=== PATIENT | male | born 1945 | race Caucasian/White ===

== ENCOUNTER 2021-11-19 10:02 | Outpatient (CLI) | payer MEDICARE, SELFPAY ==
--- NOTE | 2021-11-19 15:38 | WPDSIXMINUTE ---
Six Minute Walk Procedure Procedure Performed Pulmonary Stress Test (6 min walk) Six Minute Walk This is a 6 minute walk test. The test was performed and interpreted in accordance with the 2014 ERS/ATS task force guidelines. Findings: The patient's resting room air oxygen saturation measured by pulse oximetry was 94% and heart rate was 62 bpm. Patient ambulated for 427 meters and oxygen saturation remained 92 to 94%. Heart rate at the end of the study was 93 bpm. The patient did not qualify for supplemental oxygen at rest or with ambulation. There are no prior studies for comparison.
--- NOTE | 2021-11-19 15:39 | WPDPFTINT ---
PFT Procedure Performed PFT Procedure Performed Spirometry with Pre/Post Bronchodilator Plethysmography (Lung Vol) Diffusing Cap (DLCO) Flow Vol Loop PFT Interpretation This is a pulmonary function test with pre and post-bronchodilator spirometry, plethysmography and diffusing capacity. The test was performed and results interpreted in accordance with the 2019 and 2005 ATS/ERS Task Force guidelines respectively using the Global Lung Function Initiative-2012 reference equations. Patient demonstrated good effort and cooperation. Reproducibility criteria were met. The quality of the pre bronchodilator spirometry maneuver was Grade B and post bronchodilator spirometry maneuver was Grade A. Findings: Spirometry: There is decreased maximal expiratory airflow at all lung volumes with concave expiratory flow tracing. The contour the inspiratory flow tracing is normal. The pre bronchodilator FVC is 3.21 L, 76% predicted. The pre bronchodilator FEV1 is 1.54 L, 49% predicted. The FEV1: FVC ratio is 48%. The post bronchodilator FVC is 3.69 L, representing a 15% increase. The post bronchodilator FEV1 is 1.67 L, representing 8% increase. The post bronchodilator FEV1: FVC ratio is 45%. Plethysmography: The total lung capacity is 8.00 L, 111% predicted. The functional residual capacity is 5.45 L, 141% predicted. The residual volume is 4.53 L, 176% predicted. Diffusion capacity: The diffusing capacity unadjusted for hemoglobin and carboxyhemoglobin is 14.3, 56% predicted. The diffusing capacity adjusted for alveolar volume is 3.23, 86% predicted. Impression: There is a severe obstructive abnormality with significant improvement after inhaling a single dose of albuterol. The increase in residual volume is consistent with air trapping from an obstructive abnormality. Hyperinflation is present is demonstrated by the increase in functional residual capacity and is consistent with an obstructive abnormality. The diffusing capacity unadjusted for hemoglobin and carboxyhemoglobin is moderately decreased and normalizes when adjusted for alveolar volume. There are no prior studies for comparison
== END 2021-11-19 10:03 | disposition home or self-care (01) ==
PROVIDERS: PCP Nurse Practitioner Adult Health; Visit Provider Nurse Practitioner
DX: J44.9 Chronic obstructive pulmonary disease, unspecified (principal); R94.2 Abnormal results of pulmonary function studies
CPT/HCPCS: 94060; 94618; 94726; 94729

== ENCOUNTER 2024-10-19 07:46 | Outpatient (CLI) | payer MEDICARE, MEDICAID, SELFPAY ==
--- OUTSIDE RECORDS SUMMARY | 2024-10-19 07:52 | XMS_ITS | Clinical Summary ---
Author Organization [facility] Address [address] [place] [id number] Care Team Providers Care Handkerchief Maker Name Role Phone Ursula Bregeron NP Primary Care Provider Allergies Active Allergy Reactions Criticality Noted Date Comments Nxjpfngm-Lkiaogunmnf-Kzkrzdjgd Rash Medium 07/26 Medications aspirin 81 mg chewable tablet Take 1 tablet (81 mg total) by mouth 11/01/19 14 Active budesonide-form oteroL (SYMBICORT) 160-4.5 mcg/actuation inhaler 02/08/20 21 Active food supplemt, lactose-reduced liquid Take 240 mL by mouth 03/29/20 13 Active metoprolol tartrate (LOPRESSOR) 25 mg immediate release tablet Take 1 tablet (25 mg total) by mouth daily 04/11/20 21 Active rosuvastatin (CRESTOR) 20 mg tablet Take 1 tablet (20 mg total) by mouth nightly at bedtime 04/11/20 21 Active traZODone (DESYREL) 150 mg tablet Take 1 tablet (150 mg total) by mouth nightly at bedtime 04/11/20 21 Active umeclidinium-vi lanteroL (Anoro Ellipta) 62.5-25 mcg/actuation blister with device INHALE 1 PUFF DAILY 01/12/20 21 Active levothyroxine (SYNTHROID) 75 mcg tablet Take 1 tablet (75 mcg total) by mouth 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 Active diclofenac sodium (VOLTAREN) 1 % gel APPLY 2 GRAMS TOPICALLY TO AFFECTED AREA FOUR TIMES DAILY Active dilTIAZem (CARDIZEM) 90 mg tablet Take 1 tablet (90 mg total) by mouth 2 (two) times a day Active nebulizer accessories [facility] Please provide pt with nebulizer tubing kits 2 each 07/12/20 24 Active sodium chloride 3 % nebulizer solutionIndicat ions:Bronchiect asis without acute exacerbation (HCC) Take 4 mL by nebulization 2 (two) times a day 360 mL 09/08/19 25 2025 Active inhalational spacing device (Aerochamber MV) spacerIndicatio ns:Centrilobula r emphysema (HCC) 1 each 2 (two) times a day 1 each 3 09/08/19 25 Active albuterol HFA (PROVENTIL HFA,VENTOLIN HFA,PROAIR HFA) 90 mcg/actuation inhaler USE 2 INHALATIONS BY MOUTH EVERY 6 HOURS NEEDED FOR WHEEZING 34 g 10/05/19 25 Active albuterol HFA (PROVENTIL HFA,VENTOLIN HFA,PROAIR HFA) 90 mcg/actuation inhaler Inhale 2 puffs every 6 (six) hours as needed for wheezing 1 each 01/20/20 24 2024 Discontinued Active Problems Problem Noted Date Diagnosed Date Chronic respiratory failure with hypoxia, on home O2 therapy 09/08/2024 Assessment & Plan (09/08/2024 11:42 AM NAILING MACHINE FEEDER): Continue supplemental oxygen with all sleep at 2 liters We have discussed the risks of hypoxia I have reordered walk testing today Bronchiectasis without acute exacerbation 2023 Assessment & Plan (09/08/2024 11:41 AM NAILING MACHINE FEEDER): He has tried and failed flutter therapy and NAC with a reaction Continue smart vest therapy twice daily I will add hypertonic saline via nebulizer twice daily He can also use Mucinex He had significant worsening of his mucus plugging and consolidative opacities on his last CT, I will plan to repeat CT chest in 1 month He has a history of positive Klebsiella and Serratia on sputum cultures from 2021 Assessment & Plan (03/29/2024 11:56 AM CDT): He has tried and failed flutter therapy, NAC He continues to have difficulty with mucus clearance He has had a chronic productive daily cough for greater than 6 months We have discussed smart vest and he is in agreement Order signed today Assessment & Plan (11/26/2023 2:26 PM CDT): He has tried and failed flutter therapy, NAC Continues to have difficulty with mucus clearance We have discussed smart vest and he is in agreement Ordered today Esophageal dysmotility 09/04/2023 Assessment & Plan (09/11/2023 10:08 AM NAILING MACHINE FEEDER): 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 Noted previous speech therapy evaluation nonconclusive. Will plan EGD and follow up response to dilation. 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 Prediabetes 04/11/2021 Combined forms of age-related cataract of both e yes 01/10/2021 Hyperopia of both eyes 01/10/2021 Type 2 diabetes mellitus wit hout complication, without long-term current use of insulin 01/10/2021 Tubular adenoma of colon 11/29/2020 Diverticulosis of large intestine without divert iculitis 02/17/2019 Personal history of colonic polyps 02/17/2019 Emphysema of lung 12/16/2014 Assessment & Plan (09/08/2024 11:41 AM NAILING MACHINE FEEDER): Continue Spiriva Respimat 2.5 once daily Continue Symbicort 160/4.5 2 puffs twice daily, I will obtain a copy of his most recent CBC and consider decreasing his ICS dose Albuterol as needed only, he is aware of indications for use He is not having frequent exacerbations A1AT was normal I will plan to repeat walk testing to ensure he is not desaturating with activity Assessment & Plan (03/29/2024 11:58 AM CDT): Continue Spiriva Respimat 2.5 once daily Continue Symbicort 160/4.5 2 puffs twice daily Albuterol as needed only, he was aware of indications for use He is not having frequent exacerbations A1AT was normal I have written a letter for his landlord to recommend he move to the 2nd floor due to air conditioning issues Assessment & Plan (11/26/2023 2:24 PM CDT): Continue Spiriva Respimat 2.5 once daily I have reinstructed him on Symbicort use at twice daily Albuterol as needed only He has not having frequent exacerbations Acute coronary syndrome 10/30/2013 Coronary artery disease 10/30/2013 Pulmonary nodules 10/30/2013 Assessment & Plan (09/08/2024 11:42 AM NAILING MACHINE FEEDER): Scattered bilaterally, these have been followed radiographically Likely related to chronic aspiration or infection His last scan demonstrated increased consolidations and mucus plugging I will plan to repeat his CT chest in one month Assessment & Plan (03/29/2024 11:57 AM CDT): Scattered bilaterally, these have been followed radiographically Likely related to chronic aspiration or infection Repeat scan due 07/09/2024, I have ordered this today and he is aware Assessment & Plan (11/26/2023 2:18 PM CDT): Scattered bilaterally, these have been followed radiographically Likely related to chronic aspiration or infection Repeat scan due 07/09/2024 Duodenal ulcer disease 03/23/2013 Overview (05/10/2021): Per EGD 03/23/13 Dysphagia 03/17/2013 Assessment & Plan (11/26/2023 2:19 PM CDT): This is chronic He has followed with GI and had EGD completed, biopsies were negative for malignancy He is uninterested in speech therapy at this time Assessment & Plan (09/11/2023 10:06 AM NAILING MACHINE FEEDER): 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 Esophageal abnormality is still possibility. Patient was advised to increase and sure intake to at least 4 or 5 cans per day. Schedule EGD for evaluation. HTN (hypertension) 10/19/2010 Hyperlipidemia 10/19/2010 Hypothyroidism 10/19/2010 Jaw pain 10/19/2010 Encounters Date Type Department Care Team Description 10/01/2024 Telephone [facility] Pulmonary at [address] [place] [address] Juhi Weems 09/22/2024 10:22 AM NAILING MACHINE FEEDER - 09/22/2024 11:59 PM NAILING MACHINE FEEDER Hospital Encounter [facility] [address] [place] [id number] Pulmonary nodules Discharge Disposition: Discharge to home or self care 09/21/2024 Telephone [facility] [address] [place] [id number] Darline Christine 09/08/2024 10:00 AM NAILING MACHINE FEEDER Office Visit [facility] Pulmonary at [address] [phone] Kristina Renteria NP Bronchiectasis without acute exacerbation (HCC) (Primary Dx); Centrilobular emphysema (HCC); Pulmonary nodules; Chronic respiratory failure with hypoxia, on home O2 therapy (HCC) 08/02/2024 Orders Only [facility] Pulmonary at [address] [phone] Katherine Troncoso LPN Centrilobular emphysema (HCC) (Primary Dx); Bronchiectasis without acute exacerbation (HCC) 07/27/2024 Telephone [facility] Pulmonary at [address] [address] Helena Newman MA Dysphagia 07/22/2024 Orders Only [facility] Pulmonary at [address] [address] Katherine Troncoso LPN Bronchiectasis without acute exacerbation (HCC) (Primary Dx); Centrilobular emphysema (HCC); Chronic obstructive pulmonary disease, unspecified COPD type (HCC) from Last 3 Months Immunizations Immunization Administration Dates Next Due Influenza, Quadrivalent, Shira l Culture-based MDCK, Antibiotic Free, Intramuscular 04/20/2019 Influenza, Quadrivalent, Hig h Dose, Preservative Free, Intrr 04/11/2021 Influenza, Trivalent, High D ose, Split, Preservative Free, Intramuscular 04/10/2020 Influenza, Trivalent, IM (MDV) 04/13/2018,2016 Influenza, Trivalent, Preservative Free, Intramu scular 04/22/2012 Influenza, Unspecified 04/11/2021,04/10/2020 Pneumococcal Polysaccharide PPV23 07/28/2020 Tdap 09/29/2019,10/12/2007 Surgical History Surgery Date Site/Laterality Comments CATARACT EXTRACTION, BILATERAL 07/21/2020 - 07/20/2021 MANDIBLE SURGERY 07/21/1991 - 07/20/1992 CARPAL TUNNEL RELEASE Left Medical History Medical History Date Comments HTN (hypertension) Cataracts, bilateral COPD (chronic obstructive pulmonary disease) (HC C) Thyroid disease Squamous cell carcinoma of tonsil (HCC) Bronchiectasis without acute exacerbation (HCC) 11/26/2023 Family History Medical History Relation Name Comments Thyroid disease Brother Misha Thyroid disease Sister Kristina Relation Name Status Comments Brother Misha Father Mother Sister Kristina Social History Tobacco Use Types Packs/Day Years Used Date Smoking Tobacco: Former Cigarettes 0.5 18 1 958 - 1975 Passive Smoke Exposure: Past Smokeless Tobacco: Never Tobacco Cessation:Counseling Given: Not Answered AUDIT-C Answer Date Recorded Q1: How often do you have a drink containing alc ohol? Patient declined 09/08/2024 Average Number of Drinks Not on file 025 Frequency of Binge Drinking Not on file 08/21 Personal Safety Answer Date Recorded Have you ever been in or are you currently in a harmful physical or emotional relationship or is someone making you feel afraid or unsafe? Denies 10/30/2023 Sex and Gender Information Value Date Recorded Sex Assigned at Not on file Legal Sex Male 11:41 PM NAILING MACHINE FEEDER Gender Identity Male 05/13/2021 1:34 PM CDT Sexual Orientation Straight 05/13/2021 1: 34 PM CDT Obstetrics History Last Filed Vital Signs Vital Sign Reading Time Taken Comments Blood Pressure 161/84 09/08/2024 9:39 AM NAILING MACHINE FEEDER Pulse 64 09/08/2024 9:39 AM NAILING MACHINE FEEDER Temperature 36.5 C (97.7 F) 09/08/2024 9:39 AM NAILING MACHINE FEEDER Respiratory Rate 18 09/08/2024 9:39 AM NAILING MACHINE FEEDER Oxygen Saturation 97% 09/08/2024 9:39 AM NAILING MACHINE FEEDER Inhaled Oxygen Concentration - - Weight 82.7 kg (182 lb 4.8 oz) 09/08/2024 9:39 A M NAILING MACHINE FEEDER Height 182.9 cm (6') 09/08/2024 9:39 AM NAILING MACHINE FEEDER Body Mass Index 24.72 09/08/2024 9:39 AM NAILING MACHINE FEEDER Plan of Treatment Health Maintenance Due Date Last Done Comments Albumin Creatinine Ratio, Urine 1946 Depression Screening 1946 Fall Risk Assessment 1946 Hepatitis C Screening 1945 eGFR 1946 Dilated Eye Exam 1946 Foot Exam 1946 Lipid Panel 1946 Hepatitis B Screening 1964 Well Visit 65+ 11/25/2011 Hemoglobin A1C 06/30/2021 12/29/2020, 02/2021, 01/19/2020 Pneumococcal vaccine 65+ (2 of 2 - PCV) 07/28/2021 07/28/2020 Covid-19 Vaccine (3 - 2023-2 5 season) 2024 05/15/2021, 09/27/2020 DTaP/Tdap/Td Vaccine (3 - Td or Tdap) 09/28/2029 09/29/2019, 10/12/2007 Abdominal Aortic Aneurysm (A AA) Screen Completed 03/17/2013 Zoster Vaccine Completed 05/13/2022, 03/12/2022 Influenza Vaccine Completed 03/30/2024, , 04/11/2021, Additional history exists Procedures Procedure Name Priority Date/Time Associated Diagnosis Comments CT CHEST WO CONTRAST Schedule Routine, Read Routine (OP Routine) 09/22/2024 10:44 AM NAILING MACHINE FEEDER Pulmonary nodules from Last 3 Months Results * CT Chest WO Contrast (09/22/2024 10:44 AM NAILING MACHINE FEEDER) Anatomical Region Laterality Modality Body N/A Computed Tomogra phy 09/27/2024 1:33 PM CDT Narrative 09/27/2024 2:29 PM CDT EXAM DESCRIPTION: CT CHEST WO CONTRAST REASON FOR STUDY: Lung nodule, > 8mm, lung nodule/consolidations/bronchiectasis F/u on lung nodule TECHNIQUE: CT scan of the chest performed without intravenous contrast using helical scanning technique. Reconstructed coronal and sagittal MPR images reviewed. All images stored on PACS. Automated exposure control was used as a dose optimization technique for this examination. COMPARISON: Chest CT dated 06/23/[address] from an outside institution dated 07/07/2023. FINDINGS: The sensitivity for detection of solid visceral lesions is diminished without the use of intravenous contrast. LUNGS: There is bilateral bronchial wall thickening/bronchiectasis. Multiple opacified bronchi, in particular left lower lobe could be mucous plugging, endobronchial lesion with difficult to exclude. The medial margin left lower lobe consolidation has slightly increased in extent when compared to the previous CT dated 06/23/2024. Multifocal tree-in-bud nodularity on both sides favoring bilateral lower lobe. The posterior margin right upper lobe and right middle lobe tree-in-bud nodularity has slightly improved. Similarly the lingular tree-in-bud nodularity has also slightly improved. PLEURA: No effusion. No pneumothorax. MEDIASTINUM/TIFFANIE: Marked patulous distended thoracic esophagus and imaged cervical esophagus. There is air-fluid level/internal debris. Overall similar when compared to the previous chest CT dated 06/23/2024. Underlying achalasia or stricture would be difficult to exclude. A few nonspecific mediastinal lymph nodes are again seen. Index left paratracheal 1.1 cm and previously up to 1.1 cm on 06/23/2024. The evaluation for hilar adenopathy is limited without intravenous contrast. HEART: The heart is similar in size. CORONARY ARTERY CALCIFICATION: Present. VASCULATURE: The ascending thoracic aorta measuring up to 4 cm as seen previously. AXILLA: No adenopathy. CHEST WALL: There is no subcutaneous emphysema. HARDWARE/LINES/TUBES: None. UPPER ABDOMEN: Partially imaged spleen with calcified granuloma. There are vascular calcifications in the imaged upper abdomen. MUSCULOSKELETAL: The thoracic spine degenerative changes are grossly similar. IMPRESSION: 1. The multifocal bilateral tree-in-bud nodularity have slightly improved but not resolved when compared to the previous chest CT dated 06/23/2024. Recommend follow-up chest CT in 3 months time to re-evaluate. 2. Multiple opacified lower lobe bronchi, in particular the left lower lobe could reflect mucous plugging. Attention on follow-up to exclude endobronchial lesion. The left lower lobe consolidation has slightly increased in extent and could be atelectasis or pneumonic consolidation. Request clinical correlation and attention on follow-up. 3. Mediastinal prominent lymph nodes are again seen, presumed to be reactive, attention on follow-up. 4. Patulous esophagus with air-fluid level is redemonstrated. Achalasia or stricture would be difficult to exclude. Consider endoscopy if not performed in the interval. Suspect a component of aspiration for the above described lung findings. 5. Additional findings as above. THIS IS AN ELECTRONICALLY VERIFIED FINAL REPORT 09/27/2024 2:29 PM - Electronically signed by Magan Castro D.O. AP: AP Report ID: [id number] Reading Location: [place] [address] Procedure Note Magan Castro, DO - 09/27/2024 EXAM DESCRIPTION: CT CHEST WO CONTRAST REASON FOR STUDY: Lung nodule, > 8mm, lung nodule/consolidations/bronchiectasis F/u on lung nodule TECHNIQUE: CT scan of the chest performed without intravenous contrastusing helical scanning technique. Reconstructed coronal and sagittal MPR images reviewed. All images stored on PACS. Automated exposure control was usedas a dose optimization technique for this examination. COMPARISON: Chest CT dated 06/23/[address] from an outsideinstitution dated 07/07/2023. FINDINGS: The sensitivity for detection of solid visceral lesions is diminishedwithout the use of intravenous contrast. LUNGS: There is bilateral bronchial wall thickening/bronchiectasis. Multiple opacified bronchi, in particular left lower lobe could be mucous plugging, endobronchial lesion with difficult to exclude. The medial margin left lower lobe consolidation has slightly increased in extent when compared to the previous CT dated 06/23/2024. Multifocal tree-in-bud nodularity on both sides favoring bilateral lowerlobe. The posterior margin right upper lobe and right middle lobe tree-in-bud nodularity has slightly improved. Similarly the lingular tree-in-bud nodularity has also slightly improved. PLEURA: No effusion. No pneumothorax. MEDIASTINUM/TIFFANIE: Marked patulous distended thoracic esophagus andimaged cervical esophagus. There is air-fluid level/internal debris. Overall similar when compared to the previous chest CT dated 06/23/2024.Underlying achalasia or stricture would be difficult to exclude. A few nonspecific mediastinal lymph nodes are again seen. Index left paratracheal 1.1 cmand previously up to 1.1 cm on 06/23/2024. The evaluation for hilaradenopathy is limited without intravenous contrast. HEART: The heart is similar in size. CORONARY ARTERY CALCIFICATION: Present. VASCULATURE: The ascending thoracic aorta measuring up to 4 cm as seen previously. AXILLA: No adenopathy. CHEST WALL: There is no subcutaneous emphysema. HARDWARE/LINES/TUBES: None. UPPER ABDOMEN: Partially imaged spleen with calcified granuloma. Thereare vascular calcifications in the imaged upper abdomen. MUSCULOSKELETAL: The thoracic spine degenerative changes are grossly similar. IMPRESSION: 1. The multifocal bilateral tree-in-bud nodularity have slightlyimproved but not resolved when compared to the previous chest CT dated 06/23/2024. Recommend follow-up chest CT in 3 months time to re-evaluate. 2. Multiple opacified lower lobe bronchi, in particular the left lowerlobe could reflect mucous plugging. Attention on follow-up to exclude endobronchial lesion. The left lower lobe consolidation has slightly increased in extent and could be atelectasis or pneumonic consolidation. Request clinical correlation and attention on follow-up. 3. Mediastinal prominent lymph nodes are again seen, presumed to be reactive, attention on follow-up. 4. Patulous esophagus with air-fluid level is redemonstrated. Achalasiaor stricture would be difficult to exclude. Consider endoscopy if notperformed in the interval. Suspect a component of aspiration for the abovedescribed lung findings. 5. Additional findings as above. THIS IS AN ELECTRONICALLY VERIFIED FINAL REPORT 09/27/2024 2:29 PM - Electronically signed by aMgan Castro D.O. AP: ALBERTO Report ID: [id number] Reading Location: [place] [address] [place] Kristina Renteria HOME SCHOOL COORDINATOR IMG CT PROCEDURES Final Res ult from Last 3 Months Insurance [facility] MEDICARE ADVANTAGE MEDICARE ADVANTAGE IDPA Advance Directives For more information, please contact: [phone] * Full Code (Latest Code Status on File) Date Activated Date Inactivated Comments 10/30/2023 12:06 PM 10/30/2023 6:21 PM Care Teams Handkerchief Maker Relationship Specialty Start Date End Date Ursula Bergeron NP [address] [place] [id number] PCP - General Family Medicine 06/08/24
--- OUTSIDE RECORDS SUMMARY | 2024-10-19 07:52 | XMS_ITS | Encounter Summary ---
Author Organization [facility] Address 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
--- OUTSIDE RECORDS SUMMARY | 2024-10-19 07:52 | XMS_ITS | Data Portability ---
Author Organization [place] [employer], Main Office Address [address] [place] [address] Care Team Providers Care Integration Analyst Name Role Phone XOCHILT VANEGAS Primary Care Provider Assessment Encounter Date Assessment Date Assessment LastModified by Organization Details LastModified Time 04/15/2024 04/15/2024 cyst lower back. We will schedule for excision in the office under local anesthesia. Risks and benefits were discussed. Risks include bleeding, infection and numbness Not available 04/15/2024 12:32:06 05/18/2024 05/18/2024 procedure performed, dictated. No issues. Not available 05/18/2024 12:28:39 05/27/2024 05/27/2024 status post excision cyst lower back. Doing well. Follow up p.r.n. Not available 05/27/2024 11:09:13 Plan of Treatment Reminders Order Date Submit Date Provider Last Modified By Organization Details Last Modified Time Details Appointments None recorded. Lab CMP, serum or plasma 2024 025 [employer] [facility], [address], [place], [address], 5 22:26:30 lipid panel, serum 2024 025 [employer] [facility], [address], [place], [address], 5 22:26:28 CBC w/ auto diff 2024 025 [employer] [facility], [address], [place], [address], 22:26:31 TSH, serum or plasma 2024 [facility], [address], [place], [address], 5 22:26:33 TSH + free T4, serum 2023 024 [place] [address] 4 [facility], [address] [place], [address], 4 11:48:48 T3, free, serum or plasma 2023 024 [place] [address] 4 [facility], [address] [place], [address], 4 11:49:06 Referral cardiologis t referral - Please call patient to schedule an appointment . Thank you. 2024 025 [place], [address] [facility], [facility] [address], [address], 09:49:[address] referral - Please call patient to schedule an appointment . Thank you. 2024 025 ROE [facility]-, [address] [place] [address], [address], [place], [address], 12:49:49 Procedures None recorded. Surgeries None recorded. Imaging None recorded. Medication Orders amoxicillin 400 mg-potassiu m clavulanate 57 mg/5 mL oral suspension 2024 025 ROE [facility] 2425, [address], [place], [address], 12:38:58 Bactrim DS 800 mg-160 mg tablet 2023 024 [email or web address] [facility], [address] [place] [address], [facility] [address], [place], [id number], 11:50:22 Patient TargetsNo targets recorded. Patient InstructionsNo instructions recorded. Reason for Referral Matchbook Maker Referral for Silva sinclair chronic obstructive pulmonary disease Please call patient to schedule an appointment. Thank you. Referring Physician: Justin Jane, Internal Medicine, Encounter Date: 08/25/2024 Data Technical Lead Referral for Es sential hypertension Please call patient to schedule an appointment. Thank you. Referring Physician: Justin Jane, Internal Medicine, Encounter Date: 08/25/2024 Results Created Date Observation Date Name Description Value Unit Range Abnormal Flag Note LastModifiedBy Organization Detail LastModifiedTime 03/18/20 24 XR, hand, 3 or more view [facility] [address] [place] [address] Patien t Name: NATHAN MOSCOSO Access ion #: [id number] Sex: M : 1945 1 8 Dictat ed By: Lizzie Suarez Attend ing Physic anna: EVERARDO ABREU [facility] Physic anna: EVERARDO ABREU Exam Date: 2023 09:29 AM Exam Name: XR HAND LT 3V Admitt ing Diagno sis(es ): CLINIC AL INDICA TION: left hand surger y f/o w/ pain TECHNI QUE: 3 radiog raphic views of the left hand were obtain ed. Compar killian: XR HAND BILAT 3V on DOS: 4 FINDIN GS/IMP RESSIO N: There is no eviden ce of acute fractu re or disloc ation. Chroni c left ulnar styloi d proces s fractu re. The visual ized joint space is well mainta ined. The alignm ent is anatom ical. There is no radiop aque foreig n body. Electr onical ly Signed by: Lizzie Suarez at 2023 10:36: 21 AM Page 1 [email or web address] [facility] ([facility]) [address] [place], [address], 04/07/2024 10:39:49 03/18/20 24 03/18/2024 XR, hand, 3 or more view No observ ation record ed. [email or web address] [facility] [address] [place], [address], 03/31/2024 15:18:43 Result Notes None recorded. Problems Name Problem SNOMED Code Status Onset Date Resolution Date Notes Provider Name and Address Organization Details Recorded Time Hyperchole sterolemia 78246854 Active 2020 Not Available [employer] 4 22:23:27 Chronic obstructiv e pulmonary disease 81656353 Active 2020 Not Available [facility] 4 22:23:27 Anti-nucle ar factor detected 744118554 Active 2021 Not Available [facility] 4 22:23:27 Bacterial infection caused by Klebsiella pneumoniae 457068413 Active 2021 Not Available [facility] 4 22:23:27 Copious sputum 018649049 Active 2021 Not Available [facility] 4 22:23:27 Esophageal dysmotilit y 767992182 Active 2021 Not Available [facility] 4 22:23:27 History of malignant neoplasm 888904315 Active 2020 Not Available [facility] 4 22:23:27 Abdominal mass 198612205 Active 2021 Not Available [facility] 4 22:23:27 Thick sputum 151802462 Active 2022 Not Available [facility] 4 22:23:27 Severe chronic obstructiv e pulmonary disease 063935178 Active 2022 Not Available [facility] 4 22:23:27 Postobstru ctive pneumonia 385136882 Active 2021 Not Available [facility] 4 22:23:27 At increased risk for aspiration 674288310 Active 2021 Not Available [facility] 4 22:23:27 Hypertensi ve disorder 44673857 Active 2020 Not Available [facility] 4 22:23:27 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 397550686 Active 2021 Not Available [facility] 4 22:23:27 Rajni, not Rajni albicans 327431212 Active 2021 Not Available [facility] 4 22:23:28 Dysphagia 40262531 Active 2021 Not Available [facility] 4 22:23:28 Hypothyroi dism 17103682 Active 2020 Not Available [facility] 4 22:23:28 Coronary arterioscl erosis 84887118 Active 2021 Not Available [facility] 4 22:23:28 Dyspnea on exertion 28408754 Active 2021 Not Available [facility] 4 22:23:28 Chronic cough 18464949 Active 2021 Not Available [facility] 4 22:23:28 Bacterial infection caused by Serratia 99607068 Active 2021 Not Available [facility] 4 22:23:28 Prediabete s 737178990 Active 2020 Not Available [facility] 4 22:23:28 Obstructiv e sleep apnea syndrome 96704391 Active 2022 Not Available [facility] 4 22:23:28 History of squamous cell carcinoma in situ 6501427864482 5 Active 2020 Not Available [facility] 4 22:23:28 Solitary nodule of lung 040793186 Active 2022 Not Available [facility] 4 22:23:28 Hyperlipid emia 80300531 Active 2022 Not Available [facility] 4 22:23:28 Insomnia 431210537 Active 2022 Not Available [facility] 4 22:23:27 Pain of bilateral hands 4224092576129 9109 Active 2022 Not Available [facility] 4 22:23:27 Osteoarthr osis of the carpometac arpal joint of the thumb 97381294 Active 2022 Not Available [facility] 4 22:23:27 Bilateral pain of joint of hands 0530464331068 9102 Active 2022 Not Available [facility] 4 22:23:27 Abnormal findings on diagnostic imaging of lung 238189788 Active 2022 Not Available [facility] 4 22:23:27 Arthritis of bilateral first carpometac arpal joints 2003471781881 102 Active 2022 Not Available [facility] 4 22:23:27 Pain of left hand 7981232572525 03 Active 2023 ANEESH Cesar [address], [place], [address] , [facility] 4 22:54:41 Diabetes mellitus 43782555 Active 2023 ANEESH Hernandez [address], [place], [address] , [employer] [facility] 4 11:30:11 Epidermoid cyst of skin of back 890973902 Active 2023 ANEESH Hernandez [address], [place], [address] , [employer] [facility] 4 11:34:05 Epidermoid cyst of skin 932646401 Active 2023 Jim esparza MD [address], [address], [place], [address] , [employer] [facility] 4 13:58:44 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 2024 Justin jarrett MD [address], [address], [place], [address] , [place] [facility] 5 12:10:07 Essential hypertensi on 79431882 Active 2024 Justin jarrett MD [address], [address], [place], [address] , [facility] [employer] [facility] [employer] 5 12:10:17 Esophageal dysphagia 94264177 Active 2024 Justin jarrett MD [address], [facility] [address], [place], [address] , [facility] [employer] [facility] [employer] 5 12:13:28 Notes:Medical History: Laryn geal penetration Hypothyroidism Hyperlipidemia Hypertension EF 55% Prediabetes Mild TR CAD 4.1 cm ascending thoracic aortic ectasia Moderate COPD LLL 6.7 mm pulm nodule Asbestos exposure 0997-7649 Mild splenomegaly Left 7.7 cm renal cyst Procedure History: 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 Please review these documents and add these problems to the patient's chart manually as needed. Problem Notes None recorded. Procedures Surgical History Date Name Laterality Status Provider Name and Address Organization Details Recorded Time 4 Blank Procedure Note completed Jim Ramirez MD [address], [facility] [address], [place], [address], [facility] [employer] [facility] [employer] 05/18/2024 12:28:30 3 Ortho - Cortisone Injection completed Olivier Jackson MD [address], [facility] [address], [place], [address], [facility] [employer] [facility] [employer] [place] 01/28/2023 14:48:33 other completed Annika Varela [place] [employer] [facility] [employer] [facility] 04/15/2024 12:02:59 Imaging Results Imaging Date Name Status LastModified by Organiz [facility] Details LastModified Time 03/18/2024 XR, hand, 3 or more view completed [email or web address] [facility] (Imaging) [address] [place], [address], 04/07/2024 10:39:49 03/18/2024 XR, hand, 3 or more view completed [email or web address] [facility] [address] [facility], [place], [address], 03/31/2024 15:18:43 Procedure Notes None recorded. Medical Equipment None Reported. Allergies Allergen ID Allergen Name Allergen Category Reaction Reaction Severity Criticality Documentation Date Start Date Code Code System Note Provider Name and Address Organization Details Recorded Time 39659 bacitraci n / neomycin / polymyxin B medicatio n Not available Not available Not available 09/18/2022 30204 9 RxNorm Not Available [facility] 3 23:31:27 54112 bacitraci n medicatio n Not available Not available Not available 03/29/2024 1291 RxNorm Other react ions and sever ities : 'Adve rse react ion to subst ance - Sever e'. Yoana Rodriguez APRN [address] [facility], [address], [place], [address] [place] [address] [employer] 4 14:17:39 Medications Name Sig Start Date Stop Date Status Note LastModified by Organization Details LastModified Time furosemid e 40 mg tablet TAKE 1 TABLET BY MOUTH EVERY DAY active Not Available Not Available No t Available acetylcys teine 200 mg/mL (20 %) solution USE 3MLS VIA NEBULIZE R THREE TIMES DAILY DIRECTED 08/25 completed Not Available Not Available Not Available nystatin 100,000 unit/mL oral suspensio n SWISH AND SWALLOW 5 ML BY MOUTH FOUR TIMES DAILY FOR 10 DAYS 03/10 completed Not Available Not Available Not Available prednison e 10 mg tablet TAKE 1 TABLET BY MOUTH THREE TIMES DAILY FOR 3 DAYS THEN 1 TWICE DAILY FOR 2 DAYS THEN 1 ONCE DAILY FOR 1 DAY 03/29 completed Not Available Not Available Not Available doxycycli ne hyclate 100 mg capsule Take 1 capsule twice a day by oral route for 10 days. active Not Available Not Available No t Available albuterol sulfate 2.5 mg/3 mL (0.083 %) solution for nebulizat ion INHALE THE CONTENTS OF 1 VIAL VIA NEBULIZE R 4 TIMES DAILY DIRECTED active Not Available Not Available No t Available azithromy kevin 250 mg tablet TAKE 2 TABLETS (500 MG) BY ORAL ROUTE ONCE DAILY FOR 1 DAY THEN 1 TABLET (250 MG) BY ORAL ROUTE ONCE DAILY FOR 4 DAYS 10/08 completed Not Available Not Available Not Available diltiazem CD 180 mg capsule,e xtended release 24 hr TAKE 1 CAPSULE BY MOUTH ONCE DAILY 08/25 completed Not Available Not Available Not Available benzonata te 200 mg capsule Take 1 capsule 3 times a day by oral route as needed. active Not Available Not Available No t Available sodium chloride 3 % for nebulizat ion USE 1 VIAL PER NEBULIZE R TWICE DAILY active Not Available Not Available No t Available ondansetr on HCl 4 mg tablet 04/11 completed Not Available Not Available Not Available bupivacai ne HCl 0.5 % (5 mg/mL) injection solution Take 20 mg by injectio n route. 08/25 completed Not Available Not Available Not Available prednison e 20 mg tablet Take 3 tablets every day by oral route in the morning for 5 days. active Not Available Not Available No t Available aspirin 81 mg tablet,de layed release Take 1 tablet every day by oral route for 90 days. active Not Available Not Available No t Available Ensure High Protein oral liquid Drink 4 orally per day 2023 active Not Available Not Available Not Avai lable prednison e 10 mg tablets in a dose pack Take 1 tab by mouth, 3 times a day for 3 daysTake 1 tab by mouth 2 times a day for 2 daysTake 1 tab by mouth once a day for 1 day 03/29 completed Not Available Not Available Not Available amoxicill in 400 mg-potass ium clavulana te 57 mg/5 mL oral suspensio n TAKE 10 ML BY MOUTH EVERY 12 HOURS FOR 7 DAYS. DISCARD REMAINDE R active Not Available Not Available No t Available OneTouch Ultra Test strips TEST DAILY 06/24 completed Not Available Not Available Not Available Kenalog 10 mg/mL suspensio n for injection Take 20 mg by injectio n route. 08/25 completed ND: [id number] 11-07 Not Available Not Available Not Available hydrocodo ne 7.5 mg-acetam inophen 325 mg tablet TAKE 1 TABLET BY MOUTH EVERY 6 HOURS NEEDED FOR PAIN 08/25 completed Not Available Not Available Not Available trazodone 150 mg tablet TAKE 1 TABLET BY MOUTH DAILY AT BEDTIME 2024 active Not Available Not Available Not Avai lable prednison e 50 mg tablet 04/11 completed Not Available Not Available Not Available trazodone 300 mg tablet Take 1 tablet every day by oral route at bedtime for 30 days. active Not Available Not Available No t Available levofloxa kevin 750 mg tablet Take 1 tablet every day by oral route as directed for 10 days. active Not Available Not Available No t Available methylpre dnisolone 4 mg tablets in a dose pack FOLLOW PACKAGE DIRECTIO NS 06/24 completed Not Available Not Available Not Available albuterol sulfate HFA 90 mcg/actua tion aerosol inhaler USE 2 INHALATI ONS BY MOUTH EVERY 4 HOURS NEEDED active Not Available Not Available No t Available cefdinir 300 mg capsule 04/11 completed Not Available Not Available Not Available diltiazem 60 mg tablet 06/24 completed Not Available Not Available Not Available doxycycli ne hyclate 100 mg tablet Take 1 tablet twice a day by oral route for 10 days. active Not Available Not Available No t Available levothyro xine 112 mcg tablet TAKE 1 TABLET BY MOUTH EVERY DAY active Not Available Not Available No t Available amoxicill in 875 mg-potass ium clavulana te 125 mg tablet Take 1 tablet every 12 hours by oral route as directed for 10 days. active Not Available Not Available No t Available diltiazem 90 mg tablet TAKE 1 TABLET BY MOUTH TWICE DAILY active Not Available Not Available No t Available Bactrim DS 800 mg-160 mg tablet Take 1 tablet every 12 hours by oral route for 7 days. 08/25 completed Not Available Not Available Not Available voriconaz ole 50 mg tablet TAKE 2 TABLETS BY MOUTH EVERY 12 HOURS FOR 14 DAYS DIRECTED 01/09 completed Not Available Not Available Not Available rosuvasta tin 20 mg tablet TAKE 1 TABLET BY MOUTH EVERY DAY AT BEDTIME active Not Available Not Available No t Available tadalafil 10 mg tablet TAKE 1 TABLET BY MOUTH NEEDED BEFORE SEXUAL ACTIVITY 08/25 completed Not Available Not Available Not Available metoprolo l tartrate 25 mg tablet TAKE 1 TABLET BY MOUTH EVERY DAY active Not Available Not Available No t Available acetylcys teine 600 mg capsule TAKE 1 CAPSULE BY MOUTH TWICE DAILY DIRECTED 01/28 completed Not Available Not Available Not Available Symbicort 160 mcg-4.5 mcg/actua tion HFA aerosol inhaler USE 2 INHALATI ONS BY MOUTH TWICE DAILY active in the morning Not Available Not Available Not Available Mucinex 1,200 mg tablet, extended release Take 1 tablet twice a day by oral route as directed for 30 days. 06/24 completed Not Available Not Available Not Available diclofena c 1 % topical gel APPLY 2 GRAMS TO THE AFFECTED AREA(S) BY TOPICAL ROUTE 4 TIMES PER DAY active Not Available Not Available No t Available ProChambe r USE DIRECTED TWICE DAILY active Not Available Not Available No t Available Suprep Bowel Prep Kit 17.5 gram-3.13 gram-1.6 gram oral solution 04/11 completed Not Available Not Available Not Available ropivacai ne (PF) 5 mg/mL (0.5 %) injection solution in office 08/25 completed [facility][NOTE 3] [address]-24 4- Not Available Not Available Not Available Anoro Ellipta 62.5 mcg-25 mcg/actua tion powder for inhalatio n INHALE 1 PUFF BY MOUTH EVERY DAY 10/08 completed Not Available Not Available Not Available Spiriva Respimat 2.5 mcg/actua tion solution for inhalatio n USE 2 INHALATI ONS BY MOUTH DAILY DIRECTED active in the evening Not Available Not Available Not Available UltiCare Safety Syringe 3 mL 23 gauge x 1 USE DIRECTED WITH NEBULIZE D ACETYLCY STEINE 01/28 completed Not Available Not Available Not Available OneTouch Ultra2 Meter USE DIRECTED TO TEST ONCE DAILY 06/24 completed Not Available Not Available Not Available OneTouch Delica Plus Lancet 33 gauge TEST DAILY 02/22 completed Not Available Not Available Not Available OneTouch Delica Plus Lancet 30 gauge 06/24 completed Not Available Not Available Not Available BinaxNOW COVID-19 Ag Self Test kit Use as Directed on the Package 06/24 completed Not Available Not Available Not Available Vitals Date Recorded Body height Body mass index (BMI) Body weight Body temperature Heart rate Oxygen saturation Oxygen saturation in Arterial blood by Pulse oximetry Systolic blood pressure Diastolic blood pressure Provider Name and Address Organization Details Last Updated DateTime 4 182.88 cm 24 kg/m2 95297.8 5 g 97.5 [degF] 70 /min 93 % 93 % 166 mm[Hg] 84 mm[Hg] Brook Hidalgo RN [facility] [employer] [facility] 4 11:21:33 Date Recorded Body height Body mass index (BMI) Body weight Provider Name and Address Organization Details Last Updated DateTime 04/15/2024 182.88 cm 22.5 kg/m2 12934.33 g Annika Varela [place] [employer] [facility] [employer] 04/15/2024 12:00:42 Date Recorded Body height Body mass index (BMI) Body weight Body temperature Heart rate Respiratory rate Oxygen saturation Oxygen saturation in Arterial blood by Pulse oximetry Systolic blood pressure Diastolic blood pressure Provider Name and Address Organization Details Last Updated DateTime 4 182.88 cm 22.5 kg/m2 48381.3 3 g 97.5 [degF] 70 /min 16 /min 93 % 93 % 166 mm[Hg] 84 mm[Hg] Reema Ortiz [place] [employer] [facility] [employer] 4 12:06:48 Date Recorded Body height Body mass index (BMI) Body weight Body temperature Heart rate Respiratory rate Oxygen saturation Oxygen saturation in Arterial blood by Pulse oximetry Systolic blood pressure Diastolic blood pressure Provider Name and Address Organization Details Last Updated DateTime 4 182.88 cm 22.5 kg/m2 33944.3 3 g 97.5 [degF] 70 /min 16 /min 93 % 93 % 166 mm[Hg] 84 mm[Hg] Reema Ortiz [place] [employer] [facility] [employer] 4 10:35:10 Date Recorded Body height Body mass index (BMI) Body weight Body temperature Heart rate Systolic blood pressure Diastolic blood pressure Provider Name and Address Organization Details Last Updated DateTime 5 182.88 cm 23.2 kg/m2 67445.3 g 97.6 [degF] 78 /min 140 mm[Hg] 66 mm[Hg] CHRISTOPHER Valdez [place] [employer] [facility] [employer] [facility] 5 11:58:34 Social History Question Answer Notes LastModified by Organizat ion Details LastModified Time Tobacco Smoking Status Former Smoker qiut age 30 CHRISTOPHER Valdez null[place] [employer] [facility] [employer] 08/25/2024 11:55:50 What Is Your Level Of Alcohol Consumption? None [id number] Information not available 09/18/2022 What Is Your Level Of Caffeine Consumption? Moderate Coffee, 2-3 Cups Per Day [id number] Information not available 09/18/2022 In The 14 Days Before Symptom Onset, Have You Had Close Contact With A Laboratory-confir med COVID-19 While That Case Was Ill? No [id number] Information not available 09/18/2022 In The 14 Days Before Symptom Onset, Have You Had Close Contact With A Person Who Is Under Investigation For COVID-19 While That Person Was Ill? No [id number] Information not available 09/18/2022 Are You Currently Employed? [place] [address] Information not available 04/15/2024 What Type Of Diet Are You Following? SPECIFIC Ensure - [facility] [place] - Needs Rx For 6 Cases A Month [id number] Information not available 09/18/2022 When Did You Quit Smoking? 17+yearssinc elastcigaret te [id number] Information not available 09/18/2022 What Was The Date Of Your Most Recent Tobacco Screening? 08/25/2024 [email or web address] Information not available 08/25/2024 What Is Your Relationship Status? Single [place] [address] Information not available 04/15/2024 At What Age Did You Start Smoking Tobacco? 10 [id number] Information not available 09/18/2022 Do You Use Any Illicit Or Recreational Drugs? No [id number] Information not available 09/18/2022 Has Tobacco Cessation Counseling Been Provided? No [id number] Information not available 09/18/2022 How Many Years Have You Smoked Tobacco? 20 [id number] Information not available 09/18/2022 Have You Recently Traveled Abroad? No [id number] Information not available 09/18/2022 Do You Have Any Dietary Restrictions? No Had Throat Cancer [id number] Information not available 09/18/2022 Do You Or Have You Ever Used Any Other Forms Of Tobacco Or Nicotine? No [id number] Information not available 09/18/2022 Sex: Male Functional Status Question Answer Note LastModified by Organizat ion Details LastModified Time What is your exercise level? None [id number] Information not available 09/18/2022 Mental Status None recorded. Family History Relationship Description Onset Age of this Age Resolved Age Notes LastModified by Organization Details LastModified Time Unspecified Relation Hypertensive disorder MIGRATION.460 [id number] Not available 09/18/2022 23:28:57 Unspecified Relation Myocardial infarction MIGRATION.556 [id number] Not available 09/18/2022 23:28:57 Unspecified Relation Cerebrovascu lar accident MIGRATION.539 [id number] Not available 09/18/2022 23:28:57 Unspecified Relation Family history of malignant neoplasm MIGRATION.745 [id number] Not available 09/18/2022 23:28:57 Unspecified Relation Kidney disease MIGRATION.629 [id number] Not available 09/18/2022 23:28:57 Medical History Condition Response DIABETES, TYPE Y CANCER: SPECIFY Y Immunizations Vaccine Type Date Status Note Provider Nam e and Address Organization Details Recorded Time Influenza, high-dose, quadrivalent, PF 1 completed Not Available [facility] 07/25/2023 22:23:28 zoster recombinant 2 completed Yoana Rodriguez APRN [address], [address], [place], [address], [employer] [facility] [employer] [facility] 03/29/2024 14:17:58 zoster recombinant 2 completed Yoana Rodriguez APRN [address], [place], [address], [employer] [facility] [employer] [facility] 03/29/2024 14:17:58 Influenza, high-dose, quadrivalent, PF 2 completed Yoana Rodriguez APRN [address], [place], [address], [employer] [facility] [employer] [facility] 03/29/2024 14:17:58 Influenza, high-dose, quadrivalent, PF 3 completed Yoana Rodriguez APRN [address], [place], [address], [facility] [employer] [facility] [employer] [facility] 03/29/2024 14:17:58 COVID-19, mRNA, LNP-S, PF, 30 mcg/0.3 mL dose 1 completed Yoana Rodriguez APRN [address], [address], [place], [address], [facility] 03/29/2024 14:17:58 Pneumococcal conjugate PCV20, polysaccharide [id number] conjugate, adjuvant, PF 3 completed Yoana Rodriguez APRN [address], [place], [address], [facility] 03/29/2024 14:17:58 COVID-19, mRNA, LNP-S, PF, 30 mcg/0.3 mL dose, edison-sucrose 2 completed Yoana Rodriguez APRN [address], [address], [place], [address], [facility] 03/29/2024 14:17:58 COVID-19, mRNA, LNP-S, bivalent, PF, 30 mcg/0.3 mL dose 2 completed Yoana Rodriguez APRN [address], [place], [address], [facility] 03/29/2024 14:17:58 RSV, bivalent, protein subunit RSVpreF, diluent reconstituted, 0.5 mL, PF 3 completed Yoana Rodriguez APRN [address], [place], [address], [facility] 03/29/2024 14:17:58 COVID-19, mRNA, LNP-S, PF, edison-sucrose, 30 mcg/0.3 mL 3 completed Yoana Rodriguez APRN [address], [address], [place], [address], [facility] 03/29/2024 14:17:58 COVID-19, mRNA, LNP-S, PF, edison-sucrose, 30 mcg/0.3 mL 4 completed CHRISTOPHER Valdez, [facility] 08/25/2024 11:54:34 Influenza, high-dose, trivalent, PF 4 completed Madhavi Feldman, CHRISTOPHER null, [place] - [facility] 08/25/2024 11:54:34 Past Encounters Encounter ID Performer Location Encounter Start Date Encounter Closed Date Diagnosis/Indication Diagnosis SNOMED-CT Code Diagnosis ICD10 Code Diagnosis Note [id number] [facility] [place] [address] [place] [address] 04/11/2021 00:00:00 04/11/2021 12:28:30 [id number] [facility] [place] [address] [place] [address] 04/23/2021 00:00:00 04/23/2021 08:23:44 [id number] [facility] [place] [address] [place] [address] 07/11/2021 00:00:00 07/11/2021 14:25:18 [id number] [facility] [place] [address] [place] [address] 10/08/2021 00:00:00 10/08/2021 10:43:12 [id number] [facility] Podiatry [place] [address] [place] [address] 10/22/2021 00:00:00 10/22/2021 15:59:59 [id number] S_[facility] Pulmonolo gy [place] [address] [place] [address] 10/31/2021 00:00:00 10/31/2021 15:34:00 [id number] [facility] Pulmonolo gy [place] [address], [address] [place] [address] 01/09/2022 00:00:00 01/09/2022 16:25:51 [id number] [facility] [place] [address] [place] [address] 01/23/2022 00:00:00 01/23/2022 11:53:40 [id number] [facility] Pul[facility] [place] [address] [place] [address] 02/22/2022 00:00:00 02/22/2022 11:41:06 [id number] [facility] [place] [address], [address] [place] [address] 03/12/2022 00:00:00 03/12/2022 16:14:51 [id number] [facility] Pul[facility] [place] [address], [address] [place] [address] 04/01/2022 00:00:00 04/01/2022 14:04:28 [id number] [facility] [place] [address] [facility] [address], [place] [address] 05/09/2022 00:00:00 05/09/2022 17:01:04 [id number] [facility] Pul[facility] [place] [address] [place] [address] 05/24/2022 00:00:00 05/24/2022 12:11:11 [id number] [facility] Jatin rodriguez [address] [facility] [place] [address] 06/11/2022 00:00:00 06/11/2022 14:19:12 [id number] [facility] Pul[facility] [place] [address] [place] [address] 06/21/2022 00:00:00 06/21/2022 11:55:31 [id number] [facility] Pul[facility] [place] [address] [facility] [address] [place] [address] 07/01/2022 00:00:00 07/01/2022 12:38:24 [id number] [facility] Primary Care Chelsea rodriguez [address] [facility] [address] [place] [address] 07/31/2022 00:00:00 07/31/2022 16:56:18 [id number] [facility] [place] Pulmonolo gy [place] [address] [place] [address] 07/31/2022 00:00:00 07/31/2022 13:29:58 [id number] S_[facility] [place] [place] Primary Care Chelsea rodriguez [address] [facility] [address] [place] [address] 08/28/2022 00:00:00 08/28/2022 18:34:58 [id number] Kristina Myra, [facility] [place] [place] Pulmonolo gy [place] [address] [place] [address] 09/30/2022 11:09:27 09/30/2022 12:28:23 Severe chronic obstructive pulmonary disease 179084671 J44.9 CAT 25PFT 11/2021 with ratio 48FEV1 49DLCO adjusted is normalCont inue Symbicort and Spiriva with aerochambe rAlbuterol PRN - discussed indication s for useDiscuss ed reportable signs and symptoms.R TC in 2-3 months, PRN for concerns Thick sputum 508309914 R 09.3 Intolerant to nebulized mucomystSt art oral BIDNarrowi ng of LLL bronchus per bronchosco py with thick mucous and plugs. Chronic cough 58263223 R 05.3 ImprovedMB S completed 01/2022 with laryngeal penetratio n identified with swallowing of thin liquid, thick liquid, and pudding consistenc y.No jennifer aspiration was identified Recommend GI Bacterial infection caused by Serratia 69984429 A49.8 10/2021 Bacterial infection caused by Klebsiella pneumoniae 834293421 B96.1 10/2021 Dyspnea on exertion 6084 5006 R06.09 ImprovedQu antiferon GOLD negativeIG E normaleosi nophils normalBNP normalIGGs normalSix minute walk normal 11/2021 Ex-smoker 8955040 Z87.[address] chest 05/2022 with nodule as above Solitary n odule of lung 340990199 R91.1 [address] chest 2Rep eat in 6 months, due 11/2022 [id number] Kristina Renteria, [employer]-[facility] [place] [place] [place] Pulmonolo gy [place] [address] [place] [address] 12/30/2022 11:12:17 12/30/2022 11:51:23 Severe chronic obstructive pulmonary disease 247279600 J44.9 CAT 25PFT 11/2021 with ratio 48FEV1 49DLCO adjusted is normalCont inue Symbicort 160 and Spiriva Respimat 2.5with aerochambe rInstructe d on technique todayAlbut marilyn PRN - discussed indication s for useDiscuss ed reportable signs and symptoms.R TC in 3-4 months, PRN for concerns Solitary n odule of lung 863720508 R91.[address] chest ep eat in 6 months, due 11/2022 - staff scheduled today Thick sputum 647443686 R 09.3 Intolerant to nebulized mucomystCo ntinue oral acetylcyst eine BIDNarrowi ng of LLL bronchus per bronchosco py with thick mucous and plugs. Chronic cough 88339789 R 05.3 ImprovedMB S completed 01/2022 with laryngeal penetratio n identified with swallowing of thin liquid, thick liquid, and pudding consistenc y.No jennifer aspiration was identified Recommend GI consultHe continues to decline Bacterial infection caused by Serratia 22844812 A49.8 10/2021 Bacterial infection caused by Klebsiella pneumoniae 392021218 B96.1 10/2021 Dyspnea on exertion 6084 5006 R06.09 Multifacto ralImprove dQuantifer on GOLD negativeIG E normaleosi nophils normalBNP normalIGGs normalSix minute walk normal ec ommend exercise programHe will consider [place] Ex-smoker 4245097 Z87.[address] chest 05/2022 with nodule as aboveHe has not repeated, staff scheduled this today Activity intolerance 774 90327 Z73.89 Multifacto ral [id number] MATT De La Torre [facility] [place] [place] Primary Care Chelsea jonatan [address] [facility] [address] [place] [place] [address] 01/16/2023 11:00:43 01/16/2023 12:53:45 Chronic obstructive pulmonary disease 72491106 J44.9 He has increased trouble with his SOB. Will try to put referral in for upright walker.Ref ills needed on inhalers/n ebulizer.C ontinue follow-up with pulmonolog y. Pain of bi lateral hands 0414414576 4485330 M79.641 M79.642 Most likely [facility] arthritis due to wear and tear.Will have him try topical for comfort. Epsom salt soaks.Will plan to refer to ortho if no improvemen t for imaging/in jections. [id number] Olivier Jackson MD [facility] [place] [place] Ortho [place] [address] [place] [address] 01/28/2023 14:02:53 01/28/2023 15:25:32 Pain of bilateral hands 6124150950 8596227 M79.642 M79.641 Osteoarthr osis of the carpometacarpal joint of the thumb 19958717 M18.9 M18.0 [id number] Olivier Jackson MD [facility] [place] [place] Ortho [place] [address] [place] [address] 02/25/2023 14:28:07 02/25/2023 15:25:45 Osteoarthrosis of the carpometacarpal joint of the thumb 59950176 M18.9 M18.0 [id number] Kristina Renteria, [facility] [place] Pulmonolo gy [place] [address] [place] [address] 04/15/2023 10:08:12 04/15/2023 11:08:18 Severe chronic obstructive pulmonary disease 327929979 J44.9 CAT 25PFT 11/2021 with ratio 48FEV1 49DLCO adjusted is normalCont inue Symbicort 160 and Spiriva Respimat 2.5with aerochambe rRX sent todayAlbut marilyn PRN - discussed indication s for useDiscuss ed reportable signs and symptoms.H e should follow up in 6 months, PRN for concerns Thick sputum 300565988 R 09.3 Intolerant to nebulized mucomystCo ntinue oral acetylcyst eine KARENNarrowi ng of LLL bronchus per bronchosco py with thick mucous and plugs.Re-s tart flutter valve use dailyMay need Smart Vest therapy Chronic cough 44101092 R 05.3 ImprovedMB S completed 01/2022 with laryngeal penetratio n identified with swallowing of thin liquid, thick liquid, and pudding consistenc y.No jennifer aspiration was identified Bacterial infection caused by Serratia 82415536 A49.8 10/2021 Bacterial infection caused by Klebsiella pneumoniae 134648051 B96.1 10/2021 Dyspnea on exertion 6084 5006 R06.09 Multifacto ralQuantif jorge GOLD negativeIG E normaleosi nophils normalBNP normalIGGs normalSix minute walk normal 2Rec ommend exercise programHe will consider [place] Activity intolerance 774 66778 Z73.89 Multifacto ral Ex-smoker 2974259 Z87.[address] chest as above Abnormal f indings on diagnostic imaging of lung 387706575 R91.[address] chest due 06/2023, ordered todayHe is aware to call PCM about results if he has not heard one week after completed [id number] MATT Hua [facility] Orth[facility] [place] [address] [place] [address] 05/26/2023 08:53:28 05/26/2023 10:47:16 Pain of bilateral hands 8484079017 1974997 M79.642 M79.641 Arthritis of bilateral first carpometacarpal joints 1755596932 438967 M13.841 M13.940 [id number] Kristina Renteria, TUBE REBUILDER-[facility] Pulmonolo gy [place] [address] [place] [address] 06/02/2023 14:01:13 06/02/2023 15:08:11 Severe chronic obstructive pulmonary disease 525069316 J44.9 PFT 11/2021 with ratio 48FEV1 49DLCO adjusted is normalCont inue Symbicort 160 and Spiriva Respimat 2.5with aerochambe rRX sent todayAlbut marilyn PRN - discussed indication s for useDiscuss ed reportable signs and symptoms.H e should follow up in 6 months, PRN for concerns Abnormal f indings on diagnostic imaging of lung 097195746 R91.[address] chest due 06/2023Sch eduled 07/07/23, has follow up with PCM Thick sputum 070214826 R 09.3 Intolerant to nebulized mucomystCo ntinue oral acetylcyst eine BIDNarrowi ng of LLL bronchus per bronchosco py with thick mucous and plugs.Re-s tart flutter valve use daily - I have stressed the importance of thisMay need Smart Vest therapy Chronic cough 83322038 R 05.3 ImprovedMB S completed 01/2022 with laryngeal penetratio n identified with swallowing of thin liquid, thick liquid, and pudding consistenc y.No jennifer aspiration was identified May need repeat Bacterial infection caused by Serratia 63599476 A49.8 10/2021 Bacterial infection caused by Klebsiella pneumoniae 578677319 B96.1 10/2021 Dyspnea on exertion 6084 5006 R06.09 Multifacto ralQuantif jorge GOLD negativeIG E normaleosi nophils normalBNP normalIGGs normalSix minute walk normal 2Rec ommend exercise programI have strongly urged pulmonary rehab Activity intolerance 774 89295 Z73.89 Multifacto ral Ex-smoker 3096377 Z87.[address] chest as above [id number] MATT De La Torre [facility] [address] [place] [address] 07/28/2023 13:58:24 07/28/2023 14:35:19 Chronic obstructive pulmonary disease 74772837 J44.9 He has increased trouble with his SOB. Plan to try and order motorized scooter to help relieve work of breathing and improve ambulation . He has had a motorized scooter in the past but thinks it was from 2001 and is need of a new one. Mobilit y Assessment --This patient has multiple chronic health issues which impact his/her mobility. He suffers from COPD, arthritis, generalize d weakness.- -A PMD is needed for this patient to get to/from the bathroom for bathing and toileting purposes. A PMD is needed for this patient to get to/from the kitchen for meal prep, cooking, and eating. A PMD is needed for this patient to get to/from the bedroom for person grooming and dressing purposes.- - He cannot continue to use cane/walke r because this does not relieve his work of breathing. --A manual w/c will not medically meet this patient's mobility needs in his home because he cannot use a MWC d/t decreased transcripter strength bilaterall y.--A PMD will improve this patient's in home ability to perform his ADLs by reducing his need for assistance when none is available. --This patient can safely operate the PMD both mentally and physically .--This patient is very motivated to use the PMD in hi/her home. Continue follow-up with pulmonolog y. CT results not in chart yet. [id number] ANEESH Cesar [facility] Primary Care [address] [place] [address] 10/24/2023 11:44:49 10/24/2023 12:11:16 Adult health examination 689154023 Z00.00 Encouraged fresh fruits and veggies-lo w intake of both, drinks ensureIncr ease daily water intake-enc ouraged 6-8 glasses/da y, coffeeEnco urage 30 mins of daily exercise-w alks for exerciseCo lonoscopy- orderedDEX A-no hx of recurrent fxLDCT-not a smoker, not a drinker-la bs obtained Screening for malignant neoplasm of colon 332325695 Z12.11 [id number] ANEESH Cesar [facility] Primary Care [address] [place] [address] 12/10/2023 09:02:36 12/10/2023 09:47:47 Pain of bilateral hands 6498003976 4422331 M79.641 -pain noted to bilateral hands (severity depends on level of activity)- unable to play his guitar/per form other hobbies-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 [place] [address] 12/18/2023 09:04:22 12/18/2023 10:08:39 Arthritis of bilateral first carpometacarpal joints 6904321503 988956 M13.841 M13.842 Pain of bi lateral hands 1273331219 [id number] M79.673 [id number] Heather Pina MD [facility] General Surgery [address] [address] 12/31/2023 11:37:55 12/31/2023 11:58:43 History of polyp of colon 407778390 Z86.107 [id number] AUGUSTA HernandezP-C [facility] Primary Care [facility] [address] [facility] [address] [place] [address] 03/10/2024 11:15:16 03/10/2024 11:45:46 Hypothyroidism 30025833 E03.9 Recent hair loss.Will recheck labs as listed below. Epidermoid cyst of skin of back 526082391 L72.0 Patient will follow up as needed. [id number] Jim esparza MD [facility] General Surgery [address] [address] 04/15/2024 11:24:54 04/19/2024 15:32:16 Epidermoid cyst of skin of back 934450915 L72.0 [id number] Jim esparza MD [facility] General Surgery [address] [address] 05/18/2024 11:35:06 05/18/2024 12:29:36 Epidermoid cyst of skin 645522676 L72.0 left back [id number] Jim esparza MD [facility] [address] [facility] [address] [address] 05/27/2024 10:14:37 06/16/2024 11:56:29 Epidermoid cyst of skin 858312820 L72.0 left back [id number] Justin jarrett MD [facility] Primary Care Chelsea rodriguez [address] [facility] [address] [place] [address] 08/25/2024 11:35:46 08/25/2024 12:39:29 Screening - NAD 324288796 Z13.9 C-scope: C-scope 01/05/2024 : Dr Pina Get yearly flu shot, do Tdap if not doneGet PCV #20Get shingrix vaccine and RSV vaccineCan do COVID 19 boosters RTC in 1 months, do labs, ER if worse, he and his girl friend did verbalize his understand ing of the above Severe chr onic obstructive pulmonary disease 465779726 J44.9 Sees Kristina Renteria [employer] last 06/02/2023 On albuterol HHNOn albuterol inhalerOn SpirivaOn SymbicortW ill see Kristina Renteria referredHa s noted a cough, will start on augmentin 800mg bid for 7 days as an oral suspension Hyperlipidemia 27521777 E78.5 On rosuvastat in 20mg dailyGet labs 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, 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 Essential hypertension 95219350 I10 On ASAOn diltiazem 90mg dailyOn lasix 40mg dailyOn metoprolol 25mg dailySees Dr Taylor [facility] Hypothyroidism 29993879 E03.9 On levothyrox ine 112mcgs dailyGet labs Esophageal dysphagia 408 98383 R13.19 S/p radiation Rx for tonsillar cancerEGD Dr Joy 10/30/2023 , may need feeding tube Health Concerns Section Related Observation LastModified by Organization Detai ls LastModified Time None Recorded Concern Status LastModified by Organization Details LastModified Time None Recorded Advance Directives Directive None Recorded Payers Encounter Date Sequence Insurance Name Policy Number Policy Reyes Covered Member ID Reyes Member ID Guarantor Name 03/10/2024 1 [facility] (MEDICARE REPLACEMENT/AD VANTAGE - PPO) [id number] Nathan L Goodridge [id number] Nathan L Goodridge 04/15/2024 1 [place] Nathan L Goodridge [id number] Nathan L Goodridge 05/18/2024 1 [facility] (MEDICARE REPLACEMENT/AD VANTAGE - HMO) [id number] Nathan L Danis [id number] Nathan L Danis 05/27/2024 1 [facility] (MEDICARE REPLACEMENT/AD VANTAGE - HMO) [id number] Nathan L Danis [id number] Nathan L Goodridge 05/27/2024 2 [place] OR [place]ICARE REPLACEMENT PRIMARY) Nathan L Goodridge [id number] Nathan L Danis 08/25/2024 1 [facility] (MEDICARE REPLACEMENT/AD VANTAGE - HMO) [id number] Nathan L Goodridge [id number] Nathan L Goodridge 08/25/2024 2 [place] OR [place]IC[place] REPLACEMENT PRIMARY) Nathan L Danis [id number] Nathan L Danis Notes Date Note Type Note Provider Name and Address Organization Details Recorded Time 03/10/2024 text/html Patient is a 78 year old male that presents to the office for follow up. Patient is doing well on current medications and denies chest pain and shortness of breath, nausea vomiting and diarrhea. Patient is requesting repeat thyroid labs due to family history and recent issues with hair loss. Patient also reports recurrent cyst to back, left side. Patient reports it has been there for a years however it is bigger now than ever. Patient reports trying to drain it however nothing came out. Patient reports it is painful when he lies on it. Patient reports he had carpel tunnel surgery on left hand about one month ago, is recovering well. BROOKE Hernandez-Rosanna [address] [place], [place], [address], [employer] 03/10/2024 12:38:38 04/15/2024 text/html patient complain s of draining cyst on his back that he has had for several years. Waxes and wanes. Denies fevers or chills. Would like to have it removed Jim Ramirez MD [address], [place], [address], [employer] 04/15/2024 16:34:43 05/18/2024 text/html patient here for excision left lower back cyst Jim Ramirez MD [address], [place], [address], [facility] [employer] [facility] 05/18/2024 14:02:04 05/27/2024 text/html No complaints Jim Ramirez MD [address] [place] [address], [place], [address], [facility] [employer] [facility] 05/27/2024 13:18:19 08/25/2024 text/html OV 08/25/2024:He re to establish care Present Hx:HTNHLDHypothyro idismCOPDHx of tonsillar cancer Here to discuss above, he also has noted a slight but now worsening cough, clear, no hempotysis, no chest pain, mildly SOB, no wheezingHe is here with his girl friend Justin Jane MD [address] [place] [address], [place], [address], [facility] [employer] [facility] 08/25/2024 12:46:32
--- OUTSIDE RECORDS SUMMARY | 2024-10-19 07:52 | XMS_ITS | Encounter Summary ---
Author Organization [facility] Address 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 Gender Identity Not on file Sexual Orientation Not on file documented as of this encounter Plan of Treatment Not on file documented as of this encounter Visit Diagnoses Diagnosis Malignant neoplasm of pharynx, 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
--- OUTSIDE RECORDS SUMMARY | 2024-10-19 07:52 | XMS_ITS | Encounter Summary ---
Author Organization [facility] Address 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
--- OUTSIDE RECORDS SUMMARY | 2024-10-19 07:52 | XMS_ITS | Encounter Summary ---
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
--- OUTSIDE RECORDS SUMMARY | 2024-10-19 07:52 | XMS_ITS | Encounter Summary ---
Author Organization [facility] Address 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
--- OUTSIDE RECORDS SUMMARY | 2024-10-19 07:52 | XMS_ITS | Clinical Summary ---
Author Organization [facility] Address [address] [place] [address] Care Team Providers Care Information Technology Technician Name Role Phone Galileo Kiser MD Primary Care Provider Allergies Active Allergy Reactions Criticality Noted Date Comments Cypmynpp-Myseqpljxtt-Owaopciir Rash Low 07/26 Medications Food Supplement, Lactose-Free (ENSURE HIGH PROTEIN) Oral Liqd Take 240 mL by mouth q 3 hour. 33670 mL 11 03/29/20 13 Active Additional Information Patient taking differently:240 mL Oral,(No frequency reported), Reported on 08/08/2017 aspirin (CHRISTINA CHEWABLE) 81 mg Tablet, Chewable Take 1 Tab by mouth daily with breakfast. 30 Tab 0 11/01/19 14 Active Miscellaneous Medical Supply Small volume nebulzier 1 Each 1 12/01/19 14 Active montelukast (SINGULAIR) 10 mg tabletIndications: Emphysema of lung (CMS/HCC) Take 1 Tab (10 mg) by mouth daily. 30 Tab 11 12/22/19 15 Active guaiFENesin (MUCINEX) 600 mg Extended Release Biphasic tabletIndications: Acute bronchitis, unspecified organism Take 1 Tablet (600 mg) by mouth 2 times daily. 04/02/20 16 Active fluticasone-umecli dinium-vilanterol (TRELEGY ELLIPTA) 100-62.5-25 mcg Disk with DeviceIndications: Chronic obstructive pulmonary disease, unspecified COPD type (CMS/HCC) Take 1 Puff by inhalation daily. 1 Each 01/13/20 20 Active blood sugar diagnostic (OneTouch Verio test strips) StripIndications:T ype 2 diabetes mellitus without complication, without long-term current use of insulin (CMS/HCC) Patient to test BG 1 time per day. E11.9 50 Each 5 03/01/20 20 Active lancets (OneTouch Delica Lancets) 30 gaugeIndications:T ype 2 diabetes mellitus without complication, without long-term current use of insulin ([facility]/HCC) Patient to test BG 1 time per day. E11.9 100 Each 5 03/01/20 20 Active ipratropium-albute roL (DUONEB) 0.5 mg-3 mg(2.5 mg base)/3 mL Solution for NebulizationIndica tions:Chronic obstructive pulmonary disease, unspecified COPD type (CMS/HCC) USE 1 VIAL IN NEBULIZER EVERY 6 HOURS NEEDED FOR SHORTNESS OF BREATH 180 mL 04/11/20 20 Active albuterol HFA 90 mcg inhalerIndications :Chronic obstructive pulmonary disease, unspecified COPD type (CMS/HCC) INHALE 2 PUFFS EVERY SIX HOURS NEEDED FOR SHORTNESS OF BREATH. 25.5 Gram 11 09/26/19 21 Active rosuvastatin (CRESTOR) 20 mg tabletIndications: Mixed hyperlipidemia TAKE 1 TABLET DAILY AT BEDTIME. 90 Tablet 4 09/26/19 21 Active predniSONE (DELTASONE) 50 mg tabletIndications: Chronic obstructive pulmonary disease, unspecified COPD type (CMS/HCC) Take 1 Tablet (50 mg) by mouth daily. 5 Tablet 12/30/19 21 Active traZODone (DESYREL) 150 mg tablet Take 1 Tablet (150 mg) by mouth daily at bedtime. 90 Tablet 1 12/30/19 21 Active metoprolol tartrate (LOPRESSOR) 25 mg tabletIndications: Essential hypertension Take 1 Tablet (25 mg) by mouth 2 times daily. 180 Tablet 1 12/30/19 21 Active Anoro Ellipta 62.5-25 mcg/actuation Disk with DeviceIndications: Chronic obstructive pulmonary disease, unspecified COPD type (CMS/HCC) INHALE 1 PUFF DAILY 60 Each 3 01/12/20 21 Active budesonide-formote roL (Symbicort) 160-4.5 mcg/actuation HFA Aerosol InhalerIndications :Chronic obstructive pulmonary disease, unspecified COPD type (CMS/HCC) INHALE 2 PUFFS TWICE DAILY 10.2 Gram 02/08/20 21 Active levothyroxine 112 mcg tabletIndications: Hypothyroidism due to acquired atrophy of thyroid Take 1 Tablet (112 mcg) by mouth daily. 90 Tablet 12/21/20 21 Active Active Problems Problem Noted Date Diagnosed Date Combined forms of age-related cataract of both e yes 01/10/2021 Type 2 diabetes mellitus wit hout complication, without long-term current use of insulin 01/10/2021 Hyperopia of both eyes 01/10/2021 Tubular adenoma of colon-removed 11/28/20 021 Personal history of colonic polyps 02/17/2019 Diverticulosis of large intestine without divert iculitis 02/17/2019 Emphysema of lung 12/16/2014 Pulmonary nodules 10/30/2013 Chest pain on respiration 10/30/2013 Coronary artery disease 10/30/2013 Acute coronary syndrome 10/30/2013 Duodenal ulcer disease 03/23/2013 Overview (03/23/2013): Per EGD 03/23/13 Dysphagia 03/17/2013 HTN (hypertension) 10/19/2010 Hyperlipidemia 10/19/2010 Hypothyroidism 10/19/2010 Jaw pain 10/19/2010 Chronic pain 10/19/2010 Resolved Problems Problem Noted Date Diagnosed Date Resolved Date Chronic hepatitis C genotype 1a 08/08/2017 12/29/2020 Throat cancer 11/25/2010 12/29/2020 Immunizations Immunization Administration Dates Next Due (ADACEL/BOOSTRIX)(10 YR UP) TDAP VACCINE, 0.5ML, IM 09/29/2019 (WING) COVID-19 VACCINE - EMERGENCY USE AUTHORIZATION, AD26,COV2S(PF) 0.5 ML IM SUSP 09/27/2020 (PNEUMOVAX 23)(50 YRS UP) PN EUMOCOCCAL POLYSACCHARIDE (PPV23) 0.5 ML, IM 07/28/2020 INFLUENZA VACCINE HIGH DOSE QUADRIVALENT 65 YR UP PF IM 04/10/2020 INFLUENZA VACCINE QUADRIVALE NT 6 MOS UP CELL DERIVED IM 04/20/2019 Influenza Seasonal Unspecified Formulation IM ,07/10/2017 Influenza Vaccine Split 3+ Yrs PF IM 04/22/2012 Family History Medical History Relation Name Comments Diabetes Father Hypertension Sister 1 Hypertension Sister 2 Hypertension Sister 3 Hypertension Sister 4 Relation Name Status Comments Father Maternal Grandfather Maternal Grandmother Mother Paternal Grandfather Paternal Grandmother Sister 1 Alive Sister 2 Alive Sister 3 Alive Sister 4 Alive Social History Tobacco Use Types Packs/Day Years Used Date Smoking Tobacco: Former Cigarettes 0 07/21/1957 - 07/21/1975 Smokeless Tobacco: Never Tobacco Cessation:Counseling Given: Yes Alcohol Use Standard Drinks/Week Comments No 0 (1 standard drink = 0.6 oz pur e alcohol) never Sex and Gender Information Value Date Recorded Sex Assigned at Not on file Legal Sex Male 5:24 AM LEVER TENDER Gender Identity Not on file Sexual Orientation Not on file Occupation Industry Job Start Date Job End Date Not on file Not on file Not on file Not on file Last Filed Vital Signs Vital Sign Reading Time Taken Comments Blood Pressure 164/88 03/29/2021 1:34 PM CDT Pulse 56 03/05/2021 12:13 PM CDT Temperature 36.1 C (97 F) 03/05/2021 12:00 PM CDT Respiratory Rate 18 03/05/2021 12:13 PM CDT Oxygen Saturation 96% 03/05/2021 12:13 PM CDT Inhaled Oxygen Concentration - - Weight 81.6 kg (180 lb) 03/29/2021 1:34 PM CDT Height 182.9 cm (6') 03/29/2021 1:34 PM CDT Body Mass Index 24.41 03/29/2021 1:34 PM CDT Plan of Treatment Health Maintenance Due Date Last Done Comments DIABETES ANNUAL FOOT EXAM 1963 ZOSTER VACCINE (1 of 2) 1996 DIABETES HBA1C Q 6 MONTHS 06/30/20212020, 07/28/2020, 01/19/2020 PNEUMOCOCCAL VACCINE 50+ YEA RS (2 of 2 - PCV) 07/28/2021 07/28/2020 RSV VACCINE (60+ or ) (1 - 1-dose 75+ series) 2021 DIABETES MICROALBUMIN ANNUAL SCREEN 12/29/2021 12/29/2020, 04/05/2016 LDL CHOLESTEROL ANNUAL 12/29/2021 , 07/28/2020, 07/20/2019, Additional history exists DIABETES ANNUAL RETINAL EXAM 03/29/202203/2021, 03/29/2021, 03/29/2021, Additional history exists COLORECTAL SCREENING 11/29/2023 11/28/2020, 11/28/2020, 02/12/2019, Additional history exists INFLUENZA VACCINE (#1) 2024 0, 07/20/2019, 07/20/2019, Additional history exists COVID-19 Vaccine (2 2023-2 5 season) 2024 09/27/2020 DTAP/TDAP/TD VACCINES (2 - T d or Tdap) 09/28/2029 09/29/2019 Medical Devices Implanted Type Area Grocery Checker Device Identifier Shelf Expiration Date Model / Serial / Lot Clip Endo Resolution 360 235cm [id number] - [id number] Implanted:Qty: 2 on 02/12/2019 by Krishna Foster MD at [facility] Clip N/A: Perianal [employer] [id number] / / Lens Io Sn60wf 21.0 - [id number] Implanted:Qty: 1 on 02/19/2021 by Polo Huang MD at [facility] [employer] Eye Right: Eye [employer] [id number] 10/20/2025 SN60WF .21 0 / [id number] / Lens Io Sn60wf 21.5 - [id number] Implanted:Qty: 1 on 03/05/2021 by Polo Huang MD at [facility] [employer] Left: Eye [employer] [id number] 10/23/2025 SN60WF .21 5 / [id number] / [id number] Procedures Procedure Name Priority Date/Time Associated Diagnosis Comments MICROALBUMIN/CREATIN INE RATIO, RANDOM UR Routine 12/29/2020 2:34 PM CDT Type 2 diabetes mellitus without complication, without long-term current use of insulin ([facility]) Essential hypertension LIPID PANEL Routine 12/29/2020 2:34 PM CDT Essential hypertension HEMOGLOBIN A1C Routine 12/29/2020 2:34 PM CDT Type 2 diabetes mellitus without complication, without long-term current use of insulin (CMS/HCC) COLONOSCOPY REPORT 11/28/2020 10 :22 AM CDT from Last 3 Months or Most Recently Relevant to Health Maintenance Results * MICROALBUMIN/CREATININE RATIO, RANDOM UR (12/29/2020 2:34 PM CDT) Creatinine, Urine 207 20 - 320 mg/dL [facility] MICROALBUMIN, URINE 1.3 See Note: mg/dL [facility] Comment: Reference Range: Reference Range Not established MICROALBUMIN/CREAT RATIO, UR 6 <30 mcg/mg creat [facility] Comment: The ADA defines abnormalities in albumin excretion as follows: Category Result (mcg/mg creatinine) Normal <30 Microalbuminuria 30-299 Clinical albuminuria > OR = 300 The ADA recommends that at least two of three specimens collected within a 3-6 month period be abnormal before considering a patient to be within a diagnostic category. Test Performed at: [facility] [address] [place] [address] Marcello Yoo D.O., MPH Urine URINE SPECIMEN OBTAINED BY CLEAN CATCH PROCEDURE / Unknown 12/29/2020 2:34 PM CDT Galileo Kiser MD URINE ORDERABLES Final Result Performing Organization Address [facility] Co de Phone Number [facility] [address] [place] [address] * HEMOGLOBIN A1C (12/29/2020 2:34 PM CDT) Pathologist [facility] HEMOGLOBIN A1C 5.1 <5.7 % of total Hgb [facility] Comment: Test Performed at: [facility] [address] [place] [address] [facility] Blood 12/29/2020 2:34 PM CDT Galileo Kiser MD CHEMISTRY ORDERABLES Final Re sult Performing Organization Address City/[facility]/ZIP Co de Phone Number [facility] [address] [place] [address] * LIPID PANEL (12/29/2020 2:34 PM CDT) Pathologist [facility] CHOLESTEROL 147 <200 mg/dL [facility] HDL 52 > OR = 40 mg/dL [facility] TRIGLYCERIDE 117 <150 mg/dL [facility] LDL CALCULATED 75 mg/dL (calc) [facility] Comment: Reference range: <100 Desirable range <100 mg/dL for primary prevention; <70 mg/dL for patients with CHD or diabetic patients with > or = 2 CHD risk factors. LDL-C is now calculated using the Jam calculation, which is a validated novel method providing better accuracy than the Friedewald equation in the estimation of LDL-C. Sulaiman SS et al. PAVAN. 2013;310(19): 6573-3160 (http://education.Mercury Puzzle/faq/JGT084) CHOL/HDL RATIO 2.8 <5.0 (calc) [facility] TOTAL NON-HDL CHOL(LDL+VLDL) 95 <130 mg/dL (calc) [facility] Comment: For patients with diabetes plus 1 major ASCVD risk factor, treating to a non-HDL-C goal of <100 mg/dL (LDL-C of <70 mg/dL) is considered a therapeutic option. Test Performed at: [facility] [address] [place] [address] [facility] Blood 12/29/2020 2:34 PM CDT us Galileo Kiser MD CHEMISTRY ORDERABLES Final Re sult [facility] [address] [place] [address] * COLONOSCOPY REPORT (11/28/2020 10:22 AM CDT) Narrative Procedure Note Krishna Foster MD - 11/28/2020 10:20 AM CDT [facility] Patient Name: Nathan Moscoso Procedure Date: 11/28/2020 Date of : 1945 Admit Type: Outpatient Age: 75 Attending MD: Krishna Foster MD Procedure: Colonoscopy Indications: High risk colon cancer surveillance: Personal history of adenoma (10 mm or greater in size), High risk colon cancer surveillance: Personal history of multiple (3 or more) adenomas Patient Profile: 75 y/o male presents for surveillance colonoscopy given personal history multiple advanced adenomas 01/2019. Providers: Krishna Foster MD Referring MD: Galileo Kiser MD Requesting Provider: Medicines: Monitored Anesthesia Care Complications: No immediate complications. Procedure: After I obtained informed consent, the scope was passed under direct vision. Throughout the procedure, the patient's blood pressure, pulse, and oxygen saturations were monitored continuously. The Colonoscope was introduced through the anus and advanced to the cecum, identified by appendiceal orifice and ileocecal valve. The colonoscopy was performed without difficulty. The patient tolerated the procedure well. The quality of the bowel preparation was evaluated using the BBPS ([place] Bowel Preparation Scale) with scores of: Right Colon = 2 (minor amount of residual staining, small fragments of stool and/or opaque liquid, but mucosa seen well), Transverse Colon = 3 (entire mucosa seen well with no residual staining, small fragments of stool or opaque liquid) and Left Colon = 3 (entire mucosa seen well with no residual staining, small fragments of stool or opaque liquid). The total BBPS score equals 8. The quality of the bowel preparation was good. Findings: Three sessile polyps were found in the transverse colon and ascending colon. The polyps were 1 to 2 mm in size. These polyps were removed with a jumbo cold forceps. Resection and retrieval were complete. Verification of patient identification for the specimen was done. A 7 mm polyp was found in the descending colon. The polyp was sessile. The polyp was removed with a cold snare. Resection and retrieval were complete. Verification of patient identification for the specimen was done. Multiple small-mouthed diverticula were found in the sigmoid colon and descending colon. Impression: - Three 1 to 2 mm polyps in the transverse colon and in the ascending colon, removed with a jumbo cold forceps. Resected and retrieved. - One 7 mm polyp in the descending colon, removed with a cold snare. Resected and retrieved. - Diverticulosis in the sigmoid colon and in the descending colon. Recommendation: - Discharge patient to home. - Resume previous diet. - Continue present medications. - Await pathology results. - Repeat colonoscopy in 3 years for surveillance based on pathology results. - A [employer] message and/or a letter will be sent to you summarizing the pathology results. Please call the GI office ([phone]) if you have not heard the results within 2 weeks. - Goal intake of 25-30 grams of fiber per day. This is a combination of dietary fiber (located on product food label) as well as supplemental fiber (for example Citrucel, Fibercon, Konsyl or Metamucil) if needed. Procedure Code(s): --- Professional --- 34449, Colonoscopy, flexible; with removal of tumor(s), polyp(s), or other lesion(s) by snare technique 74430, 59, Colonoscopy, flexible; with biopsy, single or multiple Diagnosis Code(s): --- Professional --- D12.3, Benign neoplasm of transverse colon (hepatic flexure or splenic flexure) D12.2, Benign neoplasm of ascending colon D12.4, Benign neoplasm of descending colon Z86.010, Personal history of colonic polyps K57.30, Diverticulosis of large intestine without perforation or abscess without bleeding CPT copyright 2018 [employer]. All rights reserved. The codes documented in this report are preliminary and upon sales applications engineer review may be revised to meet current compliance requirements. Krishna Foster MD 11/28/2020 10:20:34 AM Number of Addenda: 0 Estimated Blood Loss: Estimated blood loss: none. Krishna Foster MD GI PROCEDURE ORDERABL ES Final Result from Last 3 Months or Most Recently Relevant to [place] [address] [facility] [id number] * Guarantor: Nathan Moscoso Jr. Account Type Relation to Patient Date of Phone Billing Address Personal/Family Self 1945 [address] [place] [address] Advance Directives For more information, please contact: [phone] * Full Code (Latest Code Status on File) Date Activated Date Inactivated Comments 11/28/2020 9:10 AM 11/28/2020 12:48 PM * Full Code Date Activated Date Inactivated Comments 02/12/2019 11:45 AM 02/12/2019 4:55 PM * Full Code Date Activated Date Inactivated Comments 10/30/2013 2:27 PM 10/31/2013 3:06 PM * Full Code Date Activated Date Inactivated Comments 03/17/2013 5:33 PM 03/20/2013 11:31 AM Care Teams Information Technology Technician Relationship Specialty Start Date End Date Galileo Kiser MD PCP - General Family Practice 04/02/16
--- OUTSIDE RECORDS SUMMARY | 2024-10-19 07:52 | XMS_ITS | Referral Summary ---
Author Organization [facility] Address [address] [place] [id number] Care Team Providers Care Bulldozer Operator Name Role Phone Ursula Bergeron NP Primary Care Provider [phone] Encounters Date Type Department Care Team Description 10/01/2024 Telephone [facility] Pulmonary at [address] [place] [phone] Juhi Weems 09/22/2024 10:22 AM EXECUTIVE MANAGER - 09/22/2024 11:59 PM EXECUTIVE MANAGER Hospital Encounter [address] [address] Pulmonary nodules Discharge Disposition: Discharge to home or self care 09/21/[address] [address] Darline Christine 09/08/2024 10:00 AM EXECUTIVE MANAGER Office Visit [facility] Pulmonary at [address] [place] [phone] Kristina Renteria NP Bronchiectasis without acute exacerbation (HCC) (Primary Dx); Centrilobular emphysema (HCC); Pulmonary nodules; Chronic respiratory failure with hypoxia, on home O2 therapy (HCC) 08/02/2024 Orders Only [facility] Pulmonary at [address] [place] [address] Katherine Troncoso LPN Centrilobular emphysema (HCC) (Primary Dx); Bronchiectasis without acute exacerbation (HCC) 07/27/2024 Telephone [facility] Pulmonary at [address] [place] [address] Helena Newman MA Dysphagia 07/22/2024 Orders Only [facility] Pulmonary at [address] [place] [address] Katherine Troncoso LPN Bronchiectasis without acute exacerbation (HCC) (Primary Dx); Centrilobular emphysema (HCC); Chronic obstructive pulmonary disease, unspecified COPD type (HCC) from Last 3 Months Allergies Active Allergy Reactions Criticality Noted Date Comments Uwekblsb-Mxjbrdhwmhy-Ddhxlfzgy Rash Medium 07/26 Medications aspirin 81 mg [...] 1 tablet (75 mcg total) by mouth early morning babysitter before breakfast Active diclofenac sodium (VOLTAREN) 1 % gel APPLY 2 GRAMS TOPICALLY TO AFFECTED AREA FOUR TIMES DAILY Active dilTIAZem (CARDIZEM) 90 mg tablet Take 1 tablet (90 mg total) by mouth 2 (two) times a day Active nebulizer accessories [facility] Please provide pt with nebulizer tubing kits 2 each 07/12/20 24 Active sodium chloride 3 % nebulizer solutionIndicat ions:Bronchiect asis without acute exacerbation (HCC) Take 4 mL by nebulization 2 (two) times a day 360 mL 11 09/08/19 25 2025 Active inhalational spacing device (Aerochamber MV) spacerIndicatio ns:Centrilobula r emphysema (HCC) 1 each 2 (two) times a day 1 each 3 09/08/19 25 Active albuterol HFA (PROVENTIL HFA,VENTOLIN HFA,PROAIR HFA) 90 mcg/actuation inhaler USE 2 INHALATIONS BY MOUTH EVERY 6 HOURS NEEDED FOR WHEEZING 34 g 11 10/05/19 25 Active albuterol HFA (PROVENTIL HFA,VENTOLIN HFA,PROAIR HFA) 90 mcg/actuation inhaler Inhale 2 puffs every 6 (six) hours as needed for wheezing 1 each 11 01/20/20 24 2024 Discontinued Active Problems Problem Noted Date Diagnosed Date Chronic respiratory failure with hypoxia, on home O2 therapy 09/08/2024 Assessment & Plan (09/08/2024 11:42 AM EXECUTIVE MANAGER): Continue supplemental oxygen with all sleep at 2 liters We have discussed the risks of hypoxia I have reordered walk testing today Bronchiectasis without acute exacerbation 2023 Assessment & Plan (09/08/2024 11:41 AM EXECUTIVE MANAGER): He has tried and failed flutter therapy [...] 09/04/2023 Assessment & Plan (09/11/2023 10:08 AM EXECUTIVE MANAGER): 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 Esophageal abnormality is still possibility. Patient was advised to increase and sure intake to at least 4 or 5 cans per day. Schedule EGD for evaluation. HTN (hypertension) 10/19/2010 Hyperlipidemia 10/19/2010 Hypothyroidism 10/19/2010 Jaw pain 10/19/2010 Immunizations Immunization Administration Dates Next Due Influenza, Quadrivalent, Shira l Culture-based MDCK, Antibiotic Free, Intramuscular 04/20/2019 Influenza, Quadrivalent, Hig h Dose, Preservative Free, Intrr 04/11/2021 Influenza, Trivalent, High D ose, Split, Preservative Free, Intramuscular 04/10/2020 Influenza, Trivalent, IM (MDV) 04/13/2018,2016 Influenza, Trivalent, Preservative Free, Intramu scular 04/22/2012 Influenza, Unspecified 04/11/2021,04/10/2020 Pneumococcal Polysaccharide PPV23 07/28/2020 Tdap 09/29/2019,10/12/2007 Social History Tobacco Use Types Packs/Day Years [...] on file Legal Sex Male 11:41 PM EXECUTIVE MANAGER Gender Identity Male 05/13/2021 1:34 PM CDT Sexual Orientation Straight 05/13/2021 1: 34 PM CDT Last Filed Vital Signs Vital Sign Reading Time Taken Comments Blood Pressure 161/84 09/08/2024 9:39 AM EXECUTIVE MANAGER Pulse 64 09/08/2024 9:39 AM EXECUTIVE MANAGER Temperature 36.5 C (97.7 F) 09/08/2024 9:39 AM EXECUTIVE MANAGER Respiratory Rate 18 09/08/2024 9:39 AM EXECUTIVE MANAGER Oxygen Saturation 97% 09/08/2024 9:39 AM EXECUTIVE MANAGER Inhaled Oxygen Concentration - - Weight 82.7 kg (182 lb 4.8 oz) 09/08/2024 9:39 A M EXECUTIVE MANAGER Height 182.9 cm (6') 09/08/2024 9:39 AM EXECUTIVE MANAGER Body Mass Index 24.72 09/08/2024 9:39 AM EXECUTIVE MANAGER Plan of Treatment Not on file Procedures Procedure Name Priority Date/Time Associated Diagnosis Comments CT CHEST WO CONTRAST Schedule Routine, Read Routine (OP Routine) 09/22/2024 10:44 AM EXECUTIVE MANAGER Pulmonary nodules from Last 3 Months Results * CT Chest WO Contrast (09/22/2024 10:44 AM EXECUTIVE MANAGER) Anatomical Region Laterality Modality Body N/A Computed [...] Magan Castro D.O. AP: AP Report ID: [id number] Reading Location: [place] [address] Procedure Note Magan Castro, DO - 09/27/2024 [...] Electronically signed by Magan Castro D.O. AP: ALBERTO Report ID: [id number] Reading Location: [place] [address] Kristina Renteria PRINCIPAL LIBRARIAN IMG CT PROCEDURES Final Res ult from Last 3 Months Insurance MEDICARE ADVANTAGE MEDICARE ADVANTAGE Member Subscriber Plan / Payer (Ef fective 2021-Present) Name:Nathan Moscoso Relation to Subscriber:Self Name:[place] Payer ID:[id number] (NAIC) Type:[place] Address: [place] [id number] ID[place] Advance Directives For more information, please contact: [phone] * Full Code (Latest Code Status on File) Date Activated Date Inactivated Comments 10/30/2023 12:06 PM 10/30/2023 6:21 PM Care Teams Bulldozer Operator Relationship Specialty Start Date End Date Ursula Bergeron NP [address] [place] [address] [place] [address] PCP - General Family Medicine 06/08/24
--- OUTSIDE RECORDS SUMMARY | 2024-10-19 07:52 | XMS_ITS | Encounter Summary ---
Author Organization [facility] Address 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
--- OUTSIDE RECORDS SUMMARY | 2024-10-19 07:53 | XMS_ITS | Encounter Summary ---
Author Organization [facility] Address 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
--- NOTE | 2024-10-19 17:26 | WPDPFTINT ---
PFT Procedure Performed PFT Procedure Performed Plethysmography (Lung Vol) Diffusing Cap (DLCO) Flow Vol Loop Spirometry w/o Bronchodil PFT Interpretation This is a pulmonary function test with spirometry, plethysmography and diffusing capacity. The test was performed and results interpreted in accordance with the 2019 and 2005 ATS/ERS Task Force guidelines respectively using the Global Lung Function Initiative-2012 reference equations. Patient demonstrated good effort and cooperation. Reproducibility criteria were met. The quality of the spirometry maneuver was Grade A. Findings: Spirometry: There is decreased maximal expiratory airflow at all lung volumes with concave expiratory flow tracing. The contour the inspiratory flow tracing is normal. The FVC is 2.25 L, 69% predicted. The FEV1 is 1.01 L, 41% predicted. The FEV1: FVC ratio is 45%. Plethysmography: The total lung capacity is 8.73 L, 143% predicted. The functional residual capacity is 6.95 L, 196% predicted. The residual volume is 5.86 L, 218% predicted. The residual volume: Total lung capacity ratio 67%. Diffusing capacity: The diffusing capacity unadjusted for hemoglobin and carboxyhemoglobin is 12.7, 57% predicted. The diffusing capacity adjusted for alveolar volume is 3.24, 84% predicted. Impression: There is a severe obstructive abnormality. The increase in residual volume to total lung volume ratio is consistent with hyperinflation from an obstructive abnormality. The diffusing capacity unadjusted for hemoglobin and carboxyhemoglobin is moderately decreased and normalizes when adjusted for alveolar volume. There are no prior studies for comparison
== END 2024-10-19 07:47 | disposition home or self-care (01) ==
LOC: ANHPFT 07:48
PROVIDERS: PCP Internal Medicine; Visit Provider Nurse Practitioner
DX: J47.9 Bronchiectasis, uncomplicated (principal); R94.2 Abnormal results of pulmonary function studies
CPT/HCPCS: 94375; 94726; 94729

== ENCOUNTER 2024-10-30 08:36 | Outpatient (CLI) | payer MEDICARE, MEDICAID, SELFPAY ==
--- NOTE | ~2024-10-30 | CT_ITS ---
CT Scan of the Chest without Contrast: Clinical Indication: Bronchitis Technique: Contiguous sections were acquired throughout the chest without intravenous contrast. Dose reduction technique was used on this scan by utilizing automated exposure control and iterative recon struction technique. The dose-length product (DLP) was 210.40 mGy-cm. Findings: There is no evidence of any significant mediastinal, hilar or axillary lymphadenopathy. Extensive cor onary artery calcification present. There is diffuse dilatation of the esophagus, with air-fluid leve l through most of it. There is no evidence of pleural or pericardial effusion. There are tree-in-bud opacities in scattered slightly larger nodules involving the right middle and l ower lobes, and left lung base. There are areas of interstitial thickening in the lung bases bilatera lly posteriorly. Probable mild peribronchial thickening in the left lower lobe. Images through the upper abdomen reveal large right renal cyst. Impression: Tree-in-bud opacities and patchy nodularity predominantly involving the lower lobes and right middle lobe, compatible with acute on chronic small airways infection. Suspected developing chronic intersti tial change at the left lung base in particular. Diffuse dilatation of the esophagus. Consider achalasia or other stricture at the GE junction region. No definite obstructing mass seen. Consider esophagram and/or endoscopy as indicated. Reviewed, dictated and finalized at location M. Impression: Tree-in-bud opacities and patchy nodularity predominantly involving the lower l obes and right middle lobe, compatible with acute on chronic small airways infe ction. Suspected developing chronic interstitial change at the left lung base i n particular. Diffuse dilatation of the esophagus. Consider achalasia or other stricture at t he GE junction region. No definite obstructing mass seen. Consider esophagram a nd/or endoscopy as indicated.
--- OUTSIDE RECORDS SUMMARY | 2024-10-30 08:39 | XMS_ITS | Referral Summary ---
Author Organization [facility] Address [address] [place] [address] Care Team Providers Care Technical Translator Name Role Phone Ursula Bergeron NP Primary Care Provider [phone] Encounters Date Type Department Care Team Description 10/01/2024 Telephone [facility] Pulmonary at [address] [place] [address] Juhi Weems 09/22/2024 10:22 AM SYSTEMS SOFTWARE MANAGER - 09/22/2024 11:59 PM SYSTEMS SOFTWARE MANAGER Hospital Encounter [address] [address] Pulmonary nodules Discharge Disposition: Discharge to home or self care 09/21/[address] [address] Darline Christine 09/08/2024 10:00 AM SYSTEMS SOFTWARE MANAGER Office Visit [facility] Pulmonary at [address] [place] [address] Kristina Renteria NP Bronchiectasis without acute exacerbation (HCC) (Primary Dx); Centrilobular emphysema (HCC); Pulmonary nodules; Chronic respiratory failure with hypoxia, on home O2 therapy (HCC) 08/02/2024 Orders Only [facility] Pulmonary at [address] [place] [address] Katherine Troncoso LPN Centrilobular emphysema (HCC) (Primary Dx); Bronchiectasis without acute exacerbation (HCC) from Last 3 Months Allergies Active Allergy Reactions Criticality Noted Date Comments Mjnwqglu-Bjvwfndiiaq-Ghawbmpka Rash Medium 07/26 Medications aspirin 81 mg [...] 1 tablet (75 mcg total) by mouth principal 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 before 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 Active diclofenac sodium (VOLTAREN) 1 % gel APPLY 2 GRAMS TOPICALLY TO AFFECTED AREA FOUR TIMES DAILY Active dilTIAZem (CARDIZEM) 90 mg tablet Take 1 tablet (90 mg total) by mouth 2 (two) times a day Active nebulizer accessories [facility] Please provide pt with nebulizer tubing kits [...] 09/08/2024 Assessment & Plan (09/08/2024 11:42 AM SYSTEMS SOFTWARE MANAGER): Continue supplemental oxygen with all sleep at 2 liters We have discussed the risks of hypoxia I have reordered walk testing today Bronchiectasis without acute exacerbation 2023 Assessment & Plan (09/08/2024 11:41 AM SYSTEMS SOFTWARE MANAGER): He has tried and failed flutter [...] 09/04/2023 Assessment & Plan (09/11/2023 10:08 AM SYSTEMS SOFTWARE MANAGER): 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 Noted previous [...] 12/16/2014 Assessment & Plan (09/08/2024 11:41 AM SYSTEMS SOFTWARE MANAGER): Continue Spiriva Respimat 2.5 once daily [...] 10/30/2013 Assessment & Plan (09/08/2024 11:42 AM SYSTEMS SOFTWARE MANAGER): Scattered bilaterally, these have been followed [...] time Assessment & Plan (09/11/2023 10:06 AM SYSTEMS SOFTWARE MANAGER): Likely secondary to the previous surgery [...] on file Legal Sex Male 11:41 PM SYSTEMS SOFTWARE MANAGER Gender Identity Male 05/13/2021 1:34 PM CDT Sexual Orientation Straight 05/13/2021 1: 34 PM CDT Last Filed Vital Signs Vital Sign Reading Time Taken Comments Blood Pressure 161/84 09/08/2024 9:39 AM SYSTEMS SOFTWARE MANAGER Pulse 64 09/08/2024 9:39 AM SYSTEMS SOFTWARE MANAGER Temperature 36.5 C (97.7 F) 09/08/2024 9:39 AM SYSTEMS SOFTWARE MANAGER Respiratory Rate 18 09/08/2024 9:39 AM SYSTEMS SOFTWARE MANAGER Oxygen Saturation 97% 09/08/2024 9:39 AM SYSTEMS SOFTWARE MANAGER Inhaled Oxygen Concentration - - Weight 82.7 kg (182 lb 4.8 oz) 09/08/2024 9:39 A M SYSTEMS SOFTWARE MANAGER Height 182.9 cm (6') 09/08/2024 9:39 AM SYSTEMS SOFTWARE MANAGER Body Mass Index 24.72 09/08/2024 9:39 AM SYSTEMS SOFTWARE MANAGER Plan of Treatment Not on file Procedures Procedure Name Priority Date/Time Associated Diagnosis Comments CT CHEST WO CONTRAST Schedule Routine, Read Routine (OP Routine) 09/22/2024 10:44 AM SYSTEMS SOFTWARE MANAGER Pulmonary nodules from Last 3 Months Results * CT Chest WO Contrast (09/22/2024 10:44 AM SYSTEMS SOFTWARE MANAGER) Anatomical Region Laterality Modality Body N/A [...] Magan Castro D.O. AP: AP Report ID: [id number] Reading Location: [id number] Procedure Note Magan Castro, DO - 09/27/2024 [...] Magan Castro D.O. AP: ALBERTO Report ID: [id number] Reading Location: [place] [address] [place] Kristina Renteria CUSTOMER EXPERIENCE MANAGER IMG CT PROCEDURES Final Res ult from Last [address] [place] [address] [place] [address] [facility] MEDICARE ADVANTAGE [facility] MEDIC[facility] Address: [address] [address] [place] [address] MEDICARE [place] [address] Advance Directives For more information, please contact: [phone] * Full Code (Latest Code Status on File) Date Activated Date Inactivated Comments 10/30/2023 12:06 PM 10/30/2023 6:21 PM Care Teams Technical Translator Relationship Specialty Start Date End Date Ursula Bergeron, MAL [address] [place] [address] PCP - General Family Medicine 06/08/24
--- OUTSIDE RECORDS SUMMARY | 2024-10-30 08:39 | XMS_ITS | Data Portability ---
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 Plan of Treatment Reminders Order Date Submit Date Provider Last Modified By Organization Details Last Modified Time Details Appointments EST 10 2024 08:10A M EVERARDO YOUNG MD Not available Not available Not available Lab None recorded. Referral physical therapist referral - S/P Left CMC Arthropla sty- 1-2 times a week for 1-2 weeks- ROM, stretchin g, strengthe lin, Home exercise program, Theraputt y exercises . 2023 024 [facility] [place], [address] [facility], [place], [address], 03/19/2024 11:17:28 Procedures None recorded. Surgeries None recorded. Imaging XR, thumb - Right Thumb [address] [facility], [address], [place], [address], 10/28/2024 13:04:42 XR, hand, 3 or more view - Left Hand 2023 024 [facility], [address] [place], [address], 03/18/2024 11:53:17 Medication Orders None recorded. Patient TargetsNo targets recorded. Patient InstructionsNo instructions recorded. Reason for Referral Physical Therapist Referral for Arthritis of first carpometacarpal joint of left hand S/P Left CMC Arthroplasty- 1-2 times a week for 1-2 weeks- ROM, stretching, strengthening, Home exercise program, Theraputty exercises. Referring Physician: Everardo Young, Orthopedic Surgery, Encounter Date: 03/18/2024 Results Created Date Observation Date Name Description Value Unit Range Abnormal Flag Note LastModifiedBy Organization Detail LastModifiedTime 02/13/20 24 02/13/2024 sp fluor o [address] [address] IMAGIN G REPORT Name: NATHAN BAKER Room #: : 1945 Accoun t #: [id number] Bed #: Age: 78 Years Patien t Type: Outpat ient Order Date/T andrew: 2023 09:38: 02 AM Sex: M Access ion#: Exam Descri ption: Exam Reason : [id number] SP FLUORO 1 HOUR L thumb CMC arthro plasty Dictat ed By: Mary Joseph Physic anna: EVERARDO YOUNG [facility] Physic anna: EVERARDO YUONG [facility] Physic anna: UNKNOW N, 1 EXAMIN ATION: SP FLUORO 1 HOUR CLINIC AL HISTOR Y: 78 years Male,L thumb CMC arthro plasty COMPAR LUCHO: There is no prior simila r study availa ble for correl ation. TECHNI QUE: Single image obtain ed under intrao perati ve contro l utiliz ing portab le C-arm fluoro scopy and submit charlee for review . Dose: Fluoro scopy time 2 sec with a DAP of 18.7 mGycm2 . FINDIN GS: Intrao perati ve portab le C-arm fluoro scopic locali angelo and karen paez for left thumb CMC arthro plasty under the superv ision of Dr. Everardo Young. IMPRES HE: EXAMIN ATION PERFOR MED FOR INTRAO PERATI VE CONTRO L. Electr onical ly signed by: Mary urbina MD 2023 01:03 PAGE 1 OF 2 IMAGIN G REPORT Name: NATHAN BAKER Room #: : 1945 Accoun t #: [id number] Bed #: Age: 78 Years Patien t Type: Outpat ient Order Date/T andrew: 2023 09:38: 02 AM Sex: M PM CDT RP Workst ation: [id number] PAGE 2 OF 2 [facility] [address] [place] [address], [address], 02/17/2024 11:08:15 03/18/20 24 03/18/2024 XR, hand, 3 or more view No observ ation record ed. [facility] [address] [place], [address], 03/18/2024 13:47:13 10/12/19 25 10/11/2024 sp fluor o 1 hour [place] [facility] [address] [place] [address] [place] [address] IMAGIN G REPORT Name: NATHAN BAKER Room #: : 1945 Accoun t #: [id number] Bed #: Age: 78 Years Patien t Type: Outpat ient Order Date/T andrew: 2024 11:31: 01 AM Sex: M Access ion#: Exam Descri ption: Exam Reason : [id number] SP FLUORO 1 HOUR R thumb CMC arthro plasty Dictat ed By: Sharon Zabala rd Ordermor Physic anna: EVERARDO YOUNG [facility]end [facility] Physic anna: EVERARDO YOUNG Primar y Care Physic anna: NO, PRIMAR Y CARE CLINIC AL HISTOR Y: R thumb CMC arthro plasty COMPAR LUCHO: None. TECHNI QUE: 2 spot matrix views acquir ed in the proced ure/op eratin g room. DISCUS HE: Submit charlee spot matrix views were acquir ed to docume nt a orthop edic proced ure. Spot fluoro scopic images availa ble for the perfor sheba physic ians review . Please correl ate with the proced ural/o perati ve findin gs. IMPRES HE: Spot matrix docume ntatio n of proced ure. Fluoro scopy time - [address]- . Dose- 57.2 mGy. Fluoro scopy was perfor med in the OR/pro cedure room by the surgeo n/niru Azar onical ly signed by: Sharon Zabala rd, MD 2024 02:48 PM CDT RP Workst ation: [id number] PAGE 1 OF 1 [facility] [address] [place] [address], [place], [address], 10/11/2024 16:34:32 Result Notes None recorded. Problems Name Problem SNOMED Code Status Onset Date Resolution Date Notes Provider Name and Address Organization Details Recorded Time Pain of bilateral hands 9278833577862 9109 Active 2023 Dori meza, [facility] 4 10:40:04 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 9551780308106 100 Active 2023 Everardo Young MD [address] [place] [address], [address] , [facility] 4 14:28:46 Pain of left hand 4229487469998 03 Active 2023 Devin Hughes null, [facility] 4 12:15:26 Arthritis of first carpometac arpal joint of left hand 1017303636965 103 Active 2023 Everardo Young MD [address] [place] [address], [address] , [facility] 4 12:41:10 Hyperchole sterolemia 80173502 Active 2020 Not Available [facility] 3 05:21:56 Chronic obstructiv e pulmonary disease 48972312 Active 2020 Not Available [facility] 3 05:21:56 Anti-nucle ar factor detected 822939292 Active 2021 Not Available [facility] 3 05:21:56 Bacterial infection caused by Klebsiella pneumoniae 798259228 Active 2021 Not Available [facility] 3 05:21:56 Copious sputum 432908530 Active 2021 Not Available [facility] 3 05:21:56 Esophageal dysmotilit y 380911048 Active 2021 Not Available [facility] 3 05:21:56 History of malignant neoplasm 569988012 Active 2020 Not Available [facility] 3 05:21:56 Abdominal mass 363477101 Active 2021 Not Available [facility] 3 05:21:56 Postobstru ctive pneumonia 006494637 Active 2021 Not Available [facility] 3 05:21:56 At increased risk for aspiration 571984753 Active 2021 Not Available [facility] 3 05:21:56 Hypertensi ve disorder 62921492 Active 2020 Not Available [facility] 3 05:21:57 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 276599699 Active 2021 Not Available [facility] 3 05:21:57 Rajni, not Rajni albicans 939146420 Active 2021 Not Available [facility] 3 05:21:57 Dysphagia 51848264 Active 2021 Not Available [facility] 3 05:21:57 Hypothyroi dism 39376218 Active 2020 Not Available [facility] 3 05:21:57 Coronary arterioscl erosis 67912800 Active 2021 Not Available [facility] 3 05:21:57 Dyspnea on exertion 43867647 Active 2021 Not Available [facility] 3 05:21:57 Chronic cough 86527887 Active 2021 Not Available [facility] 3 05:21:58 Bacterial infection caused by Serratia 33212356 Active 2021 Not Available [facility] 3 05:21:58 Prediabete s 511367139 Active 2020 Not Available [facility] 3 05:21:58 Obstructiv e sleep apnea syndrome 65676060 Active 2022 Not Available [facility] 3 05:21:58 History of squamous cell carcinoma in situ 0044100897253 5 Active 2020 Not Available [facility] 3 05:21:58 Notes:Medical History: Alycia hedrick penetration Hypothyroidism Hyperlipidemia Hypertension EF 55% Prediabetes Mild TR CAD 4.1 cm ascending thoracic aortic ectasia Moderate COPD LLL 6.7 mm pulm nodule Asbestos exposure 7647-6933 Mild splenomegaly Left 7.7 cm renal cyst Procedure History: 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 Procedures Surgical History Date Name Laterality Status Provider Name and Address Organization Details Recorded Time 10/12/19 25 [facility] 10/11/2024 12:03:07 07/21/19 21 colonoscopic polypectomy completed [facility] 01/02/2024 10:53:20 07/21/19 19 bilateral cataract extraction completed [facility] 01/02/2024 10:53:33 07/21/19 16 colonoscopic polypectomy completed [facility] 01/02/2024 10:53:14 07/21/18 92 tonsillectomy completed [facility] 01/02/2024 10:52:37 07/21/18 92 colonoscopic polypectomy completed [facility] 01/02/2024 10:53:08 Imaging Results Imaging Date Name Status LastModified by Organiz ation Details LastModified Time 02/13/2024 sp fluoro 1 hour completed [facility] [address] [place] [address], [address], 02/17/2024 11:08:15 03/18/2024 XR, hand, 3 or more view completed [facility] [address] [place], [address], 03/18/2024 13:47:13 10/11/2024 sp fluoro 1 hour completed [facility] [address] [place] [address], [place], [address], 10/11/2024 16:34:32 Procedure Notes None recorded. Medical Equipment None Reported. Allergies Allergen ID Allergen Name Allergen Category Reaction Reaction Severity Criticality Documentation Date Start Date Code Code System Note Provider Name and Address Organization Details Recorded Time 701849 bacitraci n / neomycin / polymyxin B medicatio n Not available Not available Not available 07/28/2022 36241 9 RxNorm Not Available [facility] 3 05:22:40 Medications Name Sig Start Date Stop Date Status Note LastModified by Organization Details LastModified Time furosemide 40 mg tablet TAKE 1 TABLET BY MOUTH EVERY DAY active Not Available Not Available No t Available nystatin 100,000 unit/mL oral suspension SWISH AND SWALLOW 5 ML BY MOUTH FOUR TIMES DAILY FOR 10 DAYS 06/29 completed Not Available Not Available Not Available prednisone 10 mg tablet TAKE 1 TABLET BY MOUTH THREE TIMES DAILY FOR 3 DAYS THEN 1 TWICE DAILY FOR 2 DAYS THEN 1 ONCE DAILY FOR 1 DAY 02/12 completed Not Available Not Available Not Available doxycycline hyclate 100 mg capsule Take 1 capsule twice a day by oral route for 10 days. active Not Available Not Available No t Available albuterol sulfate 2.5 mg/3 mL (0.083 %) solution for nebulizatio n USE 1 VIAL IN NEBULIZER 4 TIMES DAILY DIRECTED active Not Available Not Available No t Available azithromyci n 250 mg tablet TAKE 2 TABLETS (500 MG) BY ORAL ROUTE ONCE DAILY FOR 1 DAY THEN 1 TABLET (250 MG) BY ORAL ROUTE ONCE DAILY FOR 4 DAYS 10/08 completed Not Available Not Available Not Available diltiazem CD 180 mg capsule,ext ended release 24 hr TAKE 1 CAPSULE BY MOUTH ONCE DAILY 02/12 completed Not Available Not Available Not Available benzonatate 200 mg capsule Take 1 capsule 3 times a day by oral route as needed. active Not Available Not Available No t Available sodium chloride 3 % for nebulizatio n USE 1 VIAL PER NEBULIZER TWICE DAILY active Not Available Not Available No t Available ondansetron HCl 4 mg tablet 04/11 completed Not Available Not Available Not Available prednisone 20 mg tablet Take 3 tablets every day by oral route in the morning for 5 days. 10/11 completed Not Available Not Available Not Available sulfamethox azole 800 mg-trimetho prim 160 mg tablet TAKE 1 TABLET BY MOUTH EVERY 12 HOURS FOR 10 DAYS 06/29 completed Not Available Not Available Not Available aspirin 81 mg tablet,asha yed release Take 1 tablet every day by oral route for 90 days. active Not Available Not Available No t Available Ensure High Protein oral liquid Drink 4 orally per day active Not Available Not Available No t Available amoxicillin 400 mg-potassiu m clavulanate 57 mg/5 mL oral suspension TAKE 10 ML BY MOUTH EVERY 12 HOURS FOR 7 DAYS. DISCARD REMAINDER 10/11 completed Not Available Not Available Not Available OneTouch Ultra Test strips TEST DAILY 06/24 completed Not Available Not Available Not Available hydrocodone 7.5 mg-acetamin ophen 325 mg tablet TAKE 1 TABLET BY MOUTH EVERY 6 HOURS NEEDED FOR PAIN active Not Available Not Available No t Available trazodone 150 mg tablet TAKE 1 TABLET BY MOUTH EVERY DAY AT BEDTIME active Not Available Not Available No t Available prednisone 50 mg tablet 04/11 completed Not Available Not Available Not Available trazodone 300 mg tablet Take 1 tablet every day by oral route at bedtime for 30 days. active Not Available Not Available No t Available levofloxaci n 750 mg tablet Take 1 tablet every day by oral route as directed for 10 days. active Not Available Not Available No t Available methylpredn isolone 4 mg tablets in a dose pack FOLLOW PACKAGE DIRECTION S 06/24 completed Not Available Not Available Not Available albuterol sulfate HFA 90 mcg/actuati on aerosol inhaler INHALE 2 INHALATIO NS BY MOUTH EVERY 4 TO 6 HOURS active Not Available Not Available No t Available cefdinir 300 mg capsule 04/11 completed Not Available Not Available Not Available diltiazem 60 mg tablet 06/24 completed Not Available Not Available Not Available doxycycline hyclate 100 mg tablet Take 1 tablet twice a day by oral route for 10 days. active Not Available Not Available No t Available levothyroxi ne 112 mcg tablet TAKE 1 TABLET BY MOUTH EVERY DAY active Not Available Not Available No t Available amoxicillin 875 mg-potassiu m clavulanate 125 mg tablet Take 1 tablet every 12 hours by oral route as directed for 10 days. active Not Available Not Available No t Available diltiazem 90 mg tablet TAKE 1 TABLET BY MOUTH TWICE DAILY active Not Available Not Available No t Available voriconazol e 50 mg tablet TAKE 2 TABLETS BY MOUTH EVERY 12 HOURS FOR 14 DAYS DIRECTED 01/09 completed Not Available Not Available Not Available rosuvastati n 20 mg tablet TAKE 1 TABLET BY MOUTH EVERY DAY AT BEDTIME active Not Available Not Available No t Available tadalafil 10 mg tablet TAKE 1 TABLET BY MOUTH NEEDED BEFORE SEXUAL ACTIVITY active Not Available Not Available No t Available metoprolol tartrate 25 mg tablet TAKE 1 TABLET BY MOUTH EVERY DAY active Not Available Not Available No t Available acetylcyste ine 600 mg capsule Take 1 capsule twice a day by oral route as directed for 30 days. 12/31 completed Not Available Not Available Not Available Symbicort 160 mcg-4.5 mcg/actuati on HFA aerosol inhaler INHALE 2 PUFFS BY MOUTH TWICE DAILY active Not Available Not Available No t Available Mucinex 1,200 mg tablet, extended release Take 1 tablet twice a day by oral route as directed for 30 days. 06/24 completed Not Available Not Available Not Available diclofenac 1 % topical gel APPLY 2 GRAMS TOPICALLY TO AFFECTED AREA FOUR TIMES DAILY 06/29 completed Not Available Not Available Not Available ProChamber USE DIRECTED TWICE DAILY active Not Available Not Available No t Available Suprep Bowel Prep Kit 17.5 gram-3.13 gram-1.6 gram oral solution 04/11 completed Not Available Not Available Not Available Anoro Ellipta 62.5 mcg-25 mcg/actuati on powder for inhalation INHALE 1 PUFF BY MOUTH EVERY DAY 10/08 completed Not Available Not Available Not Available Spiriva Respimat 2.5 mcg/actuati on solution for inhalation Inhale 2 puffs every day by inhalatio n route as directed for 30 days. active Not Available Not Available No t Available OneTouch Ultra2 Meter USE DIRECTED TO [...] height Body mass index (BMI) Body weight Heart rate Oxygen saturation Oxygen saturation in Arterial blood by Pulse oximetry Systolic blood pressure Diastolic blood pressure Provider Name and Address Organization Details Last Updated DateTime 4 182.88 cm 24 kg/m2 00057.8 5 g 59 /min 94 % 94 % 130 mm[Hg] 87 mm[Hg] [facility] 4 11:54:37 Date Recorded Body height Body mass index (BMI) Body weight Heart rate Oxygen saturation Oxygen saturation in Arterial blood by Pulse oximetry Systolic blood pressure Diastolic blood pressure Provider Name and Address Organization Details Last Updated DateTime 4 182.88 cm 24.3 kg/m2 61539.0 3 g 58 /min 93 % 93 % 148 mm[Hg] 86 mm[Hg] [facility] 4 11:39:25 Date Recorded Body height Body mass index (BMI) Body weight Heart rate Oxygen saturation Oxygen saturation in Arterial blood by Pulse oximetry Systolic blood pressure Diastolic blood pressure Provider Name and Address Organization Details Last Updated DateTime 4 182.88 cm 23.7 kg/m2 66592.6 6 g 61 /min 95 % 95 % 150 mm[Hg] 82 mm[Hg] [facility] 4 12:08:36 Date Recorded Body height Body mass index (BMI) Body weight Heart rate Oxygen saturation Oxygen saturation in Arterial blood by Pulse oximetry Systolic blood pressure Diastolic blood pressure Provider Name and Address Organization Details Last Updated DateTime 5 182.88 cm 23.1 kg/m2 21841.7 g 65 /min 93 % 93 % 148 mm[Hg] 85 mm[Hg] [facility] 5 12:04:52 Date Recorded Body height Body mass index (BMI) Body weight Heart rate Oxygen saturation Oxygen saturation in Arterial blood by Pulse oximetry Systolic blood pressure Diastolic blood pressure Provider Name and Address Organization Details Last Updated DateTime 5 182.88 cm 23.1 kg/m2 53934.7 g 70 /min 94 % 94 % 148 mm[Hg] 78 mm[Hg] [facility] 5 09:48:19 Social History Question Answer Notes LastModified by Organizat ion Details LastModified Time Tobacco Smoking Status Former Smoker Not Available [facility] 07/28/2022 05:21:14 What Is Your Level Of Alcohol Consumption? None [id number] Information not available 07/28/2022 What Is Your Level Of Caffeine Consumption? Moderate Coffee, 2-3 Cups Per Day [id number] Information not available 07/28/2022 In The 14 Days Before Symptom Onset, Have You Had Close Contact With A Laboratory-confir med COVID-19 While That Case Was Ill? No [id number] Information not available 07/28/2022 In The 14 Days Before Symptom Onset, Have You Had Close Contact With A Person Who Is Under Investigation For COVID-19 While That Person Was Ill? No [id number] Information not available 07/28/2022 What Type Of Diet Are You Following? SPECIFIC Ensure - Equate Diabetic Care Chocolte - Needs Rx For 6 Cases A Month [id number] Information not available 07/28/2022 When Did You Quit Smoking? 17+yearssinc elastcigaret te [id number] Information not available 07/28/2022 What Was The Date Of Your Most Recent Tobacco Screening? 09/30/2024 Information not available 08/23/2024 What Is Your Current Pack Years? 20-29packyea rs Information not available 01/08/2024 At What Age Did You Start Smoking Tobacco? 10 [id number] Information not available 07/28/2022 How Much Tobacco Do You Smoke? 1 PPW Information not available 01/08/2024 Do You Use Any Illicit Or Recreational Drugs? No [id number].62040 [id number] Information not available 07/28/2022 Has Tobacco Cessation Counseling Been Provided? No [id number].04183 [id number] Information not available 07/28/2022 How Many Years Have You Smoked Tobacco? 20 [id number].21036 [id number] Information not available 07/28/2022 Have You Recently Traveled Abroad? No MIGRATION.07084 [id number] Information not available 07/28/2022 Do You Or Have You Ever Used Any Other Forms Of Tobacco Or Nicotine? No [id number].94323 [id number] Information not available 07/28/2022 Sex: Male Functional Status None recorded. Mental Status None recorded. Family History Relationship Description Onset Age of this Age Resolved Age Notes LastModified by Organization Details LastModified Time Unspecified Relation Hypertensive disorder [id number] Not available 07/28/2022 05:21:18 Unspecified Relation Myocardial infarction [id number] [id number] Not available 07/28/2022 05:21:18 Unspecified Relation Cerebrovascu lar accident [id number].315 [id number] Not available 07/28/2022 05:21:18 Unspecified Relation Family history of malignant neoplasm [id number] [id number] Not available 07/28/2022 05:21:18 Unspecified Relation Kidney disease [id number].215 [id number] Not available 07/28/2022 05:21:18 Medical History Condition Response COPD Y HIGH CHOLESTEROL / HYPERLIPIDEMIA Y SLEEP DISORDER Y HYPERTENSION Y CANCER: SPECIFY Y Immunizations Vaccine Type Date Status Note Provider Nam e and Address Organization Details Recorded Time Influenza, high-dose, quadrivalent, PF 04/11/2021 completed Not Available [facility] 05:22:38 Past Encounters Encounter ID Performer Location Encounter Start Date Encounter Closed Date Diagnosis/Indication Diagnosis SNOMED-CT Code Diagnosis ICD10 Code Diagnosis Note [id number] _ATHENA_M IGRATION_ DEFAULT_1 _5 , 04/11/2021 00:00:00 04/11/2021 12:28:30 [id number] _ATHENA_M IGRATION_ DEFAULT_1 _5 , 04/23/2021 00:00:00 04/23/2021 08:23:44 [id number] _ATHENA_M IGRATION_ DEFAULT_1 _5 , 07/11/2021 00:00:00 07/11/2021 14:25:18 [id number] _ATHENA_M IGRATION_ DEFAULT_1 _5 , 10/08/2021 00:00:00 10/08/2021 10:43:12 [id number] _ATHENA_M IGRATION_ DEFAULT_1 _5 , 10/22/2021 00:00:00 10/22/2021 15:59:59 [id number] _ATHENA_M IGRATION_ DEFAULT_1 _5 , 10/31/2021 00:00:00 10/31/2021 15:34:00 [id number] _ATHENA_M IGRATION_ DEFAULT_1 _5 , 01/09/2022 00:00:00 01/09/2022 16:25:51 [id number] _ATHENA_M IGRATION_ DEFAULT_1 _5 , 01/23/2022 00:00:00 01/23/2022 11:53:40 [id number] _ATHENA_M IGRATION_ DEFAULT_1 _5 , 02/22/2022 00:00:00 02/22/2022 11:41:06 [id number] _ATHENA_M IGRATION_ DEFAULT_1 _5 , 03/12/2022 00:00:00 03/12/2022 16:14:51 [id number] _ATHENA_M IGRATION_ DEFAULT_1 _5 , 04/01/2022 00:00:00 04/01/2022 14:04:28 [id number] _ATHENA_M IGRATION_ DEFAULT_1 _5 , 05/09/2022 00:00:00 05/09/2022 17:01:04 [id number] _ATHENA_M IGRATION_ DEFAULT_1 _5 , 05/24/2022 00:00:00 05/24/2022 12:11:11 [id number] _ATHENA_M IGRATION_ DEFAULT_1 _5 , 06/11/2022 00:00:00 06/11/2022 14:19:12 [id number] _ATHENA_M IGRATION_ DEFAULT_1 _5 , 06/21/2022 00:00:00 06/21/2022 11:55:31 [id number] _ATHENA_M IGRATION_ DEFAULT_1 _5 , 07/01/2022 00:00:00 07/01/2022 12:38:24 [id number] Everardo Young MD [facility] [address] [address] 01/08/2024 10:53:46 01/08/2024 12:43:50 Ex-smoker [id number] Z87.891 Arthritis of first carpometacarpal joint of right hand 9714891891 646858 M13.841 patient has done bracing. Patient has done medication . Patient has had cortisone injections . No improvemen t with extensive conservati ve treatment and significan t pain. He understand s the risks, benefits alternativ es wished to proceed with a left thumb CMC interposit ion arthroplas ty. Due to his COPD and other medical issues he is a case that we would do either with a jessie block or local anesthesia to numb the areas that were working in. Pain of bi lateral hands 2210207251 3377624 M79.641 M79.787 [id number] Everardo Young MD [facility] [address] [address] 02/26/2024 10:58:53 02/26/2024 12:26:10 Pain of bilateral hands 7932195300 0142814 M79.641 M79.642 Ex-cigarette smoker 2810 74385 Z87.891 Pain of left hand 990877 8313 23310 M79.642 Arthritis of first carpometacarpal joint of left hand 4626276807 504335 M13.842 remove sutures. Put him in a well fitted left thumb protective brace to use for 1 month. He can use his fingers but still no loading or pinching against the thumb. See him back in 3 or 4 weeks for AP lateral oblique views of his left hand out of the brace. We will start therapy after that. [id number] Everardo Young MD [facility] [address] [address] 03/18/2024 10:43:58 03/18/2024 12:04:33 Arthritis of first carpometacarpal joint of left hand 3992020346 100982 M13.842 patient will go to therapy now to work on range of motion strengthen ing see him back in a few months for follow-up he can discontinu e the brace Pain of left hand [id number] M79.642 Ex-cigarette smoker 2810 [id number] Z87.055 [id number] Everardo Young MD [facility] [address] [address] 07/01/2024 11:52:32 07/01/2024 12:45:39 Arthritis of first carpometacarpal joint of left hand [id number] M13.842 patient will continue with strengthen ing exercises for the left hand. We will see him back in a few months to discuss potentiall y doing the CMC arthroplas ty on the right. Ex-cigarette smoker 2809 Z87.960 [id number] Everardo Young MD [facility] [address] [place] [address] 09/30/2024 11:39:48 10/01/2024 03:42:25 Arthritis of first carpometacarpal joint of left hand [id number] M13.842 patient will continue with strengthen ing exercises for the left hand. We will see him back in a few months to discuss potentiall y doing the CMC arthroplas ty on the right. 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 He understand s the risks, benefits alternativ es wished to proceed with the right thumb surgery now [id number] Everardo Young MD DISP[facility] Orth[facility] [address] [place] [address] 10/28/2024 09:38:32 10/28/2024 10:23:49 Arthritis of first carpometacarpal joint of right hand [id number] M13.841 remove sutures today. Put him in a well fitted thumb protective brace. He can take the brace off for showering. We will have him use his fingers and not load the thumb over the next 4 weeks. I will see him back for AP lateral oblique x-rays of the right hand in 4 weeks. 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 Ex-cigarette smoker 2809 Z87.891 Health Concerns Section Related Observation LastModified by Organization Detai ls LastModified Time None Recorded Concern Status LastModified by Organization Details LastModified Time None Recorded Advance Directives Directive None Recorded Payers Encounter Date Sequence Insurance Name Policy Number Policy Reyes Covered Member ID Reyes Member ID Guarantor Name 02/26/2024 1 [facility] [facility] [employer] (MEDICARE REPLACEMENT/A DVANTAGE - PPO) [id number] Nathan L Philmont [id number] Nathan Danis 03/18/2024 1 [employer] [facility] [employer] (MEDICARE REPLACEMENT/A DVANTAGE - PPO) [id number] Nathan L Philmont [id number] Nathan Philmont 07/01/2024 1 [facility] (MEDICARE REPLACEMENT/A DVANTAGE - PPO) [id number] Nathan L Philmont [id number] Nathan Danis 07/01/2024 2 [place] [facility] Nathan L Danis [id number] Nathan Philmont 09/30/2024 1 [employer] (MEDICARE REPLACEMENT/A DVANTAGE - HMO) [id number] Nathan L Philmont [id number] Nathan Philmont 09/30/2024 2 [place] [facility] Nathan Danis [id number] Nathan Philmont 10/28/2024 1 [facility] (MEDICARE REPLACEMENT/A DVANTAGE - HMO) [id number] Nathan L Danis [id number] Nathan Philmont 10/28/2024 2 [place] [facility] Nathan Philmont [id number] Nathan Danis Notes Date Note Type Note Provider Name and Address Organization Details Recorded Time 02/26/2024 text/html patient is statu s post left thumb CMC interposition arthroplasty doing well no complaints at this point pain under good control Everardo Young MD [address] [place], [address], [facility] 02/26/2024 12:41:54 03/18/2024 text/html patient returns today for follow-up he had a left thumb CMC interposition arthroplasty on 02/13/2024 doing well at this point minimal pain and swelling he has been in his protective brace for the last 5 weeks. Everardo Young MD [address] [place], [address], [facility] 03/18/2024 13:38:40 07/01/2024 text/html patient returns today for follow-up he had a left thumb CMC interposition arthroplasty on 02/13/2024 doing well at this point minimal pain and swelling he has been in his protective brace for heavy activity at times only now that he is 5 months postop Everardo Young MD [address] [place], [address], [facility] 07/01/2024 12:32:54 09/30/2024 text/html Patient is sever al months out now from the left thumb carpometacarpal arthroplasties doing very nicely he is ready to proceed with a right thumb now. 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 Patient's left thumbs been doing well since the surgery several months ago. Had a little bit of pain as is common in the 1st few days doing well now. Everardo Young MD [address] [place], [address], [facility] 10/28/2024 11:40:32
--- OUTSIDE RECORDS SUMMARY | 2024-10-30 08:39 | XMS_ITS | Clinical Summary ---
Author Organization [facility] Address [address] [place] [address] Care Team Providers Care Rolled Ham Lacer Name Role Phone Ursula Bergeron NP Primary Care Provider Allergies Active Allergy Reactions Criticality Noted Date Comments Mcmcaksi-Btcrgalqgjx-Jhogjzdbe Rash Medium 07/26 Medications aspirin 81 mg [...] 1 tablet (75 mcg total) by mouth choirmaster before breakfast Active diclofenac sodium (VOLTAREN) 1 % gel APPLY 2 GRAMS TOPICALLY TO AFFECTED AREA FOUR TIMES DAILY Active dilTIAZem (CARDIZEM) 90 mg tablet Take 1 tablet (90 mg total) by mouth 2 (two) times a day Active nebulizer accessories [facility] [place] Please provide pt with nebulizer tubing kits [...] 09/08/2024 Assessment & Plan (09/08/2024 11:42 AM ROW BOSS): Continue supplemental oxygen with all sleep at 2 liters We have discussed the risks of hypoxia I have reordered walk testing today Bronchiectasis without acute exacerbation 2023 Assessment & Plan (09/08/2024 11:41 AM ROW BOSS): He has tried and failed flutter therapy [...] 09/04/2023 Assessment & Plan (09/11/2023 10:08 AM ROW BOSS): 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 Esophageal abnormality is still possibility. Patient was advised to increase and sure intake to at least 4 or 5 cans per day. Schedule EGD for evaluation. HTN (hypertension) 10/19/2010 Hyperlipidemia 10/19/2010 Hypothyroidism 10/19/2010 Jaw pain 10/19/2010 Encounters Date Type Department Care Team Description 10/01/[address] [facility] Pulmonary at [address] [place] [phone] Juhi Weems 09/22/2024 10:22 AM ROW BOSS - 09/22/2024 11:59 PM ROW BOSS Hospital Encounter [facility] [address] [place] [phone] Pulmonary nodules Discharge Disposition: Discharge to home or self care 09/21/2024 Telephone [facility] [address] [place] [address] Darline Christine 09/08/2024 10:00 AM ROW BOSS Office Visit [facility] Pulmonary at [address] [place] [phone] Kristina Renteria, MAL Bronchiectasis without acute exacerbation (HCC) (Primary Dx); Centrilobular emphysema (HCC); Pulmonary nodules; Chronic respiratory failure with hypoxia, on home O2 therapy (HCC) 08/02/[address] [facility] Pulmonary at [address] [place] [phone] Katherine Troncoso LPN Centrilobular emphysema (HCC) (Primary Dx); Bronchiectasis without acute exacerbation (HCC) from Last 3 Months Immunizations Immunization [...] on file Legal Sex Male 11:41 PM ROW BOSS Gender Identity Male 05/13/2021 1:34 PM CDT Sexual Orientation Straight 05/13/2021 1: 34 PM CDT Obstetrics History Last Filed Vital Signs Vital Sign Reading Time Taken Comments Blood Pressure 161/84 09/08/2024 9:39 AM ROW BOSS Pulse 64 09/08/2024 9:39 AM ROW BOSS Temperature 36.5 C (97.7 F) 09/08/2024 9:39 AM ROW BOSS Respiratory Rate 18 09/08/2024 9:39 AM ROW BOSS Oxygen Saturation 97% 09/08/2024 9:39 AM ROW BOSS Inhaled Oxygen Concentration - - Weight 82.7 kg (182 lb 4.8 oz) 09/08/2024 9:39 A M ROW BOSS Height 182.9 cm (6') 09/08/2024 9:39 AM ROW BOSS Body Mass Index 24.72 09/08/2024 9:39 AM ROW BOSS Plan of Treatment Health Maintenance Due Date Last Done Comments Albumin Creatinine Ratio, Urine 1946 Depression Screening 1946 Fall Risk Assessment 1946 Hepatitis C Screening 1946 eGFR 1946 Dilated Eye Exam 1946 Foot Exam 1946 Lipid Panel 1946 Hepatitis B Screening 1964 Well Visit 65+ 11/25/2011 Hemoglobin A1C 06/30/2021 12/29/2020, 01/02/2021, 01/19/2020 Pneumococcal vaccine 65+ (2 of 2 [...] Read Routine (OP Routine) 09/22/2024 10:44 AM ROW BOSS Pulmonary nodules from Last 3 Months Results * CT Chest WO Contrast (09/22/2024 10:44 AM ROW BOSS) Anatomical Region Laterality Modality Body N/A Computed [...] Magan Castro D.O. AP: AP Report ID: [id number] Reading Location: [place] [address] Procedure Note Magan Castro, DO - 09/27/2024 [...] Magan Castro D.O. AP: AP Report ID: [id number] Reading Location: [place] [address] Kristina Renteria NP IMG CT PROCEDURES Final Res ult from Last [address] [place] [place] [address] MEDICARE ADVANTAGE [facility] Address: [address] [address] [place] [address] [place] [address] MEDICARE ADVANTAGE [employer] Advance Directives For more information, please contact: [phone] * Full Code (Latest Code Status on File) Date Activated Date Inactivated Comments 10/30/2023 12:06 PM 10/30/2023 6:21 PM Care Teams Rolled Ham Lacer Relationship Specialty Start Date End Date Ursula Bergeron NP [address] [place] [address] [place] [id number] PCP - General Family Medicine 06/08/24
--- OUTSIDE RECORDS SUMMARY | 2024-10-30 08:40 | XMS_ITS | Encounter Summary ---
Author Organization [facility] Address 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
--- OUTSIDE RECORDS SUMMARY | 2024-10-30 08:40 | XMS_ITS | Data Portability ---
Author Organization [place] - [place] [employer], Main Office Address [address] [place] [address] Care Team Providers Care Cement Despatch Operator Name Role Phone XOCHILT VANEGAS Primary Care Provider [phone] Assessment Encounter Date Assessment Date Assessment LastModified [...] Lab CMP, serum or plasma 2024 025 [facility], [address], [place], [address], 5 22:26:30 lipid panel, serum 2024 025 [employer] [facility], [address], [place], [address], 5 22:26:28 CBC w/ auto diff 2024 025 [employer] [facility], [address], [place], [address], 5 22:26:31 TSH, serum or plasma 2024 ROE [facility], [address], [place], [address], 5 22:26:33 TSH + free T4, serum 2023 024 4 [facility], [address] [place], [address], 4 11:48:48 T3, free, serum or plasma 2023 024 [email or web address] 4 [facility], [address] [place], [address], 4 11:49:06 Referral cardiologis t referral - Please call patient to schedule an appointment . Thank you. 2024 025 [place], [address] [facility], [facility] [address], [address], 11:19:[address] referral - Please call patient to schedule an appointment . Thank you. 2024 025 ROE Renteria [facility]-, [address] [place] [address], [address], [address], 12:49:49 Procedures None recorded. Surgeries None recorded. Imaging None recorded. Medication Orders amoxicillin 400 mg-potassiu m clavulanate 57 mg/5 mL oral suspension 2024 ROE Mars [facility] 2425, [address], [place], [address], 12:38:58 Bactrim DS 800 mg-160 mg tablet 2023 024 [email or web address] [facility], [address] [place] [address], [facility] [address] [place], [id number], 11:50:22 Patient TargetsNo targets recorded. Patient InstructionsNo instructions recorded. Reason for Referral Implementation Engineer Referral for Silva sinclair chronic obstructive pulmonary disease Please call patient to schedule an appointment. Thank you. Referring Physician: Justin Jane, Internal Medicine, Encounter Date: 08/25/2024 Respiratory Therapy Director Referral for Es sential hypertension Please call patient to schedule an appointment. Thank you. Referring Physician: Justin Jane, Internal Medicine, Encounter Date: 08/25/2024 Results Created Date Observation Date Name Description Value Unit Range Abnormal Flag Note LastModifiedBy Organization Detail LastModifiedTime 03/18/20 24 XR, hand, 3 or more view [facility] [address] [place] [address] Patien t Name: NATHAN MOSCOSO Access ion #: [id number] Sex: M : 1945 1 8 Dictat ed By: Lizzie Suarez Attend ing Physic anna: EVERARDO ABREU [facility] Physic anna: EVERARDO ABREU Exam Date: 2023 [...] at 2023 10:36: 21 AM Page 1 [facility] ([facility]) [address] [place], [address], 04/07/2024 10:39:49 03/18/20 24 03/18/2024 XR, hand, 3 or more view No observ ation record ed. [email or web address] [facility] [address], [place], [address], 03/31/2024 15:18:43 10/20/19 25 10/19/2024 imagi ng/di agnos tic resul t No observ ation record ed. [facility] [address] [facility] [address], [place], [address], 10/19/2024 18:30:23 Result Notes None recorded. Problems Name Problem SNOMED Code Status Onset Date Resolution Date Notes Provider Name and Address Organization Details Recorded Time Hyperchole sterolemia 59326966 Active 2020 Not Available [facility] 4 22:23:27 Chronic obstructiv e pulmonary disease 00085398 Active 2020 Not Available [facility] 4 22:23:27 Anti-nucle ar factor detected 209656452 Active 2021 Not Available [facility] 4 22:23:27 Bacterial infection caused by Klebsiella pneumoniae 851898533 Active 2021 Not Available [facility] 4 22:23:27 Copious sputum 017905002 Active 2021 Not Available [facility] 4 22:23:27 Esophageal dysmotilit y 586661819 Active 2021 Not Available [facility] 4 22:23:27 History of malignant neoplasm 136417848 Active 2020 Not Available [facility] 4 22:23:27 Abdominal mass 365589908 Active 2021 Not Available [facility] 4 22:23:27 Thick sputum 079454557 Active 2022 Not Available [facility] 4 22:23:27 Severe chronic obstructiv e pulmonary disease 282227795 Active 2022 Not Available [facility] 4 22:23:27 Postobstru ctive pneumonia 092719785 Active 2021 Not Available [facility] 4 22:23:27 At increased risk for aspiration 993886496 Active 2021 Not Available [facility] 4 22:23:27 Hypertensi ve disorder 69315295 Active 2020 Not Available [facility] 4 22:23:27 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 025001617 Active 2021 Not Available [facility] 4 22:23:27 Rajni, not Rajni albicans 854748654 Active 2021 Not Available [facility] 4 22:23:28 Dysphagia 64380711 Active 2021 Not Available [facility] 4 22:23:28 Hypothyroi dism 44491019 Active 2020 Not Available [facility] 4 22:23:28 Coronary arterioscl erosis 29143768 Active 2021 Not Available [facility] 4 22:23:28 Dyspnea on exertion 44866300 Active 2021 Not Available [facility] 4 22:23:28 Chronic cough 59291008 Active 2021 Not Available [facility] 4 22:23:28 Bacterial infection caused by Serratia 72628368 Active 2021 Not Available [facility] 4 22:23:28 Prediabete s 572994816 Active 2020 Not Available [facility] 4 22:23:28 Obstructiv e sleep apnea syndrome 26505497 Active 2022 Not Available [facility] 4 22:23:28 History of squamous cell carcinoma in situ 3828090721076 5 Active 2020 Not Available [facility] 4 22:23:28 Solitary nodule of lung 733890703 Active 2022 Not Available [facility] 4 22:23:28 Hyperlipid emia 41386892 Active 2022 Not Available [facility] 4 22:23:28 Insomnia 314741939 Active 2022 Not Available [facility] 4 22:23:27 Pain of bilateral hands 5591924666359 9109 Active 2022 Not Available [facility] 4 22:23:27 Osteoarthr osis of the carpometac arpal joint of the thumb 37753397 Active 2022 Not Available [facility] 4 22:23:27 Bilateral pain of joint of hands 4151195170019 9102 Active 2022 Not Available [facility] 4 22:23:27 Abnormal findings on diagnostic imaging of lung 848029862 Active 2022 Not Available [facility] 4 22:23:27 Arthritis of bilateral first carpometac arpal joints 6614908571299 102 Active 2022 Not Available [facility] 4 22:23:27 Pain of left hand 7551471961742 03 Active 2023 ANEESH Cesar [address] [facility], [address], [address] , [employer] [facility] 4 22:54:41 Diabetes mellitus 75051748 Active 2023 ANEESH Hernandez [address], [place] [address], [place], [address] , [place] [facility] [place] [employer] [facility] 4 11:30:11 Epidermoid cyst of skin of back 366091943 Active 2023 ANEESH Hernandez [address], [address], [address] , [place] [employer] [facility] 4 11:34:05 Epidermoid cyst of skin 052590925 Active 2023 Jim esparza MD [address], [facility] [address], [place], [address] , [place] [employer] [facility] 4 13:58:44 Malignant tumor of tonsil 907614386 Active 2024 Justin jarrett MD [address], [address], [place], [address] , [facility] [employer] [facility] [employer] [facility] 5 12:10:07 Essential hypertensi on 74535673 Active 2024 Justin jarrett MD [address], [address], [place], [address] , [facility] [employer] [facility] 5 12:10:17 Esophageal dysphagia 69092854 Active 2024 Justin jarrett MD [address], [address], [place], [address] , [facility] [employer] [facility] [employer] 12:13:28 Notes:Medical History: Laryn geal penetration Hypothyroidism Hyperlipidemia Hypertension EF 55% Prediabetes Mild TR CAD 4.1 cm ascending thoracic aortic ectasia Moderate COPD LLL 6.7 mm pulm nodule Asbestos exposure 5411-5732 Mild splenomegaly Left 7.7 cm renal cyst Procedure History: 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 Please review these documents and add these problems to the patient's chart manually as needed. Problem Notes None recorded. Procedures Surgical History Date Name Laterality Status Provider Name and Address Organization Details Recorded Time 4 Blank Procedure Note completed Jim Ramirez MD [address], [facility] [address], [place], [address], [facility] [employer] 05/18/2024 12:28:30 3 Ortho - Cortisone Injection completed Olivier Jackson MD [address], [address], [place], [address], [facility] [employer] 01/28/2023 14:48:33 other completed Annika Varela MA [facility] [employer] 04/15/2024 12:02:59 Imaging Results Imaging Date Name Status LastModified by Organiz ation Details LastModified Time 03/18/2024 XR, hand, 3 or more view completed [email or web address] [facility] (Imaging) [address] [place], [address], 04/07/2024 10:39:49 03/18/2024 XR, hand, 3 or more view completed [email or web address] [facility] [address] [place], [address], 03/31/2024 15:18:43 10/19/2024 imaging/diag nostic result active [facility] [address] [facility] [address], [place], [address], 10/19/2024 18:30:23 Procedure Notes None recorded. Medical Equipment None Reported. Allergies Allergen ID Allergen Name Allergen Category Reaction Reaction Severity Criticality Documentation Date Start Date Code Code System Note Provider Name and Address Organization Details Recorded Time 65120 bacitraci n / neomycin / polymyxin B medicatio n Not available Not available Not available 09/18/2022 65362 9 RxNorm Not Available [facility] 3 23:31:27 85100 bacitraci n medicatio n Not available Not available Not available 03/29/2024 1291 RxNorm Other react ions and sever ities : 'Adve rse react ion to subst ance - Sever e'. Yoana Rodriguez APRN [address] [facility], [facility] [address], [place], [address] , [facility] [employer] [facility] 4 14:17:39 Medications Name Sig Start Date [...] Available OneTouch Ultra Test strips TEST DAILY 12/05 /2022 completed Not Available Not Available Not Available Kenalog 10 mg/mL suspensio n for injection Take 20 mg by injectio n route. 08/25 completed [facility]: [id number] -[id number] Not Available Not Available Not Available hydrocodo [...] %) injection solution in office 08/25 completed [facility] [address] 4- Not Available Not Available Not Available [...] Updated DateTime 4 182.88 cm 24 kg/m2 83422.8 5 g 97.5 [degF] 70 /min 93 % 93 % 166 mm[Hg] 84 mm[Hg] Brook Hidalgo RN [facility] [email or web address] [facility] 4 11:21:33 Date Recorded Body height Body mass index (BMI) Body weight Provider Name and Address Organization Details Last Updated DateTime 04/15/2024 182.88 cm 22.5 kg/m2 20629.33 g Annika Varela MA [facility] [email or web address] [facility] 04/15/2024 12:00:42 Date Recorded Body height Body mass index (BMI) Body weight Body temperature Heart rate Respiratory rate Oxygen saturation Oxygen saturation in Arterial blood by Pulse oximetry Systolic blood pressure Diastolic blood pressure Provider Name and Address Organization Details Last Updated DateTime 4 182.88 cm 22.5 kg/m2 07188.3 3 g 97.5 [degF] 70 /min 16 /min 93 % 93 % 166 mm[Hg] 84 mm[Hg] Reema Ortiz [facility] [email or web address] [facility] 4 12:06:48 Date Recorded Body height Body mass index (BMI) Body weight Body temperature Heart rate Respiratory rate Oxygen saturation Oxygen saturation in Arterial blood by Pulse oximetry Systolic blood pressure Diastolic blood pressure Provider Name and Address Organization Details Last Updated DateTime 4 182.88 cm 22.5 kg/m2 70771.3 3 g 97.5 [degF] 70 /min 16 /min 93 % 93 % 166 mm[Hg] 84 mm[Hg] Reema Ortiz [facility] [email or web address] [facility] 4 10:35:10 Date Recorded Body height Body mass index (BMI) Body weight Body temperature Heart rate Systolic blood pressure Diastolic blood pressure Provider Name and Address Organization Details Last Updated DateTime 5 182.88 cm 23.2 kg/m2 81227.3 g 97.6 [degF] 78 /min 140 mm[Hg] 66 mm[Hg] CHRISTOPHER Valdez [facility] [employer] 11:58:34 Social History Question Answer Notes LastModified by Organizat ion Details LastModified Time Tobacco Smoking Status Former Smoker qiut age 30 CHRISTOPHER Valdez null, CELINA Cutler [facility] [employer] 08/25/2024 11:55:50 What Is Your Level Of Alcohol Consumption? None MIGRATION.39131 [id number] Information not available 09/18/2022 What Is Your Level Of Caffeine Consumption? Moderate Coffee, 2-3 Cups Per Day MIGRATION.78114 58006 Information not available 09/18/2022 In The 14 Days Before Symptom Onset, Have You Had Close Contact With A Laboratory-confir med COVID-19 While That Case Was Ill? No MIGRATION.04508 57566 Information not available 09/18/2022 In The 14 Days Before Symptom Onset, Have You Had Close Contact With A Person Who Is Under Investigation For COVID-19 While That Person Was Ill? No MIGRATION.89601 93515 Information not available 09/18/2022 Are You Currently Employed? [place] [address] Information not available 04/15/2024 What Type Of Diet Are You Following? SPECIFIC Ensure - Equate Diabetic Care Chocolte - Needs Rx For 6 Cases A Month MIGRATION.05090 50384 Information not available 09/18/2022 When Did You Quit Smoking? 17+yearssinc elastcigaret te MIGRATION.90967 70668 Information not available 09/18/2022 What Was The Date Of Your Most Recent Tobacco Screening? 08/25/2024 [email or web address] Information not available 08/25/2024 What Is Your Relationship Status? Single [place] [address] Information not available 04/15/2024 At What Age Did You Start Smoking Tobacco? 10 MIGRATION.71650 22625 Information not available 09/18/2022 Do You Use Any Illicit Or Recreational Drugs? No MIGRATION.36281 15158 Information not available 09/18/2022 Has Tobacco Cessation Counseling Been Provided? No MIGRATION.09145 63979 Information not available 09/18/2022 How Many Years Have You Smoked Tobacco? 20 MIGRATION.67795 36835 Information not available 09/18/2022 Have You Recently Traveled Abroad? No MIGRATION.43771 32971 Information not available 09/18/2022 Do You Have Any Dietary Restrictions? No Had Throat Cancer MIGRATION.74896 58150 Information not available 09/18/2022 Do You Or Have You Ever Used Any Other Forms Of Tobacco Or Nicotine? No MIGRATION.74104 46213 Information not available 09/18/2022 Sex: Male Functional Status Question Answer Note LastModified by Organizat ion Details LastModified Time What is your exercise level? None MIGRATION.[id number] Information not available 09/18/2022 Mental Status None recorded. Family History Relationship Description Onset Age of this Age Resolved Age Notes LastModified by Organization Details LastModified Time Unspecified Relation Hypertensive disorder MIGRATION.526 [id number] Not available 09/18/2022 23:28:57 Unspecified Relation Myocardial infarction MIGRATION.802 [id number] Not available 09/18/2022 23:28:57 Unspecified Relation Cerebrovascu lar accident MIGRATION.865 [id number] Not available 09/18/2022 23:28:57 Unspecified Relation Family history of malignant neoplasm MIGRATION.725 [id number] Not available 09/18/2022 23:28:57 Unspecified Relation Kidney disease MIGRATION.376 1322248 Not available 09/18/2022 23:28:57 Medical History Condition Response DIABETES, TYPE Y CANCER: SPECIFY Y Immunizations Vaccine Type Date Status Note Provider Nam e and Address Organization Details Recorded Time Influenza, high-dose, quadrivalent, PF 1 completed Not Available [facility] 07/25/2023 22:23:28 zoster recombinant 2 completed Yoana Rodriguez APRN [address], [address], [place], [address], [facility] [employer] 03/29/2024 14:17:58 zoster recombinant 2 completed Yoana Rodriguez APRN [address], [address], [place], [address], [facility] 03/29/2024 14:17:58 Influenza, high-dose, quadrivalent, PF 2 completed Yoana Rodriguez APRN [address], [address], [place], [address], [facility] 03/29/2024 14:17:58 Influenza, high-dose, quadrivalent, PF 3 completed Yoana Rodriguez APRN [address], [address], [place], [address], [facility] 03/29/2024 14:17:58 COVID-19, mRNA, LNP-S, PF, 30 mcg/0.3 mL dose 1 completed Yoana Rodriguez APRN [address], [address], [place], [address], [facility] 03/29/2024 14:17:58 Pneumococcal conjugate PCV20, polysaccharide [id number] conjugate, adjuvant, PF 3 completed Yoana Rodriguez APRN [address], [address], [place], [address], [facility] 03/29/2024 14:17:58 COVID-19, mRNA, LNP-S, PF, 30 mcg/0.3 mL dose, edison-sucrose 2 completed Yoana Rodriguez APRN [address], [address], [place], [address], [facility] 03/29/2024 14:17:58 COVID-19, mRNA, LNP-S, bivalent, PF, 30 mcg/0.3 mL dose 2 completed Yoana Rodriguez APRN [address], [address], [place], [address], [facility] 03/29/2024 14:17:58 RSV, bivalent, protein subunit RSVpreF, diluent reconstituted, 0.5 mL, PF 3 completed Yoana Rodriguez APRN [address], [address], [place], [address], [facility] 03/29/2024 14:17:58 COVID-19, mRNA, LNP-S, PF, edison-sucrose, 30 mcg/0.3 mL 3 completed Yoana Rodriguez, REGIONAL GEODETIC ADVISOR [address], [address], [place], [address], [place] - [email or web address] [facility] 03/29/2024 14:17:58 COVID-19, mRNA, LNP-S, PF, edison-sucrose, 30 mcg/0.3 mL 4 completed Madhavi Feldman RMA null, [employer] [facility] 08/25/2024 11:54:34 Influenza, high-dose, trivalent, PF 4 completed Madhavi Feldman RMA null, [employer] [place] [employer] [facility] 08/25/2024 11:54:34 Past Encounters Encounter ID Performer Location Encounter Start Date Encounter Closed Date Diagnosis/Indication Diagnosis SNOMED-CT Code Diagnosis ICD10 Code Diagnosis Note [id number] [facility] [address] [place] [address] 04/11/2021 00:00:00 04/11/2021 12:28:30 [id number] [facility] [place] [address] 04/23/2021 00:00:00 04/23/2021 08:23:44 [id number] [facility] [place] [address] 07/11/2021 00:00:00 07/11/2021 14:25:18 [id number] [facility] [place] [address] 10/08/2021 00:00:00 10/08/2021 10:43:12 [id number] [facility] Podiatry Nikki Oconnell [address] [place] [address] 10/22/2021 00:00:00 10/22/2021 15:59:59 [id number] [facility] Pulmonolo gy Nikki Oconnell [address] [place] [address] 10/31/2021 00:00:00 10/31/2021 15:34:00 [id number] [facility] Pul[facility]olo [facility] [place] [address], [address] [place] [address] 01/09/2022 00:00:00 01/09/2022 16:25:51 [id number] [facility] Jatin veleze [address] [place] [address] 01/23/2022 00:00:00 01/23/2022 11:53:40 [id number] [facility] Pulmonolo gy [place] [address] [place] [address] 02/22/2022 00:00:00 02/22/2022 11:41:06 [id number] [facility] Pulmonolo [facility] [place] [address], [address] [place] [address] 03/12/2022 00:00:00 03/12/2022 16:14:51 [id number] [facility] Pul[facility] [place] [address], [address] [place] [address] 04/01/2022 00:00:00 04/01/2022 14:04:28 [id number] [facility] Jatin cheung [address], [place] [address] 05/09/2022 00:00:00 05/09/2022 17:01:04 [id number] [facility] Pulmonolo [facility] [place] [address] [place] [address] 05/24/2022 00:00:00 05/24/2022 12:11:11 [id number] [facility] Yovanivi rosiee [address], [place] [address] 06/11/2022 00:00:00 06/11/2022 14:19:12 [id number] [facility] Pul[facility] [place] [address] [place] [address] 06/21/2022 00:00:00 06/21/2022 11:55:31 [id number] [facility] Pul[facility]olo gy [place] [address] [facility], [facility] [address] [place] [address] 07/01/2022 00:00:00 07/01/2022 12:38:24 [id number] [facility] [place] [address] [facility] [address] [place] [address] 07/31/2022 00:00:00 07/31/2022 16:56:18 [id number] [facility] Pulmonolo gy Nikki Oconnell [address] [place] [address] 07/31/2022 00:00:00 07/31/2022 13:29:58 [id number] [facility] [place] [address] [facility] [address] [place] [address] 08/28/2022 00:00:00 08/28/2022 18:34:58 [id number] Kristina Myra, PACKING CLERK- [facility] Pulmonolo gy Nikki Oconnell [address] [place] [address] 09/30/2022 11:09:27 09/30/2022 12:28:23 Severe chronic obstructive pulmonary disease 274761300 J44.9 CAT 25PFT 11/2021 with ratio 48FEV1 49DLCO adjusted is normalCont inue Symbicort and Spiriva with aerochambe rAlbuterol PRN - discussed indication s for useDiscuss ed reportable signs and symptoms.R TC in 2-3 months, PRN for concerns Thick sputum 531327057 R 09.3 Intolerant to nebulized mucomystSt art oral BIDNarrowi ng of LLL bronchus per bronchosco py with thick mucous and plugs. Chronic cough 12225901 R 05.3 ImprovedMB S completed 01/2022 with laryngeal penetratio n identified with swallowing of thin liquid, thick liquid, and pudding consistenc y.No jennifer aspiration was identified Recommend GI Bacterial infection caused by Serratia 82438371 A49.8 10/2021 Bacterial infection caused by Klebsiella pneumoniae 046551002 B96.1 10/2021 Dyspnea on exertion 6084 5006 R06.09 ImprovedQu antiferon GOLD negativeIG E normaleosi nophils normalBNP normalIGGs normalSix minute walk normal 11/2021 Ex-smoker 1690402 Z87.[address] chest 05/2022 with nodule as above Solitary n odule of lung 754635059 R91.1 [address] chest 2Rep eat in 6 months, due 11/2022 [id number] Kristina Myra, [facility]- [facility] Pulmonolo gy [place] [address] [place] [address] 12/30/2022 11:12:17 12/30/2022 11:51:23 Severe chronic obstructive pulmonary disease 494159808 J44.9 CAT 25PFT 11/2021 with ratio 48FEV1 49DLCO adjusted is normalCont inue Symbicort 160 and Spiriva Respimat 2.5with aerochambe rInstructe d on technique todayAlbut marilyn PRN - discussed indication s for useDiscuss ed reportable signs and symptoms.R TC in 3-4 months, PRN for concerns Solitary n odule of lung 143284784 R91.1 6.[address] chest 2Rep eat in 6 months, due 11/2022 - staff scheduled today Thick sputum 718376983 R 09.3 Intolerant to nebulized mucomystCo ntinue oral acetylcyst eine BIDNarrowi ng of LLL bronchus per bronchosco py with thick mucous and plugs. Chronic cough 32794959 R 05.3 ImprovedMB S completed 01/2022 with laryngeal penetratio n identified with swallowing of thin liquid, thick liquid, and pudding consistenc y.No jennifer aspiration was identified Recommend GI consultHe continues to decline Bacterial infection caused by Serratia 65506199 A49.8 10/2021 Bacterial infection caused by Klebsiella pneumoniae 518922636 B96.1 10/2021 Dyspnea on exertion 6084 5006 R06.09 Multifacto ralImprove dQuantifer on GOLD negativeIG E normaleosi nophils normalBNP normalIGGs normalSix minute walk normal ec ommend exercise programHe will consider [place] Ex-smoker 6347120 Z87.[address] chest 05/2022 with nodule as aboveHe has not repeated, staff scheduled this today Activity intolerance 774 77872 Z73.89 Multifacto ral [id number] MATT De La Torre S_[facility] Primary [facility] [place] [address] [facility] [address] [place] [address] 01/16/2023 11:00:43 01/16/2023 12:53:45 Chronic obstructive pulmonary disease 52635939 J44.9 He has increased trouble with his SOB. Will try to put referral in for upright walker.Ref ills needed on inhalers/n ebulizer.C ontinue follow-up with pulmonolog y. 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 Epsom salt soaks.Will plan to refer to ortho if no improvemen t for imaging/in jections. [id number] Olivier Jackson MD [facility] [place] [address] [place] [address] 01/28/2023 14:02:53 01/28/2023 15:25:32 Pain of bilateral hands 1078407807 1329949 M79.642 M79.641 Osteoarthr osis of the carpometacarpal joint of the thumb 11165484 M18.9 M18.0 [id number] Olivier Jackson MD [facility] [place] [address] [place] [address] 02/25/2023 14:28:07 02/25/2023 15:25:45 Osteoarthrosis of the carpometacarpal joint of the thumb 84251800 M18.9 M18.0 [id number] [facility] Pulmonolo gy [place] [address] [place] [address] 04/15/2023 10:08:12 04/15/2023 11:08:18 Severe chronic obstructive pulmonary disease 378779706 J44.9 CAT 25PFT 11/2021 with ratio 48FEV1 49DLCO adjusted is normalCont inue Symbicort 160 and Spiriva Respimat 2.5with aerochambe rRX sent todayAlbut marilyn PRN - discussed indication s for useDiscuss ed reportable signs and symptoms.H e should follow up in 6 months, PRN for concerns Thick sputum 463538607 R 09.3 Intolerant to nebulized mucomystCo ntinue oral acetylcyst eine BIDNarrowi ng of LLL bronchus per bronchosco py with thick mucous and plugs.Re-s tart flutter valve use dailyMay need Smart Vest therapy Chronic cough 26951100 R 05.3 ImprovedMB S completed 01/2022 with laryngeal penetratio n identified with swallowing of thin liquid, thick liquid, and pudding consistenc y.No jennifer aspiration was identified Bacterial infection caused by Serratia 62277004 A49.8 10/2021 Bacterial infection caused by Klebsiella pneumoniae 872574727 B96.1 10/2021 Dyspnea on exertion 6084 5006 R06.09 Multifacto ralQuantif jorge GOLD negativeIG E normaleosi nophils normalBNP normalIGGs normalSix minute walk normal 2Rec ommend exercise programHe will consider [place] Activity intolerance 774 00814 Z73.89 Multifacto ral Ex-smoker 6402666 Z87.[address] chest as above Abnormal f indings on diagnostic imaging of lung 263016244 R91.[address] chest due 06/2023, ordered todayHe is aware to call PCM about results if he has not heard one week after completed [id number] MATT Hua [facility] Orth[facility] [place] [address] [place] [address] 05/26/2023 08:53:28 05/26/2023 10:47:16 Pain of bilateral hands 4563202030 9986565 M79.642 M79.641 Arthritis of bilateral first carpometacarpal joints 9916119000 841857 M13.841 M13.335 [id number] Kristina Renteria, PACKING CLERK-BC [facility] Pulmonolo gy [place] [address] [place] [address] 06/02/2023 14:01:13 06/02/2023 15:08:11 Severe chronic obstructive pulmonary disease 034494897 J44.9 PFT 11/2021 with ratio 48FEV1 49DLCO adjusted is normalCont inue Symbicort 160 and Spiriva Respimat 2.5with aerochambe rRX sent todayAlbut marilyn PRN - discussed indication s for useDiscuss ed reportable signs and symptoms.H e should follow up in 6 months, PRN for concerns Abnormal f indings on diagnostic imaging of lung 631724308 R91.[address] chest due 06/2023Sch eduled 07/07/23, has follow up with PCM Thick sputum 560190567 R 09.3 Intolerant to nebulized mucomystCo ntinue oral acetylcyst eine BIDNarrowi ng of LLL bronchus per bronchosco py with thick mucous and plugs.Re-s tart flutter valve use daily - I have stressed the importance of thisMay need Smart Vest therapy Chronic cough 34169254 R 05.3 ImprovedMB S completed 01/2022 with laryngeal penetratio n identified with swallowing of thin liquid, thick liquid, and pudding consistenc y.No jennifer aspiration was identified May need repeat Bacterial infection caused by Serratia 55396921 A49.8 10/2021 Bacterial infection caused by Klebsiella pneumoniae 785292094 B96.1 10/2021 Dyspnea on exertion 6084 5006 R06.09 Multifacto ralQuantif jorge GOLD negativeIG E normaleosi nophils normalBNP normalIGGs normalSix minute walk normal 2Rec ommend exercise programI have strongly urged pulmonary rehab Activity intolerance 774 86796 Z73.89 Multifacto ral Ex-smoker 2494190 Z87.[address] chest as above [id number] MATT De La Torre S_G Primary Care [place] [address] [facility] [address] [place] [address] 07/28/2023 13:58:24 07/28/2023 14:35:19 Chronic obstructive pulmonary disease 24373809 J44.9 He has increased trouble with his [...] he cannot use a MWC d/t decreased cancer researcher strength bilaterall y.--A PMD will improve this patient's in home ability to perform his ADLs by reducing his need for assistance when none is available. --This patient can safely operate the PMD both mentally and physically .--This patient is very motivated to use the PMD in hi/her home. Continue follow-up with pulmonolog y. CT results not in chart yet. [id number] ANEESH Cesar [facility] Primary Care [address] [place] [address] 10/24/2023 11:44:49 10/24/2023 12:11:16 Adult health examination 107226672 Z00.00 Encouraged fresh fruits and veggies-lo w intake of both, drinks ensureIncr ease daily water intake-enc ouraged 6-8 glasses/da y, coffeeEnco urage 30 mins of daily exercise-w alks for exerciseCo lonoscopy- orderedDEX A-no hx of recurrent fxLDCT-not a smoker, not a drinker-nesha torres obtained Screening for malignant neoplasm of colon 081688873 Z12.11 [id number] ANEESH Cesar [facility] Primary Care [address] [place] [address] 12/10/2023 09:02:36 12/10/2023 09:47:47 Pain of bilateral hands 3264858245 8867591 M79.641 -pain noted to bilateral hands (severity [...] this time-refer ral to hand surgeon given [id number] MATT Hua [facility] Orth[place] [address] [place] [address] 12/18/2023 09:04:22 12/18/2023 10:08:39 Arthritis of bilateral first carpometacarpal joints 9424942590 952330 M13.841 M13.842 Pain of bi lateral hands 0464829063 1459163 M79.625 [id number] Heather Pina MD [facility] General Surgery [address] [facility], [address] [address] 12/31/2023 11:37:55 12/31/2023 11:58:43 History of polyp of colon 030847839 Z86.023 [id number] ANEESH Hernandez [facility] Primary Care [facility] [address] [facility] [address] [place] [address] 03/10/2024 11:15:16 03/10/2024 11:45:46 Hypothyroidism 23595665 E03.9 Recent hair loss.Will recheck labs as listed below. Epidermoid cyst of skin of back 646432673 L72.0 Patient will follow up as needed. [id number] Jim esparza MD [facility] General Surgery [address] [facility], [address] [address] 04/15/2024 11:24:54 04/19/2024 15:32:16 Epidermoid cyst of skin of back 818234940 L72.0 [id number] Jim esparza MD [facility] General Surgery [address] [place] [address] 05/18/2024 11:35:06 05/18/2024 12:29:36 Epidermoid cyst of skin 284004716 L72.0 left back [id number] Jim esparza MD [facility] General Surgery [address] [place] [address] 05/27/2024 10:14:37 06/16/2024 11:56:29 Epidermoid cyst of skin 751775234 L72.0 left back [id number] Justin jarrett MD [facility] Primary Care [place] ve[place] [address] [facility] [address] [place] [address] 08/25/2024 11:35:46 08/25/2024 12:39:29 Screening - NAD 238918507 Z13.9 C-scope: C-scope 01/05/2024 : Dr Pina Get yearly flu shot, do Tdap if not doneGet PCV #20Get shingrix vaccine and RSV vaccineCan do COVID 19 boosters RTC in 1 months, do labs, ER if worse, he and his girl friend did verbalize his understand ing of the above Severe chr onic obstructive pulmonary disease 176202573 J44.9 Sees Kristina Renteria ROOF TILER last 06/02/2023 On albuterol HHNOn albuterol inhalerOn SpirivaOn SymbicortW ill see Kristina Renteria referredHa s noted a cough, will start on augmentin 800mg bid for 7 days as an oral suspension Hyperlipidemia 61825114 E78.5 On rosuvastat in 20mg dailyGet labs 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, 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 Essential hypertension 49647956 I10 On ASAOn diltiazem 90mg dailyOn lasix 40mg dailyOn metoprolol 25mg dailySees Dr Taylor [facility] Hypothyroidism 37265390 E03.9 On levothyrox ine 112mcgs dailyGet labs Esophageal dysphagia 408 36388 R13.19 S/p radiation Rx for tonsillar cancerEGD [...] Reyes Member ID Guarantor Name 03/10/2024 1 [facility] (MEDICARE REPLACEMENT/AD VANTAGE - PPO) [id number] Nathan L Danis [id number] Nathan L [place] 04/15/2024 1 [place] Nathan L Danis [id number] Nathan L [place] 05/18/2024 1 [facility] (MEDICARE REPLACEMENT/AD VANTAGE - HMO) [id number] Nathan L [place]is [id number] Nathan L [place] 05/27/2024 1 [facility] (MEDICARE REPLACEMENT/AD VANTAGE - HMO) [id number] Nathan L Danis [id number] Nathan L [place] 05/27/2024 2 [place] WHEN [place] OR MEDICARE REPLACEMENT PRIMARY) Nathan L [place] [id number] Nathan L [place] 08/25/2024 1 [facility] (MEDICARE REPLACEMENT/AD VANTAGE - HMO) [id number] Nathan L [place]is [id number] Nathan L [place] 08/25/2024 2 [place] WHEN [place] OR [place]IC[place] REPLACEMENT PRIMARY) Nathan L Danis [id number] Nathan L Danis Notes Date Note Type [...] about one month ago, is recovering well. Ursula Bergeron, BROOKE-C [address] [place] [address], [facility] [address], [place], [address], [facility] [employer] 03/10/2024 12:38:38 04/15/2024 text/html patient complain s of draining cyst on his back that he has had for several years. Waxes and wanes. Denies fevers or chills. Would like to have it removed Jim Ramirez MD [address] [place] [address], [place], [address], [employer] [facility] 04/15/2024 16:34:43 05/18/2024 text/html patient here for excision left lower back cyst Jim Ramirez MD [address], [place], [address], [employer] [facility] 05/18/2024 14:02:04 05/27/2024 text/html No complaints Jim Ramirez MD [address], [place], [address], [employer] [facility] 05/27/2024 13:18:19 08/25/2024 text/html OV 08/25/2024:He re to establish care Present Hx:HTNHLDHypothyro idismCOPDHx of tonsillar cancer Here to discuss above, he also has noted a slight but now worsening cough, clear, no hempotysis, no chest pain, mildly SOB, no wheezingHe is here with his girl friend Justin Jane MD [address], [facility] [address], [place], [address], [employer] [facility] [email or web address] [facility] 08/25/2024 12:46:32
--- OUTSIDE RECORDS SUMMARY | 2024-10-30 08:40 | XMS_ITS | Clinical Summary ---
Author Organization [facility] Medical Office [facility] Address [address] [place] [address] Care Team Providers Care Irrigator Gravity Flow Name Role Phone Galileo Kiser MD Primary Care Provider [phone] Allergies Active Allergy Reactions Criticality Noted Date Comments Ilmoolen-Ecstqcjyloa-Vxbidxxgy Rash Low 07/26 Medications Food Supplement, Lactose-Free (ENSURE HIGH PROTEIN) Oral Liqd Take 240 mL by mouth q 3 hour. 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 Gender Identity Not on file Sexual Orientation [...] 09/28/2029 09/29/2019 Medical Devices Implanted Type Area Blueprint Reproducer Device Identifier Shelf Expiration Date Model / Serial / Lot Clip Endo Resolution 360 235cm [id number] - [id number] Implanted:Qty: 2 on 02/12/2019 by Krishna Foster MD at [facility] Clip N/A: Perianal [employer] [id number] / / Lens Io Sn60wf 21.0 - [id number] Implanted:Qty: 1 on 02/19/2021 by Polo Huang MD at [facility] Patients First Eye Right: Eye [employer] [id number] 10/20/2025 SN60WF .21 0 / [id number] / Lens Io Sn60wf 21.5 - [id number] Implanted:Qty: 1 on 03/05/2021 by Polo Huang MD at [facility] Patients First Eye Left: Eye [employer] [id number] 10/23/2025 SN60WF .21 5 / [id number] / [id number] Procedures Procedure Name Priority Date/Time Associated Diagnosis Comments MICROALBUMIN/CREATIN INE RATIO, RANDOM UR Routine 12/29/2020 2:34 PM CDT Type 2 diabetes mellitus without complication, without long-term current use of insulin ([facility]) Essential hypertension LIPID PANEL Routine 12/29/2020 2:34 [...] Creatinine, Urine 207 20 - 320 mg/dL [facility] MICROALBUMIN, URINE 1.3 See Note: mg/dL [facility] Comment: Reference Range: Reference Range Not established MICROALBUMIN/CREAT RATIO, UR 6 <30 mcg/mg creat [facility] Comment: The ADA defines abnormalities in albumin excretion as follows: Category Result (mcg/mg creatinine) Normal <30 Microalbuminuria 30-299 Clinical albuminuria > OR = 300 The ADA recommends that at least two of three specimens collected within a 3-6 month period be abnormal before considering a patient to be within a diagnostic category. Test Performed at: [facility] [address] [place] [address] Marcello Yoo D.O., MPH Urine URINE SPECIMEN OBTAINED BY CLEAN CATCH PROCEDURE / Unknown 12/29/2020 2:34 PM CDT Galileo Kiser MD URINE ORDERABLES Final Result Performing Organization Address [facility] Co de Phone Number [facility] [address] [place] [address] * HEMOGLOBIN A1C (12/29/2020 2:34 PM CDT) Pathologist [facility] HEMOGLOBIN A1C 5.1 <5.7 % of total Hgb [facility] Comment: Test Performed at: [facility] [address] [place] [address] [facility] Blood 12/29/2020 2:34 PM CDT Galileo Kiser MD CHEMISTRY ORDERABLES Final Re sult Performing Organization Address City/[facility]/ZIP Co de Phone Number [facility] [address] [place] [address] * LIPID PANEL (12/29/2020 2:34 PM CDT) Pathologist [facility] CHOLESTEROL 147 <200 mg/dL [facility] HDL 52 > OR = 40 mg/dL [facility] TRIGLYCERIDE 117 <150 mg/dL [facility] LDL CALCULATED 75 mg/dL (calc) [facility] Comment: Reference range: <100 Desirable range <100 mg/dL for primary prevention; <70 mg/dL for patients with CHD or diabetic patients with > or = 2 CHD risk factors. LDL-C is now calculated using the Jam calculation, which is a validated novel method providing better accuracy than the Friedewald equation in the estimation of LDL-C. Sulaiman SS et al. PAVAN. 2013;310(19): 3517-5215 (http://education.[employer]/faq/KUU471) CHOL/HDL RATIO 2.8 <5.0 (calc) [facility] TOTAL NON-HDL CHOL(LDL+VLDL) 95 <130 mg/dL (calc) [facility] Comment: For patients with diabetes plus 1 major ASCVD risk factor, treating to a non-HDL-C goal of <100 mg/dL (LDL-C of <70 mg/dL) is considered a therapeutic option. Test Performed at: [place] [address] [place] [address] [facility] Blood 12/29/2020 2:34 PM CDT us Gallieo Kiser MD CHEMISTRY ORDERABLES Final Re sult [facility] [address] [place] [address] * COLONOSCOPY REPORT (11/28/2020 10:22 AM CDT) Narrative Procedure Note Krishna Foster MD - 11/28/2020 10:20 AM CDT [facility] GI Patient Name: Nathan Moscoso Procedure Date: [...] bowel preparation was evaluated using the BBPS ([place] Bowel Preparation Scale) with scores of: Right [...] surveillance based on pathology results. - A [employer] message and/or a letter will be sent to you summarizing the pathology results. Please call the GI office ([phone]) if you have not heard the results within 2 weeks. - Goal intake of 25-30 grams of fiber per day. This is a combination of dietary fiber (located on product food label) as well as supplemental fiber (for example Citrucel, Fibercon, Konsyl or Metamucil) if needed. Procedure Code(s): --- Professional --- 90989, Colonoscopy, flexible; with removal of tumor(s), polyp(s), or other lesion(s) by snare technique 60669, 59, Colonoscopy, flexible; with biopsy, single or multiple Diagnosis Code(s): --- Professional --- D12.3, Benign neoplasm of transverse colon (hepatic flexure or splenic flexure) D12.2, Benign neoplasm of ascending colon D12.4, Benign neoplasm of descending colon Z86.010, Personal history of colonic polyps K57.30, Diverticulosis of large intestine without perforation or abscess without bleeding CPT copyright 2018 [employer]. All rights reserved. The codes documented in this report are preliminary and upon certified procedural coder review may be revised to meet current compliance requirements. Krishna Foster MD 11/28/2020 10:20:34 AM Number of Addenda: 0 Estimated Blood Loss: Estimated blood loss: none. Krishna Foster MD GI PROCEDURE ORDERABL ES Final Result from Last 3 Months or Most Recently Relevant to [place] [address] [facility] [id number] * Guarantor: Nathan Moscoso Jr. Account Type Relation to Patient Date of Phone Billing Address Personal/Family Self 1945 [address] [place] [address] Advance Directives For more information, please contact: [phone] * Full Code (Latest Code Status on File) Date Activated Date Inactivated Comments 11/28/2020 9:10 AM 11/28/2020 12:48 PM * Full Code Date Activated Date Inactivated Comments 02/12/2019 11:45 AM 02/12/2019 4:55 PM * Full Code Date Activated Date Inactivated Comments 10/30/2013 2:27 PM 10/31/2013 3:06 PM * Full Code Date Activated Date Inactivated Comments 03/17/2013 5:33 PM 03/20/2013 11:31 AM Care Teams Irrigator Gravity Flow Relationship Specialty Start Date End Date Galileo Kiser MD PCP - General Family Practice 04/02/16
--- OUTSIDE RECORDS SUMMARY | 2024-10-30 08:40 | XMS_ITS | Encounter Summary ---
Author Organization [facility] Address [address] 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
--- OUTSIDE RECORDS SUMMARY | 2024-10-30 08:40 | XMS_ITS | Encounter Summary ---
Author Organization [facility] Address 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
--- OUTSIDE RECORDS SUMMARY | 2024-10-30 08:40 | XMS_ITS | Encounter Summary ---
Author Organization [facility] Address [address] [place] [address] Care Team Providers Care Dean Of Education Name Role Phone Galileo Kiser MD Primary Care Provider [phone] Encounter Details Date Type Department Care Team (Latest Contact Info) Description 09/08/2001 Outpatient 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
--- OUTSIDE RECORDS SUMMARY | 2024-10-30 08:40 | XMS_ITS | Encounter Summary ---
Author Organization [facility] Address 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
--- OUTSIDE RECORDS SUMMARY | 2024-10-30 08:40 | XMS_ITS | Encounter Summary ---
Author Organization [facility] Address 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
--- OUTSIDE RECORDS SUMMARY | 2024-10-30 08:40 | XMS_ITS | Encounter Summary ---
Author Organization [facility] Address 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
== END 2024-10-30 08:37 | disposition home or self-care (01) ==
PROVIDERS: PCP Internal Medicine; Visit Provider Nurse Practitioner
DX: J47.9 Bronchiectasis, uncomplicated (principal); K22.89 Other specified disease of esophagus
CPT/HCPCS: 71250

== ENCOUNTER 2024-11-12 09:14 | Outpatient (CLI) | payer MEDICARE, MEDICAID, SELFPAY ==
--- NOTE | ~2024-11-12 | XR_ITS ---
XR finger 1st RT min 2V Ordering provider: Rober Young, History: . Other specified arthritis FU . Comparison: None. FINDINGS: BONES: No acute fracture or dislocation. JOINT SPACES: Slight narrowing of the first metacarpophalangeal and interphalangeal joints. status surgical removal of the trapezium bone. SOFT TISSUES: Normal. IMPRESSION: No acute osseous abnormality. Polyarticular osteoarthritic changes Reviewed, dictated and finalized at location A.
--- OUTSIDE RECORDS SUMMARY | 2024-11-12 09:33 | XMS_ITS | Clinical Summary ---
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 Name Role Phone Ursula Bergeron NP Primary Care Provider Allergies Active Allergy Reactions Criticality Noted Date Comments Wfwqwsds-Uziivnxugqs-Yjkzwtlkw Rash Medium 07/26 Medications aspirin 81 mg chewable tablet Take 1 tablet (81 mg total) by mouth 11/01/19 14 Active budesonide-formo teroL (SYMBICORT) 160-4.5 mcg/actuation inhaler 02/08/20 21 Active [...] mouth nightly at bedtime 04/11/20 21 Active diclofenac sodium (VOLTAREN) 1 % gel Active dilTIAZem (CARDIZEM) 90 mg tablet Take 1 tablet (90 mg total) by mouth 2 (two) times a day Active nebulizer accessories misc Please provide pt with nebulizer tubing kits 2 each 07/12/20 24 Active sodium chloride 3 % nebulizer solutionIndicati ons:Bronchiectas is without acute exacerbation (HCC) Take 4 mL by nebulization 2 (two) times a day 360 mL 11 09/08/19 25 026 Active inhalational spacing device (Aerochamber MV) spacerIndication s:Centrilobular emphysema (HCC) 1 each 2 (two) times a day 1 each 3 09/08/19 25 Active albuterol HFA (PROVENTIL HFA,VENTOLIN HFA,PROAIR HFA) 90 mcg/actuation inhaler USE 2 INHALATIONS BY MOUTH EVERY 6 HOURS NEEDED FOR WHEEZING 34 g 11 10/05/19 25 Active Spiriva Respimat 2.5 mcg/actuation inhaler 11/03/19 25 Active levothyroxine (SYNTHROID) 112 mcg tablet 09/22/19 25 Active albuterol 2.5 mg /3 mL (0.083 %) nebulizer solution 08/19/19 25 Active umeclidinium-marivel anteroL (Anoro Ellipta) 62.5-25 mcg/actuation blister with device INHALE 1 PUFF DAILY 01/12/20 21 025 Discontin ued(Alter patito therapy) levothyroxine (SYNTHROID) 75 mcg tablet Take 1 tablet (75 mcg total) 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 025 Discontin ued(Alter patito therapy) Active Problems Problem Noted Date Diagnosed Date Chronic respiratory failure with hypoxia, on home O2 therapy 09/08/2024 Assessment & Plan (11/04/2024 4:03 PM CDT): Continue supplemental oxygen with all sleep at 2 liters We have discussed the risks of hypoxia I have reordered walk testing today, he will complete this at [facility] Assessment & Plan (09/08/2024 11:42 AM MEDICAL RECEPTIONIST): Continue supplemental oxygen with all sleep at 2 liters We have discussed the risks of hypoxia I have reordered walk testing today Bronchiectasis without acute exacerbation 2023 Assessment & Plan (11/04/2024 4:02 PM CDT): He has tried and failed flutter therapy and he experienced an adverse reaction to NAC Continue smart vest therapy twice daily Continue hypertonic saline via nebulizer twice daily He can also use Mucinex as needed His mucus plugging and consolidative opacities wax and wane, I suspect this has much to do with probable aspiration, as he has esophageal abnormalities I would consider chronic antibiotic therapy He has a history of positive Klebsiella and Serratia on sputum cultures from 2021 Assessment & Plan (09/08/2024 11:41 AM MEDICAL RECEPTIONIST): He has tried and failed flutter therapy [...] 09/04/2023 Assessment & Plan (09/11/2023 10:08 AM MEDICAL RECEPTIONIST): 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 Noted previous speech [...] Emphysema of lung 12/16/2014 Assessment & Plan (11/04/2024 4:06 PM CDT): Continue Spiriva Respimat 2.5 once daily Continue Symbicort 160/4.5 2 puffs twice daily I will obtain a copy of his most recent CBC and consider decreasing his ICS dose Albuterol as needed only, he is aware of indications for use He may benefit from all nebulized medications however currently he is not having frequent exacerbations A1AT was normal I will plan to repeat walk testing to ensure he is not desaturating with activity Discussed signs and symptoms that would require earlier evaluation or change to his plan of care Assessment & Plan (09/08/2024 11:41 AM MEDICAL RECEPTIONIST): Continue Spiriva Respimat 2.5 once daily Continue [...] 10/30/2013 Assessment & Plan (09/08/2024 11:42 AM MEDICAL RECEPTIONIST): Scattered bilaterally, these have been followed radiographically [...] time Assessment & Plan (09/11/2023 10:06 AM MEDICAL RECEPTIONIST): 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 Esophageal abnormality is still possibility. Patient was advised to increase and sure intake to at least 4 or 5 cans per day. Schedule EGD for evaluation. HTN (hypertension) 10/19/2010 Hyperlipidemia 10/19/2010 Hypothyroidism 10/19/2010 Jaw pain 10/19/2010 Encounters Date Type Department Care Team Description 11/09/2024 Telephone [facility] at [address] [place] [address] Damari Mclean LPN 6mw order 11/04/2024 3:00 PM CDT Office Visit [facility] at [address] [place] [address] Kristina Renteria, MAL Bronchiectasis without acute exacerbation (HCC) (Primary Dx); Chronic respiratory failure with hypoxia, on home O2 therapy (HCC); Centrilobular emphysema (HCC) 10/30/2024 Ancillary Procedure [facility] 10/01/2024 Telephone [facility] at [address] [place] [phone] Juhi Weems 09/22/2024 10:22 AM MEDICAL RECEPTIONIST - 09/22/2024 11:59 PM MEDICAL RECEPTIONIST Hospital Encounter [facility] [address] [place] [phone] Pulmonary nodules Discharge Disposition: Discharge to home or self care 09/21/2024 Telephone [facility] [address] [place] [id number] Darline Christine 09/08/2024 10:00 AM MEDICAL RECEPTIONIST Office Visit [facility] at [address] [place] [phone] 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, 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 Bronchiectasis without acute exacerbation (HCC) (Primary Dx); Centrilobular emphysema (HCC); Pulmonary nodules; Chronic respiratory failure with hypoxia, on home O2 therapy (HCC) from Last 3 Months Immunizations Immunization [...] on file Legal Sex Male 11:41 PM MEDICAL RECEPTIONIST Gender Identity Male 05/13/2021 1:34 PM CDT Sexual Orientation Straight 05/13/2021 1: 34 PM CDT Obstetrics History Last Filed Vital Signs Vital Sign Reading Time Taken Comments Blood Pressure 164/76 11/04/2024 2:20 PM CDT Pulse 67 11/04/2024 2:20 PM CDT Temperature 36.4 C (97.5 F) 11/04/2024 2:20 PM CDT Respiratory Rate 18 09/08/2024 9:39 AM MEDICAL RECEPTIONIST Oxygen Saturation 95% 11/04/2024 2:20 PM CDT Inhaled Oxygen Concentration - - Weight 80.6 kg (177 lb 9.6 oz) 11/04/2024 2:20 P M CDT Height 182.9 cm (6') 11/04/2024 2:20 PM CDT Body Mass Index 24.09 11/04/2024 2:20 PM CDT Plan of Treatment Health Maintenance [...] Name Priority Date/Time Associated Diagnosis Comments CT BODY OUTSIDE REFERENCE Routine 10/30/2024 12:[address] CHEST WO CONTRAST Schedule Routine, Read Routine (OP Routine) 09/22/2024 10:44 AM MEDICAL RECEPTIONIST Pulmonary nodules from Last 3 Months Results * CT Body Outside Reference (10/30/2024 12:00 AM CDT) Narrative [facility] - 11/02/2024 8:07 AM CDT This order has been auto-finalized and does not contain a result. us Not In File Miscellaneous IMG CT PROCEDURES Alyse l Result [facility] * CT Chest WO Contrast (09/22/2024 10:44 AM MEDICAL RECEPTIONIST) Anatomical Region Laterality Modality Body N/A Computed [...] Magan Castro D.O. AP: AP Report ID: [id number] Reading Location: [place] [address] Procedure Note Magan Castro, DO - 09/27/2024 [...] Magan Castro D.O. AP: ALBERTO Report ID: [id number] Reading Location: [place] [address] us Kristina Renteria NP IMG CT PROCEDURES Final Res ult from Last 3 Months Insurance [employer] MEDICARE ADVANTAGE IDPA Advance Directives For more information, please contact: [phone] * Full Code (Latest Code Status on File) Date Activated Date Inactivated Comments 10/30/2023 12:06 PM 10/30/2023 6:21 PM Care Teams Gun Perforator Relationship Specialty Start Date End Date Ursula Bergeron NP [address] [place] [address] PCP - General Family Medicine 06/08/24
--- OUTSIDE RECORDS SUMMARY | 2024-11-12 09:33 | XMS_ITS | Data Portability ---
Author Organization [place] - [facility], DIS[facility] Vascular Address [address] [place] [address] Care Team Providers Care Scanning Tech Name Role Phone XOCHILT VANEGAS Primary Care Provider [phone] XOCHILT VANEGAS Referring Provider [phone] EVERARDO YOUNG Orthopedic Surgeon [phone] XOCHILT VANEGAS Primary Care Provider Assessment No [...] program, Theraputt y exercises . 2023 024 [facility] [place], [address] [facility], [place], [address], 03/19/2024 11:17:28 Procedures None recorded. Surgeries None recorded. Imaging XR, thumb - Right Thumb [address] [facility], [address], [place], [address], 10/28/2024 13:04:42 XR, hand, 3 or more view - Left Hand 2023 024 [facility], [address] [place], [address], 03/18/2024 11:53:17 Medication Orders None recorded. Patient [...] 24 02/13/2024 sp fluor o [address] [address] IMAGIN G REPORT Name: NATHAN BAKER Room #: : 1945 Accoun t #: [id number] Bed #: Age: 78 Years Patien t Type: Outpat ient Order Date/T andrew: 2023 09:38: 02 AM Sex: M Access ion#: Exam Descri ption: Exam Reason : [id number] SP FLUORO 1 HOUR L thumb CMC arthro plasty Dictat ed By: Mary Joseph Physic anna: EVERARDO YOUNG [facility] Physic anna: EVERARDO YOUNG [facility] Physic anna: UNKNOW N, 1 EXAMIN ATION: [...] Room #: : 1945 Accoun t #: [id number] Bed #: Age: 78 Years Patien t Type: Outpat ient Order Date/T andrew: 2023 09:38: 02 AM Sex: M PM CDT RP Workst ation: [id number] PAGE 2 OF 2 [facility] [address] [place] [address], [address], 02/17/2024 11:08:15 03/18/20 24 03/18/2024 XR, hand, 3 or more view No observ ation record ed. [facility] [address] [place], [address], 03/18/2024 13:47:13 10/12/19 25 10/11/2024 sp fluor o 1 hour [place] [facility] [address] [place] [address] [place] [address] IMAGIN G REPORT Name: NATHAN BAKER Room #: : 1945 Accoun t #: [id number] Bed #: Age: 78 Years Patien t Type: Outpat ient Order Date/T andrew: 2024 11:31: 01 AM Sex: M Access ion#: Exam Descri ption: Exam Reason : [id number] SP FLUORO 1 HOUR R thumb CMC arthro plasty Dictat ed By: Sharon Zabala rd Ordermor Physic anna: EVERARDO YOUNG [employer] Physic anna: EVERARDO YOUNG Primar y Care [...] ation: 109-04 03JKZ PAGE 1 OF 1 [facility] [address] [place] [address], [place], [address], 10/11/2024 16:34:32 Result Notes None recorded. 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 9082189859680 100 Active 2023 Everardo Young MD [address] [place] [address], [address] , [facility] 4 14:28:46 Pain of left hand 2302490181856 03 Active 2023 Devin Hughes null, [facility] 4 12:15:26 Arthritis of first carpometac arpal joint of left hand 0125366228639 103 Active 2023 Everardo Young MD [address] [place] [address], [address] , [facility] 4 12:41:10 Hyperchole sterolemia 82814756 Active 2020 Not Available [facility] 3 05:21:56 Chronic obstructiv e pulmonary disease 85414584 Active 2020 Not Available [facility] 3 05:21:56 Anti-nucle ar factor detected 697859694 Active 2021 Not Available [facility] 3 05:21:56 Bacterial infection caused by Klebsiella pneumoniae 830270616 Active 2021 Not Available [facility] 3 05:21:56 Copious sputum 939450155 Active 2021 Not Available [facility] 3 05:21:56 Esophageal dysmotilit y 729543126 Active 2021 Not Available [facility] 3 05:21:56 History of malignant neoplasm 491458802 Active 2020 Not Available [facility] 3 05:21:56 Abdominal mass 324996533 Active 2021 Not Available [facility] 3 05:21:56 Postobstru ctive pneumonia 607875426 Active 2021 Not Available [facility] 3 05:21:56 At increased risk for aspiration 777497170 Active 2021 Not Available [facility] 3 05:21:56 Hypertensi ve disorder 61878160 Active 2020 Not Available [facility] 3 05:21:57 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 784008792 Active 2021 Not Available [facility] 3 05:21:57 Rajni, not Rajni albicans 813755675 Active 2021 Not Available [facility] 3 05:21:57 Dysphagia 36394539 Active 2021 Not Available [facility] 3 05:21:57 Hypothyroi dism 87252324 Active 2020 Not Available [facility] 3 05:21:57 Coronary arterioscl erosis 99543890 Active 2021 Not Available [facility] 3 05:21:57 Dyspnea on exertion 31273990 Active 2021 Not Available [facility] 3 05:21:57 Chronic cough 17992065 Active 2021 Not Available [facility] 3 05:21:58 Bacterial infection caused by Serratia 27613672 Active 2021 Not Available [facility] 3 05:21:58 Prediabete s 211279756 Active 2020 Not Available [facility] 3 05:21:58 Obstructiv e sleep apnea syndrome 26519327 Active 2022 Not Available [facility] 3 05:21:58 History of squamous cell carcinoma in situ 1472834765616 5 Active 2020 Not Available [facility] 3 05:21:58 Notes:Medical History: Alycia hedrick penetration Hypothyroidism Hyperlipidemia Hypertension EF 55% Prediabetes Mild TR CAD 4.1 cm ascending thoracic aortic ectasia Moderate COPD LLL 6.7 mm pulm nodule Asbestos exposure 8063-2589 Mild splenomegaly Left 7.7 cm renal cyst Procedure History: 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 Procedures Surgical History Date Name Laterality Status Provider Name and Address Organization Details Recorded Time 10/12/19 25 [facility] 10/11/2024 12:03:07 07/21/19 21 colonoscopic polypectomy completed [facility] 01/02/2024 10:53:20 07/21/19 19 bilateral cataract extraction completed [facility] 01/02/2024 10:53:33 07/21/19 16 colonoscopic polypectomy completed [facility] 01/02/2024 10:53:14 07/21/18 92 tonsillectomy completed [facility] 01/02/2024 10:52:37 07/21/18 92 colonoscopic polypectomy completed [facility] 01/02/2024 10:53:08 Imaging Results Imaging Date Name Status LastModified by Organiz ation Details LastModified Time 02/13/2024 sp fluoro 1 hour completed [facility] [address] [place] [address], [address], 02/17/2024 11:08:15 03/18/2024 XR, hand, 3 or more view completed [facility] [address] [place], [address], 03/18/2024 13:47:13 10/11/2024 sp fluoro 1 hour completed [facility] [address] [place] [address], [place], [address], 10/11/2024 16:34:32 Procedure Notes None recorded. Medical Equipment None Reported. Allergies Allergen ID Allergen Name Allergen Category Reaction Reaction Severity Criticality Documentation Date Start Date Code Code System Note Provider Name and Address Organization Details Recorded Time 876901 bacitraci n / neomycin / polymyxin B medicatio n Not available Not available Not available 07/28/2022 14506 9 RxNorm Not Available [facility] 3 05:22:40 Medications Name Sig [...] Updated DateTime 4 182.88 cm 24 kg/m2 25290.8 5 g 59 /min 94 % 94 % 130 mm[Hg] 87 mm[Hg] [facility] 4 11:54:37 Date Recorded Body height Body mass index (BMI) Body weight Heart rate Oxygen saturation Oxygen saturation in Arterial blood by Pulse oximetry Systolic blood pressure Diastolic blood pressure Provider Name and Address Organization Details Last Updated DateTime 4 182.88 cm 24.3 kg/m2 00385.0 3 g 58 /min 93 % 93 % 148 mm[Hg] 86 mm[Hg] [facility] 4 11:39:25 Date Recorded Body height Body mass index (BMI) Body weight Heart rate Oxygen saturation Oxygen saturation in Arterial blood by Pulse oximetry Systolic blood pressure Diastolic blood pressure Provider Name and Address Organization Details Last Updated DateTime 4 182.88 cm 23.7 kg/m2 35055.6 6 g 61 /min 95 % 95 % 150 mm[Hg] 82 mm[Hg] [facility] 4 12:08:36 Date Recorded Body height Body mass index (BMI) Body weight Heart rate Oxygen saturation Oxygen saturation in Arterial blood by Pulse oximetry Systolic blood pressure Diastolic blood pressure Provider Name and Address Organization Details Last Updated DateTime 5 182.88 cm 23.1 kg/m2 56578.7 g 65 /min 93 % 93 % 148 mm[Hg] 85 mm[Hg] [facility] 5 12:04:52 Date Recorded Body height Body mass index (BMI) Body weight Heart rate Oxygen saturation Oxygen saturation in Arterial blood by Pulse oximetry Systolic blood pressure Diastolic blood pressure Provider Name and Address Organization Details Last Updated DateTime 5 182.88 cm 23.1 kg/m2 54274.7 g 70 /min 94 % 94 % 148 mm[Hg] 78 mm[Hg] [facility] 5 09:48:19 Social History Question Answer Notes LastModified by Organizat ion Details LastModified Time Tobacco Smoking Status Former Smoker Not Available [facility] 07/28/2022 05:21:14 What Is Your Level Of Alcohol Consumption? None [id number] Information not available 07/28/2022 What Is Your Level Of Caffeine Consumption? Moderate Coffee, 2-3 Cups Per Day MIGRATION.29006 [id number] Information not available 07/28/2022 In The 14 Days Before Symptom Onset, Have You Had Close Contact With A Laboratory-confir med COVID-19 While That Case Was Ill? No MIGRATION.31862 29906 Information not available 07/28/2022 In The 14 Days Before Symptom Onset, Have You Had Close Contact With A Person Who Is Under Investigation For COVID-19 While That Person Was Ill? No MIGRATION.34257 75919 Information not available 07/28/2022 What Type Of Diet Are You Following? SPECIFIC Ensure - Equate Diabetic Care Chocolte - Needs Rx For 6 Cases A Month MIGRATION.39557 46564 Information not available 07/28/2022 When Did You Quit Smoking? 17+yearssinc elastcigaret te MIGRATION.52534 51067 Information not available 07/28/2022 What Was The Date Of Your Most Recent Tobacco Screening? 09/30/2024 Information not available 08/23/2024 What Is Your Current Pack Years? 20-29packyea rs Information not available 01/08/2024 At What Age Did You Start Smoking Tobacco? 10 MIGRATION.26885 75242 Information not available 07/28/2022 How Much Tobacco Do You Smoke? 1 PPW Information not available 01/08/2024 Do You Use Any Illicit Or Recreational Drugs? No MIGRATION.83710 03878 Information not available 07/28/2022 Has Tobacco Cessation Counseling Been Provided? No MIGRATION.86425 55503 Information not available 07/28/2022 How Many Years Have You Smoked Tobacco? 20 MIGRATION.38449 00710 Information not available 07/28/2022 Have You Recently Traveled Abroad? No MIGRATION.71982 30567 Information not available 07/28/2022 Do You Or Have You Ever Used Any Other Forms Of Tobacco Or Nicotine? No MIGRATION.63768 98905 Information not available 07/28/2022 Sex: Male Functional Status None recorded. Mental Status None recorded. Family History Relationship Description Onset Age of this Age Resolved Age Notes LastModified by Organization Details LastModified Time Unspecified Relation Hypertensive disorder MIGRATION.775 [id number] Not available 07/28/2022 05:21:18 Unspecified Relation Myocardial infarction MIGRATION.879 [id number] Not available 07/28/2022 05:21:18 Unspecified Relation Cerebrovascu lar accident MIGRATION.211 [id number] Not available 07/28/2022 05:21:18 Unspecified Relation Family history of malignant neoplasm MIGRATION.145 [id number] Not available 07/28/2022 05:21:18 Unspecified Relation Kidney disease MIGRATION.794 [id number] Not available 07/28/2022 05:21:18 Medical History Condition Response CANCER: SPECIFY Y SLEEP DISORDER Y COPD Y HYPERTENSION Y HIGH CHOLESTEROL / HYPERLIPIDEMIA Y Immunizations Vaccine Type Date Status Note Provider Nam e and Address Organization Details Recorded Time Influenza, high-dose, quadrivalent, PF 04/11/2021 completed Not Available [facility] 05:22:38 Past Encounters Encounter ID Performer Location Encounter Start Date Encounter Closed Date Diagnosis/Indication Diagnosis SNOMED-CT Code Diagnosis ICD10 Code Diagnosis Note [id number] _ATHENA_M IGRATION_ DEFAULT_1 _5 , 04/11/2021 00:00:00 04/11/2021 12:28:30 [id number] _ATHENA_M IGRATION_ DEFAULT_1 _5 , 04/23/2021 00:00:00 04/23/2021 08:23:44 [id number] _ATHENA_M IGRATION_ DEFAULT_1 _5 , 07/11/2021 00:00:00 07/11/2021 14:25:18 [id number] _ATHENA_M IGRATION_ DEFAULT_1 _5 , 10/08/2021 00:00:00 10/08/2021 10:43:12 [id number] _ATHENA_M IGRATION_ DEFAULT_1 _5 , 10/22/2021 00:00:00 10/22/2021 15:59:59 [id number] _ATHENA_M IGRATION_ DEFAULT_1 _5 , 10/31/2021 00:00:00 10/31/2021 15:34:00 [id number] _ATHENA_M IGRATION_ DEFAULT_1 _5 , 01/09/2022 00:00:00 01/09/2022 16:25:51 [id number] _ATHENA_M IGRATION_ DEFAULT_1 _5 , 01/23/2022 00:00:00 01/23/2022 11:53:40 [id number] _ATHENA_M IGRATION_ DEFAULT_1 _5 , 02/22/2022 00:00:00 02/22/2022 11:41:06 [id number] _ATHENA_M IGRATION_ DEFAULT_1 _5 , 03/12/2022 00:00:00 03/12/2022 16:14:51 [id number] _ATHENA_M IGRATION_ DEFAULT_1 _5 , 04/01/2022 00:00:00 04/01/2022 14:04:28 [id number] _ATHENA_M IGRATION_ DEFAULT_1 _5 , 05/09/2022 00:00:00 05/09/2022 17:01:04 [id number] _ATHENA_M IGRATION_ DEFAULT_1 _5 , 05/24/2022 00:00:00 05/24/2022 12:11:11 [id number] _ATHENA_M IGRATION_ DEFAULT_1 _5 , 06/11/2022 00:00:00 06/11/2022 14:19:12 [id number] _ATHENA_M IGRATION_ DEFAULT_1 _5 , 06/21/2022 00:00:00 06/21/2022 11:55:31 [id number] _ATHENA_M IGRATION_ DEFAULT_1 _5 , 07/01/2022 00:00:00 07/01/2022 12:38:24 [id number] Everardo Young MD [facility] [address] [address] 01/08/2024 10:53:46 01/08/2024 12:43:50 Ex-smoker 1610538 Z87.891 Arthritis of first carpometacarpal joint of right hand 7242434328 047875 M13.841 patient has done bracing. Patient has [...] working in. Pain of bi lateral hands 5694827741 1811513 M79.641 M79.290 [id number] Everardo Young MD [facility] [address] [address] 02/26/2024 10:58:53 02/26/2024 12:26:10 Pain of bilateral hands 4118468505 7117507 M79.641 M79.642 Ex-cigarette smoker 2810 90466 Z87.891 Pain of left hand 388966 7179 39633 M79.642 Arthritis of first carpometacarpal joint of left hand 4361877421 660003 M13.842 remove sutures. Put him in a well fitted left thumb protective brace to use for 1 month. He can use his fingers but still no loading or pinching against the thumb. See him back in 3 or 4 weeks for AP lateral oblique views of his left hand out of the brace. We will start therapy after that. [id number] Everardo Young MD [facility] [address] [address] 03/18/2024 10:43:58 03/18/2024 12:04:33 Arthritis of first carpometacarpal joint of left hand 3482294526 041465 M13.842 patient will go to therapy now to work on range of motion strengthen ing see him back in a few months for follow-up he can discontinu e the brace Pain of left hand 839741 8419 00869 M79.642 Ex-cigarette smoker 2810 52360 Z87.935 [id number] Everardo Young MD [facility] [address] [address] 07/01/2024 11:52:32 07/01/2024 12:45:39 Arthritis of first carpometacarpal joint of left hand 2341378380 682270 M13.842 patient will continue with strengthen ing exercises for the left hand. We will see him back in a few months to discuss potentiall y doing the CMC arthroplas ty on the right. Ex-cigarette smoker 2809 Z87.189 [id number] Everardo Young MD [facility] [address] [place] [address] 09/30/2024 11:39:48 10/01/2024 03:42:25 Arthritis of first carpometacarpal joint of left hand 7779482073 339566 M13.842 patient will continue with strengthen ing exercises for the left hand. We will see him back in a few months to discuss potentiall y doing the CMC arthroplas ty on the right. 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 He understand s the risks, benefits alternativ es wished to proceed with the right thumb surgery now [id number] Everardo Young MD [facility] [address] [place] [address] 10/28/2024 09:38:32 10/28/2024 10:23:49 Arthritis of first carpometacarpal joint of right hand 3256977418 739577 M13.841 remove sutures today. Put him in [...] a home therapy program with [employer] bearing machine operator and pinch exercises in 4 weeks. Ex-cigarette smoker 2809 Z87.891 Health Concerns Section Related Observation LastModified by Organization Detai ls LastModified Time None Recorded Concern Status LastModified by Organization Details LastModified Time None Recorded Advance Directives Directive None Recorded Payers Encounter Date Sequence Insurance Name Policy Number Policy Reyes Covered Member ID Reyes Member ID Guarantor Name 02/26/2024 1 [employer] (MEDICARE REPLACEMENT/A DVANTAGE - PPO) [id number] Nathan L Ankeny [id number] Nathan Danis 03/18/2024 1 [employer] (MEDICARE REPLACEMENT/A DVANTAGE - PPO) [id number] Nathan L Ankeny [id number] Nathan Ankeny 07/01/2024 1 [employer] [facility] (MEDICARE REPLACEMENT/A DVANTAGE - PPO) [id number] Nathan L Ankeny [id number] Nathan Danis 07/01/2024 2 [place] [facility] Nathan L Danis [id number] Nathan Ankeny 09/30/2024 1 [employer] [facility] (MEDICARE REPLACEMENT/A DVANTAGE - HMO) [id number] Nathan L Ankeny [id number] Nathan Ankeny 09/30/2024 2 [place] [facility] Nathan Danis [id number] Nathan Ankeny 10/28/2024 1 [facility] (MEDICARE REPLACEMENT/A DVANTAGE - HMO) [id number] Nathan L Danis [id number] Nathan Ankeny 10/28/2024 2 [place] [facility] Nathan Ankeny [id number] Nathan Danis Notes Date Note Type Note Provider Name and Address Organization Details Recorded Time 02/26/2024 text/html patient is statu s post left thumb CMC interposition arthroplasty doing well no complaints at this point pain under good control Everardo Young MD [address] [place], [address], [facility] 02/26/2024 12:41:54 03/18/2024 text/html patient returns today for follow-up he had a left thumb CMC interposition arthroplasty on 02/13/2024 doing well at this point minimal pain and swelling he has been in his protective brace for the last 5 weeks. Everardo Young MD [address] [place], [address], [facility] 03/18/2024 13:38:40 07/01/2024 text/html patient returns today for follow-up he had a left thumb CMC interposition arthroplasty on 02/13/2024 doing well at this point minimal pain and swelling he has been in his protective brace for heavy activity at times only now that he is 5 months postop Everardo Young MD [address] [place], [address], [facility] 07/01/2024 12:32:54 09/30/2024 text/html Patient is sever al months out now from the left thumb carpometacarpal arthroplasties doing very nicely he is ready to proceed with a right thumb now. 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 Patient's left thumbs been doing well since the surgery several months ago. Had a little bit of pain as is common in the 1st few days doing well now. Everardo Young MD [address] [place], [address], [facility] 10/28/2024 11:40:32
--- OUTSIDE RECORDS SUMMARY | 2024-11-12 09:33 | XMS_ITS | Referral Summary ---
Author Organization [facility] Address [address] [place] [id number] Care Team Providers Care Gas Pumping Station Helper Name Role Phone Ursula Bergeron NP Primary Care Provider Encounters Date Type Department Care Team Description 11/09/2024 Telephone [facility] Pulmonary at [address] [place] [phone] Damari Mclean LPN 6mw order 11/04/2024 3:00 PM CDT Office Visit [facility] Pulmonary at [address] [place] [phone] Kristina Renteria, MAL Bronchiectasis without acute exacerbation (HCC) (Primary Dx); Chronic respiratory failure with hypoxia, on home O2 therapy (HCC); Centrilobular emphysema (HCC) 10/30/2024 Ancillary Procedure [facility] 10/01/2024 Telephone [facility] Pulmonary at [address] [place] [phone] Juhi Weems 09/22/2024 10:22 AM PHOTOTYPESETTER OPERATOR - 09/22/2024 11:59 PM PHOTOTYPESETTER OPERATOR Hospital Encounter [address] [address] Pulmonary nodules Discharge Disposition: Discharge to home or self care 09/21/[address] [address] Darline Christine 09/08/2024 10:00 AM PHOTOTYPESETTER OPERATOR Office Visit [facility] Pulmonary at [address] [place] [address] Kristina Renteria, MAL Bronchiectasis without acute exacerbation (HCC) (Primary Dx); Centrilobular emphysema (HCC); Pulmonary nodules; Chronic respiratory failure with hypoxia, on home O2 therapy (HCC) from Last 3 Months Allergies Active Allergy Reactions Criticality Noted Date Comments Vlsjfzgm-Tcujxxuwxkl-Cnxgimqjk Rash Medium 07/26 Medications aspirin 81 mg [...] (two) times a day Active nebulizer accessories [facility] Please provide pt with nebulizer tubing kits [...] 1 tablet (75 mcg total) by mouth vocational rehabilitation administrator before breakfast 025 Discontin ued(Alter patito therapy) [...] OCA Assessment & Plan (09/08/2024 11:42 AM PHOTOTYPESETTER OPERATOR): Continue supplemental oxygen with all sleep at [...] 2021 Assessment & Plan (09/08/2024 11:41 AM PHOTOTYPESETTER OPERATOR): He has tried and failed flutter therapy [...] 09/04/2023 Assessment & Plan (09/11/2023 10:08 AM PHOTOTYPESETTER OPERATOR): 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 Noted previous speech [...] care Assessment & Plan (09/08/2024 11:41 AM PHOTOTYPESETTER OPERATOR): Continue Spiriva Respimat 2.5 once daily Continue [...] 10/30/2013 Assessment & Plan (09/08/2024 11:42 AM PHOTOTYPESETTER OPERATOR): Scattered bilaterally, these have been followed radiographically [...] time Assessment & Plan (09/11/2023 10:06 AM PHOTOTYPESETTER OPERATOR): Likely secondary to the previous surgery and [...] Smoking Tobacco: Former Cigarettes 0.5 18 1 8 - 1975 Passive Smoke Exposure: Past Smokeless [...] on file Legal Sex Male 11:41 PM PHOTOTYPESETTER OPERATOR Gender Identity Male 05/13/2021 1:34 PM CDT Sexual Orientation Straight 05/13/2021 1: 34 PM CDT Last Filed Vital Signs Vital Sign Reading Time Taken Comments Blood Pressure 164/76 11/04/2024 2:20 PM CDT Pulse 67 11/04/2024 2:20 PM CDT Temperature 36.4 C (97.5 F) 11/04/2024 2:20 PM CDT Respiratory Rate 18 09/08/2024 9:39 AM PHOTOTYPESETTER OPERATOR Oxygen Saturation 95% 11/04/2024 2:20 PM CDT Inhaled Oxygen Concentration - - Weight 80.6 kg (177 lb 9.6 oz) 11/04/2024 2:20 P M CDT Height 182.9 cm (6') 11/04/2024 2:20 PM CDT Body Mass Index 24.09 11/04/2024 2:20 PM CDT Plan of Treatment Not on file Procedures Procedure Name Priority Date/Time Associated Diagnosis Comments CT BODY OUTSIDE REFERENCE Routine 10/30/2024 12:[address] CHEST WO CONTRAST Schedule Routine, Read Routine (OP Routine) 09/22/2024 10:44 AM PHOTOTYPESETTER OPERATOR Pulmonary nodules from Last 3 Months Results * CT Body Outside Reference (10/30/2024 12:00 AM CDT) Narrative [facility] - 11/02/2024 8:07 AM CDT This order has been auto-finalized and does not contain a result. us Not In File Miscellaneous IMG CT PROCEDURES Alyse l Result [facility] * CT Chest WO Contrast (09/22/2024 10:44 AM PHOTOTYPESETTER OPERATOR) Anatomical Region Laterality Modality Body N/A Computed [...] Magan Castro D.O. AP: AP Report ID: [id number] Reading Location: [place] [address] Procedure Note Magan Castro, DO - 09/27/2024 [...] Magan Castro D.O. AP: AP Report ID: [id number] Reading Location: [place] [address] Kristina Renteria FITNESS SPECIALIST IMG CT PROCEDURES Final Res ult from Last 3 Months Insurance [facility] Address: [facility] [address] [place] [address] [place] [address] [place] [address] Advance Directives For more information, please contact: [phone] * Full Code (Latest Code Status on File) Date Activated Date Inactivated Comments 10/30/2023 12:06 PM 10/30/2023 6:21 PM Care Teams Gas Pumping Station Helper Relationship Specialty Start Date End Date Ursula Bergeron NP [address] [place] [address] PCP - General Family Medicine 06/08/24
--- OUTSIDE RECORDS SUMMARY | 2024-11-12 09:34 | XMS_ITS | Encounter Summary ---
Author Organization [facility] Address 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
--- OUTSIDE RECORDS SUMMARY | 2024-11-12 09:34 | XMS_ITS | Data Portability ---
Author Organization [place] - [facility], Main Office Address [address] [place] [address] Care Team Providers Care Director Of Education Name Role Phone XOCHILT VANEGAS Primary Care [...] Lab CMP, serum or plasma 2024 025 Frameri [facility], [address], [place], [address], 5 22:26:30 lipid panel, serum 2024 025 Frameri [facility], [address], [place], [address], 5 22:26:28 CBC w/ auto diff 2024 025 Frameri [facility], [address], [place], [address], 5 22:26:31 TSH, serum or plasma 2024 ROE [facility], [address] [facility], [place], [address], 5 22:26:33 TSH + free T4, serum 2023 024 [email or web address] 4 [facility], [address] [place], [address], 4 11:48:48 T3, free, serum or plasma 2023 024 [email or web address] 4 [facility], [address] [place], [address], 4 11:49:06 Referral cardiologis t referral - Please call patient to schedule an appointment . Thank you. 2024 025 [place], [address] [facility], [facility] [address], [address], 11:19:[address] referral - Please call patient to schedule an appointment . Thank you. 2024 025 ROE Renteria [facility]-, [address] [place] [address], [address], [place], [address], 12:49:49 Procedures None recorded. Surgeries None recorded. Imaging None recorded. Medication Orders amoxicillin 400 mg-potassiu m clavulanate 57 mg/5 mL oral suspension 2024 ROE Mars [facility] 2425, [address] [facility], [place], [address], 12:38:58 Bactrim DS 800 mg-160 mg tablet 2023 024 [email or web address] [facility], [address] [place] [address], [facility] [address], [place], [id number], 11:50:22 Patient TargetsNo targets recorded. Patient InstructionsNo instructions recorded. Reason for Referral Clinical Writer Referral for Silva sinclair chronic obstructive pulmonary disease Please call patient to schedule an appointment. Thank you. Referring Physician: Justin Jane, Internal Medicine, Encounter Date: 08/25/2024 Facilities Manager Referral for Es sential hypertension Please call patient to schedule an appointment. Thank you. Referring Physician: Justin Jane, Internal Medicine, Encounter Date: 08/25/2024 Results Created Date Observation Date Name Description Value Unit Range Abnormal Flag Note LastModifiedBy Organization Detail LastModifiedTime 03/18/20 24 XR, hand, 3 or more view [place] [facility] [address] [place] [address] [phone] Patien t Name: NATHAN MOSCOSO Access ion #: [id number] Sex: M : 1945 1 8 Dictat ed By: Lizzie Suarez Attend ing Physic anna: EVERARDO ABREU [facility] Physic anna: EVERARDO ABREU Exam Date: [...] at 2023 10:36: 21 AM Page 1 [email or web address] [facility] ([facility]) [address] [place], [address], 04/07/2024 10:39:49 03/18/20 24 03/18/2024 XR, hand, 3 or more view No observ ation record ed. [email or web address] [facility] [address] [facility], [place], [address], 03/31/2024 15:18:43 10/20/19 25 10/19/2024 imagi ng/di agnos tic resul t No observ ation record ed. [address], [place], [address], 10/19/2024 18:30:23 11/01/19 25 10/30/2024 imagi ng/di agnos tic resul t No observ ation record ed. [address], [place], [address], 10/31/2024 10:03:38 11/12/19 25 pulmo nary funct ion test* No observ ation record ed. [email or web address] Not Available 10/20 14:10:01 Result Notes None recorded. Problems Name Problem SNOMED Code Status Onset Date Resolution Date Notes Provider Name and Address Organization Details Recorded Time Hyperchole sterolemia 94951776 Active 2020 Not Available [facility] 4 22:23:27 Chronic obstructiv e pulmonary disease 12290721 Active 2020 Not Available [facility] 4 22:23:27 Anti-nucle ar factor detected 682808620 Active 2021 Not Available [facility] 4 22:23:27 Bacterial infection caused by Klebsiella pneumoniae 085506122 Active 2021 Not Available [facility] 4 22:23:27 Copious sputum 833541426 Active 2021 Not Available [facility] 4 22:23:27 Esophageal dysmotilit y 380942510 Active 2021 Not Available [facility] 4 22:23:27 History of malignant neoplasm 300520547 Active 2020 Not Available [facility] 4 22:23:27 Abdominal mass 047858073 Active 2021 Not Available [facility] 4 22:23:27 Thick sputum 895246573 Active 2022 Not Available [facility] 4 22:23:27 Severe chronic obstructiv e pulmonary disease 948396655 Active 2022 Not Available [facility] 4 22:23:27 Postobstru ctive pneumonia 768033769 Active 2021 Not Available [facility] 4 22:23:27 At increased risk for aspiration 544583204 Active 2021 Not Available [facility] 4 22:23:27 Hypertensi ve disorder 36142671 Active 2020 Not Available [facility] 4 22:23:27 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 094128748 Active 2021 Not Available [facility] 4 22:23:27 Rajni, not Rajni albicans 061715522 Active 2021 Not Available [facility] 4 22:23:28 Dysphagia 68647766 Active 2021 Not Available [facility] 4 22:23:28 Hypothyroi dism 63490395 Active 2020 Not Available [facility] 4 22:23:28 Coronary arterioscl erosis 79593789 Active 2021 Not Available [facility] 4 22:23:28 Dyspnea on exertion 33755892 Active 2021 Not Available [facility] 4 22:23:28 Chronic cough 42002004 Active 2021 Not Available [facility] 4 22:23:28 Bacterial infection caused by Serratia 33759965 Active 2021 Not Available [facility] 4 22:23:28 Prediabete s 387594156 Active 2020 Not Available [facility] 4 22:23:28 Obstructiv e sleep apnea syndrome 95387423 Active 2022 Not Available [facility] 4 22:23:28 History of squamous cell carcinoma in situ 0119187208242 5 Active 2020 Not Available [facility] 4 22:23:28 Solitary nodule of lung 596593543 Active 2022 Not Available [facility] 4 22:23:28 Hyperlipid emia 22692822 Active 2022 Not Available [facility] 4 22:23:28 Insomnia 595007432 Active 2022 Not Available [facility] 4 22:23:27 Pain of bilateral hands 1692708694614 9109 Active 2022 Not Available [facility] 4 22:23:27 Osteoarthr osis of the carpometac arpal joint of the thumb 44325035 Active 2022 Not Available [facility] 4 22:23:27 Bilateral pain of joint of hands 2604881770320 9102 Active 2022 Not Available [facility] 4 22:23:27 Abnormal findings on diagnostic imaging of lung 743973420 Active 2022 Not Available [facility] 4 22:23:27 Arthritis of bilateral first carpometac arpal joints 9742541923787 102 Active 2022 Not Available [facility] 4 22:23:27 Pain of left hand 7489560155783 03 Active 2023 ANEESH Cesar [address], [place] [address], [place], [address] , [employer] [facility] 4 22:54:41 Diabetes mellitus 39291128 Active 2023 ANEESH Hernandez [address], [facility] [address], [place], [address] , [employer] [facility] [employer] [facility] 4 11:30:11 Epidermoid cyst of skin of back 882338254 Active 2023 ANEESH Hernandez [address], [facility] [address], [place], [address] , [facility] [employer] [facility] 4 11:34:05 Epidermoid cyst of skin 832457933 Active 2023 Jim esparza MD [address] [facility], [address], [place], [address] , [facility] [employer] [facility] 4 13:58:44 Malignant tumor of tonsil 291651856 Active 2024 Jusitn jarrett MD [address], [address], [place], [address] , [facility] [employer] [facility] 5 12:10:07 Essential hypertensi on 54559706 Active 2024 Justin jarrett MD [address], [address] [facility], [place], [address] , [facility] [employer] [facility] 5 12:10:17 Esophageal dysphagia 70626853 Active 2024 Justin jarrett MD [address], [address], [place], [address] , [facility] [employer] [facility] 5 12:13:28 Notes:Medical History: Laryn geal penetration Hypothyroidism Hyperlipidemia Hypertension EF 55% Prediabetes Mild TR CAD 4.1 cm ascending thoracic aortic ectasia Moderate COPD LLL 6.7 mm pulm nodule Asbestos exposure 5135-1093 Mild splenomegaly Left 7.7 cm renal cyst Procedure History: 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 Please review these documents and add these problems to the patient's chart manually as needed. Problem Notes None recorded. Procedures Surgical History Date Name Laterality Status Provider Name and Address Organization Details Recorded Time 4 Blank Procedure Note completed Jim Ramirez MD [address], [address], [place], [address], [facility] [employer] [facility] 05/18/2024 12:28:30 07/11/202 3 Ortho - Cortisone Injection completed Olivier Jackson MD [address] [facility], [facility] [address], [place], [address], [facility] [employer] [facility] 01/28/2023 14:48:33 other completed Annika Varela MA [facility] 04/15/2024 12:02:59 Imaging Results Imaging Date Name Status LastModified by Organiz ation Details LastModified Time 03/18/2024 XR, hand, 3 or more view completed [email or web address] [facility] (Imaging) [address] [place], [address], 04/07/2024 10:39:49 03/18/2024 XR, hand, 3 or more view completed [email or web address] [facility] [address] [place], [address], 03/31/2024 15:18:43 10/19/2024 imaging/diagno stic result active [address], [address], 10/19/2024 18:30:23 10/30/2024 imaging/diagno stic result active [address], [address], 10/31/2024 10:03:38 11/11/2024 pulmonary function test* completed [email or web address] Information not available 11/11/2024 14:10:01 Procedure Notes None recorded. Medical Equipment None Reported. Allergies Allergen ID Allergen Name Allergen Category Reaction Reaction Severity Criticality Documentation Date Start Date Code Code System Note Provider Name and Address Organization Details Recorded Time 27771 bacitraci n / neomycin / polymyxin B medicatio n Not available Not available Not available 09/18/2022 15644 9 RxNorm Not Available [facility] 23:31:27 77756 bacitraci n medicatio n Not available Not available Not available 03/29/2024 1291 RxNorm Other react ions and sever ities : 'Adve rse react ion to subst ance - Sever e'. Yoana Rodriguez APRN [address] [facility], [address], [place], [address] , [place] [facility] 4 14:17:39 Medications Name Sig Start Date [...] mg by injectio n route. 08/25 completed [facility]: [id number] - Not Available Not Available Not Available hydrocodo [...] %) injection solution in office 08/25 completed [facility] 32847-85 4-01 Not Available Not Available Not Available Anoro [...] Updated DateTime 4 182.88 cm 24 kg/m2 20544.8 5 g 97.5 [degF] 70 /min 93 % 93 % 166 mm[Hg] 84 mm[Hg] Brook Hidalgo RN [facility] 4 11:21:33 Date Recorded Body height Body mass index (BMI) Body weight Provider Name and Address Organization Details Last Updated DateTime 04/15/2024 182.88 cm 22.5 kg/m2 73273.33 g Annika Varela [place] [employer] 04/15/2024 12:00:42 Date Recorded Body height Body mass index (BMI) Body weight Body temperature Heart rate Respiratory rate Oxygen saturation Oxygen saturation in Arterial blood by Pulse oximetry Systolic blood pressure Diastolic blood pressure Provider Name and Address Organization Details Last Updated DateTime 4 182.88 cm 22.5 kg/m2 74772.3 3 g 97.5 [degF] 70 /min 16 /min 93 % 93 % 166 mm[Hg] 84 mm[Hg] Reema Ortiz [place] [employer] [facility] 4 12:06:48 Date Recorded Body height Body mass index (BMI) Body weight Body temperature Heart rate Respiratory rate Oxygen saturation Oxygen saturation in Arterial blood by Pulse oximetry Systolic blood pressure Diastolic blood pressure Provider Name and Address Organization Details Last Updated DateTime 4 182.88 cm 22.5 kg/m2 37038.3 3 g 97.5 [degF] 70 /min 16 /min 93 % 93 % 166 mm[Hg] 84 mm[Hg] Reema Ortiz [place] [employer] [facility] 4 10:35:10 Date Recorded Body height Body mass index (BMI) Body weight Body temperature Heart rate Systolic blood pressure Diastolic blood pressure Provider Name and Address Organization Details Last Updated DateTime 5 182.88 cm 23.2 kg/m2 86493.3 g 97.6 [degF] 78 /min 140 mm[Hg] 66 mm[Hg] Madhavi Diazleonel CHRISTOPHER [facility] [employer] [facility] 5 11:58:34 Social History Question Answer Notes LastModified by Organizat ion Details LastModified Time Tobacco Smoking Status Former Smoker qiut age 30 [facility] [employer] [facility] 08/25/2024 11:55:50 What Is Your Level Of Alcohol Consumption? None MIGRATION.45341 [id number] Information not available 09/18/2022 What Is Your Level Of Caffeine Consumption? Moderate Coffee, 2-3 Cups Per Day MIGRATION.47603 56365 Information not available 09/18/2022 In The 14 Days Before Symptom Onset, Have You Had Close Contact With A Laboratory-confir med COVID-19 While That Case Was Ill? No MIGRATION.63184 26229 Information not available 09/18/2022 In The 14 Days Before Symptom Onset, Have You Had Close Contact With A Person Who Is Under Investigation For COVID-19 While That Person Was Ill? No MIGRATION.42106 34867 Information not available 09/18/2022 Are You Currently Employed? No Information not available 04/15/2024 What Type Of Diet Are You Following? SPECIFIC Ensure - Equate Diabetic Care [place]ocolte - Needs Rx For 6 Cases A Month MIGRATION.24522 47123 Information not available 09/18/2022 When Did You Quit Smoking? 17+yearssinc elastcigaret te MIGRATION.55265 51285 Information not available 09/18/2022 What Was The Date Of Your Most Recent Tobacco Screening? 08/25/2024 [email or web address] Information not available 08/25/2024 What Is Your Relationship Status? Single Information not available 04/15/2024 At What Age Did You Start Smoking Tobacco? 10 MIGRATION.74884 64526 Information not available 09/18/2022 Do You Use Any Illicit Or Recreational Drugs? No MIGRATION.56838 10987 Information not available 09/18/2022 Has Tobacco Cessation Counseling Been Provided? No MIGRATION.54303 29430 Information not available 09/18/2022 How Many Years Have You Smoked Tobacco? 20 MIGRATION.19179 87819 Information not available 09/18/2022 Have You Recently Traveled Abroad? No MIGRATION.56644 95187 Information not available 09/18/2022 Do You Have Any Dietary Restrictions? No Had Throat Cancer MIGRATION.04765 90692 Information not available 09/18/2022 Do You Or Have You Ever Used Any Other Forms Of Tobacco Or Nicotine? No MIGRATION.56320 07441 Information not available 09/18/2022 Sex: Male Functional Status Question Answer Note LastModified by Organizat ion Details LastModified Time What is your exercise level? None [id number].[id number] Information not available 09/18/2022 Mental Status None recorded. Family History Relationship Description Onset Age of this Age Resolved Age Notes LastModified by Organization Details LastModified Time Unspecified Relation Hypertensive disorder MIGRATION.127 [id number] Not available 09/18/2022 23:28:57 Unspecified Relation Myocardial infarction MIGRATION.587 [id number] Not available 09/18/2022 23:28:57 Unspecified Relation Cerebrovascu lar accident MIGRATION.446 [id number] Not available 09/18/2022 23:28:57 Unspecified Relation Family history of malignant neoplasm MIGRATION.949 [id number] Not available 09/18/2022 23:28:57 Unspecified Relation Kidney disease MIGRATION.687 [id number] Not available 09/18/2022 23:28:57 Medical History Condition Response DIABETES, TYPE Y CANCER: SPECIFY Y Immunizations Vaccine Type Date Status Note Provider Nam e and Address Organization Details Recorded Time Influenza, high-dose, quadrivalent, PF 1 completed Not Available [facility] 07/25/2023 22:23:28 zoster recombinant 2 completed Yoana Rodriguez APRN [address], [address], [place], [address], [employer] [facility] 03/29/2024 14:17:58 zoster recombinant 2 completed Yoana Rodriguez APRN [address], [address], [place], [address], [employer] [facility] 03/29/2024 14:17:58 Influenza, high-dose, quadrivalent, PF 2 completed Yoana Rodriguez APRN [address], [address], [place], [address], [employer] [facility] 03/29/2024 14:17:58 Influenza, high-dose, quadrivalent, PF 3 completed Yoana Rodriguez APRN [address], [address], [place], [address], [employer] [facility] 03/29/2024 14:17:58 COVID-19, mRNA, LNP-S, PF, 30 mcg/0.3 mL dose 1 completed Yoana Rodriguez APRN [address], [address], [place], [address], [employer] [facility] 03/29/2024 14:17:58 Pneumococcal conjugate PCV20, polysaccharide UNT009 conjugate, adjuvant, PF 3 completed Yoana Rodriguez APRN [address], [address], [place], [address], [employer] [facility] 03/29/2024 14:17:58 COVID-19, mRNA, LNP-S, PF, 30 mcg/0.3 mL dose, edison-sucrose 2 completed Yoana Rodriguez APRN [address], [address], [place], [address], [employer] [facility] 03/29/2024 14:17:58 COVID-19, mRNA, LNP-S, bivalent, PF, 30 mcg/0.3 mL dose 2 completed Yoana Rodriguez APRN [address], [address], [place], [address], [facility] 03/29/2024 14:17:58 RSV, bivalent, protein subunit RSVpreF, diluent reconstituted, 0.5 mL, PF 3 completed Yoana Rodriguez APRN [address], [address], [place], [address], [facility] 03/29/2024 14:17:58 COVID-19, mRNA, LNP-S, PF, edison-sucrose, 30 mcg/0.3 mL 3 completed Yoana Rodriguez APRN [address], [address], [place], [address], [facility] 03/29/2024 14:17:58 COVID-19, mRNA, LNP-S, PF, edison-sucrose, 30 mcg/0.3 mL 4 completed CHRISTOPHER Valdez, [facility] 08/25/2024 11:54:34 Influenza, high-dose, trivalent, PF 4 completed CHRISTOPHER Valdez, [facility] 08/25/2024 11:54:34 Past Encounters Encounter ID Performer Location Encounter Start Date Encounter Closed Date Diagnosis/Indication Diagnosis SNOMED-CT Code Diagnosis ICD10 Code Diagnosis Note [id number] [facility] [place] [address] 04/11/2021 00:00:00 04/11/2021 12:28:30 [id number] [facility] [place] [address] 04/23/2021 00:00:00 04/23/2021 08:23:44 [id number] [facility] [place] [address] , [place] [address] 07/11/2021 00:00:00 07/11/2021 14:25:18 [id number] [facility] [place] [address] , [place] [address] 10/08/2021 00:00:00 10/08/2021 10:43:12 [id number] [facility] [place] [address] [place] [address] 10/22/2021 00:00:00 10/22/2021 15:59:59 [id number] [facility] [place] [address] [place] [address] 10/31/2021 00:00:00 10/31/2021 15:34:00 [id number] [facility] [place] [address], [address] [place] [address] 01/09/2022 00:00:00 01/09/2022 16:25:51 [id number] [facility] [place] [address] , [place] [address] 01/23/2022 00:00:00 01/23/2022 11:53:40 [id number] [facility] [place] [address] [place] [address] 02/22/2022 00:00:00 02/22/2022 11:41:06 [id number] [facility] [place] [address] [place] [address] 03/12/2022 00:00:00 03/12/2022 16:14:51 [id number] [facility] [place] [address] [place] [address] 04/01/2022 00:00:00 04/01/2022 14:04:28 [id number] [facility] [place] [address] , [place] [address] 05/09/2022 00:00:00 05/09/2022 17:01:04 [id number] [facility] [place] [address] [place] [address] 05/24/2022 00:00:00 05/24/2022 12:11:11 [id number] [facility] [place] [address] [place] [address] 06/11/2022 00:00:00 06/11/2022 14:19:12 [id number] [facility] [place] [address] [place] [address] 06/21/2022 00:00:00 06/21/2022 11:55:31 [id number] [facility] [address] [place] [address] 07/01/2022 00:00:00 07/01/2022 12:38:24 [id number] [facility] [place] [address] [facility] [address] [facility] [place] [address] 07/31/2022 00:00:00 07/31/2022 16:56:18 [id number] [facility] [place] [address] [place] [address] 07/31/2022 00:00:00 07/31/2022 13:29:58 [id number] [facility] [place] [address] [facility] [address] [place] [address] 08/28/2022 00:00:00 08/28/2022 18:34:58 [id number] Kristina Renteria [facility] [place] [address] [place] [address] 09/30/2022 11:09:27 09/30/2022 12:28:23 Severe chronic obstructive pulmonary disease 180463337 J44.9 CAT 25PFT 11/2021 with ratio 48FEV1 49DLCO adjusted is normalCont inue Symbicort and Spiriva with aerochambe rAlbuterol PRN - discussed indication s for useDiscuss ed reportable signs and symptoms.R TC in 2-3 months, PRN for concerns Thick sputum 887727253 R 09.3 Intolerant to nebulized mucomystSt art oral BIDNarrowi ng of LLL bronchus per bronchosco py with thick mucous and plugs. Chronic cough 03241613 R 05.3 ImprovedMB S completed 01/2022 with laryngeal penetratio n identified with swallowing of thin liquid, thick liquid, and pudding consistenc y.No jennifer aspiration was identified Recommend GI Bacterial infection caused by Serratia 29780943 A49.8 10/2021 Bacterial infection caused by Klebsiella pneumoniae 866188708 B96.1 10/2021 Dyspnea on exertion 6084 5006 R06.09 ImprovedQu antiferon GOLD negativeIG E normaleosi nophils normalBNP normalIGGs normalSix minute walk normal 11/2021 Ex-smoker 4848372 Z87.[address] chest 05/2022 with nodule as above Solitary n odule of lung 452379056 R91.[address] chest 2Rep eat in 6 months, due 11/2022 [id number] Kristina Renteria, [employer] [facility] [place] [address] [place] [address] 12/30/2022 11:12:17 12/30/2022 11:51:23 Severe chronic obstructive pulmonary disease 981218052 J44.9 CAT 25PFT 11/2021 with ratio 48FEV1 49DLCO adjusted is normalCont inue Symbicort 160 and Spiriva Respimat 2.5with aerochambe rInstructe d on technique todayAlbut marilyn PRN - discussed indication s for useDiscuss ed reportable signs and symptoms.R TC in 3-4 months, PRN for concerns Solitary n odule of lung 609775323 R91.[address] chest 2Rep eat in 6 months, due 11/2022 - staff scheduled today Thick sputum 123972914 R 09.3 Intolerant to nebulized mucomystCo ntinue oral acetylcyst eiruddy Mao ng of LLL bronchus per bronchosco py with thick mucous and plugs. Chronic cough 73309727 R 05.3 ImprovedMB S completed 01/2022 with laryngeal penetratio n identified with swallowing of thin liquid, thick liquid, and pudding consistenc y.No jennifer aspiration was identified Recommend GI consultHe continues to decline Bacterial infection caused by Serratia 10314313 A49.8 10/2021 Bacterial infection caused by Klebsiella pneumoniae 729367905 B96.1 10/2021 Dyspnea on exertion 6084 5006 R06.09 Multifacto ralImprove dQuantifer on GOLD negativeIG E normaleosi nophils normalBNP normalIGGs normalSix minute walk normal ec ommend exercise programHe will consider [place] Ex-smoker 6129463 Z87.[address] chest 05/2022 with nodule as aboveHe has not repeated, staff scheduled this today Activity intolerance 774 51796 Z73.89 Multifacto ral [id number] MATT De La Torre [facility] Primary Care [facility] [address] [facility] [address] [place] [address] 01/16/2023 11:00:43 01/16/2023 12:53:45 Chronic obstructive pulmonary disease 59104667 J44.9 He has increased trouble with his SOB. Will try to put referral in for upright walker.Ref ills needed on inhalers/n ebulizer.C ontinue follow-up with pulmonolog y. Pain of bi lateral hands 8597678912 8979162 M79.641 M79.642 Most likely [facility] arthritis due to wear and tear.Will have him try topical for comfort. Epsom salt soaks.Will plan to refer to ortho if no improvemen t for imaging/in jections. [id number] Olivier Jackson MD [facility] Ortho Nikki [place] [address] [place] [address] 01/28/2023 14:02:53 01/28/2023 15:25:32 Pain of bilateral hands [id number] 1154985 M79.642 M79.641 Osteoarthr osis of the carpometacarpal joint of the thumb 24374832 M18.9 M18.0 [id number] Olivier Jackson MD [facility] [place] [address] [place] [address] 02/25/2023 14:28:07 02/25/2023 15:25:45 Osteoarthrosis of the carpometacarpal joint of the thumb 11066428 M18.9 M18.0 [id number] Kristina Renteria, [facility] Pulmonolo gy [place] [address] [place] [address] 04/15/2023 10:08:12 04/15/2023 11:08:18 Severe chronic obstructive pulmonary disease 466768688 J44.9 CAT 25PFT 11/2021 with ratio 48FEV1 49DLCO adjusted is normalCont inue Symbicort 160 and Spiriva Respimat 2.5with aerochambe rRX sent todayAlbut marilyn PRN - discussed indication s for useDiscuss ed reportable signs and symptoms.H e should follow up in 6 months, PRN for concerns Thick sputum 935792113 R 09.3 Intolerant to nebulized mucomystCo ntinue oral acetylcyst eine BIDNarrowi ng of LLL bronchus per bronchosco py with thick mucous and plugs.Re-s tart flutter valve use dailyMay need Smart Vest therapy Chronic cough 09381619 R 05.3 ImprovedMB S completed 01/2022 with laryngeal penetratio n identified with swallowing of thin liquid, thick liquid, and pudding consistenc y.No jennifer aspiration was identified Bacterial infection caused by Serratia 64163462 A49.8 10/2021 Bacterial infection caused by Klebsiella pneumoniae 210094104 B96.1 10/2021 Dyspnea on exertion 6084 5006 R06.09 Multifacto ralQuantif jorge GOLD negativeIG E normaleosi nophils normalBNP normalIGGs normalSix minute walk normal 2Rec ommend exercise programHe will consider [place] Activity intolerance 774 84459 Z73.89 Multifacto ral Ex-smoker 8158923 Z87.[address] chest as above Abnormal f indings on diagnostic imaging of lung 493470595 R91.[address] chest due 06/2023, ordered todayHe is aware to call PCM about results if he has not heard one week after completed [id number] MATT Hua [facility] Ortho [place] [address] [place] [address] 05/26/2023 08:53:28 05/26/2023 10:47:16 Pain of bilateral hands 5326246324 5764962 M79.642 M79.641 Arthritis of bilateral first carpometacarpal joints 7895867005 011710 M13.841 M13.955 [id number] Kristina Renteria, [employer] [facility] Pulmonolo gy [place] [address] [place] [address] 06/02/2023 14:01:13 06/02/2023 15:08:11 Severe chronic obstructive pulmonary disease 981253013 J44.9 PFT 11/2021 with ratio 48FEV1 49DLCO adjusted is normalCont inue Symbicort 160 and Spiriva Respimat 2.5with aerochambe rRX sent todayAlbut marilyn PRN - discussed indication s for useDiscuss ed reportable signs and symptoms.H e should follow up in 6 months, PRN for concerns Abnormal f indings on diagnostic imaging of lung 501809078 R91.[address] chest due 06/2023Sch eduled 07/07/23, has follow up with PCM Thick sputum 100291222 R 09.3 Intolerant to nebulized mucomystCo ntinue oral acetylcyst eine BIDNarrowi ng of LLL bronchus per bronchosco py with thick mucous and plugs.Re-s tart flutter valve use daily - I have stressed the importance of thisMay need Smart Vest therapy Chronic cough 82183793 R 05.3 ImprovedMB S completed 01/2022 with laryngeal penetratio n identified with swallowing of thin liquid, thick liquid, and pudding consistenc y.No jennifer aspiration was identified May need repeat Bacterial infection caused by Serratia 66584310 A49.8 10/2021 Bacterial infection caused by Klebsiella pneumoniae 618996888 B96.1 10/2021 Dyspnea on exertion 6084 5006 R06.09 Multifacto ralQuantif jorge GOLD negativeIG E normaleosi nophils normalBNP normalIGGs normalSix minute walk normal 2Rec ommend exercise programI have strongly urged pulmonary rehab Activity intolerance 774 94815 Z73.89 Multifacto ral Ex-smoker 5598370 Z87.[address] chest as above [id number] MATT De La Torre [facility] Primary Care [facility] [address] [employer] [facility] [address] [place] [address] 07/28/2023 13:58:24 07/28/2023 14:35:19 Chronic obstructive pulmonary disease 35732788 J44.9 He has increased trouble with his [...] 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 --This patient can safely operate the PMD both mentally and physically .--This patient is very motivated to use the PMD in hi/her home. Continue follow-up with pulmonolog y. CT results not in chart yet. [id number] AUGUSTA CesarP-C [facility] Primary Care [facility] [address] [employer] [employer] [facility] [address] [place] [address] 10/24/2023 11:44:49 10/24/2023 12:11:16 Adult health examination 198980145 Z00.00 Encouraged fresh fruits and veggies-lo w intake of both, drinks ensureIncr ease daily water intake-enc ouraged 6-8 glasses/da y, coffeeEnco urage 30 mins of daily exercise-w alks for exerciseCo lonoscopy- orderedDEX A-no hx of recurrent fxLDCT-not a smoker, not a drinker-la bs obtained Screening for malignant neoplasm of colon 096472973 Z12.11 [id number] KRISTIN CesarC [facility] Primary Care [facility] [address] [place] [address] 12/10/2023 09:02:36 12/10/2023 09:47:47 Pain of bilateral hands 3583679265 7308812 M79.641 -pain noted to bilateral hands (severity [...] this time-refer ral to hand surgeon given [id number] MATT Hua [facility] Ortho Nikki Oconnell [address] [place] [address] 12/18/2023 09:04:22 12/18/2023 10:08:39 Arthritis of bilateral first carpometacarpal joints 9068279351 687419 M13.841 M13.842 Pain of bi lateral hands 9156443805 8680107 M79.630 [id number] Heather Pina MD [facility] General Surgery [address] [facility] [place] [address] 12/31/2023 11:37:55 12/31/2023 11:58:43 History of polyp of colon 629214253 Z86.587 [id number] BROOKE Hernandez-C [facility] Primary Care [facility] [address] [facility] [address] [place] [address] 03/10/2024 11:15:16 03/10/2024 11:45:46 Hypothyroidism 56841580 E03.9 Recent hair loss.Will recheck labs as listed below. Epidermoid cyst of skin of back 832877865 L72.0 Patient will follow up as needed. [id number] Jim esparza MD [facility] General Surgery [address] [place] [address] 04/15/2024 11:24:54 04/19/2024 15:32:16 Epidermoid cyst of skin of back 175495334 L72.0 [id number] Jim esparza MD [facility] General Surgery [address] [address] 05/18/2024 11:35:06 05/18/2024 12:29:36 Epidermoid cyst of skin 018709257 L72.0 left back [id number] Jim esparza MD [facility] General Surgery [address] [address] 05/27/2024 10:14:37 06/16/2024 11:56:29 Epidermoid cyst of skin 069462835 L72.0 left back [id number] Justin jarrett MD [facility] Primary Care [facility] [address] [facility] [address] [place] [address] 08/25/2024 11:35:46 08/25/2024 12:39:29 Screening - NAD 506391052 Z13.9 C-scope: C-scope 01/05/2024 : Dr Pina Get yearly flu shot, do Tdap if not doneGet PCV #20Get shingrix vaccine and RSV vaccineCan do COVID 19 boosters RTC in 1 months, do labs, ER if worse, he and his girl friend did verbalize his understand ing of the above Severe chr onic obstructive pulmonary disease 680854402 J44.9 Sees Kristina Renteria [facility] last 06/02/2023 On albuterol HHNOn albuterol inhalerOn SpirivaOn SymbicortW ill see Kristina Renteria referredHa s noted a cough, will start on augmentin 800mg bid for 7 days as an oral suspension Hyperlipidemia 41468435 E78.5 On rosuvastat in 20mg dailyGet labs 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, 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 Essential hypertension 62322869 I10 On ASAOn diltiazem 90mg dailyOn lasix 40mg dailyOn metoprolol 25mg dailySees Dr Taylor [facility] Hypothyroidism 65357145 E03.9 On levothyrox ine 112mcgs dailyGet labs Esophageal dysphagia 408 43375 R13.19 S/p radiation Rx for tonsillar cancerEGD [...] Reyes Member ID Guarantor Name 03/10/2024 1 [facility] (MEDICARE REPLACEMENT/AD VANTAGE - O) [id number] Nathan L [place] [id number] Nahtan L [place] 04/15/2024 1 [place] Nathan L Danis [id number] Nathan L [place] 05/18/2024 1 [facility] (MEDICARE REPLACEMENT/AD VANTAGE - HMO) [id number] Nathan L [place] [id number] Nathan L [place] 05/27/2024 1 [facility] (MEDICARE REPLACEMENT/AD VANTAGE - HMO) [id number] Nathan L [place] [id number] Nathan L [place] 05/27/2024 2 [place] WHEN [place] OR MEDICARE REPLACEMENT PRIMARY) Nathan L [place] [id number] Nathan L [place] 08/25/2024 1 [facility] (MEDICARE REPLACEMENT/AD VANTAGE - HMO) [id number] Nathan L [place] [id number] Nathan L [place] 08/25/2024 2 [place] WHEN [place] OR MEDICARE REPLACEMENT PRIMARY) Nathan L Danis [id number] Nathan L [place] Notes Date Note Type [...] month ago, is recovering well. BROOKE Hernandez-Rosanna [address], [place], [address], [employer] [facility] [employer] 03/10/2024 12:38:38 04/15/2024 text/html patient complain s of draining cyst on his back that he has had for several years. Waxes and wanes. Denies fevers or chills. Would like to have it removed Jim Ramirez MD [address], [place], [address], [employer] 04/15/2024 16:34:43 05/18/2024 text/html patient here for excision left lower back cyst Jim Ramirez MD [address], [place], [address], [employer] [facility] 05/18/2024 14:02:04 05/27/2024 text/html No complaints Jim Ramirez MD [address], [place], [address], [employer] [facility] [employer] 05/27/2024 13:18:19 08/25/2024 text/html OV 08/25/2024:He re to establish care Present Hx:HTNHLDHypothyro idismCOPDHx of tonsillar cancer Here to discuss above, he also has noted a slight but now worsening cough, clear, no hempotysis, no chest pain, mildly SOB, no wheezingHe is here with his girl friend Justin Jane MD [address], [place], [address], [place] [facility] 08/25/2024 12:46:32
--- OUTSIDE RECORDS SUMMARY | 2024-11-12 09:34 | XMS_ITS | Encounter Summary ---
Author Organization [facility] Address 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
--- OUTSIDE RECORDS SUMMARY | 2024-11-12 09:34 | XMS_ITS | Encounter Summary ---
Author Organization [facility] Address 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
--- OUTSIDE RECORDS SUMMARY | 2024-11-12 09:34 | XMS_ITS | Encounter Summary ---
Author Organization [facility] Address 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
--- OUTSIDE RECORDS SUMMARY | 2024-11-12 09:34 | XMS_ITS | Encounter Summary ---
Author Organization [facility] Address 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
--- OUTSIDE RECORDS SUMMARY | 2024-11-12 09:34 | XMS_ITS | Clinical Summary ---
Author Organization [facility] Address [address] [place] [address] Care Team Providers Care Missile Facilities Repairer Name Role Phone Galileo Kiser MD Primary Care Provider [phone] Allergies Active Allergy Reactions Criticality Noted Date Comments Rlrtpnbt-Zlxxajyxxws-Iojqhawry Rash Low 07/26 Medications Food Supplement, Lactose-Free (ENSURE HIGH PROTEIN) Oral Liqd Take 240 mL by mouth q 3 hour. 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 Gender Identity Not on file Sexual Orientation [...] 09/28/2029 09/29/2019 Medical Devices Implanted Type Area Soa Architect Device Identifier Shelf Expiration Date Model / Serial / Lot Clip Endo Resolution 360 235cm [id number] - [id number] Implanted:Qty: 2 on 02/12/2019 by Krishna Foster MD at [facility] Clip N/A: Perianal [employer] [id number] / / Lens Io Sn60wf 21.0 - [id number] Implanted:Qty: 1 on 02/19/2021 by Polo Huang MD at [facility] Patients First Eye Right: Eye [employer] [id number] 10/20/2025 SN60WF .21 0 / [id number] / Lens Io Sn60wf 21.5 - [id number] Implanted:Qty: 1 on 03/05/2021 by Polo Huang MD at [facility] Patients First Eye Left: Eye [employer] [id number] 10/23/2025 SN60WF .21 5 / [id number] / [id number] Procedures Procedure Name Priority Date/Time Associated Diagnosis Comments MICROALBUMIN/CREATIN INE RATIO, RANDOM UR Routine 12/29/2020 2:34 PM CDT Type 2 diabetes mellitus without complication, without long-term current use of insulin ([facility]) Essential hypertension LIPID PANEL Routine 12/29/2020 2:34 [...] Creatinine, Urine 207 20 - 320 mg/dL [facility] MICROALBUMIN, URINE 1.3 See Note: mg/dL [facility] Comment: Reference Range: Reference Range Not established MICROALBUMIN/CREAT RATIO, UR 6 <30 mcg/mg creat [facility] Comment: The ADA defines abnormalities in albumin excretion as follows: Category Result (mcg/mg creatinine) Normal <30 Microalbuminuria 30-299 Clinical albuminuria > OR = 300 The ADA recommends that at least two of three specimens collected within a 3-6 month period be abnormal before considering a patient to be within a diagnostic category. Test Performed at: [facility] [address] [place] [address] Marcello Yoo D.O., MPH Urine URINE SPECIMEN OBTAINED BY CLEAN CATCH PROCEDURE / Unknown 12/29/2020 2:34 PM CDT Galileo Kiser MD URINE ORDERABLES Final Result Performing Organization Address [facility] Co de Phone Number [facility] [address] [place] [address] * HEMOGLOBIN A1C (12/29/2020 2:34 PM CDT) Pathologist [facility] HEMOGLOBIN A1C 5.1 <5.7 % of total Hgb [facility] Comment: Test Performed at: [facility] [address] [place] [address] [facility] Blood 12/29/2020 2:34 PM CDT Galileo Kiser MD CHEMISTRY ORDERABLES Final Re sult Performing Organization Address City/[facility]/ZIP Co de Phone Number [facility] [address] [place] [address] * LIPID PANEL (12/29/2020 2:34 PM CDT) Pathologist [facility] CHOLESTEROL 147 <200 mg/dL [facility] HDL 52 > OR = 40 mg/dL [facility] TRIGLYCERIDE 117 <150 mg/dL [facility] LDL CALCULATED 75 mg/dL (calc) [facility] Comment: Reference range: <100 Desirable range <100 mg/dL for primary prevention; <70 mg/dL for patients with CHD or diabetic patients with > or = 2 CHD risk factors. LDL-C is now calculated using the Jam calculation, which is a validated novel method providing better accuracy than the Friedewald equation in the estimation of LDL-C. Sulaiman SS et al. PAVAN. 2013;310(19): 9229-9800 (http://education.Dunamu/faq/DYG161) CHOL/HDL RATIO 2.8 <5.0 (calc) [facility] TOTAL NON-HDL CHOL(LDL+VLDL) 95 <130 mg/dL (calc) [facility] Comment: For patients with diabetes plus 1 major ASCVD risk factor, treating to a non-HDL-C goal of <100 mg/dL (LDL-C of <70 mg/dL) is considered a therapeutic option. Test Performed at: [facility] [address] [place] [address] [facility] Blood 12/29/2020 2:34 PM CDT us Galileo Kiser MD CHEMISTRY ORDERABLES Final Re sult [facility] [address] [place] [address] * COLONOSCOPY REPORT (11/28/2020 10:22 AM CDT) Narrative Procedure Note Krishna Foster MD - 11/28/2020 10:20 AM CDT [facility] GI Patient Name: Nathan Moscoso Procedure Date: [...] bowel preparation was evaluated using the BBPS (Worth Bowel Preparation Scale) with scores of: Right [...] surveillance based on pathology results. - A MessageOne message and/or a letter will be sent to you summarizing the pathology results. Please call the GI office ([phone]) if you have not heard the results within 2 weeks. - Goal intake of 25-30 grams of fiber per day. This is a combination of dietary fiber (located on product food label) as well as supplemental fiber (for example Citrucel, Fibercon, Konsyl or Metamucil) if needed. Procedure Code(s): --- Professional --- 48202, Colonoscopy, flexible; with removal of tumor(s), polyp(s), or other lesion(s) by snare technique 58890, 59, Colonoscopy, flexible; with biopsy, single or multiple Diagnosis Code(s): --- Professional --- D12.3, Benign neoplasm of transverse colon (hepatic flexure or splenic flexure) D12.2, Benign neoplasm of ascending colon D12.4, Benign neoplasm of descending colon Z86.010, Personal history of colonic polyps K57.30, Diverticulosis of large intestine without perforation or abscess without bleeding CPT copyright 2018 [employer]. All rights reserved. The codes documented in this report are preliminary and upon hand box folder review may be revised to meet current compliance requirements. Krishna Foster MD 11/28/2020 10:20:34 AM Number of Addenda: 0 Estimated Blood Loss: Estimated blood loss: none. Krishna Foster MD GI PROCEDURE ORDERABL ES Final Result from Last 3 Months or Most Recently Relevant to Health [place] [address] [facility] [address] * Guarantor: Nathan Moscoso Jr. Account Type Relation to Patient Date of Phone Billing Address Personal/Family Self 1945 [address] [place] [address] Advance Directives For more information, please contact: [phone] * Full Code (Latest Code Status on File) Date Activated Date Inactivated Comments 11/28/2020 9:10 AM 11/28/2020 12:48 PM * Full Code Date Activated Date Inactivated Comments 02/12/2019 11:45 AM 02/12/2019 4:55 PM * Full Code Date Activated Date Inactivated Comments 10/30/2013 2:27 PM 10/31/2013 3:06 PM * Full Code Date Activated Date Inactivated Comments 03/17/2013 5:33 PM 03/20/2013 11:31 AM Care Teams Missile Facilities Repairer Relationship Specialty Start Date End Date Galileo Kiser MD PCP - General Family Practice 04/02/16
--- OUTSIDE RECORDS SUMMARY | 2024-11-12 09:34 | XMS_ITS | Encounter Summary ---
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
--- OUTSIDE RECORDS SUMMARY | 2024-11-12 09:34 | XMS_ITS | Encounter Summary ---
Author Organization [facility] Address 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
== END 2024-11-12 09:15 | disposition home or self-care (01) ==
PROVIDERS: PCP Internal Medicine; Visit Provider Orthopaedic Surgery Hand Surgery
DX: M13.841 Other specified arthritis, right hand (principal)
CPT/HCPCS: 73140

== ENCOUNTER 2024-11-18 10:09 | Outpatient (CLI) | payer MEDICARE, MEDICAID, SELFPAY ==
--- OUTSIDE RECORDS SUMMARY | 2024-11-18 13:20 | XMS_ITS | Clinical Summary ---
Author Organization [facility] Address [address] [place] [address] Care Team Providers Care Md Physician Dermatologist Name Role Phone Ursula Bergeron NP Primary Care Provider Allergies Active Allergy Reactions Criticality Noted Date Comments Agxajfro-Digruyjsfca-Wtamxpcfs Rash Medium 07/26 Medications aspirin 81 mg [...] 1 tablet (75 mcg total) by mouth nail galvanizer before breakfast 025 Discontin ued(Alter patito therapy) [...] OCA Assessment & Plan (09/08/2024 11:42 AM ASSISTANT WAREHOUSE MANAGER): Continue supplemental oxygen with all sleep [...] 2021 Assessment & Plan (09/08/2024 11:41 AM ASSISTANT WAREHOUSE MANAGER): He has tried and failed flutter [...] 09/04/2023 Assessment & Plan (09/11/2023 10:08 AM ASSISTANT WAREHOUSE MANAGER): 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 Esophageal abnormality is still possibility. Patient was advised to increase and sure intake to at least 4 or 5 cans per day. Schedule EGD for evaluation. HTN (hypertension) 10/19/2010 Hyperlipidemia 10/19/2010 Hypothyroidism 10/19/2010 Jaw pain 10/19/2010 Encounters Date Type Department Care Team Description 11/09/2024 Telephone [facility] Pulmonary at [address] [place] [address] Damari Mclean LPN 6mw order 11/04/2024 3:00 PM CDT Office Visit [facility] Pulmonary at [address] [place] [address] Kristina Renteria, MAL Bronchiectasis without acute exacerbation (HCC) (Primary Dx); Chronic respiratory failure with hypoxia, on home O2 therapy (HCC); Centrilobular emphysema (HCC) 10/30/2024 Ancillary Procedure [facility] Outside Films 10/01/2024 Telephone [facility] Pulmonary at [address] [place] [phone] Juhi Weems 09/22/2024 10:22 AM ASSISTANT WAREHOUSE MANAGER - 09/22/2024 11:59 PM ASSISTANT WAREHOUSE MANAGER Hospital Encounter [facility] [address] [place] [phone] Pulmonary nodules Discharge Disposition: Discharge to home or self care 09/21/2024 Telephone [facility] [address] [place] [phone] Darline Christine 09/08/2024 10:00 AM ASSISTANT WAREHOUSE MANAGER Office Visit [facility] Pulmonary at [address] [place] [phone] Kristina Renteria, [place] Bronchiectasis without acute exacerbation (HCC) (Primary Dx); [...] on file Legal Sex Male 11:41 PM ASSISTANT WAREHOUSE MANAGER Gender Identity Male 05/13/2021 1:34 PM CDT Sexual Orientation Straight 05/13/2021 1: 34 PM CDT Obstetrics History Last Filed Vital Signs Vital Sign Reading Time Taken Comments Blood Pressure 164/76 11/04/2024 2:20 PM CDT Pulse 67 11/04/2024 2:20 PM CDT Temperature 36.4 C (97.5 F) 11/04/2024 2:20 PM CDT Respiratory Rate 18 09/08/2024 9:39 AM ASSISTANT WAREHOUSE MANAGER Oxygen Saturation 95% 11/04/2024 2:20 PM CDT [...] Read Routine (OP Routine) 09/22/2024 10:44 AM ASSISTANT WAREHOUSE MANAGER Pulmonary nodules from Last 3 Months Results * CT Body Outside Reference (10/30/2024 12:00 AM CDT) Narrative [facility] - 11/02/2024 8:07 AM CDT This order has been auto-finalized and does not contain a result. us Not In File Miscellaneous IMG CT PROCEDURES Alyse l Result [facility] * CT Chest WO Contrast (09/22/2024 10:44 AM ASSISTANT WAREHOUSE MANAGER) Anatomical Region Laterality Modality Body N/A [...] Magan Castro D.O. AP: AP Report ID: [id number] Reading Location: [place] [address] Procedure Note Magan Castro, DO - 09/27/2024 [...] Magan Castro D.O. AP: ALBERTO Report ID: [id number] Reading Location: [place] [address] us Kristina Renteria NP IMG CT PROCEDURES Final Res ult from Last 3 Months Insurance [employer] MEDICARE ADVANTAGE IDPA Advance Directives For more information, please contact: [phone] * Full Code (Latest Code Status on File) Date Activated Date Inactivated Comments 10/30/2023 12:06 PM 10/30/2023 6:21 PM Care Teams Md Physician Dermatologist Relationship Specialty Start Date End Date Ursula Bergeron NP [address] [place] [address] PCP - General Family Medicine 06/08/24
--- OUTSIDE RECORDS SUMMARY | 2024-11-18 13:20 | XMS_ITS | Referral Summary ---
Author Organization [facility] Address [address] [place] [phone] Care Team Providers Care Gas Cutter Name Role Phone Ursula Bergeron NP Primary Care Provider Encounters Date Type Department Care Team Description 11/09/2024 Telephone [facility] Pulmonary at [address] [place] [phone] Damari Mclean LPN 6mw order 11/04/2024 3:00 PM CDT Office Visit [facility] Pulmonary at [address] [place] [phone] Kristina Renteria, MAL Bronchiectasis without acute exacerbation (HCC) (Primary Dx); Chronic respiratory failure with hypoxia, on home O2 therapy (HCC); Centrilobular emphysema (HCC) 10/30/2024 Ancillary Procedure [facility] Outside Films 10/01/2024 Telephone [facility] Pulmonary at [address] [place] [phone] Juhi Weems 09/22/2024 10:22 AM BENCH ASSEMBLER ELECTRICAL - 09/22/2024 11:59 PM BENCH ASSEMBLER ELECTRICAL Hospital Encounter [address] [address] Pulmonary nodules Discharge Disposition: Discharge to home or self care 09/21/[address] [address] Darline Christine 09/08/2024 10:00 AM BENCH ASSEMBLER ELECTRICAL Office Visit [facility] Pulmonary at [address] [place] [address] Kristina Renteria, MAL Bronchiectasis without acute exacerbation (HCC) (Primary Dx); Centrilobular emphysema (HCC); Pulmonary nodules; Chronic respiratory failure with hypoxia, on home O2 therapy (HCC) from Last 3 Months Allergies Active Allergy Reactions Criticality Noted Date Comments Uuvlybjl-Iqdryjwmanw-Jpyxxicko Rash Medium 07/26 Medications aspirin 81 mg [...] (two) times a day Active nebulizer accessories [facility] Please provide pt with nebulizer [...] 1 tablet (75 mcg total) by mouth home builder before breakfast 025 Discontin ued(Alter patito therapy) [...] OCA Assessment & Plan (09/08/2024 11:42 AM BENCH ASSEMBLER ELECTRICAL): Continue supplemental oxygen with all sleep at [...] 2021 Assessment & Plan (09/08/2024 11:41 AM BENCH ASSEMBLER ELECTRICAL): He has tried and failed flutter therapy [...] 09/04/2023 Assessment & Plan (09/11/2023 10:08 AM BENCH ASSEMBLER ELECTRICAL): 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 Noted previous speech [...] care Assessment & Plan (09/08/2024 11:41 AM BENCH ASSEMBLER ELECTRICAL): Continue Spiriva Respimat 2.5 once daily Continue [...] 10/30/2013 Assessment & Plan (09/08/2024 11:42 AM BENCH ASSEMBLER ELECTRICAL): Scattered bilaterally, these have been followed radiographically [...] time Assessment & Plan (09/11/2023 10:06 AM BENCH ASSEMBLER ELECTRICAL): Likely secondary to the previous surgery and [...] on file Legal Sex Male 11:41 PM BENCH ASSEMBLER ELECTRICAL Gender Identity Male 05/13/2021 1:34 PM CDT Sexual Orientation Straight 05/13/2021 1: 34 PM CDT Last Filed Vital Signs Vital Sign Reading Time Taken Comments Blood Pressure 164/76 11/04/2024 2:20 PM CDT Pulse 67 11/04/2024 2:20 PM CDT Temperature 36.4 C (97.5 F) 11/04/2024 2:20 PM CDT Respiratory Rate 18 09/08/2024 9:39 AM BENCH ASSEMBLER ELECTRICAL Oxygen Saturation 95% 11/04/2024 2:20 PM CDT [...] Read Routine (OP Routine) 09/22/2024 10:44 AM BENCH ASSEMBLER ELECTRICAL Pulmonary nodules from Last 3 Months Results * CT Body Outside Reference (10/30/2024 12:00 AM CDT) Narrative [facility] - 11/02/2024 8:07 AM CDT This order has been auto-finalized and does not contain a result. us Not In File Miscellaneous IMG CT PROCEDURES Alyse l Result [facility] * CT Chest WO Contrast (09/22/2024 10:44 AM BENCH ASSEMBLER ELECTRICAL) Anatomical Region Laterality Modality Body N/A Computed [...] Magan Castro D.O. AP: AP Report ID: [id number] Reading Location: [place] [address] Procedure Note Magan Castro, DO - 09/27/2024 [...] Magan Castro D.O. AP: AP Report ID: [id number] Reading Location: [place] [address] Kristina Renteria TELESALES ADVISOR IMG CT PROCEDURES Final Res ult from Last 3 Months Insurance MEDICARE ADVANTAGE IDPA Advance Directives For more information, please contact: [phone] * Full Code (Latest Code Status on File) Date Activated Date Inactivated Comments 10/30/2023 12:06 PM 10/30/2023 6:21 PM Care Teams Gas Cutter Relationship Specialty Start Date End Date Ursula Bergeron NP [address] [place] [address] PCP - General Family Medicine 06/08/24
--- OUTSIDE RECORDS SUMMARY | 2024-11-18 13:21 | XMS_ITS | Data Portability ---
Author Organization [place] [facility] V[facility] Address [address] [place] [address] Care Team Providers Care Manager Operating Name Role Phone XOCHILT VANEGAS Primary Care Provider [phone] XOCHILT VANEGAS Referring Provider [phone] EVERARDO YOUNG Orthopedic Surgeon XOCHILT VANEGAS Primary [...] program, Theraputt y exercises . 2023 024 ISABEL [facility] [place], [address] [facility], [place], [address], 03/19/2024 11:17:28 Procedures None recorded. Surgeries None recorded. Imaging XR, thumb - Right Thumb 2024 025 [facility], [address], [place], [address], 11/12/2024 18:16:16 XR, hand, 3 or more view - Left Hand 2023 024 [facility], [address] [place], [address], 03/18/2024 11:53:17 Medication Orders None recorded. Patient [...] 24 02/13/2024 sp fluor o [address] [address] [phone] IMAGIN G REPORT Name: NATHAN BAKER Room #: : 1945 Accoun t #: [id number] Bed #: Age: 78 Years Patien t Type: Outpat ient Order Date/T andrew: 2023 09:38: 02 AM Sex: M Access ion#: Exam Descri ption: Exam Reason : [id number] SP FLUORO 1 HOUR L thumb CMC arthro plasty Dictat ed By: Mary Joseph Physic anna: EVERARDO YOUNG [facility] Physic anna: EVERARDO YOUNG [facility] Physic anna: UNKNOW N, 1 EXAMIN ATION: [...] MD 2023 01:03 PAGE 1 OF 2 IMAGALFONSO G REPORT Name: NATHAN BAKER Room #: : 1945 Accoun t #: [id number] Bed #: Age: 78 Years Patien t Type: Outpat ient Order Date/T andrew: 2023 09:38: 02 AM Sex: M PM CDT RP Workst ation: [id number] PAGE 2 OF 2 [facility] [address] [place] [address], [address], 02/17/2024 11:08:15 03/18/20 24 03/18/2024 XR, hand, 3 or more view No observ ation record ed. [facility] [address] [place], [address], 03/18/2024 13:47:13 10/12/19 25 10/11/2024 sp fluor o 1 hour [place] [address] [place] [address] [place] [address] IMAGIN G REPORT Name: NATHAN BAKER Room #: : 1945 Accoun t #: [id number] Bed #: Age: 78 Years Patien t Type: Outpat ient Order Date/T andrew: 2024 11:31: 01 AM Sex: M Access ion#: Exam Descri ption: Exam Reason : [id number] SP FLUORO 1 HOUR R thumb CMC arthro plasty Dictat ed By: Sharon Zabala rd Physic anna: EVERARDO YOUNG Attend [facility] Physic anna: EVERARDO YOUNG Primar y Care Physic anna: NO, [facility] AL HISTOR Y: R thumb CMC arthro plasty COMPAR LUCHO: None. TECHNI QUE: 2 spot matrix views acquir ed in the proced ure/op eratin g room. DISCUS HE: Submit charlee spot matrix views were acquir ed to docjay jay nt a orthop edic proced ure. Spot fluoro scopic images availa ble for the perfor sheba physic ians review . Please correl ate with the proced ural/o perati ve findin gs. IMPRES HE: Spot matrix julisaume ntatio n of proced ure. Fluoro scopy time - [address]- . Dose- 57.2 mGy. Fluoro scopy was perfor med in the OR/pro cedure room by the arlen lam/niru Azar onical ly signed by: Sharon Zabala rd, MD 2024 02:48 PM CDT RP Workst ation: [id number] PAGE 1 OF 1 [facility] [address] [place] [address], [place], [address], 10/11/2024 16:34:32 11/13/19 25 11/12/2024 XR, thumb No observ ation record ed. [email or web address] [facility] [address], [place], [address], 11/12/2024 18:16:16 Result Notes None recorded. 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 0158249256495 100 Active 2023 Everardo Young MD [address] [place] [address], [address] , [facility] 4 14:28:46 Pain of left hand 4635499273239 03 Active 2023 Devin meza, [facility] 4 12:15:26 Arthritis of first carpometac arpal joint of left hand 4259770813610 103 Active 2023 Everardo Young MD [address] [place] [address], [address] , [facility] 4 12:41:10 Hyperchole sterolemia 05026929 Active 2020 Not Available [facility] 3 05:21:56 Chronic obstructiv e pulmonary disease 63911874 Active 2020 Not Available [facility] 3 05:21:56 Anti-nucle ar factor detected 421260410 Active 2021 Not Available [facility] 3 05:21:56 Bacterial infection caused by Klebsiella pneumoniae 766963576 Active 2021 Not Available [facility] 3 05:21:56 Copious sputum 924430506 Active 2021 Not Available [facility] 3 05:21:56 Esophageal dysmotilit y 015070635 Active 2021 Not Available [facility] 3 05:21:56 History of malignant neoplasm 505113753 Active 2020 Not Available [facility] 3 05:21:56 Abdominal mass 113472800 Active 2021 Not Available [facility] 3 05:21:56 Postobstru ctive pneumonia 606781424 Active 2021 Not Available [facility] 3 05:21:56 At increased risk for aspiration 917004875 Active 2021 Not Available [facility] 3 05:21:56 Hypertensi ve disorder 31118018 Active 2020 Not Available [facility] 3 05:21:57 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 000159774 Active 2021 Not Available [facility] 3 05:21:57 Rajni, not Rajni albicans 565772833 Active 2021 Not Available [facility] 3 05:21:57 Dysphagia 70140770 Active 2021 Not Available [facility] 3 05:21:57 Hypothyroi dism 52769837 Active 2020 Not Available [facility] 3 05:21:57 Coronary arterioscl erosis 54302261 Active 2021 Not Available [facility] 3 05:21:57 Dyspnea on exertion 82141979 Active 2021 Not Available [facility] 3 05:21:57 Chronic cough 63307383 Active 2021 Not Available [facility] 3 05:21:58 Bacterial infection caused by Serratia 17483528 Active 2021 Not Available [facility] 3 05:21:58 Prediabete s 439986503 Active 2020 Not Available [facility] 3 05:21:58 Obstructiv e sleep apnea syndrome 15221246 Active 2022 Not Available [facility] 3 05:21:58 History of squamous cell carcinoma in situ 6213864290551 5 Active 2020 Not Available [facility] 3 05:21:58 Notes:Medical History: Laryn geal penetration Hypothyroidism Hyperlipidemia Hypertension EF 55% Prediabetes Mild TR CAD 4.1 cm ascending thoracic aortic ectasia Moderate COPD LLL 6.7 mm pulm nodule Asbestos exposure 6384-8442 Mild splenomegaly Left 7.7 cm renal cyst Procedure History: 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 Procedures Surgical History Date Name Laterality Status Provider Name and Address Organization Details Recorded Time 10/12/19 25 [facility] [place] [facility] 10/11/2024 12:03:07 07/21/19 21 colonoscopic polypectomy completed [facility] 01/02/2024 10:53:20 07/21/19 19 bilateral cataract extraction completed [facility] 01/02/2024 10:53:33 07/21/19 16 colonoscopic polypectomy completed [facility] 01/02/2024 10:53:14 07/21/18 92 tonsillectomy completed [facility] 01/02/2024 10:52:37 07/21/18 92 colonoscopic polypectomy completed [facility] 01/02/2024 10:53:08 Imaging Results Imaging Date Name Status LastModified by Organiz ation Details LastModified Time 02/13/2024 sp fluoro 1 hour completed [facility] [address] [place] [address], [address], 02/17/2024 11:08:15 03/18/2024 XR, hand, 3 or more view completed [facility] [address], [place], [address], 03/18/2024 13:47:13 10/11/2024 sp fluoro 1 hour completed [facility] [address], [place], [address], 10/11/2024 16:34:32 11/12/2024 XR, thumb active [email or web address] [facility] [address], [address], 11/12/2024 18:16:16 Procedure Notes None recorded. Medical Equipment None Reported. Allergies Allergen ID Allergen Name Allergen Category Reaction Reaction Severity Criticality Documentation Date Start Date Code Code System Note Provider Name and Address Organization Details Recorded Time 562635 bacitraci n / neomycin / polymyxin B medicatio n Not available Not available Not available 07/28/2022 86587 9 RxNorm Not Available [facility] 3 05:22:40 Medications Name Sig Start Date [...] Updated DateTime 4 182.88 cm 24 kg/m2 67758.8 5 g 59 /min 94 % 94 % 130 mm[Hg] 87 mm[Hg] [facility] 4 11:54:37 Date Recorded Body height Body mass index (BMI) Body weight Heart rate Oxygen saturation Oxygen saturation in Arterial blood by Pulse oximetry Systolic blood pressure Diastolic blood pressure Provider Name and Address Organization Details Last Updated DateTime 4 182.88 cm 24.3 kg/m2 53593.0 3 g 58 /min 93 % 93 % 148 mm[Hg] 86 mm[Hg] [facility] 4 11:39:25 Date Recorded Body height Body mass index (BMI) Body weight Heart rate Oxygen saturation Oxygen saturation in Arterial blood by Pulse oximetry Systolic blood pressure Diastolic blood pressure Provider Name and Address Organization Details Last Updated DateTime 4 182.88 cm 23.7 kg/m2 55372.6 6 g 61 /min 95 % 95 % 150 mm[Hg] 82 mm[Hg] [facility] 4 12:08:36 Date Recorded Body height Body mass index (BMI) Body weight Heart rate Oxygen saturation Oxygen saturation in Arterial blood by Pulse oximetry Systolic blood pressure Diastolic blood pressure Provider Name and Address Organization Details Last Updated DateTime 5 182.88 cm 23.1 kg/m2 39448.7 g 65 /min 93 % 93 % 148 mm[Hg] 85 mm[Hg] [facility] 5 12:04:52 Date Recorded Body height Body mass index (BMI) Body weight Heart rate Oxygen saturation Oxygen saturation in Arterial blood by Pulse oximetry Systolic blood pressure Diastolic blood pressure Provider Name and Address Organization Details Last Updated DateTime 5 182.88 cm 23.1 kg/m2 34327.7 g 70 /min 94 % 94 % 148 mm[Hg] 78 mm[Hg] [facility] 5 09:48:19 Social History Question Answer Notes LastModified by Organizat ion Details LastModified Time Tobacco Smoking Status Former Smoker Not Available [facility] 07/28/2022 05:21:14 What Is Your Level Of Alcohol Consumption? None [id number] Information not available 07/28/2022 What Is Your Level Of Caffeine Consumption? Moderate Coffee, 2-3 Cups Per Day MIGRATION.76353 97573 Information not available 07/28/2022 In The 14 Days Before Symptom Onset, Have You Had Close Contact With A Laboratory-confir med COVID-19 While That Case Was Ill? No MIGRATION.57487 38558 Information not available 07/28/2022 In The 14 Days Before Symptom Onset, Have You Had Close Contact With A Person Who Is Under Investigation For COVID-19 While That Person Was Ill? No MIGRATION.33268 08160 Information not available 07/28/2022 What Type Of Diet Are You Following? SPECIFIC Ensure - Equate Diabetic Care Chocolte - Needs Rx For 6 Cases A Month MIGRATION.09436 01586 Information not available 07/28/2022 When Did You Quit Smoking? 17+yearssinc elastcigaret te MIGRATION.88567 93446 Information not available 07/28/2022 What Was The Date Of Your Most Recent Tobacco Screening? 09/30/2024 Information not available 08/23/2024 What Is Your Current Pack Years? 20-29packyea rs Information not available 01/08/2024 At What Age Did You Start Smoking Tobacco? 10 MIGRATION.81193 43844 Information not available 07/28/2022 How Much Tobacco Do You Smoke? 1 PPW Information not available 01/08/2024 Do You Use Any Illicit Or Recreational Drugs? No MIGRATION.77334 70101 Information not available 07/28/2022 Has Tobacco Cessation Counseling Been Provided? No MIGRATION.96525 50355 Information not available 07/28/2022 How Many Years Have You Smoked Tobacco? 20 MIGRATION.65976 30406 Information not available 07/28/2022 Have You Recently Traveled Abroad? No MIGRATION.94997 52683 Information not available 07/28/2022 Do You Or Have You Ever Used Any Other Forms Of Tobacco Or Nicotine? No MIGRATION.04752 30258 Information not available 07/28/2022 Sex: Male Functional Status None recorded. Mental Status None recorded. Family History Relationship Description Onset Age of this Age Resolved Age Notes LastModified by Organization Details LastModified Time Unspecified Relation Hypertensive disorder [id number].562 [id number] Not available 07/28/2022 05:21:18 Unspecified Relation Myocardial infarction MIGRATION.797 [id number] Not available 07/28/2022 05:21:18 Unspecified Relation Cerebrovascu lar accident MIGRATION.751 [id number] Not available 07/28/2022 05:21:18 Unspecified Relation Family history of malignant neoplasm MIGRATION.926 [id number] Not available 07/28/2022 05:21:18 Unspecified Relation Kidney disease MIGRATION.465 [id number] Not available 07/28/2022 05:21:18 Medical History Condition Response COPD Y HIGH CHOLESTEROL / HYPERLIPIDEMIA Y SLEEP DISORDER Y HYPERTENSION Y CANCER: SPECIFY Y Immunizations Vaccine Type Date Status Note Provider Nam e and Address Organization Details Recorded Time Influenza, high-dose, quadrivalent, PF 04/11/2021 completed Not Available [facility] 05:22:38 Past Encounters Encounter ID Performer Location Encounter Start Date Encounter Closed Date Diagnosis/Indication Diagnosis SNOMED-CT Code Diagnosis ICD10 Code Diagnosis Note [id number] _ATHN_MIGR ATION_5 _ATHENA_M IGRATION_ DEFAULT_1 _5 , 04/11/2021 00:00:00 04/11/2021 12:28:30 [id number] _ATHN_MIGR ATION_5 _ATHENA_M IGRATION_ DEFAULT_1 _5 , 04/23/2021 00:00:00 04/23/2021 08:23:44 [id number] _ATHN_MIGR ATION_5 _ATHENA_M IGRATION_ DEFAULT_1 _5 , 07/11/2021 00:00:00 07/11/2021 14:25:18 [id number] _ATHN_MIGR ATION_5 _ATHENA_M IGRATION_ DEFAULT_1 _5 , 10/08/2021 00:00:00 10/08/2021 10:43:12 [id number] _ATHN_MIGR ATION_5 _ATHENA_M IGRATION_ DEFAULT_1 _5 , 10/22/2021 00:00:00 10/22/2021 15:59:59 [id number] _ATHN_MIGR ATION_5 _ATHENA_M IGRATION_ DEFAULT_1 _5 , 10/31/2021 00:00:00 10/31/2021 15:34:00 [id number] _ATHN_MIGR ATION_5 _ATHENA_M IGRATION_ DEFAULT_1 _5 , 01/09/2022 00:00:00 01/09/2022 16:25:51 [id number] _ATHN_MIGR ATION_5 _ATHENA_M IGRATION_ DEFAULT_1 _5 , 01/23/2022 00:00:00 01/23/2022 11:53:40 [id number] _ATHN_MIGR ATION_5 _ATHENA_M IGRATION_ DEFAULT_1 _5 , 02/22/2022 00:00:00 02/22/2022 11:41:06 [id number] _ATHN_MIGR ATION_5 _ATHENA_M IGRATION_ DEFAULT_1 _5 , 03/12/2022 00:00:00 03/12/2022 16:14:51 [id number] _ATHN_MIGR ATION_5 _ATHENA_M IGRATION_ DEFAULT_1 _5 , 04/01/2022 00:00:00 04/01/2022 14:04:28 [id number] _ATHN_MIGR ATION_5 _ATHENA_M IGRATION_ DEFAULT_1 _5 , 05/09/2022 00:00:00 05/09/2022 17:01:04 [id number] _ATHN_MIGR ATION_5 _ATHENA_M IGRATION_ DEFAULT_1 _5 , 05/24/2022 00:00:00 05/24/2022 12:11:11 [id number] _ATHN_MIGR ATION_5 _ATHENA_M IGRATION_ DEFAULT_1 _5 , 06/11/2022 00:00:00 06/11/2022 14:19:12 [id number] _ATHN_MIGR ATION_5 _ATHENA_M IGRATION_ DEFAULT_1 _5 , 06/21/2022 00:00:00 06/21/2022 11:55:31 [id number] _ATHN_MIGR ATION_5 _ATHENA_M IGRATION_ DEFAULT_1 _5 , 07/01/2022 00:00:00 07/01/2022 12:38:24 [id number] Everardo Young MD [facility] [address] [address] 01/08/2024 10:53:46 01/08/2024 12:43:50 Ex-smoker 6817076 Z87.891 Arthritis of first carpometacarpal joint of right hand 6583853585 779423 M13.841 patient has done bracing. Patient has [...] working in. Pain of bi lateral hands 6285131815 9764099 M79.641 M79.478 [id number] Everardo Young MD [facility] [address] [address] 02/26/2024 10:58:53 02/26/2024 12:26:10 Pain of bilateral hands 0801067980 4339412 M79.641 M79.642 Ex-cigarette smoker 2810 08085 Z87.891 Pain of left hand 172417 2551 49373 M79.642 Arthritis of first carpometacarpal joint of left hand 5963468923 509008 M13.842 remove sutures. Put him in a well fitted left thumb protective brace to use for 1 month. He can use his fingers but still no loading or pinching against the thumb. See him back in 3 or 4 weeks for AP lateral oblique views of his left hand out of the brace. We will start therapy after that. [id number] Everardo Young MD [facility] [address] [address] 03/18/2024 10:43:58 03/18/2024 12:04:33 Arthritis of first carpometacarpal joint of left hand 6124159862 360839 M13.842 patient will go to therapy now to work on range of motion strengthen ing see him back in a few months for follow-up he can discontinu e the brace Pain of left hand 582525 1008 73362 M79.642 Ex-cigarette smoker 2810 06597 Z87.654 [id number] Everardo Young MD [facility] [address] [address] 07/01/2024 11:52:32 07/01/2024 12:45:39 Arthritis of first carpometacarpal joint of left hand 0328302267 073620 M13.842 patient will continue with strengthen ing exercises for the left hand. We will see him back in a few months to discuss potentiall y doing the CMC arthroplas ty on the right. Ex-cigarette smoker 281 35923 Z87.862 [id number] Everardo Young MD [facility] [address] [address] 09/30/2024 11:39:48 10/01/2024 03:42:25 Arthritis of first carpometacarpal joint of left hand 3272387531 099249 M13.842 patient will continue with strengthen ing exercises for the left hand. We will see him back in a few months to discuss potentiall y doing the CMC arthroplas ty on the right. 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 He understand s the risks, benefits alternativ es wished to proceed with the right thumb surgery now [id number] Everardo Young MD [facility] [address] [place], [place] [address] [address] 10/28/2024 09:38:32 10/28/2024 10:23:49 Arthritis of first carpometacarpal joint of right hand 9040449689 210232 M13.841 remove sutures today. Put him in [...] a home therapy program with [employer] production foreman and pinch exercises in 4 weeks. Ex-cigarette smoker 2810 85763 Z87.891 Health Concerns Section Related Observation LastModified by Organization Detai ls LastModified Time None Recorded Concern Status LastModified by Organization Details LastModified Time None Recorded Advance Directives Directive None Recorded Payers Encounter Date Sequence Insurance Name Policy Number Policy Reyes Covered Member ID Eryes Member ID Guarantor Name 02/26/[address] [facility] (MEDICARE REPLACEMENT/A DVANTAGE - PPO) [id number] Nathan L [place] [id number] Nathan Danis 03/18/[address] [facility] (MEDICARE REPLACEMENT/A DVANTAGE - PPO) [id number] Nathan L Danis [id number] Nathan [place] 07/01/[address] [facility] (MEDICARE REPLACEMENT/A DVANTAGE - PPO) [id number] Nathan L Danis [id number] Nathan [place] 07/01/2024 2 [place] Nathan L Danis [id number] Nathan [place] 09/30/[address] [facility] (MEDICARE REPLACEMENT/A DVANTAGE - HMO) [id number] Nathan L [place] [id number] Nathan [place] 09/30/2024 2 [place] Nathan Danis [id number] Nathan [place] 10/28/[address] [facility] (MEDICARE REPLACEMENT/A DVANTAGE - HMO) [id number] Nathan Baker [id number] Nathna Baker 10/28/2024 2 [place] [facility] [place] [facility] Nathan Baker [id number] Nathan Baker Notes Date Note Type Note Provider Name and Address Organization Details Recorded Time 02/26/2024 text/html patient is statu s post left thumb CMC interposition arthroplasty doing well no complaints at this point [place] [address] [place] [address], [phone], [facility] 02/26/2024 12:41:54 03/18/2024 text/html patient returns today for follow-up he had a left thumb CMC interposition arthroplasty on 02/13/2024 doing well at this point minimal pain and swelling he has been in his protective brace for the last 5 [place] [address] [place] [address], [phone], [facility] 03/18/2024 13:38:40 07/01/2024 text/html patient returns today for follow-up he had a left thumb CMC interposition arthroplasty on 02/13/2024 doing well at this point minimal pain and swelling he has been in his protective brace for heavy activity at times only now that he is 5 [place] [address] [place] [address], [phone], [facility] 07/01/2024 12:32:54 09/30/2024 text/html Patient is sever al months out now from the left thumb carpometacarpal arthroplasties doing very nicely he is ready to proceed with a right thumb now. Patient has significant pain in that thumb aching constantly with sharp pain any time he tries to production foreman or pinch with the right hand related to the cyri-jl-gghv arthritis of his right [place] [address] [place] [address], [address], [facility] 09/30/2024 12:51:48 10/28/2024 text/html Patient returns today for follow-up he is now 2 weeks postop we did a right thumb ligament reconstruction tendon interposition. Patient's left thumbs been doing well since the surgery several months ago. Had a little bit of pain as is common in the 1st few days doing well now. Everardo Young MD [address] [place], [address], [facility] 10/28/2024 11:40:32
--- OUTSIDE RECORDS SUMMARY | 2024-11-18 13:21 | XMS_ITS | Encounter Summary ---
Author Organization [facility] Address [address] [place] [address] Care Team Providers Care Student Affairs Vice President Name Role Phone Galileo Kiser MD Primary Care Provider [phone] Encounter Details Date Type Department Care Team (Late st Contact Info) Description 11/12/2004 Outpatient Historical [facility] Khalif Gandhi MD [address] [address] DYSPHAGIA (Primary Dx) Social History Tobacco Use Types Packs/Day Years Used Date Smoking Tobacco: Never Assessed Sex and Gender Information Value Date Recorded Sex Assigned at Not on file Legal Sex Male 5:24 AM [employer] Gender Identity Not on file Sexual Orientation Not on file documented as of this encounter Plan of Treatment Not on file documented as of this encounter Visit Diagnoses Diagnosis Dysphagia- Primary documented in this encounter Additional Health Concerns Infection Onset Date Last Indicated Resolved Time COVID-19 09/18/2020 09/18/2020 10/08/2020 1:16 AM CDT documented as of this encounter Care Teams Student Affairs Vice President Relationship Specialty Start Date End Date Galileo Kiser MD PCP - General Family Practice 04/02/16 documented as of this encounter
--- OUTSIDE RECORDS SUMMARY | 2024-11-18 13:21 | XMS_ITS | Encounter Summary ---
Author Organization [facility] Address 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
--- OUTSIDE RECORDS SUMMARY | 2024-11-18 13:21 | XMS_ITS | Clinical Summary ---
Author Organization [facility] Address [address] [place] [address] Care Team Providers Care Elevator Adjuster Name Role Phone Galileo Kiser MD Primary Care Provider [phone] Allergies Active Allergy Reactions Criticality Noted Date Comments Fspmgyoj-Qsmuoqxytbt-Ttqwscicn Rash Low 07/26 Medications Food Supplement, Lactose-Free (ENSURE HIGH PROTEIN) Oral Liqd Take 240 mL by mouth q 3 hour. 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 Gender Identity Not on file Sexual [...] 09/28/2029 09/29/2019 Medical Devices Implanted Type Area Dental Service Chief Device Identifier Shelf Expiration Date Model / Serial / Lot Clip Endo Resolution 360 235cm [id number] - [id number] Implanted:Qty: 2 on 02/12/2019 by Krishna Foster MD at [facility] Clip N/A: Perianal [employer] [id number] / / Lens Io Sn60wf 21.0 - [id number] Implanted:Qty: 1 on 02/19/2021 by Polo Huang MD at [facility] Patients First Eye Right: Eye [employer] [id number] 10/20/2025 SN60WF .21 0 / [id number] / Lens Io Sn60wf 21.5 - [id number] Implanted:Qty: 1 on 03/05/2021 by Polo Huang MD at [facility] Patients [employer] Eye Left: Eye [employer] [id number] 10/23/2025 SN60WF .21 5 / [id number] / [id number] Procedures Procedure Name Priority Date/Time Associated Diagnosis Comments MICROALBUMIN/CREATIN INE RATIO, RANDOM UR Routine 12/29/2020 2:34 PM CDT Type 2 diabetes mellitus without complication, without long-term current use of insulin ([facility]) Essential hypertension LIPID PANEL Routine 12/29/2020 2:34 [...] Creatinine, Urine 207 20 - 320 mg/dL [facility] MICROALBUMIN, URINE 1.3 See Note: mg/dL [facility] Comment: Reference Range: Reference Range Not established MICROALBUMIN/CREAT RATIO, UR 6 <30 mcg/mg creat [facility] Comment: The ADA defines abnormalities in albumin excretion as follows: Category Result (mcg/mg creatinine) Normal <30 Microalbuminuria 30-299 Clinical albuminuria > OR = 300 The ADA recommends that at least two of three specimens collected within a 3-6 month period be abnormal before considering a patient to be within a diagnostic category. Test Performed at: [facility] [address] [place] [address] Marcello Yoo D.O., MPH Urine URINE SPECIMEN OBTAINED BY CLEAN CATCH PROCEDURE / Unknown 12/29/2020 2:34 PM CDT Galileo Kiser MD URINE ORDERABLES Final Result Performing Organization Address [facility] Co de Phone Number [facility] [address] [place] [address] * HEMOGLOBIN A1C (12/29/2020 2:34 PM CDT) Pathologist [facility] HEMOGLOBIN A1C 5.1 <5.7 % of total Hgb [facility] Comment: Test Performed at: [facility] [address] [place] [address] [facility] Blood 12/29/2020 2:34 PM CDT Galileo Kiser MD CHEMISTRY ORDERABLES Final Re sult Performing Organization Address City/[facility]/ZIP Co de Phone Number [facility] [address] [place] [address] * LIPID PANEL (12/29/2020 2:34 PM CDT) Pathologist [facility] CHOLESTEROL 147 <200 mg/dL [facility] HDL 52 > OR = 40 mg/dL [facility] TRIGLYCERIDE 117 <150 mg/dL [facility] LDL CALCULATED 75 mg/dL (calc) [facility] Comment: Reference range: <100 Desirable range <100 mg/dL for primary prevention; <70 mg/dL for patients with CHD or diabetic patients with > or = 2 CHD risk factors. LDL-C is now calculated using the Jam calculation, which is a validated novel method providing better accuracy than the Friedewald equation in the estimation of LDL-C. Sulaiman SS et al. PAVAN. 2013;310(19): 4846-6070 (http://education.Moburst/faq/FQL930) CHOL/HDL RATIO 2.8 <5.0 (calc) [facility] TOTAL NON-HDL CHOL(LDL+VLDL) 95 <130 mg/dL (calc) [facility] Comment: For patients with diabetes plus 1 major ASCVD risk factor, treating to a non-HDL-C goal of <100 mg/dL (LDL-C of <70 mg/dL) is considered a therapeutic option. Test Performed at: [facility] [address] [place] [address] [facility] Blood 12/29/2020 2:34 PM CDT us Galileo Kiser MD CHEMISTRY ORDERABLES Final Re sult [facility] [address] [place] [address] * COLONOSCOPY REPORT (11/28/2020 10:22 AM CDT) Narrative Procedure Note Krishna Foster MD - 11/28/2020 10:20 AM CDT [facility] GI Patient Name: Nathan Moscoso Procedure Date: [...] bowel preparation was evaluated using the BBPS ([place] Bowel Preparation Scale) with scores of: Right [...] surveillance based on pathology results. - A Tradono message and/or a letter will be sent to you summarizing the pathology results. Please call the GI office ([phone]) if you have not heard the results within 2 weeks. - Goal intake of 25-30 grams of fiber per day. This is a combination of dietary fiber (located on product food label) as well as supplemental fiber (for example Citrucel, Fibercon, Konsyl or Metamucil) if needed. Procedure Code(s): --- Professional --- 44343, Colonoscopy, flexible; with removal of tumor(s), polyp(s), or other lesion(s) by snare technique 97335, 59, Colonoscopy, flexible; with biopsy, single or multiple Diagnosis Code(s): --- Professional --- D12.3, Benign neoplasm of transverse colon (hepatic flexure or splenic flexure) D12.2, Benign neoplasm of ascending colon D12.4, Benign neoplasm of descending colon Z86.010, Personal history of colonic polyps K57.30, Diverticulosis of large intestine without perforation or abscess without bleeding CPT copyright 2018 [employer]. All rights reserved. The codes documented in this report are preliminary and upon tug hand review may be revised to meet current compliance requirements. Krishna Foster MD 11/28/2020 10:20:34 AM Number of Addenda: 0 Estimated Blood Loss: Estimated blood loss: none. Krishna Foster MD GI PROCEDURE ORDERABL ES Final Result from Last 3 Months or Most Recently Relevant to Health [place] [address] [facility] [id number] * Guarantor: Nathan Moscoso Jr. Account Type Relation to Patient Date of Phone Billing Address Personal/Family Self 1945 [address] [place] [address] Advance Directives For more information, please contact: [phone] * Full Code (Latest Code Status on File) Date Activated Date Inactivated Comments 11/28/2020 9:10 AM 11/28/2020 12:48 PM * Full Code Date Activated Date Inactivated Comments 02/12/2019 11:45 AM 02/12/2019 4:55 PM * Full Code Date Activated Date Inactivated Comments 10/30/2013 2:27 PM 10/31/2013 3:06 PM * Full Code Date Activated Date Inactivated Comments 03/17/2013 5:33 PM 03/20/2013 11:31 AM Care Teams Elevator Adjuster Relationship Specialty Start Date End Date Galileo Kiser MD PCP - General Family Practice 04/02/16
--- OUTSIDE RECORDS SUMMARY | 2024-11-18 13:21 | XMS_ITS | Data Portability ---
Author Organization [place] [employer], Main Office Address [address] [place] [address] Care Team Providers Care Merchandise Processor Name Role Phone XOCHILT VANEGAS Primary Care Provider [phone] Assessment Encounter Date Assessment Date Assessment LastModified [...] Lab CMP, serum or plasma 2024 025 [facility], [address], [place], [address], 5 22:26:30 lipid panel, serum 2024 025 [facility], [address], [place], [address], 5 22:26:28 CBC w/ auto diff 2024 025 [facility], [address], [place], [address], 5 22:26:31 TSH, serum or plasma 2024 [facility], [address], [place], [address], 5 22:26:33 TSH + free T4, serum 2023 024 [email or web address] 4 [facility], [address] [place], [address], 4 11:48:48 T3, free, serum or plasma 2023 024 [email or web address] 4 [facility], [address] [place], [address], 4 11:49:06 Referral cardiologis t referral - Please call patient to schedule an appointment . Thank you. 2024 025 [place], [address] [facility], [facility] [address], [address], 11:19:[address] referral - Please call patient to schedule an appointment . Thank you. 2024 025 ROE Renteria [facility]-, [address] [place] [address], [address], [address], 12:49:49 Procedures None recorded. Surgeries None recorded. Imaging None recorded. Medication Orders amoxicillin 400 mg-potassiu m clavulanate 57 mg/5 mL oral suspension 2024 ROE Mars [facility] 2425, [address], [place], [address], 12:38:58 Bactrim DS 800 mg-160 mg tablet 2023 024 [email or web address] [facility], [address] [place] [address], [facility] [address], [place], [id number], 11:50:22 Patient TargetsNo targets recorded. Patient InstructionsNo instructions recorded. Reason for Referral Hospital Secretary Referral for Silva sinclair chronic obstructive pulmonary disease Please call patient to schedule an appointment. Thank you. Referring Physician: Justin Jane, Internal Medicine, Encounter Date: 08/25/2024 Book Store Associate Referral for Es sential hypertension Please call patient to schedule an appointment. Thank you. Referring Physician: Justin Jane, Internal Medicine, Encounter Date: 08/25/2024 Results Created Date Observation Date Name Description Value Unit Range Abnormal Flag Note LastModifiedBy Organization Detail LastModifiedTime 03/18/20 24 XR, hand, 3 or more view [facility]WA Y [facility] [address] [place] [address] Patien t Name: NATHAN MOSCOSO Access ion #: [id number] Sex: M : 1945 1 8 Dictat ed By: Lizzie Suarez Attend ing Physic anna: EVERARDO ABREU [facility] Physic anna: EVERARDO ABREU Exam Date: 2023 [...] at 2023 10:36: 21 AM Page [email or web address] [facility] ([facility]) [address] [place], [address], 04/07/2024 10:39:49 03/18/20 24 03/18/2024 XR, hand, 3 or more view No observ ation record ed. [email or web address] [facility] [address] [place], [address], 03/31/2024 15:18:43 10/20/19 25 10/19/2024 imagi ng/di agnos tic resul t No observ ation record ed. [address], [place], [address], 10/19/2024 18:30:23 11/01/19 25 10/30/2024 imagi ng/di agnos tic resul t No observ ation record ed. [address], [place], [address], 10/31/2024 10:03:38 11/12/19 pulmo nary funct ion test* No observ ation record ed. [email or web address] Not Available 10/20 14:10:01 11/13/19 25 11/12/2024 imagi ng/di agnos tic resul t No observ ation record ed. [address], [place], [address], 11/12/2024 16:21:28 Result Notes None recorded. Problems Name Problem SNOMED Code Status Onset Date Resolution Date Notes Provider Name and Address Organization Details Recorded Time Hyperchole sterolemia 26672384 Active 2020 Not Available [facility] 4 22:23:27 Chronic obstructiv e pulmonary disease 25515819 Active 2020 Not Available [facility] 4 22:23:27 Anti-nucle ar factor detected 067900160 Active 2021 Not Available [facility] 4 22:23:27 Bacterial infection caused by Klebsiella pneumoniae 858374155 Active 2021 Not Available [facility] 4 22:23:27 Copious sputum 680495582 Active 2021 Not Available [facility] 4 22:23:27 Esophageal dysmotilit y 470541535 Active 2021 Not Available [facility] 4 22:23:27 History of malignant neoplasm 298582971 Active 2020 Not Available [facility] 4 22:23:27 Abdominal mass 245386343 Active 2021 Not Available [facility] 4 22:23:27 Thick sputum 318016457 Active 2022 Not Available [facility] 4 22:23:27 Severe chronic obstructiv e pulmonary disease 720856521 Active 2022 Not Available [facility] 4 22:23:27 Postobstru ctive pneumonia 332942793 Active 2021 Not Available [facility] 4 22:23:27 At increased risk for aspiration 708086675 Active 2021 Not Available [facility] 4 22:23:27 Hypertensi ve disorder 68778304 Active 2020 Not Available [facility] 4 22:23:27 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 227118415 Active 2021 Not Available [facility] 4 22:23:27 Rajni, not Rajni albicans 457942189 Active 2021 Not Available [facility] 4 22:23:28 Dysphagia 11926482 Active 2021 Not Available [facility] 4 22:23:28 Hypothyroi dism 12524350 Active 2020 Not Available [facility] 4 22:23:28 Coronary arterioscl erosis 27545696 Active 2021 Not Available [facility] 4 22:23:28 Dyspnea on exertion 11625606 Active 2021 Not Available [facility] 4 22:23:28 Chronic cough 18554457 Active 2021 Not Available [facility] 4 22:23:28 Bacterial infection caused by Serratia 28502167 Active 2021 Not Available [facility] 4 22:23:28 Prediabete s 498603265 Active 2020 Not Available [facility] 4 22:23:28 Obstructiv e sleep apnea syndrome 72803517 Active 2022 Not Available [facility] 4 22:23:28 History of squamous cell carcinoma in situ 0695349478072 5 Active 2020 Not Available [facility] 4 22:23:28 Solitary nodule of lung 012741992 Active 2022 Not Available [facility] 4 22:23:28 Hyperlipid emia 24284616 Active 2022 Not Available [facility] 4 22:23:28 Insomnia 453628015 Active 2022 Not Available [facility] 4 22:23:27 Pain of bilateral hands 7705032457053 9109 Active 2022 Not Available [facility] 4 22:23:27 Osteoarthr osis of the carpometac arpal joint of the thumb 41869840 Active 2022 Not Available [facility] 4 22:23:27 Bilateral pain of joint of hands 7406980047225 9102 Active 2022 Not Available [facility] 4 22:23:27 Abnormal findings on diagnostic imaging of lung 702013252 Active 2022 Not Available [facility] 4 22:23:27 Arthritis of bilateral first carpometac arpal joints 2192122853871 102 Active 2022 Not Available [facility] 4 22:23:27 Pain of left hand 2780232083168 03 Active 2023 ANEESH Cesar [address], [place], [address] , [facility] [employer] [facility] 4 22:54:41 Diabetes mellitus 28218160 Active 2023 ANEESH Hernandez [address], [place], [address] , [facility] 4 11:30:11 Epidermoid cyst of skin of back 913373697 Active 2023 ANEESH Hrenandez [address] [facility], [address] [address], [place], [address] , [facility] 4 11:34:05 Epidermoid cyst of skin 084358158 Active 2023 Jim esparza MD [address] [facility], [address] [address], [place], [address] , [facility] 4 13:58:44 Malignant tumor of tonsil 145783772 Active 2024 Justin jarrett MD [address] [facility], [address] [address], [place], [address] , [facility] 5 12:10:07 Essential hypertensi on 18286652 Active 2024 Justin jarrett MD [address] [facility], [address] [address], [place], [address] , [facility] 5 12:10:17 Esophageal dysphagia 61251836 Active 2024 Justin jarrett MD [address] [facility], [address] [address], [place], [address] , [facility] 5 12:13:28 Notes:Medical History: Laryn geal penetration Hypothyroidism Hyperlipidemia Hypertension EF 55% Prediabetes Mild TR CAD 4.1 cm ascending thoracic aortic ectasia Moderate COPD LLL 6.7 mm pulm nodule Asbestos exposure 7796-6572 Mild splenomegaly Left 7.7 cm renal cyst Procedure History: 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 Please review these documents and add these problems to the patient's chart manually as needed. Problem Notes None recorded. Procedures Surgical History Date Name Laterality Status Provider Name and Address Organization Details Recorded Time 4 Blank Procedure Note completed Jim Ramirez MD [address] [facility], [facility] [address], [place], [address], [facility] [employer] [facility] 05/18/2024 12:28:30 3 Ortho - Cortisone Injection completed Olivier Jackson MD [address] [facility], [facility] [address], [place], [address], [facility] [employer] [facility] 01/28/2023 14:48:33 other completed Annika Varela MA [facility] [employer] [facility] 04/15/2024 12:02:59 Imaging Results Imaging Date Name Status LastModified by Organiz ation Details LastModified Time 03/18/2024 XR, hand, 3 or more view completed [email or web address] [facility] (Imaging) [address] [place], [address], 04/07/2024 10:39:49 03/18/2024 XR, hand, 3 or more view completed [email or web address] [facility] [address] [place], [address], 03/31/2024 15:18:43 10/19/2024 imaging/diagno stic result active [address], [address], 10/19/2024 18:30:23 10/30/2024 imaging/diagno stic result active [address], [address], 10/31/2024 10:03:38 11/11/2024 pulmonary function test* completed [email or web address] Information not available 11/11/2024 14:10:01 11/12/2024 imaging/diagno stic result active [address], [address], 11/12/2024 16:21:28 Procedure Notes None recorded. Medical Equipment None Reported. Allergies Allergen ID Allergen Name Allergen Category Reaction Reaction Severity Criticality Documentation Date Start Date Code Code System Note Provider Name and Address Organization Details Recorded Time 59168 bacitraci n / neomycin / polymyxin B medicatio n Not available Not available Not available 09/18/2022 22853 9 RxNorm Not Available [facility] 3 23:31:27 63669 bacitraci n medicatio n Not available Not available Not available 03/29/2024 1291 RxNorm Other react ions and sever ities : 'Adve rse react ion to subst ance - Sever e'. Yoana Rodriguez, [employer] [address] [facility], [facility] [address], [place], [address] , [facility] [employer] [facility] 4 14:17:39 Medications Name Sig Start Date [...] mg by injectio n route. 08/25 completed [facility]: [id number] [phone] Not Available Not Available Not Available hydrocodo ne 7.5 mg-acetam inophen 325 mg tablet TAKE 1 TABLET BY MOUTH EVERY 6 HOURS NEEDED FOR PAIN 08/25 completed Not Available Not Available Not Available trazodone 150 mg tablet TAKE 1 TABLET BY MOUTH DAILY AT BEDTIME active Not Available Not Available No t Available prednison e 50 mg tablet 04/11 completed [...] %) injection solution in office 08/25 completed [facility] [address]-23 10-19 Not Available Not Available Not Available Anoro [...] Updated DateTime 4 182.88 cm 24 kg/m2 81523.8 5 g 97.5 [degF] 70 /min 93 % 93 % 166 mm[Hg] 84 mm[Hg] Brook Hidalgo RN [place] [facility] 4 11:21:33 Date Recorded Body height Body mass index (BMI) Body weight Provider Name and Address Organization Details Last Updated DateTime 04/15/2024 182.88 cm 22.5 kg/m2 52377.33 g Annika Varela MA [facility] [employer] [facility] 04/15/2024 12:00:42 Date Recorded Body height Body mass index (BMI) Body weight Body temperature Heart rate Respiratory rate Oxygen saturation Oxygen saturation in Arterial blood by Pulse oximetry Systolic blood pressure Diastolic blood pressure Provider Name and Address Organization Details Last Updated DateTime 4 182.88 cm 22.5 kg/m2 91966.3 3 g 97.5 [degF] 70 /min 16 /min 93 % 93 % 166 mm[Hg] 84 mm[Hg] Reema Angel [facility] [employer] [facility] 4 12:06:48 Date Recorded Body height Body mass index (BMI) Body weight Body temperature Heart rate Respiratory rate Oxygen saturation Oxygen saturation in Arterial blood by Pulse oximetry Systolic blood pressure Diastolic blood pressure Provider Name and Address Organization Details Last Updated DateTime 4 182.88 cm 22.5 kg/m2 11189.3 3 g 97.5 [degF] 70 /min 16 /min 93 % 93 % 166 mm[Hg] 84 mm[Hg] Reema Angel [facility] [employer] [facility] 4 10:35:10 Date Recorded Body height Body mass index (BMI) Body weight Body temperature Heart rate Systolic blood pressure Diastolic blood pressure Provider Name and Address Organization Details Last Updated DateTime 5 182.88 cm 23.2 kg/m2 88795.3 g 97.6 [degF] 78 /min 140 mm[Hg] 66 mm[Hg] CHRISTOPHER Valdez [facility] [employer] [facility] 5 11:58:34 Social History Question Answer Notes LastModified by Organizat ion Details LastModified Time Tobacco Smoking Status Former Smoker qiut age 30 CHRISTOPHER Valdez null, [facility] [employer] [facility] 08/25/2024 11:55:50 What Is Your Level Of Alcohol Consumption? None [id number] Information not available 09/18/2022 What Is Your Level Of Caffeine Consumption? Moderate Coffee, 2-3 Cups Per Day [id number] Information not available 09/18/2022 In The 14 Days Before Symptom Onset, Have You Had Close Contact With A Laboratory-confir med COVID-19 While That Case Was Ill? No MIGRATION.75643 31939 Information not available 09/18/2022 In The 14 Days Before Symptom Onset, Have You Had Close Contact With A Person Who Is Under Investigation For COVID-19 While That Person Was Ill? No MIGRATION.46579 87535 Information not available 09/18/2022 Are You Currently Employed? No [email or web address] Information not available 04/15/2024 What Type Of Diet Are You Following? SPECIFIC Ensure - Equate Diabetic Care [place]te - Needs Rx For 6 Cases A Month MIGRATION.34973 55407 Information not available 09/18/2022 When Did You Quit Smoking? 17+yearssinc elastcigaret te MIGRATION.21283 52430 Information not available 09/18/2022 What Was The Date Of Your Most Recent Tobacco Screening? 08/25/2024 [email or web address] Information not available 08/25/2024 What Is Your Relationship Status? [place] [address] Information not available 04/15/2024 At What Age Did You Start Smoking Tobacco? 10 MIGRATION.84457 68616 Information not available 09/18/2022 Do You Use Any Illicit Or Recreational Drugs? No MIGRATION.88928 85896 Information not available 09/18/2022 Has Tobacco Cessation Counseling Been Provided? No MIGRATION.47448 07789 Information not available 09/18/2022 How Many Years Have You Smoked Tobacco? 20 MIGRATION.81607 73735 Information not available 09/18/2022 Have You Recently Traveled Abroad? No MIGRATION.00649 06149 Information not available 09/18/2022 Do You Have Any Dietary Restrictions? No Had Throat Cancer MIGRATION.54299 08459 Information not available 09/18/2022 Do You Or Have You Ever Used Any Other Forms Of Tobacco Or Nicotine? No MIGRATION.09276 40436 Information not available 09/18/2022 Sex: Male Functional Status Question Answer Note LastModified by Organizat ion Details LastModified Time What is your exercise level? None [id number] Information not available 09/18/2022 Mental Status None recorded. Family History Relationship Description Onset Age of this Age Resolved Age Notes LastModified by Organization Details LastModified Time Unspecified Relation Hypertensive disorder MIGRATION.510 [id number] Not available 09/18/2022 23:28:57 Unspecified Relation Myocardial infarction MIGRATION.988 [id number] Not available 09/18/2022 23:28:57 Unspecified Relation Cerebrovascu lar accident MIGRATION.120 [id number] Not available 09/18/2022 23:28:57 Unspecified Relation Family history of malignant neoplasm MIGRATION.110 [id number] Not available 09/18/2022 23:28:57 Unspecified Relation Kidney disease MIGRATION.451 3002925 Not available 09/18/2022 23:28:57 Medical History Condition Response DIABETES, TYPE Y CANCER: SPECIFY Y Immunizations Vaccine Type Date Status Note Provider Nam e and Address Organization Details Recorded Time Influenza, high-dose, quadrivalent, PF 1 completed Not Available [facility] 07/25/2023 22:23:28 zoster recombinant 2 completed Yoana Rodriguez APRN [address], [address], [place], [address], [facility] [employer] [facility] 03/29/2024 14:17:58 zoster recombinant 2 completed Yoana Rodriguez APRN [address], [address], [place], [address], [facility] [employer] [facility] [employer] [facility] 03/29/2024 14:17:58 Influenza, high-dose, quadrivalent, PF 2 completed Yoana Rodriguez APRN [address], [address], [place], [address], [facility] [employer] [facility] 03/29/2024 14:17:58 Influenza, high-dose, quadrivalent, PF 3 completed Yoana Rodriguez APRN [address], [address], [place], [address], [facility] [employer] [facility] 03/29/2024 14:17:58 COVID-19, mRNA, LNP-S, PF, 30 mcg/0.3 mL dose 1 shelton Rodriguez APRN [address], [address], [place], [address], [facility] [employer] [facility] [employer] [facility] 03/29/2024 14:17:58 Pneumococcal conjugate PCV20, polysaccharide LXR288 conjugate, adjuvant, PF 3 completed Yoana Rodriguez APRN [address], [address], [place], [address], [facility] 03/29/2024 14:17:58 COVID-19, mRNA, LNP-S, PF, 30 mcg/0.3 mL dose, edison-sucrose 2 completed Yoana Rodriguez APRN [address], [address], [place], [address], [facility] 03/29/2024 14:17:58 COVID-19, mRNA, LNP-S, bivalent, PF, 30 mcg/0.3 mL dose 2 completed Yoana Rodriguez APRN [address], [address], [place], [address], [facility] 03/29/2024 14:17:58 RSV, bivalent, protein subunit RSVpreF, diluent reconstituted, 0.5 mL, PF 3 completed Yoana Rodriguez APRN [address], [address], [place], [address], [facility] 03/29/2024 14:17:58 COVID-19, mRNA, LNP-S, PF, edison-sucrose, 30 mcg/0.3 mL 3 completed Yoana Rodriguez APRN [address], [address], [place], [address], [facility] 03/29/2024 14:17:58 COVID-19, mRNA, LNP-S, PF, edison-sucrose, 30 mcg/0.3 mL 4 completed CHRISTOPHER Valdez, [facility] 08/25/2024 11:54:34 Influenza, high-dose, trivalent, PF 4 completed CHRISTOPHER Valdez, [facility] 08/25/2024 11:54:34 Past Encounters Encounter ID Performer Location Encounter Start Date Encounter Closed Date Diagnosis/Indication Diagnosis SNOMED-CT Code Diagnosis ICD10 Code Diagnosis Note [id number] Dragan Ivy MD [facility] [place] [address] [place] [address] 04/11/2021 00:00:00 04/11/2021 12:28:30 [id number] Dragan Ivy MD [facility] [place] [address] [place] [address] 04/23/2021 00:00:00 04/23/2021 08:23:44 [id number] Dragan Ivy MD [facility] [place] [address] [place] [address] 07/11/2021 00:00:00 07/11/2021 14:25:18 [id number] Dragan Ivy MD [facility] [place] [address] [place] [address] 10/08/2021 00:00:00 10/08/2021 10:43:12 [id number] [facility] [place] [address] [place] [address] 10/22/2021 00:00:00 10/22/2021 15:59:59 [id number] [facility] [place] [address] [place] [address] 10/31/2021 00:00:00 10/31/2021 15:34:00 [id number] Kristina Renteria, [facility] [place] [address] [place] [address] 01/09/2022 00:00:00 01/09/2022 16:25:51 [id number] Dragan Ivy MD [facility] [place] [address] [place] [address] 01/23/2022 00:00:00 01/23/2022 11:53:40 [id number] CHARLY Neely [facility] [place] [address] [place] [address] 02/22/2022 00:00:00 02/22/2022 11:41:06 [id number] Kristina CHARLY Renteria [facility] [place] [address] [place] [address] 03/12/2022 00:00:00 03/12/2022 16:14:51 [id number] CHARLY Neely [facility] [place] [address] [place] [address] 04/01/2022 00:00:00 04/01/2022 14:04:28 [id number] MD HARMAN [facility] [place] [address] 05/09/2022 00:00:00 05/09/2022 17:01:04 [id number] CHARLY Neely [facility] [place] [address] [place] [address] 05/24/2022 00:00:00 05/24/2022 12:11:11 [id number] Dragan Ivy MD [facility] [place] [address] 06/11/2022 00:00:00 06/11/2022 14:19:12 [id number] CHARLY Neely [facility] [place] [address] [place] [address] 06/21/2022 00:00:00 06/21/2022 11:55:31 [id number] Gabe Moses MD [facility] [address], [facility] [address] [place] [address] 07/01/2022 00:00:00 07/01/2022 12:38:24 [id number] MATT De La Torre [facility] [place] [address] [place] [address] 07/31/2022 00:00:00 07/31/2022 16:56:18 [id number] Kristina Renteria [facility] [place] [address] [place] [address] 07/31/2022 00:00:00 07/31/2022 13:29:58 [id number] MATT De La Torre [facility] [place] [facility] [place] [address] [place] [address] 08/28/2022 00:00:00 08/28/2022 18:34:58 [id number] Kristina Renteria [facility] [place] [address], [address] [place] [address] 09/30/2022 11:09:27 09/30/2022 12:28:23 Severe chronic obstructive pulmonary disease 901639842 J44.9 CAT 25PFT 11/2021 with ratio 48FEV1 49DLCO adjusted is normalCont inue Symbicort and Spiriva with aerochambe rAlbuterol PRN - discussed indication s for useDiscuss ed reportable signs and symptoms.R TC in 2-3 months, PRN for concerns Thick sputum 676438309 R 09.3 Intolerant to nebulized mucomystSt art oral BIDNarrowi ng of LLL bronchus per bronchosco py with thick mucous and plugs. Chronic cough 72104997 R 05.3 ImprovedMB S completed 01/2022 with laryngeal penetratio n identified with swallowing of thin liquid, thick liquid, and pudding consistenc y.No jennifer aspiration was identified Recommend GI Bacterial infection caused by Serratia 18446891 A49.8 10/2021 Bacterial infection caused by Klebsiella pneumoniae 027256471 B96.1 10/2021 Dyspnea on exertion 6084 5006 R06.09 ImprovedQu antiferon GOLD negativeIG E normaleosi nophils normalBNP normalIGGs normalSix minute walk normal 11/2021 Ex-smoker 9939417 Z87.[address] chest 05/2022 with nodule as above Solitary n odule of lung 304852408 R91.1 [address] chest 2Rep eat in 6 months, due 11/2022 [id number] Kristina Renteria, STRATIGRAPHY TEACHER-[facility] [place] [address] [place] [address] 12/30/2022 11:12:17 12/30/2022 11:51:23 Severe chronic obstructive pulmonary disease [id number] J44.9 CAT 25PFT 11/2021 with ratio 48FEV1 49DLCO adjusted is normalCont inue Symbicort 160 and Spiriva Respimat 2.5with aerochambe rInstructe d on technique todayAlbut marilyn PRN - discussed indication s for useDiscuss ed reportable signs and symptoms.R TC in 3-4 months, PRN for concerns Solitary n odule of lung 262879925 R91.1 [address] chest 2Rep eat in 6 months, due 11/2022 - staff scheduled today Thick sputum 245833033 R 09.3 Intolerant to nebulized mucomystCo ntinue oral acetylcyst eine BIDNarrowi ng of LLL bronchus per bronchosco py with thick mucous and plugs. Chronic cough 02090166 R 05.3 ImprovedMB S completed 01/2022 with laryngeal penetratio n identified with swallowing of thin liquid, thick liquid, and pudding consistenc y.No jennifer aspiration was identified Recommend GI consultHe continues to decline Bacterial infection caused by Serratia 54741789 A49.8 10/2021 Bacterial infection caused by Klebsiella pneumoniae 821068932 B96.1 10/2021 Dyspnea on exertion 6084 5006 R06.09 Multifacto ralImprove dQuantifer on GOLD negativeIG E normaleosi nophils normalBNP normalIGGs normalSix minute walk normal ec ommend exercise programHe will consider [place] Ex-smoker 1445267 Z87.[address] chest 05/2022 with nodule as aboveHe has not repeated, staff scheduled this today Activity intolerance 774 65923 Z73.89 Multifacto ral [id number] Molly Diaz MD [facility] Primary Care [place] [address] [facility] [address] [place] [address] 01/16/2023 11:00:43 01/16/2023 12:53:45 Chronic obstructive pulmonary disease 39116826 J44.9 He has increased trouble with his SOB. Will try to put referral in for upright walker.Ref ills needed on inhalers/n ebulizer.C ontinue follow-up with pulmonolog y. Pain of bi lateral hands [id number] 0580827 M79.641 M79.642 Most likely [facility] arthritis due to wear and tear.Will have him try topical for comfort. Epsom salt soaks.Will plan to refer to ortho if no improvemen t for imaging/in jections. [id number] Olivier Jackson MD [facility] [place] [address] [place] [address] 01/28/2023 14:02:53 01/28/2023 15:25:32 Pain of bilateral hands [id number] 2268767 M79.642 M79.641 Osteoarthr osis of the carpometacarpal joint of the thumb 97930906 M18.9 M18.0 [id number] Olivier Jackson MD [facility] [place] [address] [place] [address] 02/25/2023 14:28:07 02/25/2023 15:25:45 Osteoarthrosis of the carpometacarpal joint of the thumb 53797181 M18.9 M18.0 [id number] Kristina Renteria, [facility] [place] [address] [place] [address] 04/15/2023 10:08:12 04/15/2023 11:08:18 Severe chronic obstructive pulmonary disease 348746979 J44.9 CAT 25PFT 11/2021 with ratio 48FEV1 49DLCO adjusted is normalCont inue Symbicort 160 and Spiriva Respimat 2.5with aerochambe rRX sent todayAlbut marilyn PRN - discussed indication s for useDiscuss ed reportable signs and symptoms.H e should follow up in 6 months, PRN for concerns Thick sputum 101308970 R 09.3 Intolerant to nebulized mucomystCo ntinue oral acetylcyst eine BIDNarrowi ng of LLL bronchus per bronchosco py with thick mucous and plugs.Re-s tart flutter valve use dailyMay need Smart Vest therapy Chronic cough 16216930 R 05.3 ImprovedMB S completed 01/2022 with laryngeal penetratio n identified with swallowing of thin liquid, thick liquid, and pudding consistenc y.No jennifer aspiration was identified Bacterial infection caused by Serratia 40886097 A49.8 10/2021 Bacterial infection caused by Klebsiella pneumoniae 053727393 B96.1 10/2021 Dyspnea on exertion 6084 5006 R06.09 Multifacto ralQuantif jorge GOLD negativeIG E normaleosi nophils normalBNP normalIGGs normalSix minute walk normal 2Rec ommend exercise programHe will consider [place] Activity intolerance 774 01469 Z73.89 Multifacto ral Ex-smoker 6121568 Z87.[address] chest as above Abnormal f indings on diagnostic imaging of lung 234801285 R91.[address] chest due 06/2023, ordered todayHe is aware to call PCM about results if he has not heard one week after completed [id number] Emir Mendiola MD [facility] [place] 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[facility] Pul[facility] [place] [address] [place] [address] 06/02/2023 14:01:13 06/02/2023 15:08:11 Severe chronic obstructive pulmonary disease 512612687 J44.9 PFT 11/2021 with ratio 48FEV1 49DLCO adjusted is normalCont inue Symbicort 160 and Spiriva Respimat 2.5with aerochambe rRX sent todayAlbut marilyn PRN - discussed indication s for useDiscuss ed reportable signs and symptoms.H e should follow up in 6 months, PRN for concerns Abnormal f indings on diagnostic imaging of lung 903460739 R91.[address] chest due 06/2023Sch eduled 07/07/23, has follow up with PCM Thick sputum 861646088 R 09.3 Intolerant to nebulized mucomystCo ntinue oral acetylcyst eine BIDNarrowi ng of LLL bronchus per bronchosco py with thick mucous and plugs.Re-s tart flutter valve use daily - I have stressed the importance of thisMay need Smart Vest therapy Chronic cough 62984189 R 05.3 ImprovedMB S completed 01/2022 with laryngeal penetratio n identified with swallowing of thin liquid, thick liquid, and pudding consistenc y.No jennifer aspiration was identified May need repeat Bacterial infection caused by Serratia 85857846 A49.8 10/2021 Bacterial infection caused by Klebsiella pneumoniae 997688594 B96.1 10/2021 Dyspnea on exertion 6084 5006 R06.09 Multifacto ralQuantif jorge GOLD negativeIG E normaleosi nophils normalBNP normalIGGs normalSix minute walk normal 2Rec ommend exercise programI have strongly urged pulmonary rehab Activity intolerance 774 19829 Z73.89 Multifacto ral Ex-smoker 9752861 Z87.[address] chest as above [id number] Molly Diaz MD [facility] Primary Care [facility] [address] [facility] [address] [place] [address] 07/28/2023 13:58:24 07/28/2023 14:35:19 Chronic obstructive pulmonary disease 29234291 J44.9 He has increased trouble with his [...] he cannot use a MWC d/t 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 --This patient can safely operate the PMD both mentally and physically .--This patient is very motivated to use the PMD in hi/her home. Continue follow-up with pulmonolog y. CT results not in chart yet. [id number] Molly Diaz MD [facility] Primary Care [address] [place] [address] 10/24/2023 11:44:49 10/24/2023 12:11:16 Adult health examination 158865255 Z00.00 Encouraged fresh fruits and veggies-lo w intake of both, drinks ensureIncr ease daily water intake-enc ouraged 6-8 glasses/da y, coffeeEnco urage 30 mins of daily exercise-w alks for exerciseCo lonoscopy- orderedDEX A-no hx of recurrent fxLDCT-not a smoker, not a drinker-nesha torres obtained Screening for malignant neoplasm of colon 335604048 Z12.11 [id number] BROOKE Cesar-Rosanna [facility] Primary Care [address] [place] [address] 12/10/2023 09:02:36 12/10/2023 09:47:47 Pain of bilateral hands 3465913707 1562150 M79.641 -pain noted to bilateral hands (severity [...] this time-refer ral to hand surgeon given [id number] Be Arteaga MD [facility] Ortho [place] [address] [place] [address] 12/18/2023 09:04:22 12/18/2023 10:08:39 Arthritis of bilateral first carpometacarpal joints 7250339306 254400 M13.841 M13.842 Pain of bi lateral hands 5139110964 5622537 M79.579 [id number] Heather Pina MD [facility] General Surgery [address] [facility], [address] [address] 12/31/2023 11:37:55 12/31/2023 11:58:43 History of polyp of colon 539011660 Z86.605 [id number] BROOKE Hernandez-Rosanna [facility] Primary Care [facility] [address] [facility] [address] [place] [address] 03/10/2024 11:15:16 03/10/2024 11:45:46 Hypothyroidism 98392813 E03.9 Recent hair loss.Will recheck labs as listed below. Epidermoid cyst of skin of back 067184658 L72.0 Patient will follow up as needed. [id number] Jim esparza MD [facility] General Surgery [address] [address] 04/15/2024 11:24:54 04/19/2024 15:32:16 Epidermoid cyst of skin of back 837432638 L72.0 [id number] Jim esparza MD [facility] General Surgery [address] [facility] [address] 05/18/2024 11:35:06 05/18/2024 12:29:36 Epidermoid cyst of skin 957845265 L72.0 left back [id number] Jim esparza MD [facility] General Surgery [address] [place] [address] 05/27/2024 10:14:37 06/16/2024 11:56:29 Epidermoid cyst of skin 242972948 L72.0 left back [id number] Justin jarrett MD [facility] Primary Care [place] [address] [facility] [address] [place] [address] 08/25/2024 11:35:46 08/25/2024 12:39:29 Screening - NAD 001423905 Z13.9 C-scope: C-scope 01/05/2024 : Dr Pina Get yearly flu shot, do Tdap if not doneGet PCV #20Get shingrix vaccine and RSV vaccineCan do COVID 19 boosters RTC in 1 months, do labs, ER if worse, he and his girl friend did verbalize his understand ing of the above Severe chr onic obstructive pulmonary disease 406579746 J44.9 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/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 On albuterol HHNOn albuterol inhalerOn SpirivaOn SymbicortW ill see Kristina Renteria referredHa s noted a cough, will start on augmentin 800mg bid for 7 days as an oral suspension Hyperlipidemia 53237913 E78.5 On rosuvastat in 20mg dailyGet labs 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, 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 Essential hypertension 63603011 I10 On ASAOn diltiazem 90mg dailyOn lasix 40mg dailyOn metoprolol 25mg dailySees Dr Taylor [facility] Hypothyroidism 95188933 E03.9 On levothyrox ine 112mcgs dailyGet labs Esophageal dysphagia 408 62854 R13.19 S/p radiation Rx for tonsillar cancerEGD [...] Reyes Member ID Guarantor Name 03/10/2024 1 [facility] (MEDICARE REPLACEMENT/AD VANTAGE - PPO) [id number] [place] [id number] Nathan L [place] 04/15/2024 1 [place] Nathan L Dan[place] [id number] Nathan L [place] 05/18/2024 1 [facility] (MEDICARE REPLACEMENT/AD VANTAGE - HMO) [id number] Nathan L [place] [id number] Nathan L [place] 05/27/2024 1 [facility] (MEDICARE REPLACEMENT/AD VANTAGE - HMO) [id number] Nathan L [place] [id number] Nathan L [place] 05/27/2024 2 [place] WHEN [place] OR [place]ICARE REPLACEMENT PRIMARY) Nathan L [place] [id number] Nathan L [place] 08/25/2024 1 [facility] (MEDICARE REPLACEMENT/AD VANTAGE - HMO) [id number] Nathan L [place] [id number] Nathan L [place] 08/25/2024 2 [place] WHEN [place] OR [place]IC[place] REPLACEMENT PRIMARY) Nathan L [place] [id number] Nathan L [place] Notes Date Note Type Note Provider Name [...] BROOKE Hernandez-Rosanna [address], [place], [address], [facility] [employer] 03/10/2024 12:38:38 04/15/2024 text/html patient complain s of draining cyst on his back that he has had for several years. Waxes and wanes. Denies fevers or chills. Would like to have it removed Jim Ramirez MD [address], [place], [address], [employer] [facility] 04/15/2024 16:34:43 05/18/2024 text/html patient here for excision left lower back cyst Jim Ramirez MD [address], [facility] [address], [place], [address], [employer] [facility] 05/18/2024 14:02:04 05/27/2024 text/html No complaints Jim Ramirez MD [address], [facility] [address], [place], [address], [employer] 05/27/2024 13:18:19 08/25/2024 text/html OV 08/25/2024:He re to establish care Present Hx:HTNHLDHypothyro idismCOPDHx of tonsillar cancer Here to discuss above, he also has noted a slight but now worsening cough, clear, no hempotysis, no chest pain, mildly SOB, no wheezingHe is here with his girl friend Justin Jane MD [address], [facility] [address], [place], [address], [employer] 08/25/2024 12:46:32
--- OUTSIDE RECORDS SUMMARY | 2024-11-18 13:22 | XMS_ITS | CONTINUITY OF CARE DOCUMENT ---
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 Name Role Phone Brandon CARRILLO, Kelli Unavailable [phone] VERENICE CARRILLO, [place] Unavailable [place]EN[place] CAR[place]LL[place] Unavailable [phone] PROBLEMS Condition Status Date Provider Notes Hypothyroidism active Ash Ahmedzai Hyperlipidemia active Ash Ahmedzai HTN active Ash Ahmedzai Emphysema active Ash Riverazai Diabetes mellitus, type 2 completed 10/29 - Kelli Taylor MD CAD completed - Kelli Taylor MD Tobacco abuse completed - Kelli Taylor MD Shortness of breath- Hyperdynamic lV with elevated LVOT gradient active Kelli Taylor MD Hx of oral cancer active Kelli Taylor MD Prediabetes active Kelli Taylor MD Chest discomfort Nl stress nuclear 12/09 active Kelli Taylor MD ENCOUNTERS Date Type Provider Location Encounter Diag nosis - In-person encounter Office Visit Kelli Taylor MD [facility] - In-person encounter Office Visit Kelli Taylor MD [facility] - In-person encounter Office Visit Kelli Taylor MD [facility] Hx of oral cancer - In-person encounter Office Visit Kelli Taylor MD [facility] - In-person encounter Office Visit Kelli Taylor MD [facility] - In-person encounter Office Visit Kelli Taylor MD [facility] Diabetes mellitus, type 2CADTobacco abuseChest discomfort Nl stress nuclear 12/09Prediabetes - In-person encounter Office Visit Kelli Taylor MD [facility] - In-person encounter Office Visit Kelli Taylor MD [facility] Shortness of breath- Hyperdynamic lV with elevated LVOT gradient - In-person encounter Office Visit Kelli Taylor MD [facility] Shortness of breath- Hyperdynamic lV with elevated LVOT gradient VITAL SIGNS Date Observation Value Provider Body Mass Index (Ratio) 25.24 kg/m2 Silvino Taylor MD blood pressure, diastolic 88 mm[Hg] Danielle Barraza blood pressure, systolic 134 mm[Hg] Kemi Barraza oxygen saturation, oximetry 95 % Nery Barraza pulse rate 69 /min Nery Barraza respiratory rate E&M 12 /min Nery Barraza weight E&M 181 [lb_av] Nery Barraza height E&M 71 [in_i] Nery Barraza blood pressure, cuff size regular Danielle Barraza Body Mass Index (Ratio) 25.24 kg/m2 Silvino Taylor MD blood pressure, diastolic 82 mm[Hg] Lucille nkLogdario blood pressure, systolic 143 mm[Hg] Dotty kLogic blood pressure, diastolic 82 mm[Hg] Lucille nkLog blood pressure, systolic 143 mm[Hg] Dotty og blood pressure, diastolic 82 mm[Hg] Danielle montano [place] blood pressure, systolic 143 mm[Hg] Kemi lopez [place] blood pressure, cuff size regular An dusty [place] respiratory rate E&M 14 /min [facility], [facility]xim[facility] 94 % [facility] pulse rate 62 /min [facility] weight E&M 181 [lb_av] [facility] height E&M 71 [in_i] [facility] Body Mass Index (Ratio) 24.96 kg/m2 Silvino Taylor MD Inhaled O2 2 L/min [facility] weight E&M 179 [lb_av] [facility] blood pressure, cuff size regular [facility] blood pressure, diastolic 80 mm[Hg] [facility] blood pressure, systolic 112 mm[Hg] [facility], [facility]xim[facility] 92 % [facility] pulse rate 76 /min [facility] respiratory rate E&M 16 /min Luciana crooksr height E&M 71 [in_i] [facility] Body Mass Index (Ratio) 24.40 kg/m2 Silvino Taylor MD blood pressure, diastolic 92 mm[Hg] Lucille dallasLogdario blood pressure, systolic 153 mm[Hg] Dotty Rayogdario blood pressure, diastolic 92 mm[Hg] Evelia jimenez Nga blood pressure, systolic 153 mm[Hg] Jessica arango Nga oxygen saturation, oximetry 95 % Lakshmi Sylvester weight E&M 175 [lb_av] Lakshmi Sylvester pulse rate 75 /min Lakshmi Sylvester respiratory rate E&M 20 /min Lakshmi Sylvester height E&M 71 [in_i] Lakshmi Sylvester blood pressure, cuff size regular barbara Sylvester Body Mass Index (Ratio) 25.77 kg/m2 Silvino Taylor MD pulse rate 62 /min Lakshmi Sylvester blood pressure, cuff size regular barbara Sylvester blood pressure, diastolic 99 mm[Hg] barbara Sylvester blood pressure, systolic 164 mm[Hg] [facility] conchita Sylvester oxygen saturation, oximetry 94 % Lakshmi Sylvester respiratory rate E&M 20 /min Lakshmi Sylvester height E&M 71 [in_i] Lakshmi Sylvester weight E&M 184.8 [lb_av] Lakshmi Sylvester Body Mass Index (Ratio) 26.08 kg/m2 Silvino Taylor MD blood pressure, cuff size regular St maritza Jasson blood pressure, diastolic 87 mm[Hg] St acy Jasson blood pressure, systolic 138 mm[Hg] Sta briana [place] oxygen saturation, oximetry 92 % Raynabriana [place] pulse rate 65 /min Rayna Jasson respiratory rate E&M 18 /min Rayna D sis weight E&M 187 [lb_av] Rayna Jasson height E&M 71 [in_i] Rayna Jasson Body Mass Index (Ratio) 25.80 kg/m2 Silvino Taylor MD Inhaled O2 2 L/min Guillermina [place] blood pressure, diastolic 75 mm[Hg] Ca therine [place] blood pressure, systolic 118 mm[Hg] Cat herine Edi oxygen saturation, oximetry 86 % Guillermina Edi respiratory rate E&M 14 /min Catheri ne Edi pulse rate 64 /min Guillermina Edi weight E&M 185 [lb_av] Guillermina [place] blood pressure, cuff size regular Ca therine Edi height E&M 71 [in_i] Guillermina Daley Body Mass Index (Ratio) 26.08 kg/m2 Silvino Taylor MD blood pressure, diastolic 79 mm[Hg] Justyna Lindajairo H[place] blood pressure, systolic 159 mm[Hg] Nia [place] oxygen saturation, oximetry 92 % Arron [place] respiratory rate E&M 18 /min Cam [place] pulse rate 61 /min Arron parham weight E&M 187 [lb_av] Arron parham blood pressure, cuff size regular Justyna [place] height E&M 71 [in_i] Arron parham Body Mass Index (Ratio) 25.80 kg/m2 Silvino Taylor MD oxygen saturation, oximetry 96 % Arron [place] respiratory rate E&M 18 /min Cam [place] pulse rate 68 /min Arron parham weight E&M 185 [lb_av] Arron parham height E&M 71 [in_i] Arron parham ALLERGIES Allergy Name Onset Date Reaction Criticality Status NEOSPORIN High Criticality active HISTORY OF MEDICATION USE Medication Status Instructions Dates Provider Indications Com ments diltiazem HCl (bulk) powder active Take 1 ounce by mouth twice a day Compound to be equivalent of 60 mg diltiazem twice a day - please correct for appropriate dosage Kelli Taylor MD furosemide 10 mg/mL solution active Administer 4 ml via g-tube once a day For a dose of 40 mg daily Kelli Taylor MD metoprolol tartrate 5 mg/5 mL solution active Administer 25 ml via g-tube twice a day for a dose of 25 mg twice a day - pt has difficulty swallowing Kelli Taylor MD aspirin 81 mg capsule active Ash Wyatt diltiazem HCl 90 mg tablet active Take 1 tablet by mouth twice a day Omayra Bee tadalafil 10 mg tablet active Take 1 tablet as needed before sexual activity Ash Forrestissa tadalafil 10 mg tablet completed Take 1 tablet by mouth once a day as needed before sexual activity - Ashmikayla Wyatt metoprolol tartrate 25 mg tablet completed - Kleli Taylor MD diltiazem HCl 180 mg capsule,extended release 24hr completed Take 1 capsule by mouth once a day - Ash Wyatt diltiazem HCl 180 mg capsule,extended release 24hr completed TAKE one Capsule BY MOUTH DAILY - Omayra Bee furosemide 40 mg tablet completed TAKE 1 TABLET BY MOUTH EVERY DAY - Kelli Taylor MD Cardizem 60 mg tablet completed Take 1 tablet by mouth twice a day - Ash Wyatt furosemide 40 mg tablet completed Take 1 tablet by mouth once a day - Laury Rai Cardizem CD 180 mg capsule,extended release 24hr completed Take 1 capsule by mouth at bedtime - Kelli Taylor MD Spiriva Respimat 2.5 mcg/actuation mist active Meredith Barrios Symbicort 160-4.5 mcg/actuation HFA aerosol inhaler active Meredith Barrios metoprolol tartrate 25 mg tablet completed - Meredith Barrios rosuvastatin 20 mg tablet active Meredith Barrios trazodone 150 mg tablet active Meredith Barrios levothyroxine 112 mcg tablet active Meredith Barrios albuterol sulfate 90 mcg/actuation HFA aerosol inhaler active Meredith Barrios SOCIAL HISTORY Date Observation Value Provider drug use no Ash Wyatt alcohol use no Ash Aguayomor smoking status Never smoker Ash Aguayomor drug use no Ash Aguayomor alcohol use no Ash Aguayomor smoking status Never smoker Ash Aguayomor social history E&M S moking History: Renetta chau has never smoked. Ashmikayla Wyatt smoking status Never smoker Lakshmi Sylvester social history reviewed E&M revi ewed - no changes required Ash Aguayomor social history E&M S moking History: Renetta chau has never smoked. Ash Forrestnelimor social history reviewed E&M revi ewed - no changes required Ash Forrestissa smoking status Never smoker Lakshmi Sylvester social history E&M S moking History: Renetta chau has never smoked. Kelli Taylor MD smoking status Never smoker Rayna Jasson social history reviewed E&M revi ewed - no changes required Ash Wyatt social history E&M S moking History: Renetta chau has never smoked. Kelli Taylor MD smoking status Never smoker Guillermina newton social history reviewed E&M revi ewed - no changes required Kelli Taylor MD social history reviewed E&M revi ewed - no changes required Kelli Taylor MD social history E&M S moking History: Renetta chau has never smoked. Ash Wyatt social history reviewed E&M revi ewed - no changes required Ash Wyatt drug use no Arron parham alcohol use no Arron parham smoking status Never smoker Arron hampton FUNCTIONAL STATUS Date Observation Value Provider HRA, CV Assess/Plan, Angina (inactive) Management Plan continue current therapy Ash Forrestmedzai HRA, CV Assess/Plan, Angina (inactive) Management Plan continue current therapy Ash Ahmedzai HRA, CV Assess/Plan, Angina (inactive) Management Plan continue current therapy Meredith Barrios HRA, CV Assess/Plan, Angina (inactive) Management Plan continue current therapy Ash Ahmedzai INSURANCE PROVIDERS Payer name Policy type / Coverage type [place] [employer] FAMILY [employer] Medicaid 3 [id number] [facility] COM[facility]ARE [address]-[id number] (PPO C-SNP) Commercial insurance company [id number] ADVANCE DIRECTIVES Name Date DISCUSSED - NO DECISION MADE TREATMENT PLAN Date Name Performer [id number],S, Ash Ahmedza i [id number],S, Ash Ahmedza i [id number],S, Ash Ahmedza i [id number],S, Ash Ahmedza i [id number],S, Ash Ahmedza i [id number],S, Ash Ahmedza i [id number],S, Ash Ahmedza i [id number],S, Ash Ahmedza i [id number],S, Ash Ahmedza i [id number],S, Ash Ahmedza i [id number],B, Ash Ahmedza i [id number],S, Ash Ahmedza i [id number],B, Ash Ahmedza i [id number],S, Ash Ahmedza i [id number],B, Ash Ahmedza i [id number],S, Ash Ahmedza i [id number],S, Ash Ahmedza i [id number],S, Ash Ahmedza i [id number],S, Ash Ahmedza i [id number],S, Ash Ahmedza i [id number],S, Ash Ahmedza i [id number],S, Meredith Jefe obsmeyer [id number],S, Meredith Jefe obsmeyer [id number],S, Meredith Jefe obsmeyer [id number],S, Meredith Jefe obsmeyer [id number],S, Meredith Jefe obsmeyer [id number],W, Kelli Taylor MD [id number],S, Ash Ahmedza i [id number],S, Ash Ahmedza i [id number],S, Ash Ahmedza i [id number],S, Ash Ahmedza i [id number],B, Ash Ahmedza i Cardiology Kelli Taylor MD Cardiology Kelli Taylor MD Cardiology Kelli Taylor MD Cardiology: H is updated medication list for this problem includes: Diltiazem Hcl 90 Mg Tablet (Diltiazem hcl) ..... Take 1 tablet by mouth twice a day T his visit has been a part of the consistent, comprehensive, and ongoing management of the chronic medical condition(s) listed above for the patient. Kelli Taylor MD Cardiology Ash Wyatt Cardiology: B P today: 143/82 P rior BP: 112/80 (10/20/2023) His updated medication list for this problem includes: Diltiazem Hcl 90 Mg Tablet (Diltiazem hcl) ..... Take 1 tablet by mouth twice a day Metoprolol Tartrate 25 Mg Tablet (Metoprolol tartrate) Furosemide 40 Mg Tablet (Furosemide) ..... Take 1 tablet by mouth every day [facility]: H is updated medication list for this problem includes: Levothyroxine 112 Mcg Tablet (Levothyroxine) [facility]: H is updated medication list for this problem includes: Rosuvastatin 20 Mg Tablet (Rosuvastatin) [facility]: H is updated medication list for this problem includes: Diltiazem Hcl 90 Mg Tablet (Diltiazem hcl) ..... Take 1 tablet by mouth twice a day Metoprolol Tartrate 25 Mg Tablet (Metoprolol tartrate) Furosemide 40 Mg Tablet (Furosemide) ..... Take 1 tablet by mouth every day [facility]: H is updated medication list for this problem includes: Diltiazem Hcl 90 Mg Tablet (Diltiazem hcl) ..... Take 1 tablet by mouth twice a day Metoprolol Tartrate 25 Mg Tablet (Metoprolol tartrate) Furosemide 40 Mg Tablet (Furosemide) ..... Take 1 tablet by mouth every day BP today: 112/80 P rior BP: 153/92 (04/21/2023) [facility]: H is updated medication list for this problem includes: Levothyroxine 112 Mcg Tablet (Levothyroxine) [facility]: H is updated medication list for this problem includes: Diltiazem Hcl 90 Mg Tablet (Diltiazem hcl) ..... Take 1 tablet by mouth twice a day Metoprolol Tartrate 25 Mg Tablet (Metoprolol tartrate) Furosemide 40 Mg Tablet (Furosemide) ..... Take 1 tablet by mouth every day Ash Ahmedzai Cardiology Ash Ahmedzai Cardiology Ash Ahmedzai Cardiology Ash Ahmedzai Cardiology Ash Ahmedzai Cardiology Ash Ahmedzai Cardiology Ash Ahmedzai Cardiology Ash Ahmedzai Cardiology Ash Ahmedzai Cardiology Ash Ahmedzai Cardiology Ash Ahmedzai Cardiology Kelli Taylor MD Cardiology Ash Ahmedzai Cardiology Kelli Taylor MD Cardiology Ash Ahmedzai Cardiology Kelli Taylor MD Cardiology Ash Ahmedzai Cardiology Ash Ahmedzai Cardiology Ash Ahmedzai Cardiology Ash Ahmedzai Cardiology Ash Ahmedzai Cardiology Ash Ahmedzai Cardiology Meredith [place] [facility] Meredith [facility] [facility] Meredith [place] [facility] Meredith [facility] Meredith [facility] waiting for [facility] report from Rebeca Taylor MD Cardiology waiting for CT report from Rebeca Riverazai Cardiology waiting for CT report from Rebeca Claytonmedzai Cardiology waiting for CT report from Rebeca Wyatt Cardiology waiting for CT report from Rebeca Riverazamor Cardiology waiting for CT report from Rebeca Wyatt Date Name Complete Echo Stress Regadenoson Complete Echo HISTORY OF PROCEDURES Procedure Date Procedure Name Provider Procedure Notes S tatus Complex e/m visit add on Kelli Taylor MD completed EKG Kelli Taylor MD completed EKG Kelli Taylor MD completed
--- OUTSIDE RECORDS SUMMARY | 2024-11-18 13:22 | XMS_ITS | Encounter Summary ---
Author Organization [facility] Address 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
--- OUTSIDE RECORDS SUMMARY | 2024-11-18 13:22 | XMS_ITS | Encounter Summary ---
Author Organization [facility] Address 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
--- OUTSIDE RECORDS SUMMARY | 2024-11-18 13:22 | XMS_ITS | Encounter Summary ---
Author Organization [facility] Address 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
--- OUTSIDE RECORDS SUMMARY | 2024-11-18 13:22 | XMS_ITS | Encounter Summary ---
Author Organization [facility] Address 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
--- OUTSIDE RECORDS SUMMARY | 2024-11-18 13:22 | XMS_ITS | Encounter Summary ---
Author Organization [facility] Address 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
--- NOTE | 2024-12-02 11:59 | WPDSIXMINUTE ---
Six Minute Walk Procedure Procedure Performed Pulmonary Stress Test (6 min walk) Six Minute Walk Six Minute Walk: This is a 6 minute walk test. The test was performed and interpreted in accordance with the 2014 ERS/ATS task force guidelines. Findings: The patient's resting room air oxygen saturation measured by pulse oximetry was 93%, the heart rate was 61 bpm, and the modified Cydney dyspnea score was 3. Patient ambulated for 366 meters and oxygen saturation remained 91 to 93%. At the end of the study the heart rate was 93 bpm and the modified Cydney dyspnea score was 5. The patient did not qualify for supplemental oxygen at rest or with ambulation. There are no prior studies for comparison.
--- OUTSIDE RECORDS SUMMARY | 2025-01-27 10:13 | XMS_ITS | Clinical Summary ---
Author Organization [facility] Address [address] [place] [address] Care Team Providers Care Salt Lifter Name Role Phone Ursula Bergeron NP Primary Care Provider Allergies Active Allergy Reactions Criticality Noted Date Comments Bcykctkw-Bbokqanjklt-Lrygrfwht Rash Medium 07/26 Medications aspirin 81 mg chewable tablet Take 1 tablet (81 mg total) by mouth 11/01/19 14 Active food supplemt, lactose-reduced liquid Take 240 [...] pt with nebulizer tubing kits 2 each 11 07/12/20 24 Active sodium chloride 3 % [...] WHEEZING 34 g 11 10/05/19 25 Active levothyroxine (SYNTHROID) 112 mcg tablet 09/22/19 25 Active albuterol 2.5 mg /3 mL (0.083 %) nebulizer solution 08/19/19 25 Active budesonide-formo teroL (SYMBICORT) 160-4.5 mcg/actuation inhaler Inhale 2 puffs 2 (two) times a day Rinse mouth with water after use. Do not swallow. 1 each 3 12/31/19 25 025 Active tiotropium bromide (SPIRIVA RESPIMAT) 2.5 mcg/actuation inhaler Inhale 2 puffs daily 12 g 3 12/31/19 25 025 Active budesonide-formo teroL (SYMBICORT) 160-4.5 mcg/actuation inhaler 02/08/20 21 025 Discontin ued(Reord er) Spiriva Respimat 2.5 mcg/actuation inhaler 11/03/19 25 025 Discontin ued(Dupli em order) Active Problems Problem Noted Date Diagnosed Date Chronic respiratory failure with hypoxia, on home O2 therapy 09/08/2024 Assessment & Plan (11/04/2024 4:03 PM CDT): Continue supplemental oxygen with all sleep at 2 liters We have discussed the risks of hypoxia I have reordered walk testing today, he will complete this at [facility] Assessment & Plan (09/08/2024 11:42 AM DIRECTOR OF TESTING): Continue supplemental oxygen with all sleep at [...] 2021 Assessment & Plan (09/08/2024 11:41 AM DIRECTOR OF TESTING): He has tried and failed flutter therapy [...] 09/04/2023 Assessment & Plan (09/11/2023 10:08 AM DIRECTOR OF TESTING): 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 Esophageal abnormality is still possibility. Patient was advised to increase and sure intake to at least 4 or 5 cans per day. Schedule EGD for evaluation. HTN (hypertension) 10/19/2010 Hyperlipidemia 10/19/2010 Hypothyroidism 10/19/2010 Jaw pain 10/19/2010 Encounters Date Type Department Care Team Description 12/30/2024 Telephone [facility] Pulmonary at [address] [place] [phone] Mariia Myers LPN 12/30/2024 Orders Only [facility] Pulmonary at [address] [place] [phone] Mariia Myers LPN 11/26/2024 Telephone [facility] Pulmonary at [address] [place] [phone] Damari Mclean LPN oxygen orders 11/09/2024 [facility]phone [facility] at [address] [place] [phone] Damari Mclean LPN 6mw order 11/04/2024 3:00 PM CDT Office Visit [facility] Pulmonary at [address] [place] [phone] Kristina Renteria, MAL Bronchiectasis without acute exacerbation (HCC) (Primary Dx); Chronic respiratory failure with hypoxia, on home O2 therapy (HCC); Centrilobular emphysema (HCC) 10/30/2024 Ancillary Procedure [facility] Outside Films from Last 3 Months Immunizations Immunization Administration [...] on file Legal Sex Male 11:41 PM DIRECTOR OF TESTING Gender Identity Male 05/13/2021 1:34 PM CDT Sexual Orientation Straight 05/13/2021 1: 34 PM CDT Obstetrics History Last Filed Vital Signs Vital Sign Reading Time Taken Comments Blood Pressure 164/76 11/04/2024 2:20 PM CDT Pulse 67 11/04/2024 2:20 PM CDT Temperature 36.4 C (97.5 F) 11/04/2024 2:20 PM CDT Respiratory Rate 18 09/08/2024 9:39 AM DIRECTOR OF TESTING Oxygen Saturation 95% 11/04/2024 2:20 PM CDT [...] Visit 65+ 11/25/2011 Hemoglobin A1C 06/30/2021 12/29/2020, 01/0 02/2021, 01/19/2020 Pneumococcal vaccine 65+ (2 of 2 - PCV) 07/28/2021 07/28/2020 Covid-19 Vaccine (3 - 2023-2 5 season) 2024 05/15/2021, 09/27/2020 Influenza Vaccine (#1) 2025 , 04/11/2021, 04/11/2021, Additional history exists DTaP/Tdap/Td Vaccine (3 - Td or Tdap) 09/28/2029 09/29/2019, 10/12/2007 Abdominal Aortic Aneurysm (A AA) Screen Completed 03/17/2013 Zoster Vaccine Completed 05/13/2022, 03/12/2022 Procedures Procedure Name Priority Date/Time Associated Diagnosis Comments CT BODY OUTSIDE REFERENCE Routine 10/30/2024 12:00 AM CDT from Last 3 Months Results * CT Body Outside Reference (10/30/2024 12:00 AM CDT) Narrative [facility] - 11/02/2024 8:07 AM CDT This order has been auto-finalized and does not contain a result. us Not In File Miscellaneous IMG CT PROCEDURES Alyse l Result [facility] from Last 3 Months Insurance [facility] MEDICARE ADVANTAGE [facility] MEDICARE ADVANTAGE IDPA Advance Directives For more information, please contact: [phone] * Full Code (Latest Code Status on File) Date Activated Date Inactivated Comments 10/30/2023 12:06 PM 10/30/2023 6:21 PM Care Teams Salt Lifter Relationship Specialty Start Date End Date Ursula Bergeron NP [address] [place] [address] [place] [address] PCP - General Family Medicine 06/08/24
--- OUTSIDE RECORDS SUMMARY | 2025-01-27 10:13 | XMS_ITS | Referral Summary ---
Author Organization [facility] Address [address] [place] [phone] Care Team Providers Care Market Research Assistant Name Role Phone Ursula Bergeron NP Primary Care Provider [phone] Encounters Date Type Department Care Team Description 12/30/2024 Telephone [facility] Pulmonary at [address] [place] [phone] Mariia Myers, DIETITIAN CHIEF 12/30/2024 Orders Only [facility] Pulmonary at [address] [place] [phone] Mariia Myers, DIETITIAN CHIEF 11/26/2024 Telephone [facility] Pulmonary at [address] [place] [phone] Damari Mclean LPN oxygen orders 11/09/2024 Telephone [facility] Pulmonary at [address] [place] [phone] Damari Mclean LPN 6mw order 11/04/2024 3:00 PM CDT Office Visit [facility] Pulmonary at [address] [place] [phone] Kristina Renteria NP Bronchiectasis without acute exacerbation (HCC) (Primary Dx); Chronic respiratory failure with hypoxia, on home O2 therapy (HCC); Centrilobular emphysema (HCC) 10/30/2024 Ancillary Procedure [facility] Outside Films from Last 3 Months Allergies Active Allergy Reactions Criticality Noted Date Comments Kqwledxd-Mgnzpwsvgzc-Wconskzym Rash Medium 07/26 Medications aspirin 81 mg [...] (two) times a day Active nebulizer accessories [facility] Please provide pt with nebulizer tubing kits 2 each 11 07/12/20 24 Active sodium chloride 3 % nebulizer solutionIndicati ons:Bronchiectas is without acute exacerbation (HCC) Take 4 mL by nebulization 2 (two) times a day 360 mL 09/08/19 25 026 Active inhalational spacing device [...] 2 puffs daily 12 g 3 12/31/19 025 Active budesonide-formo teroL (SYMBICORT) 160-4.5 mcg/actuation inhaler 02/08/20 21 025 Discontin ued(Reord er) Spiriva Respimat 2.5 mcg/actuation inhaler 11/03/19 025 Discontin ued(Dupli em order) Active Problems Problem Noted Date Diagnosed Date Chronic respiratory failure with hypoxia, on home O2 therapy 09/08/2024 Assessment & Plan (11/04/2024 4:03 PM CDT): Continue supplemental oxygen with all sleep at 2 liters We have discussed the risks of hypoxia I have reordered walk testing today, he will complete this at [facility] Assessment & Plan (09/08/2024 11:42 AM BROILER MANAGER): Continue supplemental oxygen with all sleep [...] 2021 Assessment & Plan (09/08/2024 11:41 AM BROILER MANAGER): He has tried and failed flutter [...] 09/04/2023 Assessment & Plan (09/11/2023 10:08 AM BROILER MANAGER): 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 Noted previous [...] care Assessment & Plan (09/08/2024 11:41 AM BROILER MANAGER): Continue Spiriva Respimat 2.5 once daily [...] 10/30/2013 Assessment & Plan (09/08/2024 11:42 AM BROILER MANAGER): Scattered bilaterally, these have been followed [...] time Assessment & Plan (09/11/2023 10:06 AM BROILER MANAGER): Likely secondary to the previous surgery [...] on file Legal Sex Male 11:41 PM BROILER MANAGER Gender Identity Male 05/13/2021 1:34 PM CDT Sexual Orientation Straight 05/13/2021 1: 34 PM CDT Last Filed Vital Signs Vital Sign Reading Time Taken Comments Blood Pressure 164/76 11/04/2024 2:20 PM CDT Pulse 67 11/04/2024 2:20 PM CDT Temperature 36.4 C (97.5 F) 11/04/2024 2:20 PM CDT Respiratory Rate 18 09/08/2024 9:39 AM BROILER MANAGER Oxygen Saturation 95% 11/04/2024 2:20 PM [...] Outside Reference (10/30/2024 12:00 AM CDT) Narrative [facility] - 11/02/2024 8:07 AM CDT This order has been auto-finalized and does not contain a result. us Not In File Miscellaneous IMG CT PROCEDURES Alyse caceres Result [facility] from Last 3 Months Insurance [facility] MEDICARE ADVANTAGE [facility] MEDICARE ADVANTAGE ID[employer] Advance Directives For more information, please contact: [phone] * Full Code (Latest Code Status on File) Date Activated Date Inactivated Comments 10/30/2023 12:06 PM 10/30/2023 6:21 PM Care Teams Market Research Assistant Relationship Specialty Start Date End Date Ursula Bergeron NP [address] [place] [address] [place] [address] PCP - General Family Medicine 06/08/24
--- OUTSIDE RECORDS SUMMARY | 2025-01-27 10:14 | XMS_ITS | Encounter Summary ---
Author Organization [facility] Address 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
--- OUTSIDE RECORDS SUMMARY | 2025-01-27 10:14 | XMS_ITS | Encounter Summary ---
Author Organization [facility] Address 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
--- OUTSIDE RECORDS SUMMARY | 2025-01-27 10:14 | XMS_ITS | Data Portability ---
Author Organization [place] - [facility], DISP_HR Vascular Address [address] [place] [address] Care Team Providers Care Business Process Engineer Name Role Phone XOCHILT VANEGAS Primary Care Provider XOCHILT VANEGAS Referring Provider [phone] VEERARDO YOUNG Orthopedic Surgeon [phone] XOCHILT VANEGAS Primary Care Provider Assessment No assessment recorded. Plan of Treatment Reminders Order Date Submit Date Provider Last Modified By Organization Details Last Modified Time Details Appointments EST 10 2024 08:00A M EVERARDO YOUNG MD Not available Not available Not available Lab None recorded. Referral physical therapist referral - S/P Left CMC Arthropla sty- 1-2 times a week for 1-2 weeks- ROM, stretchin g, strengthe lin, Home exercise program, Theraputt y exercises . 2023 024 HAMPDEN SYDNEY [facility] [place], [address] [facility], [place], [address], 03/19/2024 11:17:28 Procedures None recorded. Surgeries None recorded. Imaging XR, thumb - Right Thumb 2024 025 [facility], [address] [place] [address] [address], [place], [address], 11/12/2024 18:16:16 Medication Orders None recorded. Patient TargetsNo targets [...] Note LastModifiedBy Organization Detail LastModifiedTime 03/18/20 24 03/18/2024 XR, hand, 3 or more view No observ ation record ed. [facility] [address] [place], [address], 03/18/2024 13:47:13 10/12/1910/11/2024 sp fluor o 1 hour [facility] [address] [address] KARO Elizabeth REPORT Name: NATHAN BAKER Room #: : 1945 Accoun t #: [id number] Bed #: Age: 78 Years Patien t Type: Outpat ient Order Date/T andrew: 2024 11:31: 01 AM Sex: M Access ion#: Exam Descri ption: Exam Reason : [id number] SP FLUORO 1 HOUR R thumb CMC arthro plasty Dictat ed By: Sharon Zabala rd Physic anna: EVERARDO YOUNG Attend [facility] Physic anna: EVERARDO YOUNG Primar y Care Physic anna: NO, [facility] HISTOR Y: R thumb CMC arthro plasty COMPAR LUCHO: None. TECHNI QUE: 2 spot matrix views acquir ed in the proced ure/op rajani landrum room. DISCUS HE: Submit charlee spot matrix views were acquir ed to bob nt a orthop edic proced ure. Spot [...] the OR/pro cedure room by the surgeo n/supe rvisnik landrum physic anna. Electr onical ly signed by: Sharon Zabala rd, MD 2024 02:48 PM CDT RP Workst ation: 109-04 03JKZ PAGE 1 OF 1 [facility] [address] [place] [address], [address], 10/11/2024 16:34:32 11/13/19 25 11/12/2024 XR, thumb No observ ation record ed. [facility] [address], [place], [address], 11/25/2024 14:33:57 Result Notes None recorded. 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 9175696508813 100 [place] 2023 [place] [address] [place] [address], [address] , [place] [facility] 4 14:28:46 Pain of left hand 2687838079935 03 Active 2023 Devin meza, [facility] 4 12:15:26 Arthritis of first carpometac arpal joint of left hand 2747904382101 103 Active 2023 Everardo Young MD [address] [place], [address] , [facility] 4 12:41:10 Hyperchole sterolemia 11678670 Active 2020 Not Available [facility] 3 05:21:56 Chronic obstructiv e pulmonary disease 32460886 Active 2020 Not Available [facility] 3 05:21:56 Anti-nucle ar factor detected 395073691 Active 2021 Not Available [facility] 3 05:21:56 Bacterial infection caused by Klebsiella pneumoniae 657940629 Active 2021 Not Available [facility] 3 05:21:56 Copious sputum 409533023 Active 2021 Not Available [facility] 3 05:21:56 Esophageal dysmotilit y 486370466 Active 2021 Not Available [facility] 3 05:21:56 History of malignant neoplasm 128793334 Active 2020 Not Available [facility] 3 05:21:56 Abdominal mass 130213646 Active 2021 Not Available [facility] 3 05:21:56 Postobstru ctive pneumonia 855958319 Active 2021 Not Available [facility] 3 05:21:56 At increased risk for aspiration 825335801 Active 2021 Not Available [facility] 3 05:21:56 Hypertensi ve disorder 33575586 Active 2020 Not Available [facility] 3 05:21:57 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 031289369 Active 2021 Not Available [facility] 3 05:21:57 Rajni, not Rajni albicans 441935166 Active 2021 Not Available [facility] 3 05:21:57 Dysphagia 61427887 Active 2021 Not Available [facility] 3 05:21:57 Hypothyroi dism 53842574 Active 2020 Not Available [facility] 3 05:21:57 Coronary arterioscl erosis 62754408 Active 2021 Not Available [facility] 3 05:21:57 Dyspnea on exertion 45784075 Active 2021 Not Available [facility] 3 05:21:57 Chronic cough 93396480 Active 2021 Not Available [facility] 3 05:21:58 Bacterial infection caused by Serratia 34094085 Active 2021 Not Available [facility] 3 05:21:58 Prediabete s 202195740 Active 2020 Not Available [facility] 3 05:21:58 Obstructiv e sleep apnea syndrome 67320355 Active 2022 Not Available [facility] 3 05:21:58 History of squamous cell carcinoma in situ 6398975964571 5 Active 2020 Not Available [facility] 3 05:21:58 Notes:Medical History: Laryn geal penetration Hypothyroidism Hyperlipidemia Hypertension EF 55% Prediabetes Mild TR CAD 4.1 cm ascending thoracic aortic ectasia Moderate COPD LLL 6.7 mm pulm nodule Asbestos exposure 4067-6291 Mild splenomegaly Left 7.7 cm renal cyst Procedure History: 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 Procedures Surgical History Date Name Laterality Status Provider Name and Address Organization Details Recorded Time 10/12/19 25 Transplant hand tendon completed Dori Peck [facility] 10/11/2024 12:03:07 07/21/19 21 colonoscopic polypectomy completed Dori Peck [facility] 01/02/2024 10:53:20 07/21/19 19 bilateral cataract extraction completed Dori Peck [facility] 01/02/2024 10:53:33 07/21/19 16 colonoscopic polypectomy completed Dorikate Peck [facility] 01/02/2024 10:53:14 07/21/18 92 [facility] 10:52:37 07/21/18 92 colonoscopic polypectomy completed Dorikate Peck [facility] 01/02/2024 10:53:08 Imaging Results None recorded. Procedure Notes None recorded. Medical Equipment None Reported. Allergies Allergen ID Allergen Name Allergen Category Reaction Reaction Severity Criticality Documentation Date Start Date Code Code System Note Provider Name and Address Organization Details Recorded Time 166337 bacitraci n / neomycin / polymyxin B medicatio n Not available Not available Not available 07/28/2022 93341 9 RxNorm Not Available [facility] 3 05:22:40 Medications Name Sig Start [...] completed Not Available Not Available Not Available [employer] Ultra Test strips TEST DAILY 06/24 completed [...] in Arterial blood by Pulse oximetry Systolic And Diastolic Provider Name and Address Organization Details Last Updated DateTime 5 182.88 cm 23.1 kg/m2 67854.7 g 65 /min 93 % 93 % 148/85 mm[Hg] [facility] 5 12:04:52 Date Recorded Body height Body mass index (BMI) Body weight Heart rate Oxygen saturation Oxygen saturation in Arterial blood by Pulse oximetry Systolic And Diastolic Provider Name and Address Organization Details Last Updated DateTime 5 182.88 cm 23.1 kg/m2 87018.7 g 70 /min 94 % 94 % 148/78 mm[Hg] [facility] 5 09:48:19 Date Recorded Body height Body mass index (BMI) Body weight Heart rate Oxygen saturation Oxygen saturation in Arterial blood by Pulse oximetry Systolic And Diastolic Provider Name and Address Organization Details Last Updated DateTime 5 182.88 cm 23.6 kg/m2 62799.0 7 g 73 /min 90 % 90 % 136/84 mm[Hg] [facility] 5 09:03:36 Date Recorded Body height Body mass index (BMI) Body weight Heart rate Oxygen saturation Oxygen saturation in Arterial blood by Pulse oximetry Systolic And Diastolic Provider Name and Address Organization Details Last Updated DateTime 4 182.88 cm 24.3 kg/m2 93105.0 3 g 58 /min 93 % 93 % 148/86 mm[Hg] [facility] 4 11:39:25 Date Recorded Body height Body mass index (BMI) Body weight Heart rate Oxygen saturation Oxygen saturation in Arterial blood by Pulse oximetry Systolic And Diastolic Provider Name and Address Organization Details Last Updated DateTime 4 182.88 cm 23.7 kg/m2 25294.6 6 g 61 /min 95 % 95 % 150/82 mm[Hg] [facility] 4 12:08:36 Social History Question Answer Notes LastModified by Organizat ion Details LastModified Time Tobacco Smoking Status Former Smoker Not Available [facility] 07/28/2022 05:21:14 What Is Your Level Of Caffeine Consumption? Moderate Coffee, 2-3 Cups Per Day MIGRATION.[id number] Information not available 07/28/2022 In The 14 Days Before Symptom Onset, Have You Had Close Contact With A Laboratory-confir med COVID-19 While That Case Was Ill? No MIGRATION.20023 [id number] Information not available 07/28/2022 In The 14 Days Before Symptom Onset, Have You Had Close Contact With A Person Who Is Under Investigation For COVID-19 While That Person Was Ill? No MIGRATION.06379 82078 Information not available 07/28/2022 What Type Of Diet Are You Following? SPECIFIC Ensure - Equate Diabetic Care [place]ocolte - Needs Rx For 6 Cases A Month MIGRATION.86830 [id number] Information not available 07/28/2022 When Did You Quit Smoking? 16+yearssinc elastcigaret te MIGRATION.57685 30475 Information not available 07/28/2022 What Was The Date Of Your Most Recent Tobacco Screening? 09/30/2024 Information not available 08/23/2024 What Is Your Current Pack Years? 20-29packyea rs Information not available 01/08/2024 At What Age Did You Start Smoking Tobacco? 10 MIGRATION.46033 50108 Information not available 07/28/2022 How Much Tobacco Do You Smoke? 1 PPW Information not available 01/08/2024 Has Tobacco Cessation Counseling Been Provided? No MIGRATION.61023 42110 Information not available 07/28/2022 How Many Years Have You Smoked Tobacco? 20 MIGRATION.79699 17610 Information not available 07/28/2022 Have You Recently Traveled Abroad? No MIGRATION.71766 34996 Information not available 07/28/2022 Sex: Male Functional Status Question Answer Note LastModified by Organizat ion Details LastModified Time Do you use any illicit or recreational drugs? No MIGRATION.[id number] 00 Information not available 07/28/2022 Do you or have you ever used any other forms of tobacco or nicotine? No MIGRATION.[id number] 00 Information not available 07/28/2022 What is your level of alcohol consumption? None MIGRATION.40318382 00 Information not available 07/28/2022 Mental Status None recorded. Family History Relationship Description Onset Age of this Age Resolved Age Notes LastModified by Organization Details LastModified Time Unspecified Relation Hypertensive disorder MIGRATION.736 [id number] Not available 07/28/2022 05:21:18 Unspecified Relation Myocardial infarction MIGRATION.683 [id number] Not available 07/28/2022 05:21:18 Unspecified Relation Cerebrovascu lar accident MIGRATION.067 [id number] Not available 07/28/2022 05:21:18 Unspecified Relation Family history of malignant neoplasm MIGRATION.150 [id number] Not available 07/28/2022 05:21:18 Unspecified Relation Kidney disease MIGRATION.984 [id number] Not available 07/28/2022 05:21:18 Medical History Condition Response CANCER: SPECIFY Y SLEEP DISORDER Y COPD Y HYPERTENSION Y HIGH CHOLESTEROL / HYPERLIPIDEMIA Y Immunizations Vaccine Type Date Status Note Provider Nam e and Address Organization Details Recorded Time Influenza, high-dose, quadrivalent, PF 04/11/2021 completed Not Available [facility] 05:22:38 Past Encounters Encounter ID Performer Location Encounter Start Date Encounter Closed Date Diagnosis/Indication Diagnosis SNOMED-CT Code Diagnosis ICD10 Code Diagnosis Note [id number] _ATHN_MIGR ATION_5 _ATHENA_M IGRATION_ DEFAULT_1 _5 , 04/11/2021 00:00:00 04/11/2021 12:28:30 [id number] _ATHN_MIGR ATION_5 _ATHENA_M IGRATION_ DEFAULT_1 _5 , 04/23/2021 00:00:00 04/23/2021 08:23:44 [id number] _ATHN_MIGR ATION_5 _ATHENA_M IGRATION_ DEFAULT_1 _5 , 07/11/2021 00:00:00 07/11/2021 14:25:18 [id number] _ATHN_MIGR ATION_5 _ATHENA_M IGRATION_ DEFAULT_1 _5 , 10/08/2021 00:00:00 10/08/2021 10:43:12 [id number] _ATHN_MIGR ATION_5 _ATHENA_M IGRATION_ DEFAULT_1 _5 , 10/22/2021 00:00:00 10/22/2021 15:59:59 [id number] _ATHN_MIGR ATION_5 _ATHENA_M IGRATION_ DEFAULT_1 _5 , 10/31/2021 00:00:00 10/31/2021 15:34:00 [id number] _ATHN_MIGR ATION_5 _ATHENA_M IGRATION_ DEFAULT_1 _5 , 01/09/2022 00:00:00 01/09/2022 16:25:51 [id number] _ATHN_MIGR ATION_5 _ATHENA_M IGRATION_ DEFAULT_1 _5 , 01/23/2022 00:00:00 01/23/2022 11:53:40 [id number] _ATHN_MIGR ATION_5 _ATHENA_M IGRATION_ DEFAULT_1 _5 , 02/22/2022 00:00:00 02/22/2022 11:41:06 [id number] _ATHN_MIGR ATION_5 _ATHENA_M IGRATION_ DEFAULT_1 _5 , 03/12/2022 00:00:00 03/12/2022 16:14:51 [id number] _ATHN_MIGR ATION_5 _ATHENA_M IGRATION_ DEFAULT_1 _5 , 04/01/2022 00:00:00 04/01/2022 14:04:28 [id number] _ATHN_MIGR ATION_5 _ATHENA_M IGRATION_ DEFAULT_1 _5 , 05/09/2022 00:00:00 05/09/2022 17:01:04 [id number] _ATHN_MIGR ATION_5 _ATHENA_M IGRATION_ DEFAULT_1 _5 , 05/24/2022 00:00:00 05/24/2022 12:11:11 [id number] _ATHN_MIGR ATION_5 _ATHENA_M IGRATION_ DEFAULT_1 _5 , 06/11/2022 00:00:00 06/11/2022 14:19:12 [id number] _ATHN_MIGR ATION_5 _ATHENA_M IGRATION_ DEFAULT_1 _5 , 06/21/2022 00:00:00 06/21/2022 11:55:31 [id number] _ATHN_MIGR ATION_5 _ATHENA_M IGRATION_ DEFAULT_1 _5 , 07/01/2022 00:00:00 07/01/2022 12:38:24 [id number] Everardo Young MD DISP_RB [address] [address] 01/08/2024 10:53:46 01/08/2024 12:43:50 Ex-smoker 3505898 Z87.891 Arthritis of first carpometacarpal joint of right hand 0976483489 470743 M13.841 patient has done bracing. Patient has [...] working in. Pain of bi lateral hands 8257094581 4714081 M79.641 M79.108 [id number] Everardo Young MD DISP_[facility] [address] [address] 02/26/2024 10:58:53 02/26/2024 12:26:10 Pain of bilateral hands 3925486842 8561858 M79.641 M79.642 Ex-cigarette smoker 2810 59063 Z87.891 Pain of left hand 745850 3162 85265 M79.642 Arthritis of first carpometacarpal joint of left hand 5364813301 990220 M13.842 remove sutures. Put him in a well fitted left thumb protective brace to use for 1 month. He can use his fingers but still no loading or pinching against the thumb. See him back in 3 or 4 weeks for AP lateral oblique views of his left hand out of the brace. We will start therapy after that. [id number] Everardo Young MD [facility] [address] [address] 03/18/2024 10:43:58 03/18/2024 12:04:33 Arthritis of first carpometacarpal joint of left hand 6048556706 175144 M13.842 patient will go to therapy now to work on range of motion strengthen ing see him back in a few months for follow-up he can discontinu e the brace Pain of left hand 603455 6432 90586 M79.642 Ex-cigarette smoker 2810 00166 Z87.320 [id number] Everardo Young MD [facility] [address] [address] 07/01/2024 11:52:32 07/01/2024 12:45:39 Arthritis of first carpometacarpal joint of left hand 4208354411 625843 M13.842 patient will continue with strengthen ing exercises for the left hand. We will see him back in a few months to discuss potentiall y doing the CMC arthroplas ty on the right. Ex-cigarette smoker 281 Z87.083 [id number] Everardo Young MD [facility] [address] [address] 09/30/2024 11:39:48 10/01/2024 03:42:25 Arthritis of first carpometacarpal joint of left hand 0585874510 212575 M13.842 patient will continue with strengthen ing exercises for the left hand. We will see him back in a few months to discuss potentiall y doing the CMC arthroplas ty on the right. 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 He understand s the risks, benefits alternativ es wished to proceed with the right thumb surgery now [id number] Everardo Young MD [facility] [address] [address] 10/28/2024 09:38:32 10/28/2024 10:23:49 Arthritis of first carpometacarpal joint of right hand 5221188681 002845 M13.841 remove sutures today. 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 Ex-cigarette smoker 2810 52543 Z87.032 [id number] Everardo Young MD [facility] [address] [address] 11/25/2024 08:58:08 11/25/2024 09:25:07 Arthritis of first carpometacarpal joint of left hand 9112777616 240211 M13.842 continue strengthen ing program with the [employer] exercise Arthritis of first carpometacarpal joint of right hand 7226420913 524075 M13.841 he may wean from the brace now most people use it just for heavy activity at this point. Start on the therapy putty strengthen ing exercises I will see him in 6 months Ex-cigarette smoker 2810 85142 Z87.891 Health Concerns Section Related Observation LastModified by Organization Detai ls LastModified Time None Recorded Concern Status LastModified by Organization Details LastModified Time None Recorded Advance Directives Directive None Recorded Payers Insurance Date Sequence Insurance Name Policy Number Policy Reyes Covered Member ID Reyes Member ID Guarantor Name 07/05/2024 1 [facility] (MEDICARE REPLACEMENT/A DVANTAGE - PPO) [id number] Nathan L Corona [id number] Nathan Corona 09/24/2024 2 [place] Nathan L Corona [id number] Nathan Danis 11/26/2024 1 [facility] (MEDICARE REPLACEMENT/A DVANTAGE - HMO) [id number] Nathan L Danis [id number] Nathan Danis 11/25/2024 2 [place] Nathan Danis [id number] Nathan Corona 07/05/2024 3 [place] Nathan Corona [id number] Nathan Danis Notes Date Note Type Note Provider Name and Address Organization Details Recorded Time 03/18/2024 text/html patient returns today for follow-up he had a left thumb CMC interposition arthroplasty on 02/13/2024 doing well at this point minimal pain and swelling he has been in his protective brace for the last 5 weeks. Everardo Young MD [address] [place], [address], [facility] 03/18/2024 13:38:40 07/01/2024 text/html patient returns today for follow-up he had a left thumb CMC interposition arthroplasty on 02/13/2024 doing well at this point minimal pain and swelling he has been in his protective brace for heavy activity at times only now that he is 5 months postop Everardo Young MD [address] [place], [address], [facility] 07/01/2024 12:32:54 09/30/2024 text/html Patient is sever al months out now from the left thumb carpometacarpal arthroplasties doing very nicely he is ready to proceed with a right thumb now. 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 Patient's left thumbs been doing well since the surgery several months ago. Had a little bit of pain as is common in the 1st few days doing well now. Everardo Young MD [address] [place], [address], [facility] 10/28/2024 11:40:32 11/25/2024 text/html Patient is doing well after his CMC interposition arthroplasty. Everardo Young MD [address] [place], [address], [facility] 11/25/2024 09:23:54
--- OUTSIDE RECORDS SUMMARY | 2025-01-27 10:14 | XMS_ITS | Data Portability ---
Author Organization [place] [facility], Main Office Address [address] [place] [address] Care Team Providers Care Eligibility Services Representative Name Role Phone XOCHILT VANEGAS Primary Care Provider [phone] Assessment Encounter Date Assessment Date Assessment LastModified [...] Organization Details Last Modified Time Details Appointments Any 15 2024 09:30A Olga jeffries MD Not available Not available Not available New Patient 15 2024 09:15A M Antonio Manuel DPM Not available Not available Not available Lab CMP, serum or plasma 2024 025 [facility], [address] [facility], [place], [address], 08/26/2024 22:26:30 lipid panel, serum 2024 025 [facility], [address] [facility], [place], [address], 08/26/2024 22:26:28 CBC w/ auto diff 2024 025 [facility], [address], [place], [address], 08/26/2024 22:26:31 TSH, serum or plasma 2024 025 [facility], [address], [place], [address], 08/26/2024 22:26:33 TSH + free T4, serum [address] Out[facility], [address] [place], [address], 03/10/2024 11:48:48 T3, free, serum or plasma [address] Outpatient [facility], [address] [place], [address], 03/10/2024 11:49:06 Referral cardiolog ist referral - Please call patient to schedule an appointme nt. Thank you. 2024 025 [place], [address] [facility], [facility] [address], [address], 10/25/2024 11:19:36 pulmonolo gist referral - Please call patient to schedule an appointme nt. Thank you. 2024 025 ROE Renteria [facility] [address] [facility], [address], [place], [address], 09/08/2024 12:49:49 Procedures None recorded. Surgeries None recorded. Imaging None recorded. Medication Orders amoxicill in 400 mg-potass ium clavulana te 57 mg/5 mL oral suspensio n 2024 025 ROE Mars [facility], [address], [place], [address], 08/25/2024 12:38:58 Bactrim DS 800 mg-160 mg tablet 2023 024 [email or web address] [facility], [facility] [address], [facility] [address], [place], [place], [id number], 08/25/2024 11:50:22 Patient TargetsNo targets recorded. Patient InstructionsNo instructions recorded. 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 Thank you. 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 Thank you. Referring Physician: Justin Jane, Internal Medicine, Encounter Date: 08/25/2024 Results Created Date Observation Date Name Description Value Unit Range Abnormal Flag Note LastModifiedBy Organization Detail LastModifiedTime 03/18/20 24 XR, hand, 3 or more view [facility] [place] [address] [phone] Patien t Name: NATHAN MSOCOSO Access ion #: [id number] Sex: M : 1945 1 8 Dictat ed By: Lizzie Suarez Attend ing Physic anna: EVERARDO ABREU [facility] Physic anna: EVERARDO ABREU Exam Date: [...] at 2023 10:36: 21 AM Page 1 [facility] (Imaging) [address] [place], [address], 04/07/2024 10:39:49 03/18/20 24 03/18/2024 XR, hand, 3 or more view No observ ation record ed. [email or web address] [facility] [address] [place], [address], 03/31/2024 15:18:43 10/20/19 25 10/19/2024 imagi ng/di agnos tic resul t No observ ation record ed. [address] [facility], [place], [address], 10/19/2024 18:30:23 11/01/19 25 10/30/2024 imagi ng/di agnos tic resul t No observ ation record ed. [address], [place], [address], 10/31/2024 10:03:38 11/12/19 pulmo nary funct ion test* No observ ation record ed. [email or web address] Not Available 10/20 14:10:01 11/13/19 25 11/12/2024 imagi ng/di agnos tic resul t No observ ation record ed. [address], [place], [address], 11/12/2024 16:21:28 12/03/19 25 11/18/2024 imagi ng/di agnos tic resul t No observ ation record ed. [email or web address] [place] [address] [address], [place], [address], 12/14/2024 10:13:26 12/15/19 25 12/14/2024 imagi ng/di agnos tic resul t No observ ation record ed. [facility] [address] [facility] [address], [place], [address], 12/14/2024 14:22:50 12/15/19 25 12/14/2024 imagi ng/di agnos tic resul t No observ ation record ed. [email or web address] [facility] [address], [place], [address], 01/10/2025 16:10:54 12/15/19 25 12/14/2024 imagi ng/di agnos tic resul t No observ ation record ed. [facility] [address], [place], [address], 12/14/2024 14:35:37 Result Notes Documentation Provider Name and Address Organization Details Recorded Time Xr, Hand, 3 Or More View : [place] [id number] Patient Name: NATHAN MOSCOSO Sex: M : 1945 Dictated By: Lizzie Suarez Attending Physician: EVERARDO ABREU Ordering Physician: EVERARDO ABREU Exam Date: 03/18/2024 09:29 AM Exam Name: XR HAND LT 3V Admitting Diagnosis(es): CLINICAL INDICATION: left hand surgery f/o w/ pain TECHNIQUE: 3 radiographic views of the left hand were obtained. Comparison: XR HAND BILAT 3V on DOS: 01/08/24 FINDINGS/IMPRESSION: There is no evidence of acute fracture or dislocation. Chronic left ulnar styloid process fracture. The visualized joint space is well maintained. The alignment is anatomical. There is no radiopaque foreign body. Page 1 CELINA Cortes [place] [facility] 04/07/2024 10:39:49 Problems Name Problem SNOMED Code Status Onset Date Resolution Date Notes Provider Name and Address Organization Details Recorded Time Hyperchole sterolemia 39057478 Active 2020 Not Available [facility] 01/05/202 4 22:23:27 Chronic obstructiv e pulmonary disease 01670389 Active 2020 Not Available [facility] 4 22:23:27 Anti-nucle ar factor detected 730701767 Active 2021 Not Available [facility] 4 22:23:27 Bacterial infection caused by Klebsiella pneumoniae 375279796 Active 2021 Not Available [facility] 4 22:23:27 Copious sputum 252006427 Active 2021 Not Available [facility] 4 22:23:27 Esophageal dysmotilit y 482687995 Active 2021 Not Available [facility] 4 22:23:27 History of malignant neoplasm 427428524 Active 2020 Not Available [facility] 4 22:23:27 Abdominal mass 000476203 Active 2021 Not Available [facility] 4 22:23:27 Thick sputum 051645142 Active 2022 Not Available [facility] 4 22:23:27 Severe chronic obstructiv e pulmonary disease 847727452 Active 2022 Not Available [facility] 4 22:23:27 Postobstru ctive pneumonia 086405077 Active 2021 Not Available [facility] 4 22:23:27 At increased risk for aspiration 556641910 Active 2021 Not Available [facility] 4 22:23:27 Hypertensi ve disorder 70473434 Active 2020 Not Available [facility] 4 22:23:27 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 678553492 Active 2021 Not Available [facility] 4 22:23:27 Rajni, not Rajni albicans 602704601 Active 2021 Not Available [facility] 4 22:23:28 Dysphagia 95417427 Active 2021 Not Available [facility] 4 22:23:28 Hypothyroi dism 39228704 Active 2020 Not Available [facility] 4 22:23:28 Coronary arterioscl erosis 33356389 Active 2021 Not Available [facility] 4 22:23:28 Dyspnea on exertion 87620693 Active 2021 Not Available [facility] 4 22:23:28 Chronic cough 88623113 Active 2021 Not Available [facility] 4 22:23:28 Bacterial infection caused by Serratia 83217259 Active 2021 Not Available [facility] 4 22:23:28 Prediabete s 403525049 Active 2020 Not Available [facility] 4 22:23:28 Obstructiv e sleep apnea syndrome 29926159 Active 2022 Not Available [facility] 4 22:23:28 History of squamous cell carcinoma in situ 5833513382043 5 Active 2020 Not Available [facility] 4 22:23:28 Solitary nodule of lung 818479726 Active 2022 Not Available [facility] 4 22:23:28 Hyperlipid emia 33304205 Active 2022 Not Available [facility] 4 22:23:28 Insomnia 855497170 Active 2022 Not Available [facility] 4 22:23:27 Pain of bilateral hands 6552169711349 9109 Active 2022 Not Available [facility] 4 22:23:27 Osteoarthr osis of the carpometac arpal joint of the thumb 12065890 Active 2022 Not Available [facility] 4 22:23:27 Bilateral pain of joint of hands 2042409234446 9102 Active 2022 Not Available [facility] 4 22:23:27 Abnormal findings on diagnostic imaging of lung 121138418 Active 2022 Not Available [facility] 4 22:23:27 Arthritis of bilateral first carpometac arpal joints 1453460313825 102 Active 2022 Not Available [facility] 4 22:23:27 Pain of left hand 4942857997950 03 Active 2023 ANEESH Cesar [address], [address], [place], [address] , [facility] 4 22:54:41 Diabetes mellitus 69141800 Active 2023 ANEESH Hernandez [address], [address], [place], [address] , [facility] 4 11:30:11 Epidermoid cyst of skin of back 053896005 Active 2023 ANEESH Hernandez [address], [address], [place], [address] , [facility] 4 11:34:05 Epidermoid cyst of skin 796519510 Active 2023 Jim esparza MD [address], [address], [place], [address] , [facility] 4 13:58:44 Malignant tumor of tonsil 325676091 Active 2024 Justin jarrett MD [address], [address], [place], [address] , [facility] 5 12:10:07 Essential hypertensi on 60993500 Active 2024 Justin jarrett MD [address], [address], [place], [address] , [facility] 5 12:10:17 Esophageal dysphagia 24611462 Active 2024 Justin jarrett MD [address], [address], [place], [address] , [facility] 5 12:13:28 Bunion 572455086 Active 2024 CHRISTOPHER Valdez, [facility] 5 12:40:30 Notes:Medical History: Larbelkys geal penetration Hypothyroidism Hyperlipidemia Hypertension EF 55% Prediabetes Mild TR CAD 4.1 cm ascending thoracic aortic ectasia Moderate COPD LLL 6.7 mm pulm nodule Asbestos exposure 1105-4700 Mild splenomegaly Left 7.7 cm renal cyst Procedure History: 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 Please review these documents and add these problems to the patient's chart manually as needed. Problem Notes None recorded. Procedures Surgical History Date Name Laterality Status Provider Name and Address Organization Details Recorded Time 4 Blank Procedure Note completed Jim Ramirez MD [address] [facility], [address], [address], [employer] 05/18/2024 12:28:30 3 Ortho - Cortisone Injection completed Olivier Jackson MD [address] [facility], [place] [address], [place], [address], [employer] 01/28/2023 14:48:33 other completed Annika Varela MA [employer] 04/15/2024 12:02:59 Imaging Results None recorded. Procedure Notes None recorded. Medical Equipment None Reported. Allergies Allergen ID Allergen Name Allergen Category Reaction Reaction Severity Criticality Documentation Date Start Date Code Code System Note Provider Name and Address Organization Details Recorded Time 62714 bacitraci n / neomycin / polymyxin B medicatio n Not available Not available Not available 09/18/2022 00341 9 RxNorm Not Available [facility] 3 23:31:27 70603 bacitraci n medicatio n Not available Not available Not available 03/29/2024 1291 RxNorm Other react ions and sever ities : 'Adve rse react ion to subst ance - Sever e'. Yoana Rodriguez APRN [address] [facility], [facility] [address], [place], [address], [employer] 4 14:17:39 Medications Name Sig Start Date Stop Date Status Note LastModified by Organization Details LastModified Time Prescript ion - Renewal active Not Available Not Available Not Available furosemid e 40 mg tablet TAKE 1 [...] mg by injectio n route. 08/25 completed [facility]: [id number] -[phone] Not Available Not Available Not [...] %) injection solution in office 08/25 completed [facility] [address] - Not Available Not Available Not Available Anoro [...] Body weight Body temperature Heart rate Systolic And Diastolic Provider Name and Address Organization Details Last Updated DateTime 5 182.88 cm 23.2 kg/m2 09618.3 g 97.6 [degF] 78 /min 140/66 mm[Hg] CHRISTOPHER Valdez ID [employer] 5 11:58:34 Date Recorded Body height Body mass index (BMI) Body weight Body temperature Heart rate Oxygen saturation Oxygen saturation in Arterial blood by Pulse oximetry Systolic And Diastolic Provider Name and Address Organization Details Last Updated DateTime 4 182.88 cm 24 kg/m2 23110.8 5 g 97.5 [degF] 70 /min 93 % 93 % 166/84 mm[Hg] Brook Hidalgo RN [employer] 4 11:21:33 Date Recorded Body height Body mass index (BMI) Body weight Provider Name and Address Organization Details Last Updated DateTime 04/15/2024 182.88 cm 22.5 kg/m2 22243.33 g Annika Varela MA [employer] [facility] 04/15/2024 12:00:42 Date Recorded Body height Body mass index (BMI) Body weight Body temperature Heart rate Respiratory rate Oxygen saturation Oxygen saturation in Arterial blood by Pulse oximetry Systolic And Diastolic Provider Name and Address Organization Details Last Updated DateTime 4 182.88 cm 22.5 kg/m2 08545.3 3 g 97.5 [degF] 70 /min 16 /min 93 % 93 % 166/84 mm[Hg] Reema Ortiz [employer] 4 12:06:48 Date Recorded Body height Body mass index (BMI) Body weight Body temperature Heart rate Respiratory rate Oxygen saturation Oxygen saturation in Arterial blood by Pulse oximetry Systolic And Diastolic Provider Name and Address Organization Details Last Updated DateTime 4 182.88 cm 22.5 kg/m2 62903.3 3 g 97.5 [degF] 70 /min 16 /min 93 % 93 % 166/84 mm[Hg] Reema Hillshaw [employer] 4 10:35:10 Social History Question Answer Notes LastModified by Organizat ion Details LastModified Time Tobacco Smoking Status Former Smoker qiut age 30 CHRISTOPHER Valdez, [employer] [facility] 08/25/2024 11:55:50 What Is Your Level Of Caffeine Consumption? Moderate Coffee, 2-3 Cups Per Day MIGRATION.[id number] Information not available 09/18/2022 In The 14 Days Before Symptom Onset, Have You Had Close Contact With A Laboratory-confir med COVID-19 While That Case Was Ill? No MIGRATION.32705 01368 Information not available 09/18/2022 In The 14 Days Before Symptom Onset, Have You Had Close Contact With A Person Who Is Under Investigation For COVID-19 While That Person Was Ill? No MIGRATION.66540 30892 Information not available 09/18/2022 What Type Of Diet Are You Following? SPECIFIC Ensure - Equate Diabetic Care Chocolte - Needs Rx For 6 Cases A Month MIGRATION.69246 06611 Information not available 09/18/2022 When Did You Quit Smoking? 17+yearssinc elastcigaret te MIGRATION.72967 59695 Information not available 09/18/2022 What Was The Date Of Your Most Recent Tobacco Screening? 08/25/2024 [email or web address] Information not available 08/25/2024 What Is Your Relationship Status? Single [place] [address] Information not available 04/15/2024 At What Age Did You Start Smoking Tobacco? 10 MIGRATION.19859 04785 Information not available 09/18/2022 Has Tobacco Cessation Counseling Been Provided? No MIGRATION.89262 50007 Information not available 09/18/2022 How Many Years Have You Smoked Tobacco? 20 MIGRATION.62454 46605 Information not available 09/18/2022 Have You Recently Traveled Abroad? No MIGRATION.20108 91086 Information not available 09/18/2022 Do You Have Any Dietary Restrictions? No Had Throat Cancer MIGRATION.24322 11118 Information not available 09/18/2022 Sex: Male Functional Status Question Answer Note LastModified by Organizat ion Details LastModified Time Do you use any illicit or recreational drugs? No MIGRATION.47326883 26 Information not available 09/18/2022 Do you or have you ever used any other forms of tobacco or nicotine? No MIGRATION.15648805 26 Information not available 09/18/2022 What is your level of alcohol consumption? None MIGRATION.57948270 26 Information not available 09/18/2022 Are you currently employed? [place] [address] Information not available 04/15/2024 What is your exercise level? None MIGRATION.79609187 26 Information not available 09/18/2022 Mental Status None recorded. Family History Relationship Description Onset Age of this Age Resolved Age Notes LastModified by Organization Details LastModified Time Unspecified Relation Hypertensive disorder MIGRATION.068 [id number] Not available 09/18/2022 23:28:57 Unspecified Relation Myocardial infarction MIGRATION.241 [id number] Not available 09/18/2022 23:28:57 Unspecified Relation Cerebrovascu lar accident MIGRATION.296 [id number] Not available 09/18/2022 23:28:57 Unspecified Relation Family history of malignant neoplasm MIGRATION.414 [id number] Not available 09/18/2022 23:28:57 Unspecified Relation Kidney disease MIGRATION.973 [id number] Not available 09/18/2022 23:28:57 Medical History Condition Response DIABETES, TYPE Y CANCER: SPECIFY Y Immunizations Vaccine Type Date Status Note Provider Nam e and Address Organization Details Recorded Time Influenza, high-dose, quadrivalent, PF 1 completed Not Available [facility] 07/25/2023 22:23:28 zoster recombinant 2 completed Yoana Rodriguez APRN [address], [address], [place], [address], [facility] [employer] [facility] 03/29/2024 14:17:58 zoster recombinant 2 completed Yoana Rodriguez APRN [address], [address], [place], [address], [facility] [employer] [facility] 03/29/2024 14:17:58 Influenza, high-dose, quadrivalent, PF 2 completed Yoana Rodriguez APRN [address], [address], [place], [address], [facility] [employer] [facility] 03/29/2024 14:17:58 Influenza, high-dose, quadrivalent, PF 3 completed Yoana Rodriguez APRN [address], [address], [place], [address], [facility] [employer] [facility] 03/29/2024 14:17:58 COVID-19, mRNA, LNP-S, PF, 30 mcg/0.3 mL dose 1 completed Yoana Rodriguez APRN [address], [address], [place], [address], [facility] [employer] [facility] 03/29/2024 14:17:58 Pneumococcal conjugate PCV20, polysaccharide [id number] conjugate, adjuvant, PF 3 completed Yoana Rodriguez APRN [address], [address], [place], [address], [facility] [employer] [facility] 03/29/2024 14:17:58 COVID-19, mRNA, LNP-S, PF, 30 mcg/0.3 mL dose, edison-sucrose 2 completed Yoana Rodriguez APRN [address], [address], [place], [address], [facility] [employer] [facility] 03/29/2024 14:17:58 COVID-19, mRNA, LNP-S, bivalent, PF, 30 mcg/0.3 mL dose 2 completed Yoana Rodriguez APRN [address], [address], [place], [address], [facility] [employer] [facility] 03/29/2024 14:17:58 RSV, bivalent, protein subunit RSVpreF, diluent reconstituted, 0.5 mL, PF 3 completed Yoana Rodriguez, [employer] [address], [facility] [address], [place], [address], [facility] [employer] [facility] 03/29/2024 14:17:58 COVID-19, mRNA, LNP-S, PF, edison-sucrose, 30 mcg/0.3 mL 3 completed Yoana Rodriguez APRN [address], [facility] [address], [place], [address], [facility] [employer] [facility] 03/29/2024 14:17:58 COVID-19, mRNA, LNP-S, PF, edison-sucrose, 30 mcg/0.3 mL 4 completed CHRISTOPHER Valdez, [facility] [employer] [facility] 08/25/2024 11:54:34 Influenza, high-dose, trivalent, PF 4 completed CHRISTOPHER Valdez, [facility] [employer] [facility] 08/25/2024 11:54:34 Past Encounters Encounter ID Performer Location Encounter Start Date Encounter Closed Date Diagnosis/Indication Diagnosis SNOMED-CT Code Diagnosis ICD10 Code Diagnosis Note [id number] Dragan Ivy MD [facility] J[facility] ro[address]iguez [address] [place] [address] 04/11/2021 00:00:00 04/11/2021 12:28:30 [id number] Dragan Ivy MD [facility] [place] [place] [address] 04/23/2021 00:00:00 04/23/2021 08:23:44 [id number] Dragan Ivy MD [facility] [place] [address] [place] [address] 07/11/2021 00:00:00 07/11/2021 14:25:18 [id number] Dragan Ivy MD [facility] [place] [address] [place] [address] 10/08/2021 00:00:00 10/08/2021 10:43:12 [id number] [facility] [place] [address] [place] [address] 10/22/2021 00:00:00 10/22/2021 15:59:59 [id number] [facility] [place] [address] [place] [address] 10/31/2021 00:00:00 10/31/2021 15:34:00 [id number] KRISTIN NeelyBC [facility] Pul[facility]olo [facility] [place] [address] [place] [address] 01/09/2022 00:00:00 01/09/2022 16:25:51 [id number] Dragan Ivy MD [facility] [place] [address] [place] [address] 01/23/2022 00:00:00 01/23/2022 11:53:40 [id number] KRISTIN NeelyBC [facility] [place] [address] [place] [address] 02/22/2022 00:00:00 02/22/2022 11:41:06 [id number] KRISTIN NeelyBC [facility] [place] [address] [place] [address] 03/12/2022 00:00:00 03/12/2022 16:14:51 [id number] KRISTIN NeelyBC [facility] [place] [address] [place] [address] 04/01/2022 00:00:00 04/01/2022 14:04:28 [id number] Dragan Ivy MD [facility] [place] [address] [facility] [place] [address] 05/09/2022 00:00:00 05/09/2022 17:01:04 [id number] Kristina Renteria [facility] [place] [address] [place] [address] 05/24/2022 00:00:00 05/24/2022 12:11:11 [id number] Dragan Ivy MD [facility] [place] [address] [facility] [address] [place], [place] [address] 06/11/2022 00:00:00 06/11/2022 14:19:12 [id number] Kristina Renteria [facility] [place] [address] [place] [address] 06/21/2022 00:00:00 06/21/2022 11:55:31 [id number] Gabe Moses MD [facility] Pulmonolo gy [address] [address] 07/01/2022 00:00:00 07/01/2022 12:38:24 [id number] MATT De La Torre [facility] [place] [address] [facility] [address] [place] [address] 07/31/2022 00:00:00 07/31/2022 16:56:18 [id number] [facility] [place] [address] [place] [address] 07/31/2022 00:00:00 07/31/2022 13:29:58 [id number] MATT De La Torre [facility] [place] [address] [facility] [address] [place] [address] 08/28/2022 00:00:00 08/28/2022 18:34:58 [id number] Kristina Ramosrell, [facility] Pulmonolo gy [place] [address] [place] [address] 09/30/2022 11:09:27 09/30/2022 12:28:23 Severe chronic obstructive pulmonary disease 199762114 J44.9 CAT 25P11/2021 with ratio 48FEV1 49DLCO adjusted is normalCont inue Symbicort and Spiriva with aerochambe rAlbuterol PRN - discussed indication s for useDiscuss ed reportable signs and symptoms.R TC in 2-3 months, PRN for concerns Thick sputum 715000015 R 09.3 Intolerant to nebulized mucomystSt art oral BIDNarrowi ng of LLL bronchus per bronchosco py with thick mucous and plugs. Chronic cough 07078893 R 05.3 ImprovedMB S completed 01/2022 with laryngeal penetratio n identified with swallowing of thin liquid, thick liquid, and pudding consistenc y.No jennifer aspiration was identified Recommend GI Bacterial infection caused by Serratia 89508468 A49.8 10/2021 Bacterial infection caused by Klebsiella pneumoniae 936863791 B96.1 10/2021 Dyspnea on exertion 6084 5006 R06.09 ImprovedQu antiferon GOLD negativeIG E normaleosi nophils normalBNP normalIGGs normalSix minute walk normal 11/2021 Ex-smoker 5064261 Z87.[address] chest 05/2022 with nodule as above Solitary n odule of lung 120753888 R91.[address] chest ep eat in 6 months, due 11/2022 [id number] Kristina Myra, [facility] Pulmonolo gy [place] [address] [place] [address] 12/30/2022 11:12:17 12/30/2022 11:51:23 Severe chronic obstructive pulmonary disease 952264942 J44.9 CAT 25P11/2021 with ratio 48FEV1 49DLCO adjusted is normalCont inue Symbicort 160 and Spiriva Respimat 2.5with aerochambe rInstructe d on technique todayAlbut marilyn PRN - discussed indication s for useDiscuss ed reportable signs and symptoms.R TC in 3-4 months, PRN for concerns Solitary n odule of lung 962130387 R91.1 [address] chest 2Rep eat in 6 months, due 11/2022 - staff scheduled today Thick sputum 645023197 R 09.3 Intolerant to nebulized mucomystCo ntinue oral acetylcyst eine BIDNarrowi ng of LLL bronchus per bronchosco py with thick mucous and plugs. Chronic cough 50358024 R 05.3 ImprovedMB S completed 01/2022 with laryngeal penetratio n identified with swallowing of thin liquid, thick liquid, and pudding consistenc y.No jennifer aspiration was identified Recommend GI consultHe continues to decline Bacterial infection caused by Serratia 01238200 A49.8 10/2021 Bacterial infection caused by Klebsiella pneumoniae 689254831 B96.1 10/2021 Dyspnea on exertion 6084 5006 R06.09 Multifacto ralImprove dQuantifer on GOLD negativeIG E normaleosi nophils normalBNP normalIGGs normalSix minute walk normal 2Rec ommend exercise programHe will consider MA Ex-smoker 7804215 Z87.[address] chest 05/2022 with nodule as aboveHe has not repeated, staff scheduled this today Activity intolerance 774 26213 Z73.89 Multifacto ral [id number] Molly Diza MD [facility] [address] [place] [address] 01/16/2023 11:00:43 01/16/2023 12:53:45 Chronic obstructive pulmonary disease 33172001 J44.9 He has increased trouble with his SOB. Will try to put referral in for upright walker.Ref ills needed on inhalers/n ebulizer.C ontinue follow-up with pulmonolog y. 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 Epsom salt soaks.Will plan to refer to ortho if no improvemen t for imaging/in jections. [id number] Olivier Jackson MD [facility] Orth[facility] [place] [address] [place] [address] 01/28/2023 14:02:53 01/28/2023 15:25:32 Pain of bilateral hands 8399728095 1030143 M79.642 M79.641 Osteoarthr osis of the carpometacarpal joint of the thumb 72114019 M18.9 M18.0 [id number] Olivier Jackson MD [facility] Ortho [place] [address] [place] [address] 02/25/2023 14:28:07 02/25/2023 15:25:45 Osteoarthrosis of the carpometacarpal joint of the thumb 36483889 M18.9 M18.0 [id number] Kristina Renteria, [facility] Pulmonolo gy [place] [address] [place] [address] 04/15/2023 10:08:12 04/15/2023 11:08:18 Severe chronic obstructive pulmonary disease 599059973 J44.9 CAT 25PFT 11/2021 with ratio 48FEV1 49DLCO adjusted is normalCont inue Symbicort 160 and Spiriva Respimat 2.5with aerochambe rRX sent todayAlbut marilyn PRN - discussed indication s for useDiscuss ed reportable signs and symptoms.H e should follow up in 6 months, PRN for concerns Thick sputum 616065194 R 09.3 Intolerant to nebulized mucomystCo ntinue oral acetylcyst eine Daylin ng of LLL bronchus per bronchosco py with thick mucous and plugs.Re-s tart flutter valve use dailyMay need Smart Vest therapy Chronic cough 23930083 R 05.3 ImprovedMB S completed 01/2022 with laryngeal penetratio n identified with swallowing of thin liquid, thick liquid, and pudding consistenc y.No jennifer aspiration was identified Bacterial infection caused by Serratia 70085489 A49.8 10/2021 Bacterial infection caused by Klebsiella pneumoniae 936139015 B96.1 10/2021 Dyspnea on exertion 6084 5006 R06.09 Multifacto ralQuantif jorge GOLD negativeIG E normaleosi nophils normalBNP normalIGGs normalSix minute walk normal ec ommend exercise programHe will consider MA Activity intolerance 774 18812 Z73.89 Multifacto ral Ex-smoker 3999518 Z87.[address] chest as above Abnormal f indings on diagnostic imaging of lung 812981675 R91.[address] chest due 06/2023, ordered todayHe is aware to call PCM about results if he has not heard one week after completed [id number] Emir Mendiola MD [facility] Ortho [place] [address] [place] [address] 05/26/2023 08:53:28 05/26/2023 10:47:16 Pain of bilateral hands 1432130326 1495269 M79.642 M79.641 Arthritis of bilateral first carpometacarpal joints 8649077306 241972 M13.841 M13.266 [id number] Kristina Renteria, [facility] Pulmonolo gy [place] [address] [place] [address] 06/02/2023 14:01:13 06/02/2023 15:08:11 Severe chronic obstructive pulmonary disease 382345391 J44.9 PFT 11/2021 with ratio 48FEV1 49DLCO adjusted is normalCont inue Symbicort 160 and Spiriva Respimat 2.5with aerochambe rRX sent todayAlbut marilyn PRN - discussed indication s for useDiscuss ed reportable signs and symptoms.H e should follow up in 6 months, PRN for concerns Abnormal f indings on diagnostic imaging of lung 976579134 R91.[address] chest due 06/2023Sch eduled 07/07/23, has follow up with PCM Thick sputum 389443342 R 09.3 Intolerant to nebulized mucomystCo ntinue oral acetylcyst eine Karmai ng of LLL bronchus per bronchosco py with thick mucous and plugs.Re-s tart flutter valve use daily - I have stressed the importance of thisMay need Smart Vest therapy Chronic cough 97942493 R 05.3 ImprovedMB S completed 01/2022 with laryngeal penetratio n identified with swallowing of thin liquid, thick liquid, and pudding consistenc y.No jennifer aspiration was identified May need repeat Bacterial infection caused by Serratia 60079020 A49.8 10/2021 Bacterial infection caused by Klebsiella pneumoniae 811307132 B96.1 10/2021 Dyspnea on exertion 6084 5006 R06.09 Multifacto ralQuantif jorge GOLD negativeIG E normaleosi nophils normalBNP normalIGGs normalSix minute walk normal 2Rec ommend exercise programI have strongly urged pulmonary rehab Activity intolerance 774 25696 Z73.89 Multifacto ral Ex-smoker 2749441 Z87.[address] chest as above [id number] Molly Diaz MD [facility] [address] [facility] [address] [place] [address] 07/28/2023 13:58:24 07/28/2023 14:35:19 Chronic obstructive pulmonary disease 53481579 J44.9 He has increased trouble with his [...] he cannot use a MWC d/t decreased log buyer strength bilaterall y.--A PMD will improve this patient's in home ability to perform his ADLs by reducing his need for assistance when none is available. --This patient can safely operate the PMD both mentally and physically .--This patient is very motivated to use the PMD in hi/her home. Continue follow-up with pulmonolog y. CT results not in chart yet. [id number] Molly Diaz MD [facility] Primary Care [facility] [address] [facility] [address] [place] [address] 10/24/2023 11:44:49 10/24/2023 12:11:16 Adult health examination 807621808 Z00.00 Encouraged fresh fruits and veggies-lo w intake of both, drinks ensureIncr ease daily water intake-enc ouraged 6-8 glasses/da y, coffeeEnco urage 30 mins of daily exercise-w alks for exerciseCo lonoscopy- orderedDEX A-no hx of recurrent fxLDCT-not a smoker, not a drinker-la bs obtained Screening for malignant neoplasm of colon 729288695 Z12.11 [id number] ANEESH Cesar [facility] Primary Care [address] [place] [address] 12/10/2023 09:02:36 12/10/2023 09:47:47 Pain of bilateral hands 1749986773 7434505 M79.641 -pain noted to bilateral hands (severity [...] this time-refer ral to hand surgeon given [id number] Be Arteaga MD [facility] Ortho [place] [address] [place] [address] 12/18/2023 09:04:22 12/18/2023 10:08:39 Arthritis of bilateral first carpometacarpal joints 9430099001 080067 M13.841 M13.842 Pain of bi lateral hands 0564729527 2903262 M79.383 [id number] Heather Pina MD [facility] General Surgery [address] [facility] [place] [address] 12/31/2023 11:37:55 12/31/2023 11:58:43 History of polyp of colon 084351626 Z86.331 [id number] BROOKE Hernandez-Rosanna [facility] Primary Care [facility] [address] [facility] [address] [place] [address] 03/10/2024 11:15:16 03/10/2024 11:45:46 Hypothyroidism 37541108 E03.9 Recent hair loss.Will recheck labs as listed below. Epidermoid cyst of skin of back 497485787 L72.0 Patient will follow up as needed. [id number] Jim esparza MD [facility] General Surgery [address] [place] [address] 04/15/2024 11:24:54 04/19/2024 15:32:16 Epidermoid cyst of skin of back 460674064 L72.0 [id number] Jim esparza MD [facility] General Surgery [address] [address] 05/18/2024 11:35:06 05/18/2024 12:29:36 Epidermoid cyst of skin 149905454 L72.0 left back [id number] Jim esparza MD [facility] General Surgery [address] [facility] [address] [address] 05/27/2024 10:14:37 06/16/2024 11:56:29 Epidermoid cyst of skin 675903244 L72.0 left back [id number] Justin jarrett MD [facility] Primary Care [facility] [address] 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 On albuterol HHNOn albuterol inhalerOn SpirivaOn SymbicortW ill see Kristina Renteria referredHa s noted a cough, will start on augmentin 800mg bid for 7 days as an oral suspension Hyperlipidemia 24792423 E78.5 On rosuvastat in 20mg dailyGet labs 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, 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 Essential hypertension 88432930 I10 On ASAOn diltiazem 90mg dailyOn lasix 40mg dailyOn metoprolol 25mg dailySees Dr Taylor [facility] Hypothyroidism 70765707 E03.9 On levothyrox ine 112mcgs dailyGet labs Esophageal dysphagia 408 24014 R13.19 S/p radiation Rx for tonsillar cancerEGD Dr Joy 10/30/2023 , may need feeding tube Health Concerns Section Related Observation LastModified by Organization Detai ls LastModified Time None Recorded Concern Status LastModified by Organization Details LastModified Time None Recorded Advance Directives Directive None Recorded Payers Insurance Date Sequence Insurance Name Policy Number Policy Reyes Covered Member ID Reyes Member ID Guarantor Name 01/19/2025 1 [facility] (MEDICARE REPLACEMENT/AD VANTAGE - PPO) [id number] Nathan L Danis [id number] Nathan L Danis 01/19/2025 1 [place] Nathan L Fayette [id number] Nathan L Danis 01/19/2025 1 [facility] (MEDICARE REPLACEMENT/AD VANTAGE - HMO) [id number] Nathan L Fayette [id number] Nathan L Fayette 04/15/2024 1 *SELF PAY* Al isaiah L Danis 01/19/2025 2 [place] WHEN MEDICARE OR MEDICARE REPLACEMENT PRIMARY) Nathan L Danis [id number] Nathan L Danis Notes Date Note Type [...] one month ago, is recovering well. BROOKE Hernandez-C [address], [place], [address], [employer] [facility] Loop [employer] [facility] 03/10/2024 12:38:38 04/15/2024 text/html patient complain s of draining cyst on his back that he has had for several years. Waxes and wanes. Denies fevers or chills. Would like to have it removed Jim Ramirez MD [address], [place], [address], [employer] [facility] 04/15/2024 16:34:43 05/18/2024 text/html patient here for excision left lower back cyst Jim Ramirez MD [address], [place], [address], [employer] [facility] 05/18/2024 14:02:04 05/27/2024 text/html No complaints Jim Ramirez MD [address], [place], [address], [employer] [facility] 05/27/2024 13:18:19 08/25/2024 text/html OV 08/25/2024:He re to establish care Present Hx:HTNHLDHypothyro idismCOPDHx of tonsillar cancer Here to discuss above, he also has noted a slight but now worsening cough, clear, no hempotysis, no chest pain, mildly SOB, no wheezingHe is here with his girl friend Justin Jane MD [address], [place], [address], [employer] [facility] 08/25/2024 12:46:32
--- OUTSIDE RECORDS SUMMARY | 2025-01-27 10:14 | XMS_ITS | Clinical Summary ---
Author Organization [facility] Address [address] [place] [address] Care Team Providers Care Paste Up Artist Name Role Phone Galileo Kiser MD Primary Care Provider [phone] Allergies Active Allergy Reactions Criticality Noted Date Comments Nvgmlldy-Rjmqvmucvyg-Faziimzfc Rash Low 07/26 Medications Food Supplement, Lactose-Free (ENSURE HIGH PROTEIN) Oral Liqd Take 240 mL by mouth q 3 hour. 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 Gender Identity Not on file Sexual Orientation [...] 11/29/2023 11/28/2020, 11/28/2020, 02/12/2019, Additional history exists COVID-19 Vaccine (2 - 2023-2 5 season) 2024 09/27/2020 INFLUENZA VACCINE (#1) 2025 0, 07/20/2019, 07/20/2019, Additional history exists DTAP/TDAP/TD VACCINES (2 - T d or Tdap) 09/28/2029 09/29/2019 Medical Devices Implanted Type Area Feed Mill Manager Device Identifier Shelf Expiration Date Model / Serial / Lot Clip Endo Resolution 360 235cm [id number] - [id number] Implanted:Qty: 2 on 02/12/2019 by Krishna Foster MD at [facility] Clip N/A: Perianal [employer] [id number] / / Lens Io Sn60wf 21.0 - [id number] Implanted:Qty: 1 on 02/19/2021 by Polo Huang MD at [facility] Patients First Eye Right: Eye [employer] [id number] 10/20/2025 SN60WF .21 0 / [id number] / Lens Io Sn60wf 21.5 - [id number] Implanted:Qty: 1 on 03/05/2021 by Polo Huang MD at [facility] Patients First Eye Left: Eye [employer] [id number] 10/23/2025 SN60WF .21 5 / [id number] / [id number] Procedures Procedure Name Priority Date/Time Associated Diagnosis Comments MICROALBUMIN/CREATIN INE RATIO, RANDOM UR Routine 12/29/2020 2:34 PM CDT Type 2 diabetes mellitus without complication, without long-term current use of insulin ([facility]) Essential hypertension LIPID PANEL Routine 12/29/2020 2:34 [...] 207 20 - 320 mg/dL [facility] MICROALBUMIN, URINE 1.3 See Note: mg/dL [facility] Comment: Reference Range: Reference Range Not established MICROALBUMIN/CREAT RATIO, UR 6 <30 mcg/mg creat [facility] Comment: The ADA defines abnormalities in albumin excretion as follows: Category Result (mcg/mg creatinine) Normal <30 Microalbuminuria 30-299 Clinical albuminuria > OR = 300 The ADA recommends that at least two of three specimens collected within a 3-6 month period be abnormal before considering a patient to be within a diagnostic category. Test Performed at: [facility] [address] [place] [address] Marcello Yoo D.O., MPH Urine URINE SPECIMEN OBTAINED BY CLEAN CATCH PROCEDURE / Unknown 12/29/2020 2:34 PM CDT Galileo Kiser MD URINE ORDERABLES Final Result Performing Organization Address [facility] Co de Phone Number [facility] [address] [place] [address] * HEMOGLOBIN A1C (12/29/2020 2:34 PM CDT) Pathologist [facility] HEMOGLOBIN A1C 5.1 <5.7 % of total Hgb [facility] Comment: Test Performed at: [facility] [address] [place] [address] [facility] Blood 12/29/2020 2:34 PM CDT Galileo Kiser MD CHEMISTRY ORDERABLES Final Re sult Performing Organization Address City/[facility]/ZIP Co de Phone Number [facility] [address] [place] [address] * LIPID PANEL (12/29/2020 2:34 PM CDT) Pathologist [facility] CHOLESTEROL 147 <200 mg/dL [facility] HDL 52 > OR = 40 mg/dL [facility] TRIGLYCERIDE 117 <150 mg/dL [facility] LDL CALCULATED 75 mg/dL (calc) [facility] Comment: Reference range: <100 Desirable range <100 mg/dL for primary prevention; <70 mg/dL for patients with CHD or diabetic patients with > or = 2 CHD risk factors. LDL-C is now calculated using the Jam calculation, which is a validated novel method providing better accuracy than the Friedewald equation in the estimation of LDL-C. Sulaiman SS et al. PAVAN. 2013;310(19): 7217-2061 (http://education.Swyzzle/faq/SCR011) CHOL/HDL RATIO 2.8 <5.0 (calc) [facility] TOTAL NON-HDL CHOL(LDL+VLDL) 95 <130 mg/dL (calc) [facility] Comment: For patients with diabetes plus 1 major ASCVD risk factor, treating to a non-HDL-C goal of <100 mg/dL (LDL-C of <70 mg/dL) is considered a therapeutic option. Test Performed at: [place] [address] [place] [address] [facility] Blood 12/29/2020 2:34 PM CDT us Galileo Kiser MD CHEMISTRY ORDERABLES Final Re sult [facility] [address] [place] [address] * COLONOSCOPY REPORT (11/28/2020 10:22 AM CDT) Narrative Procedure Note Krishna Foster MD - 11/28/2020 10:20 AM CDT [facility] GI Patient Name: Nathan Moscoso Procedure [...] bowel preparation was evaluated using the BBPS ([employer] Bowel Preparation Scale) with scores of: Right [...] surveillance based on pathology results. - A [facility] message and/or a letter will be sent to you summarizing the pathology results. Please call the GI office ([phone]) if you have not heard the results within 2 weeks. - Goal intake of 25-30 grams of fiber per day. This is a combination of dietary fiber (located on product food label) as well as supplemental fiber (for example Citrucel, Fibercon, Konsyl or Metamucil) if needed. Procedure Code(s): --- Professional --- 65655, Colonoscopy, flexible; with removal of tumor(s), polyp(s), or other lesion(s) by snare technique 96878, 59, Colonoscopy, flexible; with biopsy, single or multiple Diagnosis Code(s): --- Professional --- D12.3, Benign neoplasm of transverse colon (hepatic flexure or splenic flexure) D12.2, Benign neoplasm of ascending colon D12.4, Benign neoplasm of descending colon Z86.010, Personal history of colonic polyps K57.30, Diverticulosis of large intestine without perforation or abscess without bleeding CPT copyright 2018 [employer]. All rights reserved. The codes documented in this report are preliminary and upon men's swim coach review may be revised to meet current compliance requirements. Krishna Foster MD 11/28/2020 10:20:34 AM Number of Addenda: 0 Estimated Blood Loss: Estimated blood loss: none. Krishna Foster MD GI PROCEDURE ORDERABL ES Final Result from Last 3 Months or Most Recently Relevant to Health [place] [address] [facility] [id number] * Guarantor: Nathan Moscoso Jr. Account Type Relation to Patient Date of Phone Billing Address Personal/Family Self 1945 [address] [place] [address] Advance Directives For more information, please contact: [phone] * Full Code (Latest Code Status on File) Date Activated Date Inactivated Comments 11/28/2020 9:10 AM 11/28/2020 12:48 PM * Full Code Date Activated Date Inactivated Comments 02/12/2019 11:45 AM 02/12/2019 4:55 PM * Full Code Date Activated Date Inactivated Comments 10/30/2013 2:27 PM 10/31/2013 3:06 PM * Full Code Date Activated Date Inactivated Comments 03/17/2013 5:33 PM 03/20/2013 11:31 AM Care Teams Paste Up Artist Relationship Specialty Start Date End Date Galileo Kiser MD PCP - General Family Practice 04/02/16
--- OUTSIDE RECORDS SUMMARY | 2025-01-27 10:14 | XMS_ITS | Encounter Summary ---
Author Organization [facility] Address 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
--- OUTSIDE RECORDS SUMMARY | 2025-01-27 10:14 | XMS_ITS | Encounter Summary ---
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
--- OUTSIDE RECORDS SUMMARY | 2025-01-27 10:14 | XMS_ITS | Encounter Summary ---
Author Organization [facility] Address [address] [place] [address] Care Team Providers Care Foot Worker Name Role Phone Galileo Kiser MD Primary Care Provider [phone] Encounter Details Date Type Department Care Team (Latest Contact Info) Description 10/10/[address] 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
--- OUTSIDE RECORDS SUMMARY | 2025-01-27 10:14 | XMS_ITS | Encounter Summary ---
Author Organization [facility] Address 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
--- OUTSIDE RECORDS SUMMARY | 2025-01-27 10:14 | XMS_ITS | Encounter Summary ---
Author Organization [facility] Address 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
== END 2024-11-18 10:10 ==
LOC: ANHPFT 01-27 10:09
PROVIDERS: PCP Internal Medicine; Visit Provider Nurse Practitioner
DX: J47.9 Bronchiectasis, uncomplicated (principal)
CPT/HCPCS: 94618

== ENCOUNTER 2025-04-22 17:53 | Emergency (ER) | payer MEDICARE, MEDICAID, SELFPAY ==
--- NOTE | ~2025-04-22 | CT_ITS ---
CT HEAD NON-CONTRAST Clinical History: head injury Comparison: None Technique: Unenhanced axial images skull base to vertex Coronal, sagittal reformats CT images acquired with automatic exposure control for dose reduction DLP: 757 mGy-cm Findings: Sulci, ventricles: Unremarkable. No intracerebral hemorrhage. No evidence acute territorial infarct. No mass effect, midline shift. Bony calvarium intact. Visualized paranasal sinuses: Diffuse mucosal thickening. Right maxillary retention cyst. Mastoid air cells: Clear. IMPRESSION: 1. No acute intracranial findings. Reviewed, dictated and finalized at location R.
--- OUTSIDE RECORDS SUMMARY | 2025-04-22 17:56 | XMS_ITS | Encounter Summary ---
Author Organization [facility] Address 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
--- OUTSIDE RECORDS SUMMARY | 2025-04-22 17:56 | XMS_ITS | Encounter Summary ---
Author Organization [facility] Address 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
--- OUTSIDE RECORDS SUMMARY | 2025-04-22 17:56 | XMS_ITS | Encounter Summary ---
Author Organization [facility] Address 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
--- OUTSIDE RECORDS SUMMARY | 2025-04-22 17:56 | XMS_ITS | Encounter Summary ---
Author Organization [facility] Address 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
--- OUTSIDE RECORDS SUMMARY | 2025-04-22 17:56 | XMS_ITS | Data Portability ---
Author Organization [place] - [facility], DISP_HR Vascular Address [address] [place] [address] Care Team Providers Care Electric Motor Mechanic Name Role Phone XOCHILT VANEGAS Primary Care Provider [phone] XOCHILT VANEGAS Referring Provider [phone] EVERARDO YOUNG Orthopedic Surgeon [phone] XOCHILT VANEGAS Primary Care Provider [phone] Assessment No assessment recorded. Plan of Treatment [...] program, Theraputt y exercises . 2023 024 [facility] [place], [address], [place], [address], 03/19/2024 11:17:28 Procedures None recorded. Surgeries None recorded. Imaging XR, thumb - Right Thumb 2024 025 [facility], [address] [place] [address] 162, [place], [address], 11/12/2024 18:16:16 Medication Orders None recorded. Patient TargetsNo targets recorded. Patient InstructionsNo instructions recorded. Reason for Referral Physical Therapist Referral for Arthritis of first carpometacarpal joint of left hand S/P Left CMC Arthroplasty- 1-2 times a week for 1-2 weeks- ROM, stretching, strengthening, Home exercise program, Theraputty exercises. Referring Physician: Eevrardo Young, Orthopedic Surgery, Encounter Date: 03/18/2024 Results Created Date Observation Date Name Description Value Unit Range Abnormal Flag Note LastModifiedBy Organization Detail LastModifiedTime 03/18/20 24 03/18/2024 XR, hand, 3 or more view No observ ation record ed. [facility] [place] [address] [place], [address], 03/18/2024 13:47:13 10/12/1910/11/2024 sp fluor o 1 hour [place] [facility] [address] [address] KARO Elizabeth REPORT Name: NATHAN BAKER Room #: : 1945 Accoun t #: [id number] Bed #: Age: 78 Years Patien t Type: Outpat ient Order Date/T andrew: 2024 11:31: 01 AM Sex: M Access ion#: Exam Descri ption: Exam Reason : [id number] SP FLUORO 1 HOUR R thumb CMC arthro plasty Dictat ed By: Sharon Zabala rd Physic anna: EVERARDO YOUNG Attend [facility] Physic anna: EVERARDO YOUNG Primar y [...] OR/pro cedure room by the surgeo n/supe rvgarret landrum physic anna. Electr onical ly signed by: Sharon Zabala rd, MD 2024 02:48 PM CDT RP Workst ation: 109-04 [id number] PAGE 1 OF 1 [facility] [address] [place] [address], [address], 10/11/2024 16:34:32 11/13/19 25 11/12/2024 XR, thumb No observ ation record ed. [facility] [address], [place], [address], 11/25/2024 14:33:57 Result Notes None recorded. Problems Name Problem SNOMED Code Status Onset Date Resolution Date Notes Provider Name and Address Organization Details Recorded Time Hyperchole sterolemia 79384503 Active 2020 Not Available [facility] 3 05:21:56 Chronic obstructiv e pulmonary disease 32288253 Active 2020 Not Available [facility] 3 05:21:56 History of malignant neoplasm 934267872 Active 2020 Not Available [facility] 3 05:21:56 Hypertensi ve disorder 70187475 Active 2020 Not Available [facility] 3 05:21:57 Hypothyroi dism 97155767 Active 2020 Not Available [facility] 3 05:21:57 Prediabete s 749003088 Active 2020 Not Available [facility] 3 05:21:58 History of squamous cell carcinoma in situ 9562701688208 5 Active 2020 Not Available [facility] 3 05:21:58 Coronary arterioscl erosis 86198117 Active 2021 Not Available [facility] 3 05:21:57 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 275802916 Active 2021 Not Available [facility] 3 05:21:57 Copious sputum 634937776 Active 2021 Not Available [facility] 3 05:21:56 Dyspnea on exertion 62805629 Active 2021 Not Available [facility] 3 05:21:57 Chronic cough 46512064 Active 2021 Not Available [facility] 3 05:21:58 Bacterial infection caused by Serratia 78622961 Active 2021 Not Available [facility] 3 05:21:58 Rajni, not Rajni albicans 131885345 Active 2021 Not Available [facility] 3 05:21:57 Bacterial infection caused by Klebsiella pneumoniae 295155318 Active 2021 Not Available [facility] 3 05:21:56 At increased risk for aspiration 047767557 Active 2021 Not Available [facility] 3 05:21:56 Anti-nucle ar factor detected 882836349 Active 2021 Not Available [facility] 3 05:21:56 Esophageal dysmotilit y 857577093 Active 2021 Not Available [facility] 3 05:21:56 Abdominal mass 858043124 Active 2021 Not Available [facility] 3 05:21:56 Postobstru ctive pneumonia 156055458 Active 2021 Not Available [facility] 3 05:21:56 Dysphagia 34352412 Active 2021 Not Available [facility] 3 05:21:57 Obstructiv e sleep apnea syndrome 86463552 Active 2022 Not Available [facility] 3 05:21:58 Pain of bilateral hands 6496153850335 9109 Active 2023 Dori meza, [facility] 4 10:40:04 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 4947232120096 100 [place] 2023 [place] [address] [place] [address], [address] , [facility] 4 14:28:46 Pain of left hand 1919757437328 03 Active 2023 Devin Saul null, [facility] 4 12:15:26 Arthritis of first carpometac arpal joint of left hand 1302731541472 103 Active 2023 [place] [address] [place] [address], [address] , [facility] 12:41:10 Notes:Medical History: Laryn geal penetration Hypothyroidism Hyperlipidemia Hypertension EF 55% Prediabetes Mild TR CAD 4.1 cm ascending thoracic aortic ectasia Moderate COPD LLL 6.7 mm pulm nodule Asbestos exposure 2374-0622 Mild splenomegaly Left 7.7 cm renal cyst Procedure History: 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 Procedures Surgical History Date Name Laterality Status Provider Name and Address Organization Details Recorded Time 10/12/19 25 Transplant hand tendon completed Dori Peck [facility] 10/11/2024 12:03:07 07/21/19 21 colonoscopic polypectomy completed Dori Peck [facility] 01/02/2024 10:53:20 07/21/19 19 bilateral cataract extraction completed Dori Peck [facility] 01/02/2024 10:53:33 07/21/19 16 colonoscopic polypectomy completed Dori Peck [facility] 01/02/2024 10:53:14 07/21/18 92 tonsillectomy completed Dori Peck [facility] 01/02/2024 10:52:37 07/21/18 92 colonoscopic polypectomy completed Dorikate Peck [facility] 01/02/2024 10:53:08 Imaging Results None recorded. Procedure Notes None recorded. Medical Equipment None Reported. Allergies Allergen ID Allergen Name Allergen Category Reaction Reaction Severity Criticality Documentation Date Start Date Code Code System Note Provider Name and Address Organization Details Recorded Time 534460 bacitraci n / neomycin / polymyxin B medicatio n Not available Not available Not available 07/28/2022 59192 9 RxNorm Not Available [facility] 3 05:22:40 Medications Name Sig Start [...] completed Not Available Not Available Not Available [facility] [employer] Ultra Test strips TEST DAILY 06/24 completed [...] Updated DateTime 5 182.88 cm 23.1 kg/m2 67545.7 g 65 /min 93 % 93 % 148/85 mm[Hg] [facility] 5 12:04:52 Date Recorded Body height Body mass index (BMI) Body weight Heart rate Oxygen saturation Oxygen saturation in Arterial blood by Pulse oximetry Systolic And Diastolic Provider Name and Address Organization Details Last Updated DateTime 5 182.88 cm 23.1 kg/m2 98604.7 g 70 /min 94 % 94 % 148/78 mm[Hg] [facility] 5 09:48:19 Date Recorded Body height Body mass index (BMI) Body weight Heart rate Oxygen saturation Oxygen saturation in Arterial blood by Pulse oximetry Systolic And Diastolic Provider Name and Address Organization Details Last Updated DateTime 5 182.88 cm 23.6 kg/m2 57894.0 7 g 73 /min 90 % 90 % 136/84 mm[Hg] [facility] 5 09:03:36 Date Recorded Body height Body mass index (BMI) Body weight Heart rate Oxygen saturation Oxygen saturation in Arterial blood by Pulse oximetry Systolic And Diastolic Provider Name and Address Organization Details Last Updated DateTime 4 182.88 cm 24.3 kg/m2 59465.0 3 g 58 /min 93 % 93 % 148/86 mm[Hg] [facility] 4 11:39:25 Date Recorded Body height Body mass index (BMI) Body weight Heart rate Oxygen saturation Oxygen saturation in Arterial blood by Pulse oximetry Systolic And Diastolic Provider Name and Address Organization Details Last Updated DateTime 4 182.88 cm 23.7 kg/m2 00478.6 6 g 61 /min 95 % 95 % 150/82 mm[Hg] [facility] 4 12:08:36 Social History Question Answer Notes LastModified by Organizat ion Details LastModified Time Tobacco Smoking Status Former Smoker Not Available [facility] 07/28/2022 05:21:14 What Is Your Level Of Caffeine Consumption? Moderate Coffee, 2-3 Cups Per Day MIGRATION.89650 [id number] Information not available 07/28/2022 In The 14 Days Before Symptom Onset, Have You Had Close Contact With A Laboratory-confir med COVID-19 While That Case Was Ill? No MIGRATION.83862 78497 Information not available 07/28/2022 In The 14 Days Before Symptom Onset, Have You Had Close Contact With A Person Who Is Under Investigation For COVID-19 While That Person Was Ill? No MIGRATION.94231 35508 Information not available 07/28/2022 What Type Of Diet Are You Following? SPECIFIC Ensure - Equate Diabetic Care Chocolte - Needs Rx For 6 Cases A Month MIGRATION.70644 12298 Information not available 07/28/2022 When Did You Quit Smoking? 17+yearssinc elastcigaret te MIGRATION.18584 98714 Information not available 07/28/2022 What Was The Date Of Your Most Recent Tobacco Screening? 09/30/2024 Information not available 08/23/2024 What Is Your Current Pack Years? 20-29packyea rs Information not available 01/08/2024 At What Age Did You Start Smoking Tobacco? 10 MIGRATION.28173 07934 Information not available 07/28/2022 How Much Tobacco Do You Smoke? 1 PPW Information not available 01/08/2024 Has Tobacco Cessation Counseling Been Provided? No MIGRATION.80543 09850 Information not available 07/28/2022 How Many Years Have You Smoked Tobacco? 20 MIGRATION.22079 05974 Information not available 07/28/2022 Have You Recently Traveled Abroad? No MIGRATION.34435 42363 Information not available 07/28/2022 Sex: Male Functional Status Question Answer Note LastModified by Organizat ion Details LastModified Time Do you use any illicit or recreational drugs? No MIGRATION.17369746 00 Information not available 07/28/2022 Do you or have you ever used any other forms of tobacco or nicotine? No MIGRATION.75380449 00 Information not available 07/28/2022 What is your level of alcohol consumption? None MIGRATION.90210365 00 Information not available 07/28/2022 Mental Status None recorded. Family History Relationship Description Onset Age of this Age Resolved Age Notes LastModified by Organization Details LastModified Time Unspecified Relation Hypertensive disorder MIGRATION.232 [id number] Not available 07/28/2022 05:21:18 Unspecified Relation Myocardial infarction MIGRATION.636 5272009 Not available 07/28/2022 05:21:18 Unspecified Relation Cerebrovascu lar accident MIGRATION.962 [id number] Not available 07/28/2022 05:21:18 Unspecified Relation Family history of malignant neoplasm MIGRATION.761 [id number] Not available 07/28/2022 05:21:18 Unspecified Relation Kidney disease MIGRATION.605 [id number] Not available 07/28/2022 05:21:18 Medical History Condition Response CANCER: SPECIFY Y SLEEP DISORDER Y HYPERTENSION Y COPD Y HIGH CHOLESTEROL / HYPERLIPIDEMIA Y Immunizations Vaccine Type Date Status Note Provider Nam e and Address Organization Details Recorded Time Influenza, high-dose, quadrivalent, PF 04/11/2021 completed Not Available [facility] 05:22:38 Past Encounters Encounter ID Performer Location Encounter Start Date Encounter Closed Date Diagnosis/Indication Diagnosis SNOMED-CT Code Diagnosis ICD10 Code Diagnosis IMO Codes Diagnosis Note [id number] _ATHN_MIGR ATION_5 _ATHENA_M IGRATION_ DEFAULT_1 _5 , 04/11/2021 00:00:00 04/11/2021 12:28:30 [id number] _ATHN_MIGR ATION_5 _ATHENA_M IGRATION_ DEFAULT_1 _5 , 04/23/2021 00:00:00 04/23/2021 08:23:44 [id number] _ATHN_MIGR ATION_5 _ATHENA_M IGRATION_ DEFAULT_1 _5 , 07/11/2021 00:00:00 07/11/2021 14:25:18 [id number] _ATHN_MIGR ATION_5 _ATHENA_M IGRATION_ DEFAULT_1 _5 , 10/08/2021 00:00:00 10/08/2021 10:43:12 [id number] _ATHN_MIGR ATION_5 _ATHENA_M IGRATION_ DEFAULT_1 _5 , 10/22/2021 00:00:00 10/22/2021 15:59:59 [id number] _ATHN_MIGR ATION_5 _ATHENA_M IGRATION_ DEFAULT_1 _5 , 10/31/2021 00:00:00 10/31/2021 15:34:00 [id number] _ATHN_MIGR ATION_5 _ATHENA_M IGRATION_ DEFAULT_1 _5 , 01/09/2022 00:00:00 01/09/2022 16:25:51 [id number] _ATHN_MIGR ATION_5 _ATHENA_M IGRATION_ DEFAULT_1 _5 , 01/23/2022 00:00:00 01/23/2022 11:53:40 [id number] _ATHN_MIGR ATION_5 _ATHENA_M IGRATION_ DEFAULT_1 _5 , 02/22/2022 00:00:00 02/22/2022 11:41:06 [id number] _ATHN_MIGR ATION_5 _ATHENA_M IGRATION_ DEFAULT_1 _5 , 03/12/2022 00:00:00 03/12/2022 16:14:51 [id number] _ATHN_MIGR ATION_5 _ATHENA_M IGRATION_ DEFAULT_1 _5 , 04/01/2022 00:00:00 04/01/2022 14:04:28 [id number] _ATHN_MIGR ATION_5 _ATHENA_M IGRATION_ DEFAULT_1 _5 , 05/09/2022 00:00:00 05/09/2022 17:01:04 [id number] _ATHN_MIGR ATION_5 _ATHENA_M IGRATION_ DEFAULT_1 _5 , 05/24/2022 00:00:00 05/24/2022 12:11:11 [id number] _ATHN_MIGR ATION_5 _ATHENA_M IGRATION_ DEFAULT_1 _5 , 06/11/2022 00:00:00 06/11/2022 14:19:12 [id number] _ATHN_MIGR ATION_5 _ATHENA_M IGRATION_ DEFAULT_1 _5 , 06/21/2022 00:00:00 06/21/2022 11:55:31 [id number] _ATHN_MIGR ATION_5 _ATHENA_M IGRATION_ DEFAULT_1 _5 , 07/01/2022 00:00:00 07/01/2022 12:38:24 [id number] Everardo Young MD DISP[facility] [address] 01/08/2024 10:53:46 01/08/2024 12:43:50 Ex-smoker 3599335 Z87.891 Arthritis of first carpometacarpal joint of right hand 7506802437 909556 M13.841 patient has done bracing. Patient has [...] working in. Pain of bi lateral hands 3650362781 6142796 M79.641 M79.468 [id number] Everardo Young MD [facility] [address] [address] 02/26/2024 10:58:53 02/26/2024 12:26:10 Pain of bilateral hands 4840173450 8902320 M79.641 M79.642 Ex-cigarette smoker 2810 61533 Z87.891 Pain of left hand 840830 5979 18180 M79.642 Arthritis of first carpometacarpal joint of left hand 1627409171 416240 M13.842 remove sutures. Put him in a well fitted left thumb protective brace to use for 1 month. He can use his fingers but still no loading or pinching against the thumb. See him back in 3 or 4 weeks for AP lateral oblique views of his left hand out of the brace. We will start therapy after that. [id number] Everardo Young MD [facility] [address] [address] 03/18/2024 10:43:58 03/18/2024 12:04:33 Arthritis of first carpometacarpal joint of left hand 6927455882 250891 M13.842 patient will go to therapy now to work on range of motion strengthen ing see him back in a few months for follow-up he can discontinu e the brace Pain of left hand 625505 5273 52884 M79.642 Ex-cigarette smoker 2810 39791 Z87.557 [id number] Everardo Young MD [facility] [address] [address] 07/01/2024 11:52:32 07/01/2024 12:45:39 Arthritis of first carpometacarpal joint of left hand 7219929067 955223 M13.842 patient will continue with strengthen ing exercises for the left hand. We will see him back in a few months to discuss potentiall y doing the CMC arthroplas ty on the right. Ex-cigarette smoker 2809 Z87.459 [id number] Everardo Young MD [facility] [address] [address] 09/30/2024 11:39:48 10/01/2024 03:42:25 Arthritis of first carpometacarpal joint of left hand 5223123431 163718 M13.842 patient will continue with strengthen ing exercises for the left hand. We will see him back in a few months to discuss potentiall y doing the CMC arthroplas ty on the right. Ex-cigarette smoker 281 02005 Z87.891 Arthritis of first carpometacarpal joint of right hand 2510176204 486408 M13.841 patient has done bracing and injections medication and activity modificati on still has severe pain in his right thumb carpometac arpal joint he is ready to proceed with the ligament reconstruc tion tendon interposit ion for the right thumb now that the left thumb is doing nicely and he has gotten his triage nurse and strength back in his left thumb. He understand s the risks, benefits alternativ es wished to proceed with the right thumb surgery now [id number] Everardo Young MD [facility] [address] [address] 10/28/2024 09:38:32 10/28/2024 10:23:49 Arthritis of first carpometacarpal joint of right hand 5453554834 804686 M13.841 remove sutures today. Put him in [...] a home therapy program with [employer] triage nurse and pinch exercises in 4 weeks. Ex-cigarette smoker 2810 10653 Z87.041 [id number] Everardo Young MD [facility] [address] [address] 11/25/2024 08:58:08 11/25/2024 09:25:07 Arthritis of first carpometacarpal joint of left hand 6630359661 078875 M13.842 continue strengthen ing program with the [employer] exercise Arthritis of first carpometacarpal joint of right hand 3068034434 655521 M13.841 he may wean from the brace now most people use it just for heavy activity at this point. Start on the therapy putty strengthen ing exercises I will see him in 6 months Ex-cigarette smoker 2810 21210 Z87.891 Health Concerns Section Related Observation LastModified by Organization Detai ls LastModified Time None Recorded Concern Status LastModified by Organization Details LastModified Time None Recorded Advance Directives Directive None Recorded Payers Insurance Date Sequence Insurance Name Policy Number Policy Reyes Covered Member ID Reyes Member ID Guarantor Name 07/05/2024 1 [facility] (MEDICARE REPLACEMENT/A DVANTAGE - PPO) [id number] Nathan L Danis [id number] Nathan Danis 09/24/2024 2 [place] [facility] PUBLIC AID Nathan L Danis [id number] Nathan Danis 11/26/2024 1 [facility] (MEDICARE REPLACEMENT/A DVANTAGE - HMO) [id number] Nathan L Racine [id number] Nathan Racine 11/25/2024 2 [place] [facility] [place] Nathan Racine [id number] Nathan Racine 07/05/2024 3 [place] Nathan Danis [id number] Nathan Danis Notes Date Note Type Note Provider Name and Address Organization Details Recorded Time 03/18/2024 text/html patient returns today for follow-up he had a left thumb CMC interposition arthroplasty on 02/13/2024 doing well at this point minimal pain and swelling he has been in his protective brace for the last 5 weeks. Everardo Young MD [address] [place], [address], [facility] 03/18/2024 13:38:40 07/01/2024 text/html patient returns today for follow-up he had a left thumb CMC interposition arthroplasty on 02/13/2024 doing well at this point minimal pain and swelling he has been in his protective brace for heavy activity at times only now that he is 5 months postop Everardo Young MD [address], [address], [facility] 07/01/2024 12:32:54 09/30/2024 text/html Patient is several months out now from the left thumb carpometacarpal arthroplasties doing very nicely he is ready to proceed with a right thumb now. Patient has significant pain in that thumb aching constantly with sharp pain any time he tries to triage nurse or pinch with the right hand related to the [id number] arthritis of his right thumb carpometacarpal joint Everardo Young MD [address] [place], [address], [facility] 09/30/2024 12:51:48 10/28/2024 text/html Patient returns today for follow-up he is now 2 weeks postop we did a right thumb ligament reconstruction tendon interposition. Patient's left thumbs been doing well since the surgery several months ago. Had a little bit of pain as is common in the 1st few days doing well now. MD [place], [address], [facility] 10/28/2024 11:40:32 11/25/2024 text/html Patient is doing well after his CMC interposition arthroplasty. [place], [address], [facility] 11/25/2024 09:23:54
--- OUTSIDE RECORDS SUMMARY | 2025-04-22 17:56 | XMS_ITS | Encounter Summary ---
Author Organization [facility] Address 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
--- OUTSIDE RECORDS SUMMARY | 2025-04-22 17:56 | XMS_ITS | Encounter Summary ---
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
--- OUTSIDE RECORDS SUMMARY | 2025-04-22 17:56 | XMS_ITS | Encounter Summary ---
Author Organization [facility] Address 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
--- OUTSIDE RECORDS SUMMARY | 2025-04-22 17:56 | XMS_ITS | Encounter Summary ---
Author Organization [facility] Healthcare Address [address] [place] [address] Care Team Providers Care Merchandise Support Associate Name Role Phone Ursula Bergeron NP Primary Care Provider Encounter Details Date Type Department Care Team (Late st Contact Info) Description 04/08/2025 Results Follow-Up [facility] Pulmonary at [address] [place] [address] Kristina Renteria, MAL [address] [place] [address] [address] [place] [address] CBC with auto differential, Differential, auto Social History Tobacco Use Types Packs/Day Years Used Date Smoking Tobacco: Former Cigarettes 0.5 18 1 958 - 1975 Passive Smoke Exposure: Past Smokeless Tobacco: Never AUDIT-C Answer Date Recorded Frequency of Alcohol Consumption Not on file 04/07/2025 Q2: How many drinks containi ng alcohol do you have on a typical day when you are drinking? Patient does not drink Frequency of Binge Drinking Not on file 03/21 Personal Safety Answer Date Recorded Have you ever been in or are you currently in a harmful physical or emotional relationship or is someone making you feel afraid or unsafe? 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
--- OUTSIDE RECORDS SUMMARY | 2025-04-22 17:57 | XMS_ITS | Clinical Summary ---
Author Organization [facility] Medical Office [facility] Address [address] [place] [address] Care Team Providers Care Aircraft Accessories Mechanic Name Role Phone Galileo Kiser MD Primary Care Provider [phone] Allergies Active Allergy Reactions Criticality Noted Date Comments Aixbsylm-Eqshgdpavtn-Wsoazeocb Rash Low 07/26 Medications Food Supplement, Lactose-Free (ENSURE HIGH PROTEIN) Oral Liqd Take 240 mL by mouth q 3 hour. 22796 mL 11 03/29/20 13 Active Additional Information Patient taking differently:240 mL Oral,(No frequency reported), Reported on 08/08/2017 aspirin (CHRISTINA CHEWABLE) 81 mg Tablet, Chewable Take 1 Tab by mouth daily with breakfast. 30 Tab 0 11/01/19 14 Active Miscellaneous Medical Supply Small volume nebulzier 1 Each 1 12/01/19 14 Active montelukast (SINGULAIR) 10 mg tabletIndications: Emphysema of lung Take 1 Tab (10 mg) by mouth [...] Each 01/13/20 20 Active blood sugar diagnostic (RadioRxuch Verio test strips) StripIndications:T ype 2 diabetes mellitus without complication, without long-term current use of insulin Patient to test BG 1 time per day. E11.9 50 Each 5 03/01/20 20 Active lancets (OneTouch Delica Lancets) 30 gaugeIndications:T ype 2 diabetes mellitus without complication, without long-term current use of insulin Patient to test BG 1 time per [...] (112 mcg) by mouth daily. 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 Gender Identity Not on file Sexual Orientation [...] 12/29/2021 12/29/2020, 04/05/2016 LDL CHOLESTEROL ANNUAL 12/29/2021 1, 07/28/2020, 07/20/2019, Additional history exists DIABETES ANNUAL RETINAL EXAM 03/29/202203/2021, 03/29/2021, 03/29/2021, Additional history exists COLORECTAL SCREENING 11/29/2023 11/28/2020, 11/28/2020, 02/12/2019, Additional history exists INFLUENZA VACCINE (#1) 2025 0, 07/20/2019, 04/20/2019, Additional history exists COVID-19 Vaccine ( - 2024-2 6 season) 2025 09/27/2020 DTAP/TDAP/TD VACCINES (2 - T d or Tdap) 09/28/2029 09/29/2019 Medical Devices Implanted Type Area Forge Shop Supervisor Device Identifier Shelf Expiration Date Model / Serial / Lot Clip Endo Resolution 360 235cm [id number] - [id number] Implanted:Qty: 2 on 02/12/2019 by Krishna Foster MD at [facility] Clip N/A: Perianal [employer] [id number] / / Lens Io Sn60wf 21.0 - [id number] Implanted:Qty: 1 on 02/19/2021 by Polo Huang MD at [facility] Patients First Eye Right: Eye [employer] [id number] 10/20/2025 SN60WF .21 0 / [id number] / Lens Io Sn60wf 21.5 - [id number] Implanted:Qty: 1 on 03/05/2021 by Polo Huang MD at [facility] Patients [employer] Eye Left: Eye [employer] [id number] 10/23/2025 SN60WF .21 5 / [id number] / [id number] Procedures Procedure Name Priority Date/Time Associated Diagnosis Comments MICROALBUMIN/CREATIN INE RATIO, RANDOM UR Routine 12/29/2020 2:34 PM CDT Type 2 diabetes mellitus without complication, without long-term current use of insulin ([facility]) Essential hypertension LIPID PANEL Routine 12/29/2020 2:34 PM CDT Essential hypertension HEMOGLOBIN A1C Routine 12/29/2020 2:34 PM CDT Type 2 diabetes mellitus without complication, without long-term current use of insulin ([facility]) COLONOSCOPY REPORT 11/28/2020 10 :22 AM CDT from Last 3 Months or Most Recently Relevant to Health Maintenance Results * MICROALBUMIN/CREATININE RATIO, RANDOM UR (12/29/2020 2:34 PM CDT) Pathologist [facility] Creatinine, Urine 207 20 - 320 mg/dL [facility] MICROALBUMIN, URINE 1.3 See Note: mg/dL [facility] Comment: Reference Range: Reference Range Not established MICROALBUMIN/CREAT RATIO, UR 6 <30 mcg/mg creat [facility] Comment: The ADA defines abnormalities in albumin excretion as follows: Category Result (mcg/mg creatinine) Normal <30 Microalbuminuria 30-299 Clinical albuminuria > OR = 300 The ADA recommends that at least two of three specimens collected within a 3-6 month period be abnormal before considering a patient to be within a diagnostic category. Test Performed at: [facility] [address] [place] [address] Marcello Yoo D.O., MPH Urine URINE SPECIMEN OBTAINED BY CLEAN CATCH PROCEDURE / Unknown 12/29/2020 2:34 PM CDT Galileo Kiser MD URINE ORDERABLES Final Result Performing Organization Address [facility] Co de Phone Number [facility] [address] [place] [address] * HEMOGLOBIN A1C (12/29/2020 2:34 PM CDT) [facility] HEMOGLOBIN A1C 5.1 <5.7 % of total Hgb [facility] Comment: Test Performed at: [facility] [address] [place] [address] [facility]ona[facility]jali[facility] Blood 12/29/2020 2:34 PM CDT Galileo Kiser MD CHEMISTRY ORDERABLES Final Re sult Performing Organization Address [facility]/ZIP Co de Phone Number [facility] [address] [place] [address] * LIPID PANEL (12/29/2020 2:34 PM CDT) [facility] CHOLESTEROL 147 <200 mg/dL [facility] HDL 52 > OR = 40 mg/dL [facility] TRIGLYCERIDE 117 <150 mg/dL [facility] LDL CALCULATED 75 mg/dL (calc) [facility] Comment: Reference range: <100 Desirable range <100 mg/dL for primary prevention; <70 mg/dL for patients with CHD or diabetic patients with > or = 2 CHD risk factors. LDL-C is now calculated using the Jam calculation, which is a validated novel method providing better accuracy than the Friedewald equation in the estimation of LDL-C. Sulaiman KWOK et al. PAVAN. 2013;310(19): 9827-5936 (http://education.Tealet.OvaScience/faq/CAA992) CHOL/HDL RATIO 2.8 <5.0 (calc) [facility] TOTAL NON-HDL CHOL(LDL+VLDL) 95 <130 mg/dL (calc) [facility] Comment: For patients with diabetes plus 1 major ASCVD risk factor, treating to a non-HDL-C goal of <100 mg/dL (LDL-C of <70 mg/dL) is considered a therapeutic option. Test Performed at: [facility] [address] [place] [address] Rona-Fadia [facility] Blood 12/29/2020 2:34 PM CDT us Galileo Kiser MD CHEMISTRY ORDERABLES Final Re sult [facility] [address] [place] [address] * COLONOSCOPY REPORT (11/28/2020 10:22 AM CDT) Narrative Procedure Note Krishna Foster MD - 11/28/2020 10:20 AM CDT [facility] GI Patient Name: Nathan Moscoso Procedure [...] bowel preparation was evaluated using the BBPS ([place] Bowel Preparation Scale) with scores of: Right [...] surveillance based on pathology results. - A OMG message and/or a letter will be sent to you summarizing the pathology results. Please call the GI office ([phone]) if you have not heard the results within 2 weeks. - Goal intake of 25-30 grams of fiber per day. This is a combination of dietary fiber (located on product food label) as well as supplemental fiber (for example Citrucel, Fibercon, Konsyl or Metamucil) if needed. Procedure Code(s): --- Professional --- 07461, Colonoscopy, flexible; with removal of tumor(s), polyp(s), or other lesion(s) by snare technique 37675, 59, Colonoscopy, flexible; with biopsy, single or multiple Diagnosis Code(s): --- Professional --- D12.3, Benign neoplasm of transverse colon (hepatic flexure or splenic flexure) D12.2, Benign neoplasm of ascending colon D12.4, Benign neoplasm of descending colon Z86.010, Personal history of colonic polyps K57.30, Diverticulosis of large intestine without perforation or abscess without bleeding CPT copyright 2018 [employer]. All rights reserved. The codes documented in this report are preliminary and upon tin flopper review may be revised to meet current compliance requirements. Krishna Foster MD 11/28/2020 10:20:34 AM Number of Addenda: 0 Estimated Blood Loss: Estimated blood loss: none. Krishna Foster MD GI PROCEDURE ORDERABL ES Final Result from Last 3 Months or Most Recently Relevant to Health Maintenance Insurance [address] [place] [address] [facility] [id number] * Guarantor: Nathan Moscoso Jr. Account Type Relation to Patient Date of Phone Billing Address Personal/Family Self 1945 [address] [place] [address] Advance Directives For more information, please contact: [phone] * Full Code (Latest Code Status on File) Date Activated Date Inactivated Comments 11/28/2020 9:10 AM 11/28/2020 12:48 PM * Full Code Date Activated Date Inactivated Comments 02/12/2019 11:45 AM 02/12/2019 4:55 PM * Full Code Date Activated Date Inactivated Comments 10/30/2013 2:27 PM 10/31/2013 3:06 PM * Full Code Date Activated Date Inactivated Comments 03/17/2013 5:33 PM 03/20/2013 11:31 AM Care Teams Aircraft Accessories Mechanic Relationship Specialty Start Date End Date Galileo Kiser MD PCP - General Family Practice 04/02/16
--- OUTSIDE RECORDS SUMMARY | 2025-04-22 17:57 | XMS_ITS | Data Portability ---
Author Organization [place] [facility], Main Office Address [address] [place] [address] Care Team Providers Care Brokerage Branch Manager Name Role Phone XOCHILT VANEGAS Primary Care [...] Follow up p.r.n. Not available 05/27/2024 11:09:13 02/21/2025 02/21/2025 08/26/2024: BUN 29 [email or web address] Not available 02/13/2025 14:17:09 Plan of Treatment Reminders Order Date Submit Date Provider Last Modified By Organization Details Last Modified Time Details Appointments Follow Up 15 2024 02:30P M Justin jeffries MD Not available Not available Not available Lab vitamin D, 25-hydrox y, total, serum 2024 025 [email or web address] [facility], [address] [facility], [place], [address], 03/07/2025 11:00:24 CMP, serum or plasma 2024 025 [email or web address], [address], [place], [address], 03/07/2025 10:59:33 lipid panel, serum 2024 025 [place] [address] [facility], [address], [place], [address], 03/07/2025 10:59:44 CBC w/ auto diff 2024 025 [place] [address] [facility], [address], [place], [address], 03/07/2025 10:59:54 TSH, serum or plasma 2024 025 [place] [address] [facility], [address], [place], [address], 03/07/2025 11:00:04 T4, free, serum 2024 025 [place] [address] [facility], [address], [place], [address], 03/07/2025 11:00:15 CMP, serum or plasma 2024 025 [facility], [address], [place], [address], 08/26/2024 22:26:30 lipid panel, serum 2024 025 [facility], [address], [place], [address], 08/26/2024 22:26:28 CBC w/ auto diff 2024 025 [facility], [address], [place], [address], 08/26/2024 22:26:31 TSH, serum or plasma 2024 025 [facility], [address] , [place], [address], 08/26/2024 22:26:33 Referral cardiolog ist referral - Please call patient to schedule an appointme nt. Thank you. 2024 025 [place], [address], [address], [place], [address], 02/28/2025 10:53:04 cardiolog ist referral - Please call patient to schedule an appointme nt. Thank you. 2024 025 [place], [address], [address], [place], [address], 10/25/2024 11:19:36 pulmonolo gist referral - Please call patient to schedule an appointme nt. Thank you. 2024 025 ROE Renteria [facility], [address] [facility], [address], [place], [address], 09/08/2024 12:49:49 Procedures None recorded. Surgeries None recorded. Imaging None recorded. Medication Orders amoxicill in 400 mg-potass ium clavulana te 57 mg/5 mL oral suspensio n 2024 blessing [facility] [address], [address], [place], [address], 02/21/2025 15:12:54 Patient TargetsNo targets recorded. Patient InstructionsNo instructions recorded. 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 Thank you. Referring Physician: Justin Jane, Internal Medicine, Encounter Date: 08/25/2024 Supervisor Plastics Referral for Es sential hypertension Please call patient to schedule an appointment. Thank you. Referring Physician: Justin Jane, Internal Medicine, Encounter Date: 08/25/2024 Super[employer] Referral for Es sential hypertension Please call patient to schedule an appointment. Thank you. Referring Physician: Justin Jane, Internal Medicine, Encounter Date: 02/21/2025 Results Created Date Observation Date Name Description Value Unit Range Abnormal Flag Note LastModifiedBy Organization Detail LastModifiedTime 03/18/20 24 XR, hand, 3 or more view [facility] [address] [place] [address] Patien t Name: NATHAN MOSCOSO Access ion #: [id number] Sex: M : 1945 1 8 Dictat ed By: Lizzie Suarez Attend ing Physic anna: EVERARDO ABREU Orderi jeffry Physic anna: EVERARDO ABREU Exam Date: 2023 [...] at 2023 10:36: 21 AM Page 1 [facility] (Imaging) [address] [place], [address], 04/07/2024 10:39:49 03/18/20 24 03/18/2024 XR, hand, 3 or more view No observ ation record ed. [email or web address] [facility] [address] [place], [address], 03/31/2024 15:18:43 10/20/19 25 10/19/2024 imagi ng/di everardoos tic resul t No observ ation record ed. [address], [place], [address], 10/19/2024 18:30:23 11/01/19 25 10/30/2024 imagi ng/di agnos tic resul t No observ ation record ed. [address], [place], [address], 10/31/2024 10:03:38 11/12/19 25 pulmo nary funct ion test* No observ ation record ed. [email or web address] Not Available 10/20 14:10:01 11/13/19 25 11/12/2024 imagi ng/di agnos tic resul t No observ ation record ed. [address], [place], [address], 11/12/2024 16:21:28 12/03/19 25 11/18/2024 imagi ng/di agnos tic resul t No observ ation record ed. [email or web address] [facility], [place], [address], 12/14/2024 10:13:26 12/15/19 25 12/14/2024 imagi ng/di agnos tic resul t No observ ation record ed. [facility] [address] [address], [place], [address], 12/14/2024 14:22:50 12/15/19 25 12/14/2024 imagi ng/di agnos tic resul t No observ ation record ed. [email or web address] [place] [address] [facility] [address], [place], [address], 01/10/2025 16:10:54 12/15/19 25 12/14/2024 imagi ng/di agnos tic resul t No observ ation record ed. [facility] [address], [place], [address], 12/14/2024 14:35:37 Result Notes None recorded. Problems Name Problem SNOMED Code Status Onset Date Resolution Date Notes Provider Name and Address Organization Details Recorded Time Hyperchole sterolemia 91292847 Active 2020 Not Available [facility] 4 22:23:27 Chronic obstructiv e pulmonary disease 98120746 Active 2020 Not Available [facility] 4 22:23:27 History of malignant neoplasm 411389378 Active 2020 Not Available [facility] 4 22:23:27 Hypertensi ve disorder 50428665 Active 2020 Not Available [facility] 4 22:23:27 Hypothyroi dism 49107953 Active 2020 Not Available [facility] 4 22:23:28 Prediabete s 207584014 Active 2020 Not Available [facility] 4 22:23:28 History of squamous cell carcinoma in situ 8456281462826 5 Active 2020 Not Available [facility] 4 22:23:28 Coronary arterioscl erosis 49540842 Active 2021 Not Available [facility] 4 22:23:28 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 933384163 Active 2021 Not Available [facility] 4 22:23:27 Copious sputum 489521872 Active 2021 Not Available [facility] 4 22:23:27 Dyspnea on exertion 98620601 Active 2021 Not Available [facility] 4 22:23:28 Chronic cough 57620051 Active 2021 Not Available [facility] 4 22:23:28 Bacterial infection caused by Serratia 50378621 Active 2021 Not Available [facility] 4 22:23:28 Rajni, not Rajni albicans 730004473 Active 2021 Not Available [facility] 4 22:23:28 Bacterial infection caused by Klebsiella pneumoniae 873967144 Active 2021 Not Available [facility] 4 22:23:27 At increased risk for aspiration 964807440 Active 2021 Not Available [facility] 4 22:23:27 Anti-nucle ar factor detected 065446362 Active 2021 Not Available [facility] 4 22:23:27 Esophageal dysmotilit y 307405141 Active 2021 Not Available [facility] 4 22:23:27 Abdominal mass 461412279 Active 2021 Not Available [facility] 4 22:23:27 Postobstru ctive pneumonia 624474904 Active 2021 Not Available [facility] 4 22:23:27 Dysphagia 07197147 Active 2021 Not Available [facility] 4 22:23:28 Obstructiv e sleep apnea syndrome 31749984 Active 2022 Not Available [facility] 4 22:23:28 Thick sputum 126026141 Active 2022 Not Available [facility] 4 22:23:27 Severe chronic obstructiv e pulmonary disease 237099230 Active 2022 Not Available [facility] 4 22:23:27 Solitary nodule of lung 064187027 Active 2022 Not Available [facility] 4 22:23:28 Hyperlipid emia 73869888 Active 2022 Not Available [facility] 4 22:23:28 Insomnia 303462517 Active 2022 Not Available [facility] 4 22:23:27 Pain of bilateral hands 1061356270892 9109 Active 2022 Not Available [facility] 4 22:23:27 Osteoarthr osis of the carpometac arpal joint of the thumb 57594674 Active 2022 Not Available [facility] 4 22:23:27 Bilateral pain of joint of hands 4511105725614 9102 Active 2022 Not Available [facility] 4 22:23:27 Abnormal findings on diagnostic imaging of lung 389825000 Active 2022 Not Available [facility] 4 22:23:27 Arthritis of bilateral first carpometac arpal joints 8032645579292 102 Active 2022 Not Available [facility] 4 22:23:27 Pain of left hand 8552182556793 03 Active 2023 BROOKE Cesar-Rosanna [address], [address], [place], [address] , [facility] 4 22:54:41 Diabetes mellitus 10515148 Active 2023 BROOKE Hernandez-C [address], [address], [place], [address] , [facility] 4 11:30:11 Epidermoid cyst of skin of back 336309320 Active 2023 BROOKE Hernandez-C [address], [address], [place], [address] , [employer] [facility] 4 11:34:05 Epidermoid cyst of skin 877518555 Active 2023 Jim esparza MD [address], [address], [place], [address] , 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 5 12:10:07 Essential hypertensi on 84438075 Active 2024 Justin jarrett MD [address], [address], [place], [address] , [employer] [facility] 5 12:10:17 Esophageal dysphagia 01372649 Active 2024 Justin jarrett MD [address], [place], [address] , [facility] 5 12:13:28 Bunion 791184850 Active 2024 Madhavi Feldman, A null, [facility] 5 12:40:30 Vitamin D below reference range 641576036 Active 2024 Justin jarrett MD [address] 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 Please review these documents and add these problems to the patient's chart manually as needed. Problem Notes None recorded. Procedures Surgical History Date Name Laterality Status Provider Name and Address Organization Details Recorded Time 4 Blank Procedure Note completed Jim Ramirez MD [address] [facility] [place], [address] [address], [place], [address], [facility] [employer] [facility] 05/18/2024 12:28:30 3 Ortho - Cortisone Injection completed Olivier Jackson MD [address] [facility] [place], [facility] [address], [place], [address], [facility] 01/28/2023 14:48:33 other completed Annika Varela MA [facility] 04/15/2024 12:02:59 Imaging Results None recorded. Procedure Notes None recorded. Medical Equipment None Reported. Allergies Allergen ID Allergen Name Allergen Category Reaction Reaction Severity Criticality Documentation Date Start Date Code Code System Note Provider Name and Address Organization Details Recorded Time 48096 bacitraci n / neomycin / polymyxin B medicatio n Not available Not available Not available 09/18/2022 66821 9 RxNorm Not Available [facility] 3 23:31:27 55134 bacitraci n medicatio n Not available Not available Not available 03/29/2024 1291 RxNorm Other react ions and sever ities : 'Adve rse react ion to subst ance - Sever e'. Yoana Rodriguez, FRINGING MACHINE OPERATOR [address] [facility] [place], [address], [place], [address] , [facility] 4 14:17:39 Medications Name Sig Start [...] route in the morning for 5 days. 02/21 completed Not Available Not Available Not Available aspirin 81 mg tablet,de layed release [...] HOURS FOR 7 DAYS. DISCARD REMAINDE R 02/21 completed Not Available Not Available Not Available OneTouch Ultra Test strips TEST DAILY 06/24 completed Not Available Not Available Not Available Kenalog 10 mg/mL suspensio n for injection Take 20 mg by injectio n route. 08/[address] [facility]: [phone] Not Available Not Available Not Available hydrocodo ne 7.5 mg-acetam inophen 325 mg tablet TAKE 1 TABLET BY MOUTH EVERY 6 HOURS NEEDED FOR PAIN 02/21 completed Not Available Not Available Not Available [...] oral route as directed for 10 days. 02/21 completed Not Available Not Available Not Available methylpre dnisolone 4 mg tablets in [...] mcg tablet TAKE 1 TABLET BY MOUTH DAILY 2024 active Not Available Not Available Not Avai lable amoxicill in 875 mg-potass ium clavulana te [...] Not Available Not Available Not Avai lable tadalafil 10 mg tablet TAKE 1 TABLET BY MOUTH NEEDED BEFORE SEXUAL ACTIVITY 08/25 completed Not Available Not Available Not Available metoprolo l tartrate 25 mg tablet TAKE 1 TABLET BY MOUTH DAILY 2024 active Not Available Not Available Not Avai lable acetylcys teine 600 mg capsule TAKE 1 [...] %) injection solution in office 08/[address] [facility] [address]- Not Available Not Available Not Available Anoro Ellipta 62.5 mcg-25 mcg/actua tion powder for inhalatio n INHALE 1 PUFF BY MOUTH EVERY DAY 10/08 completed Not Available Not Available Not Available Spiriva Respimat 2.5 mcg/actua tion solution for inhalatio n INHALE 2 PUFFS BY MOUTH EVERY DAY DIRECTED IN THE EVENING 2024 active Not Available Not Available Not Avai lable UltiCare Safety Syringe 3 mL 23 gauge [...] Updated DateTime 5 182.88 cm 23.2 kg/m2 69909.3 g 97.6 [degF] 78 /min 140/66 mm[Hg] CHRISTOPHER Valdez [place] [facility] 5 11:58:34 Date Recorded Body height Body mass index (BMI) Body weight Body temperature Oxygen saturation Oxygen saturation in Arterial blood by Pulse oximetry Heart rate Pain severity - 0-10 verbal numeric rating [Score] - Reported Systolic And Diastolic Provider Name and Address Organization Details Last Updated DateTime 5 182.88 cm 23.6 kg/m2 75958.0 7 g 98 [degF] 94 % 94 % 60 /min 0 136/78 mm[Hg] Laura Pedersen MA [facility] 5 15:12:08 Date Recorded Body height Body mass index (BMI) Body weight Provider Name and Address Organization Details Last Updated DateTime 04/15/2024 182.88 cm 22.5 kg/m2 73376.33 g Annika Varela MA [facility] 04/15/2024 12:00:42 Date Recorded Body height Body mass index (BMI) Body weight Body temperature Heart rate Respiratory rate Oxygen saturation Oxygen saturation in Arterial blood by Pulse oximetry Systolic And Diastolic Provider Name and Address Organization Details Last Updated DateTime 4 182.88 cm 22.5 kg/m2 87870.3 3 g 97.5 [degF] 70 /min 16 /min 93 % 93 % 166/84 mm[Hg] Reema Angel [facility] 4 12:06:48 Date Recorded Body height Body mass index (BMI) Body weight Body temperature Heart rate Respiratory rate Oxygen saturation Oxygen saturation in Arterial blood by Pulse oximetry Systolic And Diastolic Provider Name and Address Organization Details Last Updated DateTime 4 182.88 cm 22.5 kg/m2 61043.3 3 g 97.5 [degF] 70 /min 16 /min 93 % 93 % 166/84 mm[Hg] Reema Ortiz [facility] 4 10:35:10 Social History Question Answer Notes LastModified by Organizat ion Details LastModified Time Tobacco Smoking Status Former Smoker qiut age 30 CHRISTOPHER Valdez, [facility] 08/25/2024 11:55:50 What Is Your Level Of Caffeine Consumption? Moderate Coffee, 2-3 Cups Per Day [id number] Information not available 09/18/2022 In The 14 Days Before Symptom Onset, Have You Had Close Contact With A Laboratory-confir med COVID-19 While That Case Was Ill? No MIGRATION.94500 [id number] Information not available 09/18/2022 In The 14 Days Before Symptom Onset, Have You Had Close Contact With A Person Who Is Under Investigation For COVID-19 While That Person Was Ill? No MIGRATION.06817 [id number] Information not available 09/18/2022 What Type Of Diet Are You Following? SPECIFIC Ensure - Equate Diabetic Care Chocolte - Needs Rx For 6 Cases A Month MIGRATION.84503 63390 Information not available 09/18/2022 Have There Been Any Changes To Your Family Or Social Situation? No Information no t available 02/21/2025 When Did You Quit Smoking? 16+yearssinc elastcigaret te MIGRATION.86842 12688 Information not available 09/18/2022 Do You Use Insect Repellent Routinely? No Information not available 02/21/2025 Where Do You Live? Apartment Information not available 02/21/2025 What Was The Date Of Your Most Recent Tobacco Screening? 02/21/2025 Information not available 02/21/2025 Do You Have Any Pets? No Information not available 02/21/2025 What Is Your Relationship Status? Single [email or web address] Information not available 04/15/2024 Do You Have Smoke And Carbon Monoxide Detectors In Your Home? Yes Information not available 02/21/2025 At What Age Did You Start Smoking Tobacco? 10 MIGRATION.89859 [id number] Information not available 09/18/2022 Are You Passively Exposed To Smoke? No Information no t available 02/21/2025 Are There Any Smokers In Your House? No Information not available 02/21/2025 Do You Use Sunscreen Routinely? No Information not available 02/21/2025 Has Tobacco Cessation Counseling Been Provided? No MIGRATION.01424 23557 Information not available 09/18/2022 How Many Years Have You Smoked Tobacco? 20 MIGRATION.11163 04181 Information not available 09/18/2022 Have You Recently Traveled Abroad? No MIGRATION.17319 46334 Information not available 09/18/2022 Do You Have Any Dietary Restrictions? No Had Throat Cancer MIGRATION.55546 97654 Information not available 09/18/2022 Sex: Male Functional Status Question Answer Note LastModified by Organizat ion Details LastModified Time Do you use any illicit or recreational drugs? No MIGRATION.[id number] 26 Information not available 09/18/2022 Do you or have you ever used any other forms of tobacco or nicotine? No MIGRATION.12743894 26 Information not available 09/18/2022 What is your level of alcohol consumption? None MIGRATION.71041725 26 Information not available 09/18/2022 Are you currently employed? No Information not available 04/15/2024 What is your exercise level? None MIGRATION.57737789 26 Information not available 09/18/2022 Mental Status Question Answer Note LastModified by Organization D etails LastModified Time Do you feel stressed (tense, restless, nervous, or anxious, or unable to sleep at night)? [id number] Information not available 02/21/2025 Family History Relationship Description Onset Age of this Age Resolved Age Notes LastModified by Organization Details LastModified Time Unspecified Relation Hypertensive disorder MIGRATION.288 [id number] Not available 09/18/2022 23:28:57 Unspecified Relation Myocardial infarction MIGRATION.604 [id number] Not available 09/18/2022 23:28:57 Unspecified Relation Cerebrovascu lar accident MIGRATION.062 [id number] Not available 09/18/2022 23:28:57 Unspecified Relation Family history of malignant neoplasm MIGRATION.104 [id number] Not available 09/18/2022 23:28:57 Unspecified Relation Kidney disease MIGRATION.242 [id number] Not available 09/18/2022 23:28:57 Medical History Condition Response DIABETES, TYPE Y CANCER: SPECIFY Y Immunizations Vaccine Type Date Status Note Provider Nam e and Address Organization Details Recorded Time Influenza, high-dose, quadrivalent, PF 1 completed Not Available [facility] 07/25/2023 22:23:28 zoster recombinant 2 completed Yoana Rodriguez APRN [address], [facility] [address], [place], [address], [facility] [employer] 03/29/2024 14:17:58 zoster recombinant 2 completed Yoana Rodriguez APRN [address], [place], [address], [facility] [employer] [facility] 03/29/2024 14:17:58 Influenza, high-dose, quadrivalent, PF 2 completed Yoana Rodriguez APRN [address], [address], [place], [address], [facility] 03/29/2024 14:17:58 Influenza, high-dose, quadrivalent, PF 3 completed Yoana Rodriguez APRN [address], [address], [place], [address], [facility] 03/29/2024 14:17:58 COVID-19, mRNA, LNP-S, PF, 30 mcg/0.3 mL dose 1 completed Yoana Rodriguez APRN [address], [address], [place], [address], [facility] 03/29/2024 14:17:58 Pneumococcal conjugate PCV20, polysaccharide SDV751 conjugate, adjuvant, PF 3 completed Yoana Rodriguez APRN [address], [address], [place], [address], [facility] 03/29/2024 14:17:58 COVID-19, mRNA, LNP-S, PF, 30 mcg/0.3 mL dose, edison-sucrose 2 completed Yoana Rodriguez APRN [address], [address], [place], [address], [facility] 03/29/2024 14:17:58 COVID-19, mRNA, LNP-S, bivalent, PF, 30 mcg/0.3 mL dose 2 completed Yoana Rodriguez APRN [address], [address], [place], [address], [facility] 03/29/2024 14:17:58 RSV, bivalent, protein subunit RSVpreF, diluent reconstituted, 0.5 mL, PF 3 completed Yoana Rodriguez APRN [address], [address], [place], [address], [facility] 03/29/2024 14:17:58 COVID-19, mRNA, LNP-S, PF, edison-sucrose, 30 mcg/0.3 mL 3 completed Yoana Rodriguez APRN [address], [address], [place], [address], [facility] 03/29/2024 14:17:58 COVID-19, mRNA, LNP-S, PF, edison-sucrose, 30 mcg/0.3 mL 4 completed Madhavi Feldman RMDemetrio meza, [facility] 08/25/2024 11:54:34 Influenza, high-dose, trivalent, PF 4 completed CHRISTOPHER Valdez, [facility] 08/25/2024 11:54:34 Past Encounters Encounter ID Performer Location Encounter Start Date Encounter Closed Date Diagnosis/Indication Diagnosis SNOMED-CT Code Diagnosis ICD10 Code Diagnosis IMO Codes Diagnosis Note [id number] [facility] [address] [place] [address] [place] [address] 04/11/2021 00:00:00 04/11/2021 12:28:30 [id number] [facility] [address] [place] [address] [place] [address] 04/23/2021 00:00:00 04/23/2021 08:23:44 [id number] Dragan Ivy MD [facility] [address] [place] [address] [place] [address] 07/11/2021 00:00:00 07/11/2021 14:25:18 [id number] Dragan Ivy MD [facility] [address] [place] [address] [place] [address] 10/08/2021 00:00:00 10/08/2021 10:43:12 [id number] [facility] ic_[facility]way A[facility]G Podiatry [place] [address] [place] [address] 10/22/2021 00:00:00 10/22/2021 15:59:59 [id number] AHS_Histor ic_[facility]way [facility] Pulmonolo gy [place] [address] [place] [address] 10/31/2021 00:00:00 10/31/2021 15:34:00 [id number] [facility] Pulmon[facility] gy [place] [address] [place] [address] 01/09/2022 00:00:00 01/09/2022 16:25:51 [id number] Dragan Ivy MD [facility] Family Practice Aime jonatan [address] [place] [address] [place] [address] 01/23/2022 00:00:00 01/23/2022 11:53:40 [id number] CHARLY Neely S_GMG Pulmonolo gy [place] [address] [place] [address] 02/22/2022 00:00:00 02/22/2022 11:41:06 [id number] CHARLY Neely S_GMG Pulmonolo gy [place] [address] [place] [address] 03/12/2022 00:00:00 03/12/2022 16:14:51 [id number] CHARLY Neely S_GMG Pulmonolo gy [place] [address] [place] [address] 04/01/2022 00:00:00 04/01/2022 14:04:28 [id number] Dragan Ivy MD [facility] Family Practice Jatin cheung [address] [facility] [place] [address] 05/09/2022 00:00:00 05/09/2022 17:01:04 [id number] CHARLY Neely S_GMG Pulmonolo gy [place] [address] [place] [address] 05/24/2022 00:00:00 05/24/2022 12:11:11 [id number] Dragan Ivy MD S_GM Family Practice [facility] [address] [facility], [facility] [place] [address] 06/11/2022 00:00:00 06/11/2022 14:19:12 [id number] [facility] Pulmonolo gy [place] [address] [place] [address] 06/21/2022 00:00:00 06/21/2022 11:55:31 [id number] Gabe Moses MD [facility]_GMG Pulmonolo gy [address], [facility] [address] [place] [address] 07/01/2022 00:00:00 07/01/2022 12:38:24 [id number] MATT De La Torre [facility] Primary Care [facility] [address] [facility] [address] [place] [address] 07/31/2022 00:00:00 07/31/2022 16:56:18 [id number] CHARLY Neely S_GMG Pulmonolo gy [place] [address] [place] [address] 07/31/2022 00:00:00 07/31/2022 13:29:58 [id number] MATT De La Torre [facility] [address] [facility] [address] [place] [address] 08/28/2022 00:00:00 08/28/2022 18:34:58 [id number] CHARLY Neely [facility]_GM Pulmonolo gy [place] [address] [place] [address] 09/30/2022 11:09:27 09/30/2022 12:28:23 Severe chronic obstructive pulmonary disease 820505271 J44.9 CAT 25PFT 11/2021 with ratio 48FEV1 49DLCO adjusted is normalCont inue Symbicort and Spiriva with aerochambe rAlbuterol PRN - discussed indication s for useDiscuss ed reportable signs and symptoms.R TC in 2-3 months, PRN for concerns Thick sputum 655914907 R 09.3 Intolerant to nebulized mucomystSt art oral BIDNarrowi ng of LLL bronchus per bronchosco py with thick mucous and plugs. Chronic cough 20282929 R 05.3 ImprovedMB S completed 01/2022 with laryngeal penetratio n identified with swallowing of thin liquid, thick liquid, and pudding consistenc y.No jennifer aspiration was identified Recommend GI Bacterial infection caused by Serratia 87784685 A49.8 10/2021 Bacterial infection caused by Klebsiella pneumoniae 222063307 B96.1 10/2021 Dyspnea on exertion 6084 5006 R06.09 ImprovedQu antiferon GOLD negativeIG E normaleosi nophils normalBNP normalIGGs normalSix minute walk normal 11/2021 Ex-smoker 5987436 Z87.[address] chest 05/2022 with nodule as above Solitary n odule of lung 577207145 R91.[address] chest 2Rep eat in 6 months, due 11/2022 [id number] Kristina Renteria, [facility]_GMG Pulmonolo gy [place] [address] [place] [address] 12/30/2022 11:12:17 12/30/2022 11:51:23 Severe chronic obstructive pulmonary disease 610738073 J44.9 CAT 25PFT 11/2021 with ratio 48FEV1 49DLCO adjusted is normalCont inue Symbicort 160 and Spiriva Respimat 2.5with aerochambe rInstructe d on technique todayAlbut marilyn PRN - discussed indication s for useDiscuss ed reportable signs and symptoms.R TC in 3-4 months, PRN for concerns Solitary n odule of lung 922237936 R91.[address] chest 2Rep eat in 6 months, due 11/2022 - staff scheduled today Thick sputum 086693789 R 09.3 Intolerant to nebulized mucomystCo ntinue oral acetylcyst eine BIDNarrowi ng of LLL bronchus per bronchosco py with thick mucous and plugs. Chronic cough 73420547 R 05.3 ImprovedMB S completed 01/2022 with laryngeal penetratio n identified with swallowing of thin liquid, thick liquid, and pudding consistenc y.No jennifer aspiration was identified Recommend GI consultHe continues to decline Bacterial infection caused by Serratia 28806719 A49.8 10/2021 Bacterial infection caused by Klebsiella pneumoniae 916482378 B96.1 10/2021 Dyspnea on exertion 6084 5006 R06.09 Multifacto ralImprove dQuantifer on GOLD negativeIG E normaleosi nophils normalBNP normalIGGs normalSix minute walk normal 2Rec ommend exercise programHe will consider IA Ex-smoker 5252931 Z87.[address] chest 05/2022 with nodule as aboveHe has not repeated, staff scheduled this today Activity intolerance 774 13959 Z73.89 Multifacto ral [id number] Molly Diaz MD [facility]_G Primary Care [address] [place] [address] 01/16/2023 11:00:43 01/16/2023 12:53:45 Chronic obstructive pulmonary disease 10616478 J44.9 He has increased trouble with his SOB. Will try to put referral in for upright walker.Ref ills needed on inhalers/n ebulizer.C ontinue follow-up with pulmonolog y. Pain of bi lateral hands 2871114333 [id number] M79.641 M79.642 Most likely C[facility] arthritis due to wear and tear.Will have him try topical for comfort. Epsom salt soaks.Will plan to refer to ortho if no improvemen t for imaging/in jections. [id number] Olivier Jackson MD [facility] Ortho Nikki Oconnell [address] [place] [address] 01/28/2023 14:02:53 01/28/2023 15:25:32 Pain of bilateral hands 8354585328 4152843 M79.642 M79.641 Osteoarthr osis of the carpometacarpal joint of the thumb 59597170 M18.9 M18.0 [id number] Olivier Jackson MD S_GMG Ortho [place] [address] [place] [address] 02/25/2023 14:28:07 02/25/2023 15:25:45 Osteoarthrosis of the carpometacarpal joint of the thumb 27211654 M18.9 M18.0 [id number] Kristina Myra, BUSINESS MANAGEMENT SPECIALIST-[facility]_G Pulmonolo gy [place] [address] [place] [address] 04/15/2023 10:08:12 04/15/2023 11:08:18 Severe chronic obstructive pulmonary disease 015162400 J44.9 CAT 25PFT 11/2021 with ratio 48FEV1 49DLCO adjusted is normalCont inue Symbicort 160 and Spiriva Respimat 2.5with aerochambe rRX sent todayAlbut marilyn PRN - discussed indication s for useDiscuss ed reportable signs and symptoms.H e should follow up in 6 months, PRN for concerns Thick sputum 583452646 R 09.3 Intolerant to nebulized mucomystCo ntinue oral acetylcyst eine BIDNarrowi ng of LLL bronchus per bronchosco py with thick mucous and plugs.Re-s tart flutter valve use dailyMay need Smart Vest therapy Chronic cough 15979029 R 05.3 ImprovedMB S completed 01/2022 with laryngeal penetratio n identified with swallowing of thin liquid, thick liquid, and pudding consistenc y.No jennifer aspiration was identified Bacterial infection caused by Serratia 89457295 A49.8 10/2021 Bacterial infection caused by Klebsiella pneumoniae 139709937 B96.1 10/2021 Dyspnea on exertion 6084 5006 R06.09 Multifacto ralQuantif jorge GOLD negativeIG E normaleosi nophils normalBNP normalIGGs normalSix minute walk normal 2Rec ommend exercise programHe will consider IA Activity intolerance 774 06022 Z73.89 Multifacto ral Ex-smoker 9056914 Z87.[address] chest as above Abnormal f indings on diagnostic imaging of lung 415102799 R91.[address] chest due 06/2023, ordered todayHe is aware to call PCM about results if he has not heard one week after completed [id number] Emir Mendiola MD [facility] Ortho [place] [address] [place] [address] 05/26/2023 08:53:28 05/26/2023 10:47:16 Pain of bilateral hands 3091650238 9498884 M79.642 M79.641 Arthritis of bilateral first carpometacarpal joints 9279623187 776965 M13.841 M13.741 [id number] Kristina Renteria, [facility] Pulmonolo gy Kimber[place] [address] [place] [address] 06/02/2023 14:01:13 06/02/2023 15:08:11 Severe chronic obstructive pulmonary disease 820882387 J44.9 PFT 11/2021 with ratio 48FEV1 49DLCO adjusted is normalCont inue Symbicort 160 and Spiriva Respimat 2.5with aerochambe rRX sent todayAlbut marilyn PRN - discussed indication s for useDiscuss ed reportable signs and symptoms.H e should follow up in 6 months, PRN for concerns Abnormal f indings on diagnostic imaging of lung 045070174 R91.[address] chest due 06/2023Sch eduled 07/07/23, has follow up with PCM Thick sputum 732022161 R 09.3 Intolerant to nebulized mucomystCo ntinue oral acetylcyst eine BIDNarrowi ng of LLL bronchus per bronchosco py with thick mucous and plugs.Re-s tart flutter valve use daily - I have stressed the importance of thisMay need Smart Vest therapy Chronic cough 05558339 R 05.3 ImprovedMB S completed 01/2022 with laryngeal penetratio n identified with swallowing of thin liquid, thick liquid, and pudding consistenc y.No jennifer aspiration was identified May need repeat Bacterial infection caused by Serratia 10925067 A49.8 10/2021 Bacterial infection caused by Klebsiella pneumoniae 031054878 B96.1 10/2021 Dyspnea on exertion 6084 5006 R06.09 Multifacto ralQuantif jorge GOLD negativeIG E normaleosi nophils normalBNP normalIGGs normalSix minute walk normal 05/2022Rec ommend exercise programI have strongly urged pulmonary rehab Activity intolerance 774 10765 Z73.89 Multifacto ral Ex-smoker 5590378 Z87.[address] chest as above [id number] Molly Diaz MD [facility] Primary Care Chelsea cheung [address] [place] [place] [address] 07/28/2023 13:58:24 07/28/2023 14:35:19 Chronic obstructive pulmonary disease 54711973 J44.9 He has increased trouble with his [...] 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 --This patient can safely operate the PMD both mentally and physically .--This patient is very motivated to use the PMD in hi/her home. Continue follow-up with pulmonolog y. CT results not in chart yet. [id number] Molly Diaz MD [facility] Primary Care Chelsea cheung [address] [facility] [address] [place] [address] 10/24/2023 11:44:49 10/24/2023 12:11:16 Adult health examination 459025006 Z00.00 Encouraged fresh fruits and veggies-lo w intake of both, drinks ensureIncr ease daily water intake-enc ouraged 6-8 glasses/da y, coffeeEnco urage 30 mins of daily exercise-w alks for exerciseCo lonoscopy- orderedDEX A-no hx of recurrent fxLDCT-not a smoker, not a drinker-la bs obtained Screening for malignant neoplasm of colon 348913153 Z12.11 [id number] BROOKE Cesar-C [facility] Primary Care [address] [place] [address] 12/10/2023 09:02:36 12/10/2023 09:47:47 Pain of bilateral hands 1234497220 2785666 M79.641 -pain noted to bilateral hands (severity [...] this time-refer ral to hand surgeon given [id number] Be Arteaga MD [facility] Ortho Kimber[place] [address] [place] [address] 12/18/2023 09:04:22 12/18/2023 10:08:39 Arthritis of bilateral first carpometacarpal joints 2452328204 722971 M13.841 M13.842 Pain of bi lateral hands 9915813029 3152568 M79.112 [id number] Heather Pina MD [facility] General Surgery [address] [facility] [place] [address] 12/31/2023 11:37:55 12/31/2023 11:58:43 History of polyp of colon 784069246 Z86.877 [id number] ANEESH Hernanedz [facility] Primary Care [facility] [address] [facility] [address] [place] [address] 03/10/2024 11:15:16 03/10/2024 11:45:46 Hypothyroidism 11814704 E03.9 Recent hair loss.Will recheck labs as listed below. Epidermoid cyst of skin of back 567820901 L72.0 Patient will follow up as needed. [id number] Jim esparza MD [facility] General Surgery [address] [address] 04/15/2024 11:24:54 04/19/2024 15:32:16 Epidermoid cyst of skin of back 305295287 L72.0 [id number] Jim esparza MD [facility] General Surgery [address] [address] 05/18/2024 11:35:06 05/18/2024 12:29:36 Epidermoid cyst of skin 738467504 L72.0 left back [id number] Jim epsarza MD [facility] General Surgery [address] [address] 05/27/2024 10:14:37 06/16/2024 11:56:29 Epidermoid cyst of skin 470714630 L72.0 left back [id number] Justin jarrett MD [facility] Primary Care [facility] [address] [facility] [address] [place] [address] 08/25/2024 11:35:46 08/25/2024 12:39:29 Screening - NAD 561040249 Z13.9 C-scope: C-scope 01/05/2024 : Dr Pian Get yearly flu shot, do Tdap if not doneGet PCV #20Get shingrix vaccine and RSV vaccineCan do COVID 19 boosters RTC in 1 months, do labs, ER if worse, he and his girl friend did verbalize his understand ing of the above Severe chr onic obstructive pulmonary disease 959726726 J44.9 Sees Kristina Renteria DRAFTING CLERK last 06/02/2023 On albuterol HHNOn albuterol inhalerOn SpirivaOn SymbicortW ill see Kristina Renteria referredHa s noted a cough, will start on augmentin 800mg bid for 7 days as an oral suspension Hyperlipidemia 27859917 E78.5 On rosuvastat in 20mg dailyGet labs 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, 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 Essential hypertension 85492813 I10 On ASAOn diltiazem 90mg dailyOn lasix 40mg dailyOn metoprolol 25mg dailySees Dr Taylor [facility] Hypothyroidism 78613798 E03.9 On levothyrox ine 112mcgs dailyGet labs Esophageal dysphagia 408 83965 R13.19 S/p radiation Rx for tonsillar cancerEGD Dr Joy 10/30/2023 , may need feeding tube [id number] Justin jarrett MD [facility] Primary Care [facility] [address] [facility] [address] [place] [address] 02/21/2025 15:07:05 02/21/2025 15:34:16 Screening - NAD 228224850 Z13.9 C-scope: C-scope 01/05/2024 : Dr Pina Get yearly flu shot, do Tdap if not doneGet PCV #20Get shingrix vaccine and RSV vaccineCan do COVID 19 boosters RTC in 3 months, do labs, ER if worse, he and his girl friend did verbalize his understand ing of the above Severe chr onic obstructive pulmonary disease 945903916 J44.9 Sees Kristina Renteria DRAFTING CLERK last 06/02/2023 , 11/04/2024 On albuterol HHNOn albuterol inhalerOn SpirivaOn SymbicortW ill see Kristina Renteria referredHa s noted a cough, will start on augmentin 800mg bid for 7 days as an oral suspension 11/18/2024 : Six minute [facility] Dr Lares Hyperlipidemia 94110801 E78.5 On rosuvastat in 20mg dailyGet labs Malignant neoplasm of tonsil 754551308 C09.9 s/p radiation Rx, 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 Essential hypertension 20564037 I10 12/14/2024 :ECHO On ASAOn diltiazem 90mg dailyOn lasix 40mg dailyOn metoprolol 25mg dailySees Dr Taylor [facility], last 10/25/2024 , next in 6 months Hypothyroidism 86284156 E03.9 On levothyrox ine 112mcgs dailyGet labs Esophageal dysphagia 408 81003 R13.19 S/p radiation Rx for tonsillar cancerEGD Dr Joy 10/30/2023 , may need feeding tube Vitamin D below reference range 023244111 R79.89 80131076 Health Concerns Section Related Observation LastModified by Organization Detai ls LastModified Time None Recorded Concern Status LastModified by Organization Details LastModified Time None Recorded Advance Directives Directive None Recorded Payers Insurance Date Sequence Insurance Name Policy Number Policy Reyes Covered Member ID Reyes Member ID Guarantor Name 01/19/2025 1 [facility] (MEDICARE REPLACEMENT/AD VANTAGE - PPO) [id number] Nathan L Danis [id number] Nathan L Coral 01/19/2025 1 [place] Nathan L Coral [id number] Nathan L Danis 02/18/2025 1 [facility] (MEDICARE REPLACEMENT/AD VANTAGE - HMO) [id number] Nathan L Coral [id number] Nathan L Danis 04/15/2024 1 *SELF PAY* Al isaiah L Danis 02/18/2025 2 [place] WHEN MEDICARE OR MEDICARE REPLACEMENT PRIMARY) Nathan L Danis [id number] Nathan L Coral Notes Date Note Type Note Provider Name and Address Organization Details Recorded Time 04/15/2024 text/html patient complains of draining cyst on his back that he has had for several years. Waxes and wanes. Denies fevers or chills. Would like to have it removed Jim Ramirez MD [address], [place], [address], [employer] 04/15/2024 16:34:43 05/18/2024 text/html patient here for excision left lower back cyst Jim Ramirez MD [address], [place], [address], [employer] 05/18/2024 14:02:04 05/27/2024 text/html No complaints Jim Ramirez MD [address], [place], [address], [employer] 05/27/2024 13:18:19 08/25/2024 text/html OV 08/25/2024:Here to establish care Present Hx:HTNHLDHypothyr oidismCOPDHx of tonsillar cancer Here to discuss above, he also has noted a slight but now worsening cough, clear, no hempotysis, no chest pain, mildly SOB, no wheezingHe is here with his girl friend Justin Jane MD [address], [place], [address], [employer] 08/25/2024 12:46:32 02/21/2025 text/html OV 08/25/2024:Here to establish care Present Hx:HTNHLDHypothyr oidismCOPDHx of tonsillar cancer Here to discuss above, he also has noted a slight but now worsening cough, clear, no hempotysis, no chest pain, mildly SOB, no wheezingHe is here with his girl friend OV 02/21/2025: Here for his f/u apt, he is doing well today, he is here with his GFNo new labs Justin Jane MD [address], [place], [address], [employer] 02/21/2025 15:35:46
[2025-04-22 17:59] VITALS: BP 176/121; PULSE 85; RESP 16; TEMP 36.6; O2SAT 95
--- OUTSIDE RECORDS SUMMARY | 2025-04-22 18:50 | XMS_ITS | Encounter Summary ---
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
--- OUTSIDE RECORDS SUMMARY | 2025-04-22 18:50 | XMS_ITS | Encounter Summary ---
Author Organization [facility] Address 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
--- OUTSIDE RECORDS SUMMARY | 2025-04-22 18:50 | XMS_ITS | Encounter Summary ---
Author Organization [facility] Address 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
--- OUTSIDE RECORDS SUMMARY | 2025-04-22 18:50 | XMS_ITS | Encounter Summary ---
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
--- OUTSIDE RECORDS SUMMARY | 2025-04-22 18:50 | XMS_ITS | Clinical Summary ---
Author Organization [facility] Address [address] [place] [address] Care Team Providers Care Test Administrator Name Role Phone Galileo Kiser MD Primary Care Provider [phone] Allergies Active Allergy Reactions Criticality Noted Date Comments Wltjjmbg-Gxpketrrlbq-Svgtfwawg Rash Low 07/26 Medications Food Supplement, Lactose-Free (ENSURE HIGH PROTEIN) Oral Liqd Take 240 mL by mouth q 3 hour. 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 Gender Identity Not on file Sexual Orientation [...] 09/28/2029 09/29/2019 Medical Devices Implanted Type Area Assisted Living Associate Device Identifier Shelf Expiration Date Model / Serial / Lot Clip Endo Resolution 360 235cm [id number] - [id number] Implanted:Qty: 2 on 02/12/2019 by Krishna Foster MD at [facility] Clip N/A: Perianal [employer] [id number] / / Lens Io Sn60wf 21.0 - [id number] Implanted:Qty: 1 on 02/19/2021 by Polo Huang MD at [facility] Patients First Eye Right: Eye [employer] [id number] 10/20/2025 SN60WF .21 0 / [id number] / Lens Io Sn60wf 21.5 - [id number] Implanted:Qty: 1 on 03/05/2021 by Polo Huang MD at [facility] Patients First Eye Left: Eye [employer] [id number] 10/23/2025 SN60WF .21 5 / [id number] / [id number] Procedures Procedure Name Priority Date/Time Associated Diagnosis Comments MICROALBUMIN/CREATIN INE RATIO, RANDOM UR Routine 12/29/2020 2:34 PM CDT Type 2 diabetes mellitus without complication, without long-term current use of insulin ([facility]) Essential hypertension LIPID PANEL Routine 12/29/2020 2:34 PM CDT Essential hypertension HEMOGLOBIN A1C Routine 12/29/2020 2:34 PM CDT Type 2 diabetes mellitus without complication, without long-term current use of insulin ([facility]) COLONOSCOPY REPORT 11/28/2020 10 :22 AM CDT from Last 3 Months or Most Recently Relevant to Health Maintenance Results * MICROALBUMIN/CREATININE RATIO, RANDOM UR (12/29/2020 2:34 PM CDT) Pathologist [facility] Creatinine, Urine 207 20 - 320 mg/dL [facility] MICROALBUMIN, URINE 1.3 See Note: mg/dL [facility] Comment: Reference Range: Reference Range Not established MICROALBUMIN/CREAT RATIO, UR 6 <30 mcg/mg creat [facility] Comment: The ADA defines abnormalities in albumin excretion as follows: Category Result (mcg/mg creatinine) Normal <30 Microalbuminuria 30-299 Clinical albuminuria > OR = 300 The ADA recommends that at least two of three specimens collected within a 3-6 month period be abnormal before considering a patient to be within a diagnostic category. Test Performed at: [facility] [address] [place] [address] Marcello Yoo D.O., MPH Urine URINE SPECIMEN OBTAINED BY CLEAN CATCH PROCEDURE / Unknown 12/29/2020 2:34 PM CDT Galileo Kiser MD URINE ORDERABLES Final Result Performing Organization Address [facility] Co de Phone Number [facility] [address] [place] [address] * HEMOGLOBIN A1C (12/29/2020 2:34 PM CDT) [facility] HEMOGLOBIN A1C 5.1 <5.7 % of total Hgb [facility] Comment: Test Performed at: [facility] [address] [place] [address] Rona[facility]jaliyah [facility] Blood 12/29/2020 2:34 PM CDT Galileo Kiser MD CHEMISTRY ORDERABLES Final Re sult Performing Organization Address [facility]/ZIP Co de Phone Number [facility] [address] [place] [address] * LIPID PANEL (12/29/2020 2:34 PM CDT) [facility] CHOLESTEROL 147 <200 mg/dL [facility] HDL 52 > OR = 40 mg/dL [facility] TRIGLYCERIDE 117 <150 mg/dL [facility] LDL CALCULATED 75 mg/dL (calc) [facility] Comment: Reference range: <100 Desirable range <100 mg/dL for primary prevention; <70 mg/dL for patients with CHD or diabetic patients with > or = 2 CHD risk factors. LDL-C is now calculated using the Jam calculation, which is a validated novel method providing better accuracy than the Friedewald equation in the estimation of LDL-C. Sulaiman KWOK et al. PAVAN. 2013;310(19): 7395-5725 (http://education.Superpedestrian.CloudPay/faq/SQE538) CHOL/HDL RATIO 2.8 <5.0 (calc) [facility] TOTAL NON-HDL CHOL(LDL+VLDL) 95 <130 mg/dL (calc) [facility] Comment: For patients with diabetes plus 1 major ASCVD risk factor, treating to a non-HDL-C goal of <100 mg/dL (LDL-C of <70 mg/dL) is considered a therapeutic option. Test Performed at: [facility] [address] [place] [address] Rona-Fadia Ramey Blood 12/29/2020 2:34 PM CDT us Galileo Kiser MD CHEMISTRY ORDERABLES Final Re sult [facility] [address] [place] [address] * COLONOSCOPY REPORT (11/28/2020 10:22 AM CDT) Narrative Procedure Note Krishna Foster MD - 11/28/2020 10:20 AM CDT [facility] GI Patient Name: Nathan Moscoso [...] bowel preparation was evaluated using the BBPS (Deville Bowel Preparation Scale) with scores of: Right [...] surveillance based on pathology results. - A [employer] message and/or a letter will be sent to you summarizing the pathology results. Please call the GI office ([phone]) if you have not heard the results within 2 weeks. - Goal intake of 25-30 grams of fiber per day. This is a combination of dietary fiber (located on product food label) as well as supplemental fiber (for example Citrucel, Fibercon, Konsyl or Metamucil) if needed. Procedure Code(s): --- Professional --- 85238, Colonoscopy, flexible; with removal of tumor(s), polyp(s), or other lesion(s) by snare technique 99318, 59, Colonoscopy, flexible; with biopsy, single or multiple Diagnosis Code(s): --- Professional --- D12.3, Benign neoplasm of transverse colon (hepatic flexure or splenic flexure) D12.2, Benign neoplasm of ascending colon D12.4, Benign neoplasm of descending colon Z86.010, Personal history of colonic polyps K57.30, Diverticulosis of large intestine without perforation or abscess without bleeding CPT copyright 2018 [employer]. All rights reserved. The codes documented in this report are preliminary and upon draw fire operator review may be revised to meet current compliance requirements. Krishna Foster MD 11/28/2020 10:20:34 AM Number of Addenda: 0 Estimated Blood Loss: Estimated blood loss: none. Krishna Foster MD GI PROCEDURE ORDERABL ES Final Result from Last 3 Months or Most Recently Relevant to Health Maintenance Insurance [address] [place] [address] [facility] [id number] * Guarantor: Nathan Moscoso Jr. Account Type Relation to Patient Date of Phone Billing Address Personal/Family Self 1945 [address] [place] [address] Advance Directives For more information, please contact: [phone] * Full Code (Latest Code Status on File) Date Activated Date Inactivated Comments 11/28/2020 9:10 AM 11/28/2020 12:48 PM * Full Code Date Activated Date Inactivated Comments 02/12/2019 11:45 AM 02/12/2019 4:55 PM * Full Code Date Activated Date Inactivated Comments 10/30/2013 2:27 PM 10/31/2013 3:06 PM * Full Code Date Activated Date Inactivated Comments 03/17/2013 5:33 PM 03/20/2013 11:31 AM Care Teams Test Administrator Relationship Specialty Start Date End Date Galileo Kiser MD PCP - General Family Practice 04/02/16
--- OUTSIDE RECORDS SUMMARY | 2025-04-22 18:50 | XMS_ITS | Encounter Summary ---
Author Organization [facility] Address 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
--- OUTSIDE RECORDS SUMMARY | 2025-04-22 18:50 | XMS_ITS | Encounter Summary ---
Author Organization [facility] Address 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
--- OUTSIDE RECORDS SUMMARY | 2025-04-22 18:50 | XMS_ITS | Encounter Summary ---
Author Organization [facility] Address 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
--- OUTSIDE RECORDS SUMMARY | 2025-04-22 18:50 | XMS_ITS | Encounter Summary ---
Author Organization [facility] Address 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
--- NOTE | 2025-04-22 19:34 | PC.NURSE ---
ERP in room doing eye exam.
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
== END 2025-04-22 20:09 | disposition home or self-care (01) ==
PROVIDERS: Emergency Provider Emergency Medicine; PCP Internal Medicine
DX: T65.893A Toxic effect of other specified substances, assault, initial encounter (principal)
CPT/HCPCS: 70450; 99284

== ENCOUNTER 2025-04-24 11:36 | Emergency (ER) | payer MEDICARE, MEDICAID, SELFPAY ==
[2025-04-24] VITALS (7 sets, daily range): BP systolic 140–152; BP diastolic 77–94; PULSE 67–76; RESP 16–21; TEMP 36.4; O2SAT 95–98
--- NOTE | ~2025-04-24 | XR_ITS ---
Examination: XR chest 2V Clinical History: cough Comparison: CT chest 10/30/2024 Technique: PA and Lateral Findings: Cardiomediastinal silhouette normal size and configuration. Basilar predominant interstitial changes. Superimposed increased interstitial markings. No acute bony abnormality. Gaseous esophageal dilatation. IMPRESSION: 1. Probable interstitial pulmonary edema and/or pneumonitis. 2. Achalasia. Possibly causing small chronic aspiration causing the above. Reviewed, dictated and finalized at location R.
--- OUTSIDE RECORDS SUMMARY | 2025-04-24 11:38 | XMS_ITS | Encounter Summary ---
Author Organization [facility] Address 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
--- OUTSIDE RECORDS SUMMARY | 2025-04-24 11:38 | XMS_ITS | Encounter Summary ---
Author Organization [facility] Address 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
--- OUTSIDE RECORDS SUMMARY | 2025-04-24 11:38 | XMS_ITS | Encounter Summary ---
Author Organization [facility] Address 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
--- OUTSIDE RECORDS SUMMARY | 2025-04-24 11:38 | XMS_ITS | Clinical Summary ---
Author Organization [facility] Address [address] [place] [address] Care Team Providers Care Regional Rehabilitation Director Name Role Phone Ursula Bergeron NP Primary Care Provider Allergies Active Allergy Reactions Criticality Noted Date Comments Obpxklwq-Rcutijqdmew-Kxlhofgqe Rash Medium 07/26 Medications aspirin 81 mg [...] device (Aerochamber MV) spacerIndicatio ns:Centrilobula r emphysema 1 each 2 (two) times a day 1 each 3 09/08/19 25 Active albuterol HFA (PROVENTIL HFA,VENTOLIN HFA,PROAIR HFA) 90 mcg/actuation inhaler USE 2 INHALATIONS BY MOUTH EVERY 6 HOURS NEEDED FOR WHEEZING 34 g 11 10/05/19 25 Active levothyroxine (SYNTHROID) 112 mcg tablet 09/22/19 25 Active albuterol 2.5 mg /3 mL (0.083 %) nebulizer solution 08/19/19 25 Active tiotropium bromide (SPIRIVA RESPIMAT) 2.5 mcg/actuation inhaler Inhale 2 puffs daily 12 g 3 12/31/19 25 Active Symbicort 160-4.5 mcg/actuation inhaler USE 2 INHALATIONS BY MOUTH TWICE DAILY ; RINSE MOUTH AFTER USE WITH WATER DO NOT SWALLOW 30.6 g 3 04/11/20 25 Active budesonide-form oteroL (SYMBICORT) 160-4.5 mcg/actuation inhaler Inhale 2 puffs 2 (two) times a day Rinse mouth with water after use. Do not swallow. 1 each 3 12/31/19 25 2024 Discontinued Active Problems Problem Noted Date Diagnosed Date Chronic respiratory failure with hypoxia, on home O2 therapy 09/08/2024 Assessment & Plan (11/04/2024 4:03 PM CDT): Continue supplemental oxygen with all sleep at 2 liters We have discussed the risks of hypoxia I have reordered walk testing today, he will complete this at [facility] Assessment & Plan (09/08/2024 11:42 AM CASE WORK AIDE): Continue supplemental oxygen with all sleep at 2 liters We have discussed the risks of hypoxia I have reordered walk testing today Bronchiectasis without acute exacerbation 2023 Assessment & Plan (04/07/2025 3:38 PM CDT): He has tried and failed [...] esophageal abnormalities I would consider chronic antibiotic therapy, roflumilast, dupixent, or brensocatib He has a history of positive Klebsiella and Serratia on sputum cultures from 2021 Awaiting CBC results Assessment & Plan (11/04/2024 4:02 PM CDT): [...] 2021 Assessment & Plan (09/08/2024 11:41 AM CASE WORK AIDE): He has tried and failed flutter therapy [...] today Esophageal dysmotility 09/04/2023 Assessment & Plan (04/07/2025 3:34 PM CDT): This certainly contributes to his cough.] Continue to follow with GI I have advised a modified diet. Assessment & Plan (09/11/2023 10:08 AM CASE WORK AIDE): 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 Noted previous speech [...] Emphysema of lung 12/16/2014 Assessment & Plan (04/07/2025 3:38 PM CDT): Continue Spiriva Respimat 2.5 once daily at the same time Continue Symbicort 160/4.5 2 puffs twice daily Check CBC today. I would have a low threshold evaluating him for dupixent or roflumilast R/t his chronic bronchitis. Albuterol 2 puffs every 4-6 hours as needed only, he is aware of indications for use He may benefit from all nebulized medications however currently he is not having frequent exacerbations A1AT was normal Repeat walk testing was normal I ordered a new nebulizer for PRN use today Discussed signs and symptoms that would require earlier evaluation or change to his plan of care Assessment & Plan (11/04/2024 4:06 PM CDT): [...] care Assessment & Plan (09/08/2024 11:41 AM CASE WORK AIDE): Continue Spiriva Respimat 2.5 once daily Continue [...] 10/30/2013 Assessment & Plan (09/08/2024 11:42 AM CASE WORK AIDE): Scattered bilaterally, these have been followed radiographically [...] time Assessment & Plan (09/11/2023 10:06 AM CASE WORK AIDE): 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 Esophageal abnormality is still possibility. Patient was advised to increase and sure intake to at least 4 or 5 cans per day. Schedule EGD for evaluation. HTN (hypertension) 10/19/2010 Hyperlipidemia 10/19/2010 Hypothyroidism 10/19/2010 Jaw pain 10/19/2010 Encounters Date Type Department Care Team Description 04/08/2025 Results Follow-Up [facility] Pulmonary at [address] [address] Kristina Renterai NP CBC with auto differential, Differential, auto 04/07/2025 2:30 PM CDT Lab [address] Centrilobular emphysema (HCC) 04/07/2025 2:00 PM CDT Office Visit [facility] Pulmonary at [address] [address] Kristina Renteria NP Centrilobular emphysema (HCC) (Primary Dx); Esophageal dysmotility; Bronchiectasis without acute exacerbation (HCC) 01/31/2025 Telephone [facility] Pulmonary at [address] [phone] Damari Mclean LPN sick call from Last 3 Months Immunizations Immunization Administration [...] Cataracts, bilateral COPD (chronic obstructive pulmonary disease) Thyroid disease Squamous cell carcinoma of tonsil [...] Given: Not Answered AUDIT-C Answer Date Recorded Frequency of Alcohol [...] on file Legal Sex Male 11:41 PM CASE WORK AIDE Gender Identity Male 05/13/2021 1:34 PM CDT Sexual Orientation Straight 05/13/2021 1: 34 PM CDT Obstetrics History Last Filed Vital Signs Vital Sign Reading Time Taken Comments Blood Pressure 160/80 04/07/2025 1:44 PM CDT Pulse 59 04/07/2025 1:44 PM CDT Temperature 36.6 C (97.9 F) 04/07/2025 1:44 PM CDT Respiratory Rate 18 04/07/2025 1:44 PM CDT Oxygen Saturation 96% 04/07/2025 1:44 PM CDT Inhaled Oxygen Concentration - - Weight 79.3 kg (174 lb 14.4 oz) 04/07/2025 1:44 PM CDT Height 182.9 cm (6') 04/07/2025 1:44 PM CDT Body Mass Index 23.72 04/07/2025 1:44 PM CDT Plan of Treatment Health Maintenance [...] PCV) 07/28/2021 07/28/2020 Covid-19 Vaccine (3 - 2024-2 6 season) 2025 05/15/2021, 09/27/2020 Influenza Vaccine (#1) 2025 , 04/11/2021, 04/11/2021, Additional history exists DTaP/Tdap/Td Vaccine (3 - Td or Tdap) 09/28/2029 09/29/2019, 10/12/2007 Abdominal Aortic Aneurysm (A AA) Screen Completed 03/17/2013 Zoster Vaccine Completed 05/13/2022, 03/12/2022 Procedures Procedure Name Priority Date/Time Associated Diagnosis Comments DIFFERENTIAL AUTO Routine 04/07/2025 2:5 0 PM CDT Centrilobular emphysema (HCC) CBC WITH AUTO DIFFERENTIAL Routine 04/07/2025 2:50 PM CDT Centrilobular emphysema (HCC) from Last 3 Months Results * Differential, auto (04/07/2025 2:50 PM CDT) Neutrophil abs 5.50 1.50 - 6.50 K/cumm Imm gran abs 0.01 0.00 - 0.10 K/cumm [facility] Lymphocyte abs 1.05 0.80 - 3.30 K/cumm [facility] Monocyte abs 0.59 0.20 - 0.80 K/cumm [facility] Eosinophil abs 0.15 0.00 - 0.50 K/cumm [facility] Basophil abs 0.06 0.00 - 0.10 K/cumm [facility] Neutrophil pct 74.8 % [facility] Comment: Interpretive Data Percent cell count reference ranges are not reported, since discordance with absolute values may lead to misinterpretation of CBC data. Current Interpretive Data was last revised on 2017. Imm gran pct 0.1 % [facility] Comment: Interpretive Data Percent cell count reference ranges are not reported, since discordance with absolute values may lead to misinterpretation of CBC data. Current Interpretive Data was last revised on 2017. Lymphocyte pct 14.3 % [facility] Comment: Interpretive Data Percent cell count reference ranges are not reported, since discordance with absolute values may lead to misinterpretation of CBC data. Current Interpretive Data was last revised on 2017. Monocyte pct 8.0 % [facility] Comment: Interpretive Data Percent cell count reference ranges are not reported, since discordance with absolute values may lead to misinterpretation of CBC data. Current Interpretive Data was last revised on 2017. Eosinophil pct 2.0 % [facility] Comment: Interpretive Data Percent cell count reference ranges are not reported, since discordance with absolute values may lead to misinterpretation of CBC data. Current Interpretive Data was last revised on 2017. Basophil pct 0.8 % [facility] Comment: Interpretive Data Percent cell count reference ranges are not reported, since discordance with absolute values may lead to misinterpretation of CBC data. Current Interpretive Data was last revised on 2017. Blood 04/07/2025 2:50 PM CDT 04/07/2025 3:24 PM CDT us Kristina Renteria UX MANAGER LAB BLOOD ORDERABLES Final Result [facility] [place] [address] * CBC with auto differential (04/07/2025 2:50 PM CDT) WBC 7.36 3.80 - 9.90 K/cumm Hgb 15.1 13.0 - 17.5 g/dL [facility] Hct 43.0 38.9 - 50.3 % [facility] Plt 177 150 - 400 K/cumm [facility] MPV 9.5 9.1 - 12.3 fL [facility] RBC 4.53 4.30 - 5.80 M/cumm [facility] MCV 94.9 81.3 - 96.4 fL [facility] MCH 33.3 27.1 - 33.3 pg [facility] MCHC 35.1 32.3 - 35.7 g/dL [facility] RDW CV 13.5 11.1 - 14.9 % [facility] RDW SD 46.7 35.7 - 48.1 fL [facility] NRBC abs 0.00 0.00 - 0.01 K/cumm [facility] Blood 04/07/2025 2:50 PM CDT 04/07/2025 3:24 PM CDT us Kristina Renteria UX MANAGER LAB BLOOD ORDERABLES Final Result [facility] [address] [facility] [place] [address] from Last [address] [place] [address] MEDICARE ADVANTAGE [facility] MEDICARE ADVANTAGE IDPA Advance Directives For more information, please contact: [phone] * Full Code (Latest Code Status on File) Date Activated Date Inactivated Comments 10/30/2023 12:06 PM 10/30/2023 6:21 PM Care Teams Regional Rehabilitation Director Relationship Specialty Start Date End Date Ursula Bergeron, MAL [address] [place] [address] PCP - General Family Medicine 06/08/24
--- OUTSIDE RECORDS SUMMARY | 2025-04-24 11:38 | XMS_ITS | Encounter Summary ---
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
--- OUTSIDE RECORDS SUMMARY | 2025-04-24 11:38 | XMS_ITS | Encounter Summary ---
Author Organization [facility] Address 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
--- OUTSIDE RECORDS SUMMARY | 2025-04-24 11:38 | XMS_ITS | Encounter Summary ---
Author Organization [facility] Address 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
--- OUTSIDE RECORDS SUMMARY | 2025-04-24 11:38 | XMS_ITS | Encounter Summary ---
Author Organization [facility] Address 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
--- OUTSIDE RECORDS SUMMARY | 2025-04-24 11:38 | XMS_ITS | Encounter Summary ---
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
--- OUTSIDE RECORDS SUMMARY | 2025-04-24 11:39 | XMS_ITS | Clinical Summary ---
Author Organization [facility] Address [address] [place] [address] Care Team Providers Care Redeye Gunner Name Role Phone Galileo Kiser MD Primary Care Provider [phone] Allergies Active Allergy Reactions Criticality Noted Date Comments Uctiltdv-Tuxxkhdbcyg-Rijtueuql Rash Low 07/26 Medications Food Supplement, Lactose-Free (ENSURE HIGH PROTEIN) Oral Liqd Take 240 mL by mouth q 3 hour. 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 Gender Identity Not on file Sexual Orientation [...] 09/28/2029 09/29/2019 Medical Devices Implanted Type Area Pipe Machine Operator Device Identifier Shelf Expiration Date Model / Serial / Lot Clip Endo Resolution 360 235cm [id number] - [id number] Implanted:Qty: 2 on 02/12/2019 by Krishna Foster MD at [facility] Clip N/A: Perianal [employer] [id number] / / Lens Io Sn60wf 21.0 - [id number] Implanted:Qty: 1 on 02/19/2021 by Polo Huang MD at [facility] Patients First Eye Right: Eye [employer] [id number] 10/20/2025 SN60WF .21 0 / [id number] / Lens Io Sn60wf 21.5 - [id number] Implanted:Qty: 1 on 03/05/2021 by Polo Huang MD at [facility] Patients First Eye Left: Eye [employer] [id number] 10/23/2025 SN60WF .21 5 / [id number] / [id number] Procedures Procedure Name Priority Date/Time Associated Diagnosis Comments MICROALBUMIN/CREATIN INE RATIO, RANDOM UR Routine 12/29/2020 2:34 PM CDT Type 2 diabetes mellitus without complication, without long-term current use of insulin ([facility]) Essential hypertension LIPID PANEL Routine 12/29/2020 2:34 PM CDT Essential hypertension HEMOGLOBIN A1C Routine 12/29/2020 2:34 PM CDT Type 2 diabetes mellitus without complication, without long-term current use of insulin ([facility]) COLONOSCOPY REPORT 11/28/2020 10 :22 AM CDT from Last 3 Months or Most Recently Relevant to Health Maintenance Results * MICROALBUMIN/CREATININE RATIO, RANDOM UR (12/29/2020 2:34 PM CDT) Pathologist [facility] Creatinine, Urine 207 20 - 320 mg/dL [facility] MICROALBUMIN, URINE 1.3 See Note: mg/dL [facility] Comment: Reference Range: Reference Range Not established MICROALBUMIN/CREAT RATIO, UR 6 <30 mcg/mg creat [facility] Comment: The ADA defines abnormalities in albumin excretion as follows: Category Result (mcg/mg creatinine) Normal <30 Microalbuminuria 30-299 Clinical albuminuria > OR = 300 The ADA recommends that at least two of three specimens collected within a 3-6 month period be abnormal before considering a patient to be within a diagnostic category. Test Performed at: [facility] [address] [place] [address] Marcello Yoo D.O., MPH Urine URINE SPECIMEN OBTAINED BY CLEAN CATCH PROCEDURE / Unknown 12/29/2020 2:34 PM CDT Galileo Kiser MD URINE ORDERABLES Final Result Performing Organization Address [facility] Co de Phone Number [facility] [address] [place] [address] * HEMOGLOBIN A1C (12/29/2020 2:34 PM CDT) [facility] HEMOGLOBIN A1C 5.1 <5.7 % of total Hgb [facility] Comment: Test Performed at: [facility][1] [address] [place] [address] [facility] Blood 12/29/2020 2:34 PM CDT Galileo Kiser MD CHEMISTRY ORDERABLES Final Re sult Performing Organization Address [facility]/ZIP Co de Phone Number [facility] [address] [place] [address] * LIPID PANEL (12/29/2020 2:34 PM CDT) [facility] CHOLESTEROL 147 <200 mg/dL [facility] HDL 52 > OR = 40 mg/dL [facility] TRIGLYCERIDE 117 <150 mg/dL [facility] LDL CALCULATED 75 mg/dL (calc) [facility] Comment: Reference range: <100 Desirable range <100 mg/dL for primary prevention; <70 mg/dL for patients with CHD or diabetic patients with > or = 2 CHD risk factors. LDL-C is now calculated using the Jam calculation, which is a validated novel method providing better accuracy than the Friedewald equation in the estimation of LDL-C. Sulaiman KWOK et al. PAVAN. 2013;310(19): 0243-0204 (http://education.[employer]/faq/KUW314) CHOL/HDL RATIO 2.8 <5.0 (calc) [facility] TOTAL NON-HDL CHOL(LDL+VLDL) 95 <130 mg/dL (calc) [facility] Comment: For patients with diabetes plus 1 major ASCVD risk factor, treating to a non-HDL-C goal of <100 mg/dL (LDL-C of <70 mg/dL) is considered a therapeutic option. Test Performed at: [facility] [address] [place] [address] Rona-Fadia Ramey Blood 12/29/2020 2:34 PM CDT us Galileo Kiser MD CHEMISTRY ORDERABLES Final Re sult [facility] [address] [place] [address] * COLONOSCOPY REPORT (11/28/2020 10:22 AM CDT) Narrative Procedure Note Krishna Foster MD - 11/28/2020 10:20 AM CDT [facility] GI Patient Name: Nathan Moscoso Procedure [...] bowel preparation was evaluated using the BBPS ([place] Bowel Preparation Scale) with scores of: Right [...] surveillance based on pathology results. - A [employer] message and/or a letter will be sent to you summarizing the pathology results. Please call the GI office ([phone]) if you have not heard the results within 2 weeks. - Goal intake of 25-30 grams of fiber per day. This is a combination of dietary fiber (located on product food label) as well as supplemental fiber (for example Citrucel, Fibercon, Konsyl or Metamucil) if needed. Procedure Code(s): --- Professional --- 54699, Colonoscopy, flexible; with removal of tumor(s), polyp(s), or other lesion(s) by snare technique 41392, 59, Colonoscopy, flexible; with biopsy, single or multiple Diagnosis Code(s): --- Professional --- D12.3, Benign neoplasm of transverse colon (hepatic flexure or splenic flexure) D12.2, Benign neoplasm of ascending colon D12.4, Benign neoplasm of descending colon Z86.010, Personal history of colonic polyps K57.30, Diverticulosis of large intestine without perforation or abscess without bleeding CPT copyright 2018 [employer]. All rights reserved. The codes documented in this report are preliminary and upon facilities engineering manager review may be revised to meet current compliance requirements. Krishna Foster MD 11/28/2020 10:20:34 AM Number of Addenda: 0 Estimated Blood Loss: Estimated blood loss: none. Krishna Foster MD GI PROCEDURE ORDERABL ES Final Result from Last 3 Months or Most Recently Relevant to Health Maintenance Insurance [address] [place] [address] [facility] [address] [place] [address] * Guarantor: Nathan Moscoso Jr. Account Type Relation to Patient Date of Phone Billing Address Personal/Family Self 1945 [address] [facility] [address] [place] [address] Advance Directives For more information, please contact: [phone] * Full Code (Latest Code Status on File) Date Activated Date Inactivated Comments 11/28/2020 9:10 AM 11/28/2020 12:48 PM * Full Code Date Activated Date Inactivated Comments 02/12/2019 11:45 AM 02/12/2019 4:55 PM * Full Code Date Activated Date Inactivated Comments 10/30/2013 2:27 PM 10/31/2013 3:06 PM * Full Code Date Activated Date Inactivated Comments 03/17/2013 5:33 PM 03/20/2013 11:31 AM Care Teams Redeye Gunner Relationship Specialty Start Date End Date Galileo Kiser MD PCP - General Family Practice 04/02/16
[2025-04-24] MEDS: IPRATROPIUM 0.5 MG/ALBUTEROL SULFATE 2.5 MG (BASE) AMPUL.NEB 3 ML INHALATION (12:24)
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
== END 2025-04-24 14:50 | disposition home or self-care (01) ==
PROVIDERS: Emergency Provider Emergency Medicine; PCP Internal Medicine
DX: J68.0 Bronchitis and pneumonitis due to chemicals, gases, fumes and vapors (principal)
CPT/HCPCS: 71046; 94640; 99283

== ENCOUNTER 2025-05-30 15:42 | Emergency (ER) | payer MEDICARE, MEDICAID, SELFPAY ==
--- NOTE | ~2025-05-30 | CT_ITS ---
CT abdomen pelvis w con INDICATION:RLQ pain . COMPARISON: None. TECHNIQUE: Axial images of the abdomen and pelvis were obtained following infusion of 100 mL Isovue 300. Dose optimization technique was utilized. FINDINGS: Dilated distal esophagus containing reflux material. There is centrilobular emphysema and left lower lobe nodular opacities measuring up to 1.3 cm. Fatty infiltration of the liver is noted. No intrahepatic mass or ductal dilatation is evident. The gallbladder is unremarkable. The pancreas and spleen are normal in appearance. The adrenal glands are symmetric in size. The kidneys demonstrate symmetric uptake and excretion of contrast. 8.8 x 6.2 cm left renal cyst is noted. There is no solid mass. There is no hydronephrosis. Evaluation of the stomach and bowel loops are limited due to lack of oral contrast. The appendix is normal in appearance. The bladder and rectum are normal. No free intraperitoneal fluid or air is evident. There is no significant retroperitoneal lymphadenopathy. The aorta, visceral vessels and renal arteries demonstrate normal caliber and patency. The lower thoracic and lumbar vertebrae are in normal alignment. IMPRESSION: No acute abnormality is noted in the abdomen and pelvis. Centrilobular emphysematous changes are noted within the lung bases. There are several nodular opacities within the left lung base. Short-term follow-up CT is recommended to ensure resolution. Dilated distal esophagus with reflux noted. All CT scans at this facility are performed using low dose modulation techniques as appropriate to perform exam including the following: automated exposure control; use of iterative reconstruction technique; adjustment of the mA and/or kV according to patient size (this includes techniques or standardized protocols for targeted exams where dose is matched to indication/reason for exam). Reviewed, dictated and finalized at location S. WORKER IMPRESSION: No acute abnormality is noted in the abdomen and pelvis. Centrilobular emphysematous changes are noted within the lung bases. There are several nodular opacities within the left lung base. Short-term follow-up CT is recommended to ensure resolution. Dilated distal esophagus with reflux noted. All CT scans at this facility are performed using low dose modulation techniqu es as appropriate to perform exam including the following: automated exposure c ontrol; use of iterative reconstruction technique; adjustment of the mA and/or kV according to patient size (this includes techniques or standardized protocol s for targeted exams where dose is matched to indication/reason for exam).
--- OUTSIDE RECORDS SUMMARY | 2025-05-30 15:44 | XMS_ITS | Encounter Summary ---
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
--- OUTSIDE RECORDS SUMMARY | 2025-05-30 15:44 | XMS_ITS | Data Portability ---
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 No issues. Not available 05/18/2024 12:28:39 05/27/2024 05/27/2024 status post excision cyst lower back. Doing well. Follow up p.r.n. Not available 05/27/2024 11:09:13 02/21/2025 02/21/2025 08/26/2024: BUN 29 Not available 02/13/2025 14:17:09 05/30/2025 05/30/2025 08/26/2024: BUN 29 05/23/2025: PLT 133 Not available 05/30/2025 16:16:29 Plan of Treatment Reminders Order Date Submit Date Provider Last Modified By Organization Details Last Modified Time Details Appointments Follow Up 15 2024 02:30P Olga jeffries MD Not available Not available Not available Follow Up 15 2025 10:15A Olga jeffries MD Not available Not available Not available Lab vitamin D, 25-hydrox y, total, serum 2024 025 [facility], [address], [place], [address], 05/30/2025 16:13:15 CMP, serum or plasma 2024 025 [facility], [address], [place], [address], 05/30/2025 16:13:14 lipid panel, serum 2024 025 [facility], [address], [place], [address], 05/30/2025 16:13:17 CBC w/ auto diff 2024 025 [facility], [address], [place], [address], 05/30/2025 16:13:16 TSH, serum or plasma 2024 025 [facility], [address], [place], [address], 05/30/2025 16:13:15 T4, free, serum 2024 025 [facility], [address], [place], [address], 05/30/2025 16:13:16 vitamin D, 25-hydrox y, total, serum 2024 025 [facility], [address], [place], [address], 05/24/2025 08:59:19 CMP, serum or plasma 2024 025 [facility], [address], [place], [address], 05/24/2025 08:59:17 lipid panel, serum 2024 025 [facility], [address], [place], [address], 05/24/2025 08:59:17 CBC w/ auto diff 2024 025 [facility], [address], [place], [address], 05/24/2025 08:59:18 TSH, serum or plasma 2024 025 [facility], [address], [place], [address], 05/24/2025 08:59:19 T4, free, serum 2024 025 [facility], [address], [place], [address], 05/24/2025 08:59:18 CMP, serum or plasma 2024 025 [facility], [address], [place], [address], 08/26/2024 22:26:30 lipid panel, serum 2024 025 [facility], [address], [place], [address], 08/26/2024 22:26:28 CBC w/ auto diff 2024 025 [facility], [address], [place], [address], 08/26/2024 22:26:31 TSH, serum or plasma 2024 025 ROE [facility], [address], [place], [address], 08/26/2024 22:26:33 Referral cardiolog ist referral - Please call patient to schedule an appointme nt. Thank you. 2024 025 [email or web address] [place], [address] [address], [address], [place], [address], 05/30/2025 16:22:28 cardiolog ist referral - Please call patient to schedule an appointme nt. Thank you. 2024 025 [place], [address] [address], [address], [place], [address], 05/29/2025 04:06:45 cardiolog ist referral - Please call patient to schedule an appointme nt. Thank you. 2024 025 [place], [address], [address], [place], [address], 10/25/2024 11:19:36 pulmonolo gist referral - Please call patient to schedule an appointme nt. Thank you. 2024 025 ROE Renteria [facility]-, [address] [facility], [address], [place], [address], 09/08/2024 12:49:49 Procedures None recorded. Surgeries None recorded. Imaging None recorded. Medication Orders amoxicill in 400 mg-potass ium clavulana te 57 mg/5 mL oral suspensio n 2024 [facility] [address], [address], [place], [address], 02/21/2025 15:12:54 Patient TargetsNo targets recorded. Patient InstructionsNo instructions recorded. Reason for Referral Qm Nurse Referral for S evere chronic obstructive pulmonary disease Please call patient to schedule an appointment. Thank you. 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 Thank you. 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 Thank you. 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 Thank you. Referring Physician: Justin Jane Internal Medicine, Encounter Date: 05/30/2025 Results Created Date Observation Date Name Description Value Unit Range Abnormal Flag Note LastModifiedBy Organization Detail LastModifiedTime 10/20/1910/19/2024 imagi ng/di agnos tic resul t No observ ation record ed. [address], [place], [address], 10/19/2024 18:30:23 11/01/19 25 10/30/2024 imagi ng/di agnos tic resul t No observ ation record ed. [address], [place], [address], 10/31/2024 10:03:38 11/12/19 pulmo nary funct ion test* No observ ation record ed. [email or web address] Not Available 10/20 14:10:01 11/13/19 25 11/12/2024 imagi ng/di agnos tic resul t No observ ation record ed. [address], [place], [address], 11/12/2024 16:21:28 12/03/19 25 11/18/2024 imagi ng/di agnos tic resul t No observ ation record ed. [email or web address] [place] [address] [address], [place], [address], 12/14/2024 10:13:26 12/15/19 25 12/14/2024 imagi ng inter preta tion No observ ation record ed. [email or web address] [facility] [address], [place], [address], 05/05/2025 12:55:23 12/15/19 25 12/14/2024 imagi ng/di agnos tic resul t No observ ation record ed. [email or web address] [facility] [address] , [place], [address], 01/10/2025 16:10:54 05/12/14/2024 imagi ng/di agnos tic resul t No observ ation record ed. [facility] [address], [place], [address], 12/14/2024 14:35:37 04/24/2004/24/2025 imagi ng/di agnos tic resul t No observ ation record ed. [facility] [address], [place], [address], 04/24/2025 14:05:11 Result Notes None recorded. Problems Name Problem SNOMED Code Status Onset Date Resolution Date Notes Provider Name and Address Organization Details Recorded Time Hyperchole sterolemia 95524839 Active 2020 Not Available [facility] 4 22:23:27 Chronic obstructiv e pulmonary disease 46493195 Active 2020 Not Available [facility] 4 22:23:27 History of malignant neoplasm 895831328 Active 2020 Not Available [facility] 4 22:23:27 Hypertensi ve disorder 11413022 Active 2020 Not Available [facility] 4 22:23:27 Hypothyroi dism 29116275 Active 2020 Not Available [facility] 4 22:23:28 Prediabete s 912495544 Active 2020 Not Available [facility] 4 22:23:28 History of squamous cell carcinoma in situ 8563137222833 5 Active 2020 Not Available [facility] 4 22:23:28 Coronary arterioscl erosis 58928967 Active 2021 Not Available [facility] 4 22:23:28 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 336695653 Active 2021 Not Available [facility] 4 22:23:27 Copious sputum 025723999 Active 2021 Not Available [facility] 4 22:23:27 Dyspnea on exertion 67349615 Active 2021 Not Available [facility] 4 22:23:28 Chronic cough 48546434 Active 2021 Not Available [facility] 4 22:23:28 Bacterial infection caused by Serratia 21519083 Active 2021 Not Available [facility] 4 22:23:28 Rajni, not Rajni albicans 314262471 Active 2021 Not Available [facility] 4 22:23:28 Bacterial infection caused by Klebsiella pneumoniae 339909397 Active 2021 Not Available [facility] 4 22:23:27 At increased risk for aspiration 994252079 Active 2021 Not Available [facility] 4 22:23:27 Anti-nucle ar factor detected 755155314 Active 2021 Not Available [facility] 4 22:23:27 Esophageal dysmotilit y 898267222 Active 2021 Not Available [facility] 4 22:23:27 Abdominal mass 440509769 Active 2021 Not Available [facility] 4 22:23:27 Postobstru ctive pneumonia 972254640 Active 2021 Not Available [facility] 4 22:23:27 Dysphagia 38213385 Active 2021 Not Available [facility] 4 22:23:28 Obstructiv e sleep apnea syndrome 68853272 Active 2022 Not Available [facility] 4 22:23:28 Thick sputum 793088484 Active 2022 Not Available [facility] 4 22:23:27 Severe chronic obstructiv e pulmonary disease 992680851 Active 2022 Not Available [facility] 4 22:23:27 Solitary nodule of lung 321573236 Active 2022 Not Available [facility] 4 22:23:28 Hyperlipid emia 47814771 Active 2022 Not Available [facility] 4 22:23:28 Insomnia 265858610 Active 2022 Not Available [facility] 4 22:23:27 Pain of bilateral hands 4555454529557 9109 Active 2022 Not Available [facility] 4 22:23:27 Osteoarthr osis of the carpometac arpal joint of the thumb 85477162 Active 2022 Not Available [facility] 4 22:23:27 Bilateral pain of joint of hands 7629916609352 9102 Active 2022 Not Available [facility] 4 22:23:27 Abnormal findings on diagnostic imaging of lung 491732956 Active 2022 Not Available [facility] 4 22:23:27 Arthritis of bilateral first carpometac arpal joints 3282018397616 102 Active 2022 Not Available [facility] 4 22:23:27 Pain of left hand 5236275928533 03 Active 2023 ANEESH Cesar [address], [address], [place], [address] , [employer] [facility] [employer] [facility] 4 22:54:41 Diabetes mellitus 74289538 Active 2023 ANEESH Hernandez [address], [address], [place], [address] , [employer] [facility] [employer] [facility] 4 11:30:11 Epidermoid cyst of skin of back 342952369 Active 2023 ANEESH Hernandez [address], [address], [place], [address] , [employer] [facility] [employer] [facility] 4 11:34:05 Epidermoid cyst of skin 554407129 Active 2023 Jim esparza MD [address], [address], [place], [address] , [employer] [facility] [employer] [facility] 4 13:58:44 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 Justin jarrett MD [address], [address], [place], [address] , [place] [facility] [employer] [facility] 5 12:10:07 Essential hypertensi on 31718101 Active 2024 Justin jarrett MD [address], [address], [place], [address] , [facility] [employer] [facility] 5 12:10:17 Esophageal dysphagia 94914433 Active 2024 Justin jarrett MD [address], [address], [place], [address] , [facility] [employer] [facility] 5 12:13:28 Bunion 158756498 Active 2024 Madhavi Feldman [facility], [facility] [employer] [facility] 5 12:40:30 Vitamin D below reference range 259975772 Active 2024 Justin jarrett MD [address], [address], [place], [address] , [facility] [employer] [facility] 5 15:33:34 Thrombocyt openic disorder 360016522 Active 2024 Justin jarrett MD [address], [address], [place], [address] , [facility] [employer] [facility] 5 16:12:42 Abdominal discomfort 02782782 Active 2024 Justin jarrett MD [address], [address], [place], [address] , [facility] [employer] [facility] 5 16:16:42 Notes:Medical History: Laryn geal penetration Hypothyroidism Hyperlipidemia Hypertension EF 55% Prediabetes Mild TR CAD 4.1 cm ascending thoracic aortic ectasia Moderate COPD LLL 6.7 mm pulm nodule Asbestos exposure 7251-9413 Mild splenomegaly Left 7.7 cm renal cyst Procedure History: 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 Please review these documents and add these problems to the patient's chart manually as needed. Problem Notes None recorded. Procedures Surgical History Date Name Laterality Status Provider Name and Address Organization Details Recorded Time 4 Blank Procedure Note completed Jim Ramirez MD [address] [facility] [address], [place], [address], [facility] [employer] [facility] [employer] [facility] 05/18/2024 12:28:30 3 Ortho - Cortisone Injection completed Olivier Jackson MD [address] [facility], [address] [address], [place], [address], [facility] [employer] [facility] 01/28/2023 14:48:33 other completed Annika Varela MA [facility] 04/15/2024 12:02:59 Imaging Results None recorded. Procedure Notes None recorded. Medical Equipment None Reported. Allergies Allergen ID Allergen Name Allergen Category Reaction Reaction Severity Criticality Documentation Date Start Date Code Code System Note Provider Name and Address Organization Details Recorded Time 79190 bacitraci n / neomycin / polymyxin B medicatio n Not available Not available Not available 09/18/2022 19644 9 RxNorm Not Available [facility] 3 23:31:27 80212 bacitraci n medicatio n Not available Not available Not available 03/29/2024 1291 RxNorm Other react ions and sever ities : 'Adve rse react ion to subst ance - Sever e'. Yoana Rodriguez APRN [address] [facility], [address] [address], [place], [address] , [employer] [facility] 4 14:17:39 Medications Name Sig Start Date [...] THEN 1 ONCE DAILY FOR 1 DAY 05/30 completed Not Available Not Available Not Available doxycycli ne hyclate 100 mg capsule Take 1 capsule twice a day by oral route for 10 days. 05/30 completed Not Available Not Available Not Available albuterol sulfate 2.5 mg/3 mL (0.083 %) solution for nebulizat ion INHALE THE CONTENTS OF 1 VIAL VIA NEBULIZE R 4 TIMES DAILY DIRECTED active Not Available Not Available No t Available azithromy kevin 250 mg tablet TAKE 2 TABLETS BY MOUTH ON DAY 1, AND THEN TAKE 1 TABLET BY MOUTH ONCE A DAY ON DAY 2 THROUGH DAY 5 05/27 completed Not Available Not Available Not Available [...] mg by injectio n route. 08/25 completed [facility]: [id number] 4-20 Not Available Not Available Not Available hydrocodo ne 7.5 mg-acetam inophen 325 mg tablet TAKE 1 TABLET BY MOUTH EVERY 6 HOURS NEEDED FOR PAIN 02/21 completed Not Available Not Available Not Available trazodone 150 mg tablet TAKE 1 TABLET BY MOUTH DAILY AT BEDTIME 05/30 completed Not Available Not Available Not Available prednison e 50 mg tablet TAKE 1 TABLET BY MOUTH ONCE DAILY 05/30 completed Not Available Not Available Not Available [...] sulfate HFA 90 mcg/actua tion aerosol inhaler INHALE 2 PUFFS BY MOUTH 4 TIMES DAILY NEEDED FOR SHORTNES S OF BREATH FOR WHEEZING active Not Available Not Available No t [...] mg-potass ium clavulana te 125 mg tablet TAKE 1 TABLET BY MOUTH EVERY 12 HOURS 05/27 completed Not Available Not Available Not Available diltiazem 90 mg tablet TAKE 1 [...] Not Available Not Available Not Avai lable Mucinex active Not Available Not Avail able Not Available acetylcys teine 600 mg capsule TAKE [...] %) injection solution in office 08/25 completed [facility] [address] 10-19 Not Available Not Available Not Available [...] x 1 USE DIRECTED WITH NEBULIZE D EPLON DARYLE 01/28 completed Not Available Not Available Not [...] Updated DateTime 5 182.88 cm 23.2 kg/m2 16199.3 g 97.6 [degF] 78 /min 140/66 mm[Hg] CHRISTOPHER Valdez [facility] 5 11:58:34 Date Recorded Body height Body mass index (BMI) Body weight Body temperature Oxygen saturation Oxygen saturation in Arterial blood by Pulse oximetry Heart rate Pain severity - 0-10 verbal numeric rating [Score] - Reported Systolic And Diastolic Provider Name and Address Organization Details Last Updated DateTime 5 182.88 cm 23.6 kg/m2 38007.0 7 g 98 [degF] 94 % 94 % 60 /min 0 136/78 mm[Hg] Laura Pedersen MA [facility] 5 15:12:08 Date Recorded Body height Body mass index (BMI) Body weight Body temperature Heart rate Respiratory rate Oxygen saturation Oxygen saturation in Arterial blood by Pulse oximetry Systolic And Diastolic Provider Name and Address Organization Details Last Updated DateTime 4 182.88 cm 22.5 kg/m2 19585.3 3 g 97.5 [degF] 70 /min 16 /min 93 % 93 % 166/84 mm[Hg] Reema Ortiz [facility] 4 12:06:48 Date Recorded Body height Body mass index (BMI) Body weight Body temperature Heart rate Respiratory rate Oxygen saturation Oxygen saturation in Arterial blood by Pulse oximetry Systolic And Diastolic Provider Name and Address Organization Details Last Updated DateTime 4 182.88 cm 22.5 kg/m2 09149.3 3 g 97.5 [degF] 70 /min 16 /min 93 % 93 % 166/84 mm[Hg] Reema Justinnshaw [facility] 4 10:35:10 Date Recorded Body height Body mass index (BMI) Body weight Body temperature Pain severity - 0-10 verbal numeric rating [Score] - Reported Heart rate Oxygen saturation Oxygen saturation in Arterial blood by Pulse oximetry Systolic And Diastolic Provider Name and Address Organization Details Last Updated DateTime 5 182.88 cm 23.8 kg/m2 80719.4 6 g 97 [degF] 0 64 /min 96 % 96 % 136/84 mm[Hg] Laura Pedersen MA [facility] 5 15:31:55 Social History Question Answer Notes LastModified by Organizat ion Details LastModified Time Tobacco Smoking Status Former Smoker qiut age 30 Madhavi FranciaCHRISTOPHER castaneda, [facility] 08/25/2024 11:55:50 What Is Your Level Of Caffeine Consumption? Moderate Coffee, 2-3 Cups Per Day [id number] Information not available 09/18/2022 In The 14 Days Before Symptom Onset, Have You Had Close Contact With A Laboratory-confir med COVID-19 While That Case Was Ill? No MIGRATION. [id number] Information not available 09/18/2022 In The 14 Days Before Symptom Onset, Have You Had Close Contact With A Person Who Is Under Investigation For COVID-19 While That Person Was Ill? No [id number] Information not available 09/18/2022 What Type Of Diet Are You Following? SPECIFIC Ensure - Equate Diabetic Care Chocolte - Needs Rx For 6 Cases A Month [id number].87675 [id number] Information not available 09/18/2022 Have There Been Any Changes To Your Family Or Social Situation? No Information no t available 02/21/2025 When Did You Quit Smoking? 16+yearssinc elastcigaret te MIGRATION.35616 [id number] Information not available 09/18/2022 Do You Use Insect Repellent Routinely? No Information not available 02/21/2025 Where Do You Live? Apartment Information not available 02/21/2025 What Was The Date Of Your Most Recent Tobacco Screening? 05/30/2025 Information not available 05/30/2025 Do You Have Any Pets? No Information not available 02/21/2025 What Is Your Relationship Status? Single Information not available 04/15/2024 Do You Have Smoke And Carbon Monoxide Detectors In Your Home? Yes Information not available 02/21/2025 At What Age Did You Start Smoking Tobacco? 10 MIGRATION.27593 60530 Information not available 09/18/2022 Are You Passively Exposed To Smoke? No Information no t available 02/21/2025 Are There Any Smokers In Your House? No Information not available 02/21/2025 Do You Use Sunscreen Routinely? No Information not available 02/21/2025 Has Tobacco Cessation Counseling Been Provided? No MIGRATION.51291 81043 Information not available 09/18/2022 How Many Years Have You Smoked Tobacco? 20 MIGRATION.11686 70017 Information not available 09/18/2022 Have You Recently Traveled Abroad? No MIGRATION.05334 77704 Information not available 09/18/2022 Do You Have Any Dietary Restrictions? No Had Throat Cancer MIGRATION.52054 76656 Information not available 09/18/2022 Sex: Male Functional Status Question Answer Note LastModified by Organizat ion Details LastModified Time Do you use any illicit or recreational drugs? No [id number] 26 Information not available 09/18/2022 Do you or have you ever used any other forms of tobacco or nicotine? No MIGRATION.[id number] 26 Information not available 09/18/2022 What is your level of alcohol consumption? None MIGRATION.[id number] 26 Information not available 09/18/2022 Are you currently employed? No Information not available 04/15/2024 What is your exercise level? None [id number].[id number] 26 Information not available 09/18/2022 Mental Status Question Answer Note LastModified by Organization D etails LastModified Time Do you feel stressed (tense, restless, nervous, or anxious, or unable to sleep at night)? [id number] Information not available 02/21/2025 Family History Relationship Description Onset Age of this Age Resolved Age Notes LastModified by Organization Details LastModified Time Unspecified Relation Hypertensive disorder [id number].025 [id number] Not available 09/18/2022 23:28:57 Unspecified Relation Myocardial infarction MIGRATION.754 [id number] Not available 09/18/2022 23:28:57 Unspecified Relation Cerebrovascu lar accident MIGRATION.828 [id number] Not available 09/18/2022 23:28:57 Unspecified Relation Family history of malignant neoplasm MIGRATION.866 [id number] Not available 09/18/2022 23:28:57 Unspecified Relation Kidney disease MIGRATION.056 [id number] Not available 09/18/2022 23:28:57 Medical History Condition Response DIABETES, TYPE Y CANCER: SPECIFY Y Immunizations Vaccine Type Date Status Note Provider Nam e and Address Organization Details Recorded Time Influenza, high-dose, quadrivalent, PF 1 completed Not Available [facility] 07/25/2023 22:23:28 zoster recombinant 2 completed Yoana Rodriguez APRN [address], [address], [place], [address], [employer] [facility] 03/29/2024 14:17:58 zoster recombinant 2 completed Yoana Rodriguez APRN [address], [address], [place], [address], [employer] [facility] [employer] [facility] 03/29/2024 14:17:58 Influenza, high-dose, quadrivalent, PF 2 completed Yoana Rodriguez APRN [address], [address], [place], [address], [employer] [facility] 03/29/2024 14:17:58 Influenza, high-dose, quadrivalent, PF 3 completed Yoana Rodriguez APRN [address], [address], [place], [address], [employer] [facility] [employer] [facility] 03/29/2024 14:17:58 COVID-19, mRNA, LNP-S, PF, 30 mcg/0.3 mL dose 1 completed Yoana Rodriguez APRN [address], [address], [place], [address], [facility] [employer] [facility] 03/29/2024 14:17:58 Pneumococcal conjugate PCV20, polysaccharide [id number] conjugate, adjuvant, PF 3 completed Yoana Rodriguez APRN [address], [address], [place], [address], [facility] [employer] [facility] 03/29/2024 14:17:58 COVID-19, mRNA, LNP-S, PF, 30 mcg/0.3 mL dose, edison-sucrose 2 completed Yoana Rodriguez APRN [address], [address], [place], [address], [facility] [employer] [facility] 03/29/2024 14:17:58 COVID-19, mRNA, LNP-S, bivalent, PF, 30 mcg/0.3 mL dose 2 completed Yoana Rodriguez APRN [address], [address], [place], [address], [facility] [employer] [facility] 03/29/2024 14:17:58 RSV, bivalent, protein subunit RSVpreF, diluent reconstituted, 0.5 mL, PF 3 completed Yoana Rodriguez APRN [address], [address], [place], [address], [facility] [employer] [facility] 03/29/2024 14:17:58 COVID-19, mRNA, LNP-S, PF, edison-sucrose, 30 mcg/0.3 mL 3 completed Yoana Rodriugez APRN [address], [address], [place], [address], [facility] [employer] [facility] 03/29/2024 14:17:58 COVID-19, mRNA, LNP-S, PF, edison-sucrose, 30 mcg/0.3 mL 4 completed CHRISTOPHER Valdez, [facility] 08/25/2024 11:54:34 Influenza, high-dose, trivalent, PF 4 completed CHRISTOPHER Valdez null, [place] [facility] 08/25/2024 11:54:34 Influenza, high-dose, trivalent, PF 5 completed Not Available [facility] 05/30/2025 15:21:00 COVID-19, mRNA, LNP-S, PF, edison-sucrose, 30 mcg/0.3 mL 5 completed Not Available [facility] 05/30/2025 15:21:00 Past Encounters Encounter ID Performer Location Encounter Start Date Encounter Closed Date Diagnosis/Indication Diagnosis SNOMED-CT Code Diagnosis ICD10 Code Diagnosis IMO Codes Diagnosis Note [id number] Dragan Ivy MD [address] [place] [address] 04/11/2021 00:00:00 04/11/2021 12:28:30 [id number] Dragan Ivy MD [address] [place] [address] 04/23/2021 00:00:00 04/23/2021 08:23:44 [id number] Dragan Ivy MD [address] [place] [address] 07/11/2021 00:00:00 07/11/2021 14:25:18 [id number] Dragan Ivy MD [address] [place] [address] 10/08/2021 00:00:00 10/08/2021 10:43:12 [id number] [facility]_Histor ic_Gateway [facility] Pod[place] [address] [place] [address] 10/22/2021 00:00:00 10/22/2021 15:59:59 [id number] S_Histor ic_Gateway [facility] [place] [address] [place] [address] 10/31/2021 00:00:00 10/31/2021 15:34:00 [id number] Kristina Renteria REPLACED BY [facility] Pul[place]olo gy [place] [address] [place] [address] 01/09/2022 00:00:00 01/09/2022 16:25:51 [id number] Dragan Ivy MD [facility] Family [facility] [address] [place] [address] [place] [address] 01/23/2022 00:00:00 01/23/2022 11:53:40 [id number] Kristina Renteria [facility] Pul[place] [address] [place] [address] 02/22/2022 00:00:00 02/22/2022 11:41:06 [id number] CHARLY Neely [facility] Pul[place] gy [place] [address] [place] [address] 03/12/2022 00:00:00 03/12/2022 16:14:51 [id number] Kristina Renteria [employer] [facility] [place] [address] [place] [address] 04/01/2022 00:00:00 04/01/2022 14:04:28 [id number] Dragan Ivy MD [facility] [address] [place] [address] 05/09/2022 00:00:00 05/09/2022 17:01:04 [id number] [facility] [place] [place] [address] [place] [address] 05/24/2022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
--- OUTSIDE RECORDS SUMMARY | 2025-05-30 15:44 | XMS_ITS | Clinical Summary ---
Author Organization [facility] Address [address] [place] [address] Care Team Providers Care Upholstery Bundler Name Role Phone Galileo Kiser MD Primary Care Provider [phone] Allergies Active Allergy Reactions Criticality Noted Date Comments Plcaxevh-Onuvgovwxim-Mhpcxtvrw Rash Low 07/26 Medications Food Supplement, Lactose-Free (ENSURE HIGH PROTEIN) Oral Liqd Take 240 mL by mouth q 3 hour. 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 Gender Identity Not on file Sexual Orientation [...] 07/20/2019, 04/20/2019, Additional history exists COVID-19 Vaccine (2 - 2024-2 6 season) 2025 09/27/2020 DTAP/TDAP/TD VACCINES (2 - T d or Tdap) 09/28/2029 09/29/2019 Medical Devices Implanted Type Area Estimator And Drafter Device Identifier Shelf Expiration Date Model / Serial / Lot Clip Endo Resolution 360 235cm [id number] - [id number] Implanted:Qty: 2 on 02/12/2019 by Krishna Foster MD at [facility] Clip N/A: Perianal [employer] [id number] / / Lens Io Sn60wf 21.0 - [id number] Implanted:Qty: 1 on 02/19/2021 by Polo Huang MD at [facility] Patients First Eye Right: Eye [employer] [id number] 10/20/2025 SN60WF .21 0 / [id number] / Lens Io Sn60wf 21.5 - [id number] Implanted:Qty: 1 on 03/05/2021 by Polo Huang MD at [facility] Patients First Eye Left: Eye [employer] [facility] [id number] 10/23/2025 SN60WF .21 5 / [id number] / [id number] Procedures Procedure Name Priority Date/Time Associated Diagnosis Comments MICROALBUMIN/CREATIN INE RATIO, RANDOM UR Routine 12/29/2020 2:34 PM CDT Type 2 diabetes mellitus without complication, without long-term current use of insulin ([facility]) Essential hypertension LIPID PANEL Routine [...] Creatinine, Urine 207 20 - 320 mg/dL [facility] MICROALBUMIN, URINE 1.3 See Note: mg/dL [facility] Comment: Reference Range: Reference Range Not established MICROALBUMIN/CREAT RATIO, UR 6 <30 mcg/mg creat [facility] Comment: The ADA defines abnormalities in albumin excretion as follows: Category Result (mcg/mg creatinine) Normal <30 Microalbuminuria 30-299 Clinical albuminuria > OR = 300 The ADA recommends that at least two of three specimens collected within a 3-6 month period be abnormal before considering a patient to be within a diagnostic category. Test Performed at: [facility] [employer] [facility] [address] [place] [address] Marcello Yoo D.O., MPH Urine URINE SPECIMEN OBTAINED BY CLEAN CATCH PROCEDURE / Unknown 12/29/2020 2:34 PM CDT Galileo Kiser MD URINE ORDERABLES Final Result Performing Organization Address [facility] Co de Phone Number [facility] [address] [place] [address] * HEMOGLOBIN A1C (12/29/2020 2:34 PM CDT) Pathologist [facility] HEMOGLOBIN A1C 5.1 <5.7 % of total Hgb [facility] Comment: Test Performed at: [facility] [address] [place] [address] [facility] Blood 12/29/2020 2:34 PM CDT Galileo Kiser MD CHEMISTRY ORDERABLES Final Re sult Performing Organization Address City/[facility]/ZIP Co de Phone Number [facility] [address] [place] [address] * LIPID PANEL (12/29/2020 2:34 PM CDT) Pathologist [facility] CHOLESTEROL 147 <200 mg/dL [facility] HDL 52 > OR = 40 mg/dL [facility] TRIGLYCERIDE 117 <150 mg/dL [facility] LDL CALCULATED 75 mg/dL (calc) [facility] Comment: Reference range: <100 Desirable range <100 mg/dL for primary prevention; <70 mg/dL for patients with CHD or diabetic patients with > or = 2 CHD risk factors. LDL-C is now calculated using the Jam calculation, which is a validated novel method providing better accuracy than the Friedewald equation in the estimation of LDL-C. Sulaiman SS et al. PAVAN. 2013;310(19): 5624-4482 (http://education.[employer]/faq/RSL639) CHOL/HDL RATIO 2.8 <5.0 (calc) [facility] TOTAL NON-HDL CHOL(LDL+VLDL) 95 <130 mg/dL (calc) [facility] Comment: For patients with diabetes plus 1 major ASCVD risk factor, treating to a non-HDL-C goal of <100 mg/dL (LDL-C of <70 mg/dL) is considered a therapeutic option. Test Performed at: [place] [place] [address] [place] [address] [facility] Blood 12/29/2020 2:34 PM CDT us Galileo Kiser MD CHEMISTRY ORDERABLES Final Re sult [facility] [address] [place] [address] * COLONOSCOPY REPORT (11/28/2020 10:22 AM CDT) Narrative Procedure Note Krishna Foster MD - 11/28/2020 10:20 AM CDT [facility] GI Patient Name: Nathan Moscoso Procedure Date: [...] bowel preparation was evaluated using the BBPS (H[place]aman Bowel Preparation Scale) with scores of: Right [...] surveillance based on pathology results. - A Hyper9 message and/or a letter will be sent to you summarizing the pathology results. Please call the GI office ([phone]) if you have not heard the results within 2 weeks. - Goal intake of 25-30 grams of fiber per day. This is a combination of dietary fiber (located on product food label) as well as supplemental fiber (for example Citrucel, Fibercon, Konsyl or Metamucil) if needed. Procedure Code(s): --- Professional --- 73511, Colonoscopy, flexible; with removal of tumor(s), polyp(s), or other lesion(s) by snare technique 26670, 59, Colonoscopy, flexible; with biopsy, single or multiple Diagnosis Code(s): --- Professional --- D12.3, Benign neoplasm of transverse colon (hepatic flexure or splenic flexure) D12.2, Benign neoplasm of ascending colon D12.4, Benign neoplasm of descending colon Z86.010, Personal history of colonic polyps K57.30, Diverticulosis of large intestine without perforation or abscess without bleeding CPT copyright 2018 [employer]. All rights reserved. The codes documented in this report are preliminary and upon dispensing operator review may be revised to meet current compliance requirements. Krishna Foster MD 11/28/2020 10:20:34 AM Number of Addenda: 0 Estimated Blood Loss: Estimated blood loss: none. Krishna Foster MD GI PROCEDURE ORDERABL ES Final Result from Last 3 Months or Most Recently Relevant to [place] [address] [facility] [id number] * Guarantor: Nathan Moscoso Jr. Account Type Relation to Patient Date of Phone Billing Address Personal/Family Self [address] [place] [address] Advance Directives For more information, please contact: [phone] * Full Code (Latest Code Status on File) Date Activated Date Inactivated Comments 11/28/2020 9:10 AM 11/28/2020 12:48 PM * Full Code Date Activated Date Inactivated Comments 02/12/2019 11:45 AM 02/12/2019 4:55 PM * Full Code Date Activated Date Inactivated Comments 10/30/2013 2:27 PM 10/31/2013 3:06 PM * Full Code Date Activated Date Inactivated Comments 03/17/2013 5:33 PM 03/20/2013 11:31 AM Care Teams Upholstery Bundler Relationship Specialty Start Date End Date Galileo Kiser MD PCP - General Family Practice 04/02/16
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
--- OUTSIDE RECORDS SUMMARY | 2025-05-30 15:44 | XMS_ITS | Encounter Summary ---
Author Organization [facility] Address 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
--- OUTSIDE RECORDS SUMMARY | 2025-05-30 15:44 | XMS_ITS | Data Portability ---
Author Organization [place] - [facility], DISP_HR Vascular Address [address] [place] [address] Care Team Providers Care Electric Train Driver Name Role Phone XOCHILT VANEGAS Primary Care Provider [phone] XOCHILT VANEGAS Referring Provider [phone] EVERARDO YOUNG Orthopedic Surgeon [phone] XOCHILT VANEGAS Primary Care Provider Assessment No [...] program, Theraputt y exercises . 2023 024 [place] [facility] [place], [address] [facility], [place], [address], 03/19/2024 11:17:28 Procedures None recorded. Surgeries None recorded. Imaging XR, thumb - Right Thumb 2024 025 [facility], [address] [place] [address] [address], [place], [address], 11/12/2024 18:16:16 Medication Orders None recorded. Patient [...] more view No observ ation record ed. [facility] [address] [place], [address], 03/18/2024 13:47:13 10/12/1910/11/2024 sp fluor o 1 hour [facility] [address] [address] KARO Elizabeth REPORT Name: NATHAN BAKER Room #: : 1945 Accoun t #: [id number] Bed #: Age: 78 Years Patien t Type: Outpat ient Order Date/T andrew: 2024 11:31: 01 AM Sex: M Access ion#: Exam Descri ption: Exam Reason : [id number] SP FLUORO 1 HOUR R thumb CMC arthro plasty Dictat ed By: Sharon Zabala rd Physic anna: EVERARDO YOUNG [facility]end [facility] Physic anna: EVERARDO YOUNG Primar y [...] ation: 109-04 03JKZ PAGE 1 OF 1 [facility] [address] [place] [address], [address], 10/11/2024 16:34:32 11/13/19 25 11/12/2024 XR, thumb No observ ation record ed. [facility] [address], [place], [address], 11/25/2024 14:33:57 Result Notes None recorded. Problems Name Problem SNOMED Code Status Onset Date Resolution Date Notes Provider Name and Address Organization Details Recorded Time Hyperchole sterolemia 36615266 Active 2020 Not Available [facility] 3 05:21:56 Chronic obstructiv e pulmonary disease 94901040 Active 2020 Not Available [facility] 3 05:21:56 History of malignant neoplasm 164470474 Active 2020 Not Available [facility] 3 05:21:56 Hypertensi ve disorder 34905958 Active 2020 Not Available [facility] 3 05:21:57 Hypothyroi dism 60105376 Active 2020 Not Available [facility] 3 05:21:57 Prediabete s 788710613 Active 2020 Not Available [facility] 3 05:21:58 History of squamous cell carcinoma in situ 6677204602027 5 Active 2020 Not Available [facility] 3 05:21:58 Coronary arterioscl erosis 39859444 Active 2021 Not Available [facility] 3 05:21:57 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 2021 Not Available [facility] 3 05:21:57 Copious sputum 826557054 Active 2021 Not Available [facility] 3 05:21:56 Dyspnea on exertion 46470782 Active 2021 Not Available [facility] 3 05:21:57 Chronic cough 59423779 Active 2021 Not Available [facility] 3 05:21:58 Bacterial infection caused by Serratia 70315247 Active 2021 Not Available [facility] 3 05:21:58 Rajni, not Rajni albicans 558225207 Active 2021 Not Available [facility] 3 05:21:57 Bacterial infection caused by Klebsiella pneumoniae 784001069 Active 2021 Not Available [facility] 3 05:21:56 At increased risk for aspiration 393554538 Active 2021 Not Available [facility] 3 05:21:56 Anti-nucle ar factor detected 644569187 Active 2021 Not Available [facility] 3 05:21:56 Esophageal dysmotilit y 302329396 Active 2021 Not Available [facility] 3 05:21:56 Abdominal mass 928490782 Active 2021 Not Available [facility] 3 05:21:56 Postobstru ctive pneumonia 501009746 Active 2021 Not Available [facility] 3 05:21:56 Dysphagia 15200391 Active 2021 Not Available [facility] 3 05:21:57 Obstructiv e sleep apnea syndrome 06675708 Active 2022 Not Available [facility] 3 05:21:58 Pain of bilateral hands 7520662536327 9109 Active 2023 Dori Peck null, [facility] 4 10:40:04 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 3002719764769 100 Active 2023 Dori Whitakerreggie null, [facility] 5 15:39:14 Pain of left hand 6471054609400 03 Active 2023 Devin Hughes null, [facility] 4 12:15:26 Arthritis of first carpometac arpal joint of left hand 7371450092830 103 Active 2023 Dorikate Peck null, [facility] 5 15:39:00 Notes:Medical History: Alycia gefamilia penetration Hypothyroidism Hyperlipidemia Hypertension EF 55% Prediabetes Mild TR CAD 4.1 cm ascending thoracic aortic ectasia Moderate COPD LLL 6.7 mm pulm nodule Asbestos exposure 9639-0513 Mild splenomegaly Left 7.7 cm renal cyst Procedure History: 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 Procedures Surgical History Date Name Laterality Status Provider Name and Address Organization Details Recorded Time 10/12/19 25 Transplant hand tendon completed Dori Peck [facility] 10/11/2024 12:03:07 07/21/19 21 colonoscopic polypectomy completed Dori Peck [facility] 01/02/2024 10:53:20 07/21/19 19 bilateral cataract extraction completed Dori Peck [facility] 01/02/2024 10:53:33 07/21/19 16 colonoscopic polypectomy completed Dori Peck [facility] 01/02/2024 10:53:14 07/21/18 92 tonsillectomy completed Dori Peck [facility] 01/02/2024 10:52:37 07/21/18 92 colonoscopic polypectomy completed Dori Peck [facility] 01/02/2024 10:53:08 Imaging Results None recorded. Procedure Notes None recorded. Medical Equipment None Reported. Allergies Allergen ID Allergen Name Allergen Category Reaction Reaction Severity Criticality Documentation Date Start Date Code Code System Note Provider Name and Address Organization Details Recorded Time 320285 bacitraci n / neomycin / polymyxin B medicatio n Not available Not available Not available 07/28/2022 31763 9 RxNorm Not Available [facility] 3 05:22:40 Medications Name Sig Start Date [...] MOUTH EVERY 6 HOURS NEEDED FOR PAIN 04/29 completed Not Available Not Available Not Available [...] Updated DateTime 5 182.88 cm 23.1 kg/m2 36709.7 g 65 /min 93 % 93 % 148/85 mm[Hg] [facility] 12:04[facility]52 Date Recorded Body height Body mass index (BMI) Body weight Heart rate Oxygen saturation Oxygen saturation in Arterial blood by Pulse oximetry Systolic And Diastolic Provider Name and Address Organization Details Last Updated DateTime 5 182.88 cm 23.1 kg/m2 10963.7 g 70 /min 94 % 94 % 148/78 mm[Hg] [facility] 5 09:48:19 Date Recorded Body height Body mass index (BMI) Body weight Heart rate Oxygen saturation Oxygen saturation in Arterial blood by Pulse oximetry Systolic And Diastolic Provider Name and Address Organization Details Last Updated DateTime 5 182.88 cm 23.6 kg/m2 35221.0 7 g 73 /min 90 % 90 % 136/84 mm[Hg] [facility] 5 09:03:36 Date Recorded Body height Body mass index (BMI) Body weight Heart rate Oxygen saturation Oxygen saturation in Arterial blood by Pulse oximetry Systolic And Diastolic Provider Name and Address Organization Details Last Updated DateTime 4 182.88 cm 24.3 kg/m2 27548.0 3 g 58 /min 93 % 93 % 148/86 mm[Hg] [facility] 4 11:39:25 Date Recorded Body height Body mass index (BMI) Body weight Heart rate Oxygen saturation Oxygen saturation in Arterial blood by Pulse oximetry Systolic And Diastolic Provider Name and Address Organization Details Last Updated DateTime 4 182.88 cm 23.7 kg/m2 06881.6 6 g 61 /min 95 % 95 % 150/82 mm[Hg] [facility] 4 12:08:36 Social History Question Answer Notes LastModified by Organizat ion Details LastModified Time Tobacco Smoking Status Former Smoker Not Available [facility] 07/28/2022 05:21:14 What Is Your Level Of Caffeine Consumption? Moderate Coffee, 2-3 Cups Per Day MIGRATION.00127 [id number] Information not available 07/28/2022 In The 14 Days Before Symptom Onset, Have You Had Close Contact With A Laboratory-confir med COVID-19 While That Case Was Ill? No MIGRATION.06692 72211 Information not available 07/28/2022 In The 14 Days Before Symptom Onset, Have You Had Close Contact With A Person Who Is Under Investigation For COVID-19 While That Person Was Ill? No MIGRATION.73898 03470 Information not available 07/28/2022 What Type Of Diet Are You Following? SPECIFIC Ensure - Equate Diabetic Care Chocolte - Needs Rx For 6 Cases A Month MIGRATION.22256 35021 Information not available 07/28/2022 When Did You Quit Smoking? 17+yearssinc elastcigaret te MIGRATION.44126 87743 Information not available 07/28/2022 What Was The Date Of Your Most Recent Tobacco Screening? 06/02/2025 Information not available 04/29/2025 What Is Your Current Pack Years? 20-29packyea rs Information not available 01/08/2024 At What Age Did You Start Smoking Tobacco? 10 MIGRATION.75365 96262 Information not available 07/28/2022 How Much Tobacco Do You Smoke? 1 PPW Information not available 01/08/2024 Has Tobacco Cessation Counseling Been Provided? No MIGRATION.75785 89906 Information not available 07/28/2022 How Many Years Have You Smoked Tobacco? 20 MIGRATION.47098 58554 Information not available 07/28/2022 Have You Recently Traveled Abroad? No MIGRATION.02823 03163 Information not available 07/28/2022 Sex: Male Functional Status Question Answer Note LastModified by Organizat ion Details LastModified Time Do you use any illicit or recreational drugs? No MIGRATION.83116278 00 Information not available 07/28/2022 Do you or have you ever used any other forms of tobacco or nicotine? No MIGRATION.15948458 00 Information not available 07/28/2022 What is your level of alcohol consumption? None MIGRATION.15738038 00 Information not available 07/28/2022 Mental Status None recorded. Family History Relationship Description Onset Age of this Age Resolved Age Notes LastModified by Organization Details LastModified Time Unspecified Relation Hypertensive disorder MIGRATION.326 [id number] Not available 07/28/2022 05:21:18 Unspecified Relation Myocardial infarction MIGRATION.677 [id number] Not available 07/28/2022 05:21:18 Unspecified Relation Cerebrovascu lar accident MIGRATION.375 [id number] Not available 07/28/2022 05:21:18 Unspecified Relation Family history of malignant neoplasm MIGRATION.884 [id number] Not available 07/28/2022 05:21:18 Unspecified Relation Kidney disease MIGRATION.320 [id number] Not available 07/28/2022 05:21:18 Medical History Condition Response COPD Y HIGH CHOLESTEROL / HYPERLIPIDEMIA Y SLEEP DISORDER Y HYPERTENSION Y CANCER: SPECIFY Y Immunizations Vaccine Type Date Status Note Provider Nam e and Address Organization Details Recorded Time Influenza, high-dose, quadrivalent, PF 04/11/2021 completed Not Available [facility] 05:22:38 Past Encounters Encounter ID Performer Location Encounter Start Date Encounter Closed Date Diagnosis/Indication Diagnosis SNOMED-CT Code Diagnosis ICD10 Code Diagnosis IMO Codes Diagnosis Note [id number] _ATHN_MIGR ATION_5 _ATHENA_M IGRATION_ DEFAULT_1 _5 , 04/11/2021 00:00:00 04/11/2021 12:28:30 [id number] _ATHN_MIGR ATION_5 _ATHENA_M IGRATION_ DEFAULT_1 _5 , 04/23/2021 00:00:00 04/23/2021 08:23:44 [id number] _ATHN_MIGR ATION_5 _ATHENA_M IGRATION_ DEFAULT_1 _5 , 07/11/2021 00:00:00 07/11/2021 14:25:18 [id number] _ATHN_MIGR ATION_5 _ATHENA_M IGRATION_ DEFAULT_1 _5 , 10/08/2021 00:00:00 10/08/2021 10:43:12 [id number] _ATHN_MIGR ATION_5 _ATHENA_M IGRATION_ DEFAULT_1 _5 , 10/22/2021 00:00:00 10/22/2021 15:59:59 [id number] _ATHN_MIGR ATION_5 _ATHENA_M IGRATION_ DEFAULT_1 _5 , 10/31/2021 00:00:00 10/31/2021 15:34:00 [id number] _ATHN_MIGR ATION_5 _ATHENA_M IGRATION_ DEFAULT_1 _5 , 01/09/2022 00:00:00 01/09/2022 16:25:51 [id number] _ATHN_MIGR ATION_5 _ATHENA_M IGRATION_ DEFAULT_1 _5 , 01/23/2022 00:00:00 01/23/2022 11:53:40 [id number] _ATHN_MIGR ATION_5 _ATHENA_M IGRATION_ DEFAULT_1 _5 , 02/22/2022 00:00:00 02/22/2022 11:41:06 [id number] _ATHN_MIGR ATION_5 _ATHENA_M IGRATION_ DEFAULT_1 _5 , 03/12/2022 00:00:00 03/12/2022 16:14:51 [id number] _ATHN_MIGR ATION_5 _ATHENA_M IGRATION_ DEFAULT_1 _5 , 04/01/2022 00:00:00 04/01/2022 14:04:28 [id number] _ATHN_MIGR ATION_5 _ATHENA_M IGRATION_ DEFAULT_1 _5 , 05/09/2022 00:00:00 05/09/2022 17:01:04 [id number] _ATHN_MIGR ATION_5 _ATHENA_M IGRATION_ DEFAULT_1 _5 , 05/24/2022 00:00:00 05/24/2022 12:11:11 [id number] _ATHN_MIGR ATION_5 _ATHENA_M IGRATION_ DEFAULT_1 _5 , 06/11/2022 00:00:00 06/11/2022 14:19:12 [id number] _ATHN_MIGR ATION_5 _ATHENA_M IGRATION_ DEFAULT_1 _5 , 06/21/2022 00:00:00 06/21/2022 11:55:31 [id number] _ATHN_MIGR ATION_5 _ATHENA_M IGRATION_ DEFAULT_1 _5 , 07/01/2022 00:00:00 07/01/2022 12:38:24 [id number] Everardo Young MD [facility] [address] [address] 01/08/2024 10:53:46 01/08/2024 12:43:50 Ex-smoker 7161207 Z87.891 Arthritis of first carpometacarpal joint of right hand 3036023656 550383 M13.841 patient has done bracing. Patient has [...] working in. Pain of bi lateral hands 2969876597 2446661 M79.641 M79.756 [id number] Everardo Young MD [facility] [address] [address] 02/26/2024 10:58:53 02/26/2024 12:26:10 Pain of bilateral hands 0772135971 8335733 M79.641 M79.642 Ex-cigarette smoker 2810 73967 Z87.891 Pain of left hand 197411 1026 55463 M79.642 Arthritis of first carpometacarpal joint of left hand 7841522228 592882 M13.842 remove sutures. Put him in a well fitted left thumb protective brace to use for 1 month. He can use his fingers but still no loading or pinching against the thumb. See him back in 3 or 4 weeks for AP lateral oblique views of his left hand out of the brace. We will start therapy after that. [id number] Everardo Young MD [facility] [address] [address] 03/18/2024 10:43:58 03/18/2024 12:04:33 Arthritis of first carpometacarpal joint of left hand 0274341881 318632 M13.842 patient will go to therapy now to work on range of motion strengthen ing see him back in a few months for follow-up he can discontinu e the brace Pain of left hand 443932 3488 28058 M79.642 Ex-cigarette smoker 2810 02052 Z87.356 [id number] Everardo Young MD [facility] [address] [address] 07/01/2024 11:52:32 07/01/2024 12:45:39 Arthritis of first carpometacarpal joint of left hand 4353629192 891061 M13.842 patient will continue with strengthen ing exercises for the left hand. We will see him back in a few months to discuss potentiall y doing the CMC arthroplas ty on the right. Ex-cigarette smoker 2810 42023 Z87.421 [id number] Everardo Young MD [facility] [address] [address] 09/30/2024 11:39:48 10/01/2024 03:42:25 Arthritis of first carpometacarpal joint of left hand 2502908653 095175 M13.842 patient will continue with strengthen ing exercises for the left hand. We will see him back in a few months to discuss potentiall y doing the CMC arthroplas ty on the right. 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 He understand s the risks, benefits alternativ es wished to proceed with the right thumb surgery now [id number] Everardo Young MD [facility] [address] [place] [address] 10/28/2024 09:38:32 10/28/2024 10:23:49 Arthritis of first carpometacarpal joint of right hand 7156873176 644966 M13.841 remove sutures today. Put him in [...] a home therapy program with [employer] cable splicer and pinch exercises in 4 weeks. Ex-cigarette smoker 2810 72972 Z87.604 [id number] Everardo Young MD [facility] [address] [address] 11/25/2024 08:58:08 11/25/2024 09:25:07 Arthritis of first carpometacarpal joint of left hand 2243067489 084030 M13.842 continue strengthen ing program with the [employer] exercise Arthritis of first carpometacarpal joint of right hand 9990399872 134373 M13.841 he may wean from the brace now most people use it just for heavy activity at this point. Start on the therapy putty strengthen ing exercises I will see him in 6 months Ex-cigarette smoker 2810 65388 Z87.891 Health Concerns Section Related Observation LastModified by Organization Detai ls LastModified Time None Recorded Concern Status LastModified by Organization Details LastModified Time None Recorded Advance Directives Directive None Recorded Payers Insurance Date Sequence Insurance Name Policy Number Policy Reyes Covered Member ID Reyes Member ID Guarantor Name 07/05/2024 1 [facility] (MEDICARE REPLACEMENT/A DVANTAGE - PPO) [id number] Nathan L Winston [id number] Nathan Winston 09/24/2024 2 [place] Nathan L Winston [id number] Nathan Danis 11/26/2024 1 [facility] (MEDICARE REPLACEMENT/A DVANTAGE - HMO) [id number] Nathan L Danis [id number] Nathan Winston 11/25/2024 2 [place] Nathan Winston [id number] Nathan Winston 07/05/2024 3 [place] Nathan Winston [id number] Nathan Winston Notes Date Note Type Note Provider Name and Address Organization Details Recorded Time 03/18/2024 text/html patient returns today for follow-up he had a left thumb CMC interposition arthroplasty on 02/13/2024 doing well at this point minimal pain and swelling he has been in his protective brace for the last 5 weeks. Everardo Young MD [address] [place], [address], [facility] 03/18/2024 13:38:40 07/01/2024 text/html patient returns today for follow-up he had a left thumb CMC interposition arthroplasty on 02/13/2024 doing well at this point minimal pain and swelling he has been in his protective brace for heavy activity at times only now that he is 5 months postop Everardo Young MD [address] [place], [address], [facility] 07/01/2024 12:32:54 09/30/2024 text/html Patient is several months out now from the left thumb carpometacarpal arthroplasties doing very nicely he is ready to proceed with a right thumb now. Patient has significant pain in that thumb aching constantly with sharp pain any time he tries to cable splicer or pinch with the right hand related to the [id number] arthritis of his right thumb carpometacarpal joint Everardo Young MD [address] [place], [address], [facility] 09/30/2024 12:51:48 10/28/2024 text/html Patient returns today for follow-up he is now 2 weeks postop we did a right thumb ligament reconstruction tendon interposition. Patient's left thumbs been doing well since the surgery several months ago. Had a little bit of pain as is common in the 1st few days doing well now. [place], [address], [facility] 10/28/2024 11:40:32 11/25/2024 text/html Patient is doing well after his CMC interposition arthroplasty. Everardo Young MD [address] [place], [address], [facility] 11/25/2024 09:23:54
--- OUTSIDE RECORDS SUMMARY | 2025-05-30 15:44 | XMS_ITS | Encounter Summary ---
Author Organization [facility] Healthcare Address [address] [place] [address] Care Team Providers Care Physician Industrial Name Role Phone Ursula Bergeron NP Primary Care Provider Teresa Jane MD Primary Care Provide r Encounter Details Date Type Department Care Team (Late st Contact Info) Description 04/08/2025 Results Follow-Up 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
--- OUTSIDE RECORDS SUMMARY | 2025-05-30 15:44 | XMS_ITS | Encounter Summary ---
Author Organization [facility] Address 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
--- OUTSIDE RECORDS SUMMARY | 2025-05-30 15:44 | XMS_ITS | Encounter Summary ---
Author Organization [facility] Address 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
--- OUTSIDE RECORDS SUMMARY | 2025-05-30 15:44 | XMS_ITS | Continuity of Care Document ---
Author Organization [place] - [facility] [place] Address [address] [place] [address] Care Team Providers Care Instrumentation And Control Technician Name Role Phone XOCHILT VANEGAS Primary Care Provider [phone] Assessment Encounter Date Assessment Date Assessment LastModified by Organization Details LastModified Time 05/30/2025 05/30/2025 08/26/2024: BUN 29 05/23/2025: PLT 133 [email or web address] Not available 05/30/2025 16:16:29 Plan of Treatment Reminders Order Date Submit Date Provider Last Modified By Organization Details Last Modified Time Details Appointments Follow Up 15 2024 02:30P Olga jeffries MD Not available Not available Not available Follow Up 15 2025 10:15A Olga jeffries MD Not available Not available Not available Lab vitamin D, 25-hydrox y, total, serum 2024 025 [email or web address], [address] , [place], [address], 05/30/2025 16:13:15 CMP, serum or plasma 2024 025 [facility], [address] , [place], [address], 05/30/2025 16:13:14 lipid panel, serum 2024 025 [email or web address], [address] , [place], [address], 05/30/2025 16:13:17 CBC w/ auto diff 2024 025 [facility], [address], [place], [address], 05/30/2025 16:13:16 TSH, serum or plasma 2024 025 [facility], [address], [place], [address], 05/30/2025 16:13:15 T4, free, serum 2024 025 [facility], [address], [place], [address], 05/30/2025 16:13:16 Referral cardiolog ist referral - Please call patient to schedule an appointme nt. Thank you. 2024 025 [email or web address] [place], [address] [address] , [address], [address], 05/30/2025 16:22:28 Procedures None recorded. Surgeries None recorded. Imaging None recorded. Medication Orders None recorded. Patient TargetsNo targets recorded. Patient InstructionsNo instructions recorded. Reason for Referral Family Medicine Physician Assistant Referral for Es sential hypertension Please call patient to schedule an appointment. Thank you. Referring Physician: Justin Jane, Internal Medicine, Encounter Date: 05/30/2025 Problems Name Problem SNOMED Code Status Onset Date Resolution Date Notes Provider Name and Address Organization Details Recorded Time Hyperchole sterolemia 20592696 Active 2020 Not Available [facility] 4 22:23:27 Chronic obstructiv e pulmonary disease 04321771 Active 2020 Not Available [facility] 4 22:23:27 History of malignant neoplasm 413050061 Active 2020 Not Available [facility] 4 22:23:27 Hypertensi ve disorder 67671598 Active 2020 Not Available [facility] 4 22:23:27 Hypothyroi dism 88351067 Active 2020 Not Available [facility] 4 22:23:28 Prediabete s 126422488 Active 2020 Not Available [facility] 4 22:23:28 History of squamous cell carcinoma in situ 0228348013703 5 Active 2020 Not Available [facility] 4 22:23:28 Coronary arterioscl erosis 04430552 Active 2021 Not Available [facility] 4 22:23:28 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 431150511 Active 2021 Not Available [facility] 4 22:23:27 Copious sputum 332154664 Active 2021 Not Available [facility] 4 22:23:27 Dyspnea on exertion 68799032 Active 2021 Not Available [facility] 4 22:23:28 Chronic cough 04043622 Active 2021 Not Available [facility] 4 22:23:28 Bacterial infection caused by Serratia 57310248 Active 2021 Not Available [facility] 4 22:23:28 Rajni, not Rajni albicans 512540342 Active 2021 Not Available [facility] 4 22:23:28 Bacterial infection caused by Klebsiella pneumoniae 893260659 Active 2021 Not Available [facility] 4 22:23:27 At increased risk for aspiration 931436806 Active 2021 Not Available [facility] 4 22:23:27 Anti-nucle ar factor detected 147340672 Active 2021 Not Available [facility] 4 22:23:27 Esophageal dysmotilit y 971709446 Active 2021 Not Available [facility] 4 22:23:27 Abdominal mass 519681463 Active 2021 Not Available [facility] 4 22:23:27 Postobstru ctive pneumonia 309856633 Active 2021 Not Available [facility] 4 22:23:27 Dysphagia 25907447 Active 2021 Not Available [facility] 4 22:23:28 Obstructiv e sleep apnea syndrome 82606406 Active 2022 Not Available [facility] 4 22:23:28 Thick sputum 109453927 Active 2022 Not Available [facility] 4 22:23:27 Severe chronic obstructiv e pulmonary disease 668417770 Active 2022 Not Available [facility] 4 22:23:27 Solitary nodule of lung 598541623 Active 2022 Not Available [facility] 4 22:23:28 Hyperlipid emia 57546012 Active 2022 Not Available [facility] 4 22:23:28 Insomnia 497234137 Active 2022 Not Available [facility] 4 22:23:27 Pain of bilateral hands 1768238016748 9109 Active 2022 Not Available [facility] 4 22:23:27 Osteoarthr osis of the carpometac arpal joint of the thumb 70960004 Active 2022 Not Available [facility] 4 22:23:27 Bilateral pain of joint of hands 6378920991252 9102 Active 2022 Not Available [facility] 4 22:23:27 Abnormal findings on diagnostic imaging of lung 094333744 Active 2022 Not Available [facility] 4 22:23:27 Arthritis of bilateral first carpometac arpal joints 3574726570747 102 Active 2022 Not Available [facility] 4 22:23:27 Pain of left hand 4837428795756 03 Active 2023 ANEESH Cesar [address], [facility] [address], [place], [address] , [facility] 4 22:54:41 Diabetes mellitus 78998531 Active 2023 ANEESH Hernandez [address], [address], [place], [address] , [place] [facility] 4 11:30:11 Epidermoid cyst of skin of back 760689318 Active 2023 ANEESH Hernandez [address], [address], [place], [address] , [place] [facility] 4 11:34:05 Epidermoid cyst of skin 783760114 Active 2023 Jim esparza MD [address], [address], [place], [address] , [place] [facility] 4 13:58:44 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 Justin jarrett MD [address], [address], [place], [address] , [facility] 5 12:10:07 Essential hypertensi on 58950132 Active 2024 Justin jarrett MD [address], [address], [place], [address] , [facility] 5 12:10:17 Esophageal dysphagia 28513018 Active 2024 Justin jarrett MD [address], [address], [place], [address] , [facility] 5 12:13:28 Bunion 812287436 Active 2024 Madhavi Feldman Demetrio null, [place] [facility] 5 12:40:30 Vitamin D below reference range 248241233 Active 2024 Justin jarrett MD [address], [address], [place], [address] , [facility] 5 15:33:34 Thrombocyt openic disorder 054864581 Active 2024 Justin jarrett MD [address], [address], [place], [address] , [facility] [employer] [facility] 5 16:12:42 Abdominal discomfort 91384885 Active 2024 Justin jarrett MD [address] [facility], [place] [address], [place], [address] , [facility] [employer] [facility] 5 16:16:42 Notes:Medical History: Laryn geal penetration Hypothyroidism Hyperlipidemia Hypertension EF 55% Prediabetes Mild TR CAD 4.1 cm ascending thoracic aortic ectasia Moderate COPD LLL 6.7 mm pulm nodule Asbestos exposure 2341-6451 Mild splenomegaly Left 7.7 cm renal cyst Procedure History: 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 Please review these documents and add these problems to the patient's chart manually as needed. Problem Notes None recorded. Procedures Surgical History Date Name Laterality Status Provider Name and Address Organization Details Recorded Time 4 Blank Procedure Note completed Jim Ramirez MD [address] [facility], [place] [address], [place], [address], [facility] [employer] [facility] 05/18/2024 12:28:30 3 Ortho - Cortisone Injection completed Olivier Jackson MD [address] [facility], [place] [address], [place], [address], [facility] [employer] [facility] 01/28/2023 14:48:33 other completed Annika Varela MA [facility] [employer] 04/15/2024 12:02:59 Imaging Results None recorded. Procedure Notes None recorded. Medical Equipment None Reported. Allergies Allergen ID Allergen Name Allergen Category Reaction Reaction Severity Criticality Documentation Date Start Date Code Code System Note Provider Name and Address Organization Details Recorded Time 45917 bacitraci n / neomycin / polymyxin B medicatio n Not available Not available Not available 09/18/2022 00177 9 RxNorm Not Available [facility] 3 23:31:27 54781 bacitraci n medicatio n Not available Not available Not available 03/29/2024 1291 RxNorm Other react ions and sever ities : 'Adve rse react ion to subst ance - Sever e'. Yoana Rodriguez, SCALPING MACHINE OPERATOR [address] [facility], [facility] [address], [place], [address] , [facility] [employer] 4 14:17:39 Medications Name Sig Start Date [...] mg by injectio n route. 08/25 completed [facility]: [id number] [id number] Not Available Not Available Not [...] %) injection solution in office 08/25 completed [facility] 56094-67 10-19 Not Available Not Available Not Available [...] Updated DateTime 5 182.88 cm 23.8 kg/m2 52874.4 6 g 97 [degF] 0 64 /min 96 % 96 % 136/84 mm[Hg] TABITHA Rainey - Silva ID [facility] 5 15:31:55 Social History Question Answer Notes LastModified by Organizat ion Details LastModified Time Tobacco Smoking Status Former Smoker qiut age 30 Madhavi Feldman, CHRISTOPHER null, [place] [facility] [employer] [facility] 08/25/2024 11:55:50 What Is Your Level Of Caffeine Consumption? Moderate Coffee, 2-3 Cups Per Day MIGRATION.22234 [id number] Information not available 09/18/2022 In The 14 Days Before Symptom Onset, Have You Had Close Contact With A Laboratory-confir med COVID-19 While That Case Was Ill? No MIGRATION.95909 23489 Information not available 09/18/2022 In The 14 Days Before Symptom Onset, Have You Had Close Contact With A Person Who Is Under Investigation For COVID-19 While That Person Was Ill? No MIGRATION.44286 77517 Information not available 09/18/2022 What Type Of Diet Are You Following? SPECIFIC Ensure - Equate Diabetic Care [place]ocolte - Needs Rx For 6 Cases A Month MIGRATION.84566 59538 Information not available 09/18/2022 Have There Been Any Changes To Your Family Or Social Situation? No Information no t available 02/21/2025 When Did You Quit Smoking? 17+yearssinc elastcigaret te MIGRATION.47042 44909 Information not available 09/18/2022 Do You Use Insect Repellent Routinely? No Information not available 02/21/2025 Where Do You Live? Apartment Information not available 02/21/2025 What Was The Date Of Your Most Recent Tobacco Screening? 05/30/2025 Information not available 05/30/2025 Do You Have Any Pets? No Information not available 02/21/2025 What Is Your Relationship Status? [place] [address] Information not available 04/15/2024 Do You Have Smoke And Carbon Monoxide Detectors In Your Home? Yes Information not available 02/21/2025 At What Age Did You Start Smoking Tobacco? 10 MIGRATION.63072 85418 Information not available 09/18/2022 Are You Passively Exposed To Smoke? No Information no t available 02/21/2025 Are There Any Smokers In Your House? No Information not available 02/21/2025 Do You Use Sunscreen Routinely? No Information not available 02/21/2025 Has Tobacco Cessation Counseling Been Provided? No MIGRATION.43153 19961 Information not available 09/18/2022 How Many Years Have You Smoked Tobacco? 20 MIGRATION.82477 96714 Information not available 09/18/2022 Have You Recently Traveled Abroad? No MIGRATION.06200 52401 Information not available 09/18/2022 Do You Have Any Dietary Restrictions? No Had Throat Cancer MIGRATION.23045 52721 Information not available 09/18/2022 Sex: Male Functional Status Question Answer Note LastModified by Organizat ion Details LastModified Time Do you use any illicit or recreational drugs? No MIGRATION.12117876 26 Information not available 09/18/2022 Do you or have you ever used any other forms of tobacco or nicotine? No MIGRATION.35875201 26 Information not available 09/18/2022 What is your level of alcohol consumption? None MIGRATION.58429578 26 Information not available 09/18/2022 Are you currently employed? No Information not available 04/15/2024 What is your exercise level? None MIGRATION.55303038 26 Information not available 09/18/2022 Mental Status Question Answer Note LastModified by Organization D etails LastModified Time Do you feel stressed (tense, restless, nervous, or anxious, or unable to sleep at night)? FC28646-4 Information not available 02/21/2025 Family History Relationship Description Onset Age of this Age Resolved Age Notes LastModified by Organization Details LastModified Time Unspecified Relation Hypertensive disorder MIGRATION.232 [id number] Not available 09/18/2022 23:28:57 Unspecified Relation Myocardial infarction MIGRATION.903 8937288 Not available 09/18/2022 23:28:57 Unspecified Relation Cerebrovascu lar accident MIGRATION.178 1485592 Not available 09/18/2022 23:28:57 Unspecified Relation Family history of malignant neoplasm MIGRATION.880 0145675 Not available 09/18/2022 23:28:57 Unspecified Relation Kidney disease MIGRATION.199 1473986 Not available 09/18/2022 23:28:57 Medical History Condition Response DIABETES, TYPE Y CANCER: SPECIFY Y Immunizations Vaccine Type Date Status Note Provider Nam e and Address Organization Details Recorded Time Influenza, high-dose, quadrivalent, PF completed Not Available [facility] 07/25/2023 22:23:28 zoster recombinant 2 completed Yoana Rodriguez APRN [address], [address], [place], [address], [facility] [employer] [facility] [employer] [facility] 03/29/2024 14:17:58 zoster recombinant 2 completed Yoana Rodriguez APRN [address], [address], [place], [address], [facility] [employer] [facility] 03/29/2024 14:17:58 Influenza, high-dose, quadrivalent, PF 2 completed Yoana Rodriguez APRN [address], [address], [place], [address], [facility] [employer] [facility] 03/29/2024 14:17:58 Influenza, high-dose, quadrivalent, PF 3 completed Yoana Rodriguez APRN [address], [address], [place], [address], [employer] [facility] 03/29/2024 14:17:58 COVID-19, mRNA, LNP-S, PF, 30 mcg/0.3 mL dose 1 completed Yoana Rodriguez APRN [address], [address], [place], [address], [employer] [facility] [employer] [facility] 03/29/2024 14:17:58 Pneumococcal conjugate PCV20, polysaccharide [id number] conjugate, adjuvant, PF 3 completed Yoana Rodriguez APRN [address], [address], [place], [address], [facility] [employer] [facility] 03/29/2024 14:17:58 COVID-19, mRNA, LNP-S, PF, 30 mcg/0.3 mL dose, edison-sucrose 2 completed Yoana Rodriguez APRN [address], [address], [place], [address], [facility] [employer] [facility] 03/29/2024 14:17:58 COVID-19, mRNA, LNP-S, bivalent, PF, 30 mcg/0.3 mL dose 2 completed Yoana Rodriguez APRN [address], [address], [place], [address], [facility] [employer] [facility] 03/29/2024 14:17:58 RSV, bivalent, protein subunit RSVpreF, diluent reconstituted, 0.5 mL, PF 3 completed Yoana Rodriguez APRN [address], [address], [place], [address], [facility] [employer] [facility] 03/29/2024 14:17:58 COVID-19, mRNA, LNP-S, PF, edison-sucrose, 30 mcg/0.3 mL 3 completed Yoana Rodriguez APRN [address], [address], [place], [address], [facility] [employer] [facility] 03/29/2024 14:17:58 COVID-19, mRNA, LNP-S, PF, edison-sucrose, 30 mcg/0.3 mL 4 completed CHRISTOPHER Valdez, [facility] [employer] [facility] 08/25/2024 11:54:34 Influenza, high-dose, trivalent, PF 4 completed CHRISTOPHER Valdez, [facility] [employer] [facility] 08/25/2024 11:54:34 Influenza, high-dose, trivalent, PF 5 completed Not Available [facility] 05/30/2025 15:21:00 COVID-19, mRNA, LNP-S, PF, edison-sucrose, 30 mcg/0.3 mL 5 completed Not Available [facility] 05/30/2025 15:21:00 Past Encounters Encounter ID Performer Location Encounter Start Date Encounter Closed Date Diagnosis/Indication Diagnosis SNOMED-CT Code Diagnosis ICD10 Code Diagnosis IMO Codes Diagnosis Note [id number] Justin jarrett MD [facility] [address] [place] [address] 05/30/2025 15:18:49 05/30/2025 16:22:28 Screening - NAD 806268394 Z13.9 C-scope: C-scope 01/05/2024 : Dr Pina Get yearly flu shot, do Tdap if not doneGet PCV #20Get shingrix vaccine and RSV vaccineCan do COVID 19 boosters RTC in 3 months, do labs, ER if worse, he and his girl friend did verbalize his understand ing of the above Severe chr onic obstructive pulmonary disease 592965614 J44.9 Sees Kristina Renteria MASONRY INSPECTOR last 06/02/2023 , 11/04/2024 On albuterol HHNOn albuterol inhalerOn SpirivaOn SymbicortW ill see Kristina Renteria referredHa s noted a cough, will start on augmentin 800mg bid for 7 days as an oral suspension 11/18/2024 : [facility] minute [facility] Lares [facility] 44615491 E78.5 On rosuvastat in 20mg dailyGet labs 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 s/p radiation Rx, 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 Essential hypertension 07572107 I10 12/14/2024 :ECHO On ASAOn diltiazem 90mg dailyOn lasix 40mg dailyOn metoprolol 25mg dailySees Dr Taylor [facility], last 10/25/2024 , next in 6 months Hypothyroidism 37975074 E03.9 On levothyrox ine 112mcgs dailyGet labs Esophageal dysphagia 408 13552 R13.19 S/p radiation Rx for tonsillar cancerEGD Dr Joy 10/30/2023 , may need feeding tube He is now on liquid diet Vitamin D below reference range 710601867 R79.89 69350318 Thrombocyt openic disorder 107388915 D69.6 44564 Repeat the labs Abdominal discomfort 433 84750 R10.9 118513 Will now refer to ER at [facility] jessica did call the ER Health Concerns Section Related Observation LastModified by Organization Detai ls LastModified Time None Recorded Concern Status LastModified by Organization Details LastModified Time None Recorded Payers Encounter Date Sequence Insurance Name Policy Number Policy Reyes Covered Member ID Reyes Member ID Guarantor Name 05/30/2025 1 [facility] (MEDICARE REPLACEMENT/AD VANTAGE - HMO) [id number] Nathan Moscoso [id number] Nathan Moscoso 05/30/2025 2 [place] WHEN MEDICARE OR MEDICARE REPLACEMENT PRIMARY) Nathan Moscoso [id number] Nathan Moscoso Notes Date Note Type Note Provider Name and Address Organization Details Recorded Time 05/30/2025 text/html OV 08/25/2024:Here to establish care [...] a liquid diet Justin Jane MD [address] [facility], [facility] [address], [place], [address], [place] [facility] 05/30/2025 16:19:23
--- OUTSIDE RECORDS SUMMARY | 2025-05-30 15:44 | XMS_ITS | Encounter Summary ---
Author Organization [facility] Address 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
--- OUTSIDE RECORDS SUMMARY | 2025-05-30 15:44 | XMS_ITS | Encounter Summary ---
Author Organization [facility] Address 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
--- OUTSIDE RECORDS SUMMARY | 2025-05-30 15:44 | XMS_ITS | Encounter Summary ---
Author Organization [facility] Address 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
[2025-05-30 15:47] VITALS: BP 178/97; PULSE 65; RESP 16; TEMP 36.4; O2SAT 98
--- NOTE | 2025-05-30 17:32 | ED.ABDPAIN ---
HPI - Abdominal Pain General Chief Complaint: Abdominal Pain <Kristina Stevenson PA-C - Last Filed: 05/31/25 02:15> Stated Complaint: RLQ abd pain <Kristina Stevenson PA-C - Last Filed: 05/31/25 02:15> Time Seen by Provider: 05/30/25 17:32 <Kristina Stevenson PA-C - Last Filed: 05/31/25 02:15> Focused HPI: This is a 79 year old male that presents to the ER for abdominal pain. Ongoing over the last week. Reports mid to lower abdominal pain on the right. Denies vomiting, diarrhea, dysuria, hematuria GENERAL: Well-appearing, well-nourished, and in no acute distress. HEAD: Normocephalic, atraumatic. CHEST: Clear to auscultation. ?No respiratory distress. HEART: Regular rate and rhythm.? NEURO: ?Alert and oriented x3. Patient screened in triage and initial orders placed.? ?Additional care and disposition to be based upon?diagnostic testing and treatment. <Kristina Stevenson PA-C - Last Filed: 05/31/25 02:15> History of Present Illness HPI narrative: Agree with HPI. No prior abdominal surgeries. <Enrike Henderson DO - Last Filed: 05/31/25 02:54> Related Data Allergies/Adverse Reactions: Allergies Allergy/AdvReac Type Severity Reaction Status Date / Time bacitracin (From Neosporin Allergy Mild Rash Verified 04/24/25 11:47 ([id number])) neomycin (From Neosporin Allergy Mild Rash Verified 04/24/25 11:47 ([id number])) polymyxin B (From Neosporin Allergy Mild Rash Verified 04/24/25 11:47 ([id number])) <Kristina Stevenson PA-C - Last Filed: 05/31/25 02:15> Review of Systems Review of Systems: Gen.: Denies fevers or chills Eyes: Denies eye pain or visual change ENT: Denies congestion Respiratory: Denies shortness of breath or cough CV: Denies chest pain or palpitations GI: As per HPI denies burning, urgency, frequency or hematuria Musculoskeletal: Denies back pain or muscle pain Neuro: Denies numbness, tingling, weakness or focal weakness Skin: Denies rash Except as documented, all other systems reviewed and negative <Enrike Henderson DO - Last Filed: 05/31/25 02:54> [facility] Past Medical History Medical History: Medical History COPD (chronic obstructive pulmonary disease) Achalasia Oropharyngeal cancer <Kristina Stevenson PA-C - Last Filed: 05/31/25 02:15> Exam Narrative: APPEARANCE: No acute distress, nontoxic, resting in bed EYES: EOMI HEENT: Normocephalic, atraumatic, OMM RESPIRATORY: No respiratory distress Clear to auscultation bilaterally with no rhonchi wheezing or rales. CARDIOVASCULAR: Regular rate and rhythm without murmurs rubs or gallops. ABDOMINAL: Soft, mild right upper quadrant tenderness to palpation, nondistended, no rebound or guarding MUSCULOSKELETAl: Moves all extremities. No clubbing, cyanosis or edema. NEURO: Awake and alert. Following commands, speech normal, no focal deficits SKIN:: Warm, dry. No rashes lesions or abrasions PSYCHIATRIC: Normal affect/mood, <Enrike Henderson DO - Last Filed: 05/31/25 02:54> Course Vital Signs Vital signs: Vital Signs Temperature 97.6 F 05/30/25 15:47 Pulse Rate 65 05/30/25 15:47 Respiratory Rate 16 05/30/25 15:47 Blood Pressure 178/97 H 05/30/25 15:47 Pulse Oximetry 98 05/30/25 15:47 Oxygen Delivery Room Air 05/30/25 15:47 Temperature 97.6 F 05/30/25 15:47 Pulse Rate 65 05/30/25 15:47 Respiratory Rate 16 05/30/25 15:47 Blood Pressure 178/97 H 05/30/25 15:47 Pulse Oximetry 98 05/30/25 15:47 Oxygen Delivery Room Air 05/30/25 15:47 <Kristina Stevenson PA-C - Last Filed: 05/31/25 02:15> Vital Signs Temperature 97.6 F 05/30/25 15:47 Pulse Rate 65 05/30/25 15:47 Respiratory Rate 16 05/30/25 15:47 Blood Pressure 178/97 H 05/30/25 15:47 Pulse Oximetry 98 05/30/25 15:47 Oxygen Delivery Room Air 05/30/25 15:47 Temperature 97.6 F 05/30/25 15:47 Pulse Rate 65 05/30/25 15:47 Respiratory Rate 16 05/30/25 15:47 Blood Pressure 178/97 H 05/30/25 15:47 Pulse Oximetry 98 05/30/25 15:47 Oxygen Delivery Room Air 05/30/25 15:47 <Enrike Henderson DO - Last Filed: 05/31/25 02:54> MDM - Abdominal Pain MDM Narrative Medical decision making narrative: 79-year-old male Presenting for right upper quadrant abdominal pain. On initial evaluation patient was in no acute distress afebrile, hemodynamic stable. Differentials include but are not limited to: ACS, cholecystitis, choledocolithiasis, ascending cholangitis, hepatitis, SBO, constipation, cancer Notable exam findings: Mild right upper quadrant tenderness to palpation without rebound or guarding. Notable lab findings: CBC and CMP without significant abnormalities. UA not consistent with a UTI. Notable imaging findings: CT abdomen/pelvis showed no acute process. Unclear what has caused the patient's pain at this time but he does note that is worse with certain movements. Suspect that it may be musculoskeletal in origin. Patient was educated on Tylenol and ibuprofen use. Patient was deemed appropriate for discharge at this time. Patient was advised follow-up with their PCP in the next week for re-evaluation. Patient was agreeable to this plan. Given strict return precautions. <Enrike Henderson DO - Last Filed: 05/31/25 02:54> Medical Records Attestation: I reviewed the patient's medical records. <Enrike Henderson DO - Last Filed: 05/31/25 02:54> Lab Data Attestation: I reviewed the patient's lab results. <Enrike Hendersno DO - Last Filed: 05/31/25 02:54> Result diagrams: 05/30/25 19:02 05/30/25 19:02 <Kristina Stevenson PA-C - Last Filed: 05/31/25 02:15> Labs: Lab Results 05/30/25 05/30/25 Range/Units 17:38 19:02 WBC 5.2 (4.5-10.0) K/mm3 RBC 4.53 L (4.6-6.20) M/mm3 Hgb 15.0 (14.0-18.0) g/dL Hct 43.0 (42.0-52.0) % MCV 94.9 (80-100) fl MCH 33.1 (26-34) pg MCHC 34.9 (32-36) g/dl RDW 12.8 (11.5-14.5) % Plt Count 174 (150-375) k/mm3 MPV 9.0 (7.4-10.4) fl Immature Gran % (Auto) 0.2 (0-0.5) % Neut % (Auto) 54.4 (45.5-73.1) % Lymph % (Auto) 33.8 (18.3-44.2) % [place] % (Auto) 8.5 (2.6-8.5) % Eos % (Auto) 2.3 (0-4.4) % Baso % (Auto) 0.8 (0.2-1.2) % Lymph # (Auto) 1.75 (0.9-3.2) K/mm3 [place] # (Auto) 0.4 (0.1-0.6) K/mm3 Eos # (Auto) 0.1 (0-0.3) K/mm3 Baso # (Auto) 0.0 (0.0-0.1) K/mm3 Abs Immat Gran (auto) 0.01 (0.00-0.031) K/mm3 Absolute Neuts (auto) 2.8 (1.3-6.7) K/mm3 Absolute Nucleated RBC 0.000 (0.0-0.012) K/mm3 Nucleated RBC % 0.0 (0.0-0.2) % Sodium 140 (137-145) mmol/L Potassium 4.4 (3.4-5.0) mmol/L Chloride 104 (98-107) mmol/L Carbon Dioxide 33 H (22-30) mmol/L Anion Gap 3 L (4-12) mmol/L BUN 20 (9-20) mg/dL Creatinine 0.68 L (0.7-1.3) mg/dL Estim Creat Clear Calc 82 ml/min Estimated GFR > 60 (59 - ) Glucose 91 (65-110) mg/dL Calcium 9.4 (8.4-10.2) mg/dL Total Bilirubin 0.9 (0.2-1.3) mg/dL AST 27 (17-59) U/L ALT 15 (6-50) U/L Alkaline Phosphatase 66 (38-126) U/L Total Protein 7.6 (6.3-8.2) g/dL Albumin 4.3 (3.5-5.1) g/dL Lipase 34 (23-300) U/L Urine Color Dark yellow (Yellow) Urine Appearance Clear (Clear) Urine pH 7.0 (5.0-9.0) Ur Specific [place] 1.025 (1.001-1.035) Urine Protein Trace (Negative) mg/dL Urine Glucose (UA) Negative (Negative) mg/dL Urine Ketones Trace H (Negative) mg/dL Ur Blood (Man) Negative (Negative) Urine Nitrate Negative (Negative) Urine Bilirubin 1+ H (Negative) Urine Urobilinogen 2.0 H (<2.0) mg/dL Leukocyte Esterase Rfl 1+ H (Negative) TAB/UL Urine RBC 3-5 H (0-2) /hpf Urine WBC 0-5 (0-3) /hpf Ur Squamous Epith Cells None seen (Few) /hpf Calcium Oxalate Crystal Present (None) /hpf Urine Bacteria None seen /hpf Urine Casts 0-2 <Kristina Stevenson PA-C - Last Filed: 05/31/25 02:15> Lab Results 05/30/25 05/30/25 Range/Units 17:38 19:02 WBC 5.2 (4.5-10.0) K/mm3 RBC 4.53 L (4.6-6.20) M/mm3 Hgb 15.0 (14.0-18.0) g/dL Hct 43.0 (42.0-52.0) % MCV 94.9 (80-100) fl MCH 33.1 (26-34) pg MCHC 34.9 (32-36) g/dl RDW 12.8 (11.5-14.5) % Plt Count 174 (150-375) k/mm3 MPV 9.0 (7.4-10.4) fl Immature Gran % (Auto) 0.2 (0-0.5) % Neut % (Auto) 54.4 (45.5-73.1) % Lymph % (Auto) 33.8 (18.3-44.2) % [place] % (Auto) 8.5 (2.6-8.5) % Eos % (Auto) 2.3 (0-4.4) % Baso % (Auto) 0.8 (0.2-1.2) % Lymph # (Auto) 1.75 (0.9-3.2) K/mm3 [place] # (Auto) 0.4 (0.1-0.6) K/mm3 Eos # (Auto) 0.1 (0-0.3) K/mm3 Baso # (Auto) 0.0 (0.0-0.1) K/mm3 Abs Immat Gran (auto) 0.01 (0.00-0.031) K/mm3 Absolute Neuts (auto) 2.8 (1.3-6.7) K/mm3 Absolute Nucleated RBC 0.000 (0.0-0.012) K/mm3 Nucleated RBC % 0.0 (0.0-0.2) % Sodium 140 (137-145) mmol/L Potassium 4.4 (3.4-5.0) mmol/L Chloride 104 (98-107) mmol/L Carbon Dioxide 33 H (22-30) mmol/L Anion Gap 3 L (4-12) mmol/L BUN 20 (9-20) mg/dL Creatinine 0.68 L (0.7-1.3) mg/dL Estim Creat Clear Calc 82 ml/min Estimated GFR > 60 (59 - ) Glucose 91 (65-110) mg/dL Calcium 9.4 (8.4-10.2) mg/dL Total Bilirubin 0.9 (0.2-1.3) mg/dL AST 27 (17-59) U/L ALT 15 (6-50) U/L Alkaline Phosphatase 66 (38-126) U/L Total Protein 7.6 (6.3-8.2) g/dL Albumin 4.3 (3.5-5.1) g/dL Lipase 34 (23-300) U/L Urine Color Dark yellow (Yellow) Urine Appearance Clear (Clear) Urine pH 7.0 (5.0-9.0) Ur Specific [place] 1.025 (1.001-1.035) Urine Protein Trace (Negative) mg/dL Urine Glucose (UA) Negative (Negative) mg/dL Urine Ketones Trace H (Negative) mg/dL Ur Blood (Man) Negative (Negative) Urine Nitrate Negative (Negative) Urine Bilirubin 1+ H (Negative) Urine Urobilinogen 2.0 H (<2.0) mg/dL Leukocyte Esterase Rfl 1+ H (Negative) TAB/UL Urine RBC 3-5 H (0-2) /hpf Urine WBC 0-5 (0-3) /hpf Ur Squamous Epith Cells None seen (Few) /hpf Calcium Oxalate Crystal Present (None) /hpf Urine Bacteria None seen /hpf Urine Casts 0-2 <Enrike Henderson DO - Last Filed: 05/31/25 02:54> Imaging Data Attestation: I personally reviewed and interpreted this imaging study as follows: <Enrike Henderson DO - Last Filed: 05/31/25 02:54> Radiologist's impression: ITS Impressions Abdomen/Pelvis CT 05/30/25 20:02 IMPRESSION: No acute abnormality is noted in the abdomen and pelvis. Centrilobular emphysematous changes are noted within the lung bases. There are several nodular opacities within the left lung base. Short-term follow-up CT is recommended to ensure resolution. Dilated distal esophagus with reflux noted. All CT scans at this facility are performed using low dose modulation techniques as appropriate to perform exam including the following: automated exposure control; use of iterative reconstruction technique; adjustment of the mA and/or kV according to patient size (this includes techniques or standardized protocols for targeted exams where dose is matched to indication/reason for exam). <Kristina Stevenson PA-C - Last Filed: 05/31/25 02:15> ITS Impressions Abdomen/Pelvis CT 05/30/25 20:02 IMPRESSION: No acute abnormality is noted in the abdomen and pelvis. Centrilobular emphysematous changes are noted within the lung bases. There are several nodular opacities within the left lung base. Short-term follow-up CT is recommended to ensure resolution. Dilated distal esophagus with reflux noted. All CT scans at this facility are performed using low dose modulation techniques as appropriate to perform exam including the following: automated exposure control; use of iterative reconstruction technique; adjustment of the mA and/or kV according to patient size (this includes techniques or standardized protocols for targeted exams where dose is matched to indication/reason for exam). <Enrike Henderson DO - Last Filed: 05/31/25 02:54> Discharge Plan Discharge Clinical Impression: Abdominal pain Qualifiers: Abdominal location: unspecified location Qualified Code(s): R10.9 - Unspecified abdominal pain <DWAYNE Yoo Last Filed: 05/31/25 02:15> Patient Disposition: Home <Kristina Stevenson PA-C - Last Filed: 05/31/25 02:15> Condition: Stable <DWAYNE Yoo Last Filed: 05/31/25 02:15> Instructions: Antibiotic Form, Acute Abdominal Pain (ED) <Kristina Stevenson PA-C - Last Filed: 05/31/25 02:15> Additional Instructions: Lab work and imaging showed no severe infection, no appendicitis or other intraabdominal abnormalities. Follow up with your PCP in the next week for reevaluation. Return to the ED for new or worsening symptoms. For pain, discomfort or temperature greater than or equal to 100.8 ?F please alternate the following 2 medications as needed. First medication- acetaminophen/Tylenol- 1000mg every 6-8 hours as needed for above indications. Second medication- ibuprofen/Motrin-600mg every 6-8 hours as needed for above indication. <Kristina Stevenson PA-C - Last Filed: 05/31/25 02:15> Patient Language: [place] <Kristina Stevenson PA-C - Last Filed: 05/31/25 02:15> Prescriptions: No Action Artificial Tears (cmc) 1 % drops 1 drp EACH EYE QID Qty: 15 0RF azithromycin 250 mg tablet See Rx Instructions .ROUTE .COMPLEX Qty: 6 0RF Rx Instructions: take 500 mg today (day 1), then 250 mg for 4 days (days 2-5) prednisone 50 mg tablet 50 mg PO DAILY Qty: 7 0RF albuterol sulfate 90 mcg/actuation HFA aerosol inhaler 2 puff inhalation QID PRN (Reason: shortness of breath or wheezing) Qty: 8.5 0RF amoxicillin-pot clavulanate 875-125 mg tablet 1 tablet PO Q12H Qty: 10 0RF <Kristina Stevenson PA-C - Last Filed: 05/31/25 02:15> Follow-up/Referrals: Buck,MD Justin [Primary Care Provider, Unknown] <Kristina Stevenson PA-C - Last Filed: 05/31/25 02:15>
[2025-05-30 18:16] LABS: Add Urine Microscopic? YES; Appearance Urine Clear (Clear); Glucose Urine UA Negative (Negative); Leukocyte Esterase Ur 1+ LEU/UL (Negative); Nitrate Urine Negative (Negative); Non Pathogenic Casts 0-2; Specific Grav Ur 1.025 (1.001-1.035)
[2025-05-30 19:16] LABS: Hematocrit 43.0 % (42.0-52.0); Hemoglobin 15.0 g/dL (14.0-18.0); Immature Granulocyte Percent A 0.2 % (0-0.5); Lymphocytes Absolute Auto 1.75 K/mm3 (0.9-3.2); Mean Corpuscular HGB Conc 34.9 g/dl (32-36); Mean Corpuscular Hemoglobin 33.1 pg (26-34); Mean Corpuscular Volume 94.9 fl (80-100); Nucleated Red Blood Cells Absolute Auto 0.000 K/mm3 (0.0-0.012); Nucleated Red Blood Cells Perc 0.0 % (0.0-0.2); Platelet Count Result 174 k/mm3 (150-375); Red Blood Count 4.53 M/mm3 (4.6-6.20); White Blood Count 5.2 K/mm3 (4.5-10.0)
[2025-05-30 19:27] LABS: Alanine Aminotransferase 15 U/L (6-50); Albumin Level 4.3 g/dL (3.5-5.1); Alkaline Phosphatase 66 U/L (38-126); Anion Gap 3 mmol/L (4-12); Aspartate Amino Transferase 27 U/L (17-59); Bilirubin,Total 0.9 mg/dL (0.2-1.3); Blood Urea Nitrogen 20 mg/dL (9-20); Calcium 9.4 mg/dL (8.4-10.2); Carbon Dioxide 33 mmol/L (22-30); Chloride 104 mmol/L (98-107); Estimated CRCL calculation 82 ml/min; Estimated Glomerular Filt Rate > 60; Glucose 91 mg/dL (65-110); Lipase 34 U/L (23-300); Potassium 4.4 mmol/L (3.4-5.0); Sodium 140 mmol/L (137-145); Total Protein 7.6 g/dL (6.3-8.2)
[2025-05-30] MEDS: KETOROLAC 30 MG/ML VIAL (*BKC) IV PUSH (20:38)
== END 2025-05-30 20:40 | disposition home or self-care (01) ==
PROVIDERS: Physician Assistant; Emergency Provider Student in an Organized Health Care Education/Training Program; PCP Internal Medicine
DX: R10.9 Unspecified abdominal pain (principal); J44.9 Chronic obstructive pulmonary disease, unspecified; Z85.819 Personal history of malignant neoplasm of unspecified site of lip, oral cavity, and pharynx
CPT/HCPCS: 36415; 74177; 80053; 81001; 83690; 85025; 87086; 96374; 99284; J1885; Q9967

== ENCOUNTER 2025-07-18 15:37 | Emergency (ER) | payer MEDICARE, MEDICAID, SELFPAY ==
--- OUTSIDE RECORDS SUMMARY | 2025-07-18 15:41 | XMS_ITS | Encounter Summary ---
Author Organization [facility] Address 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
--- OUTSIDE RECORDS SUMMARY | 2025-07-18 15:41 | XMS_ITS | Encounter Summary ---
Author Organization [facility] Address 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
--- OUTSIDE RECORDS SUMMARY | 2025-07-18 15:41 | XMS_ITS | Encounter Summary ---
Author Organization [facility] Address 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
--- OUTSIDE RECORDS SUMMARY | 2025-07-18 15:41 | XMS_ITS | Encounter Summary ---
Author Organization [facility] Address 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
--- OUTSIDE RECORDS SUMMARY | 2025-07-18 15:41 | XMS_ITS | Encounter Summary ---
Author Organization [facility] Address [address] [place] [address] Care Team Providers Care Adjustment Examiner Name Role Phone Galileo Kiser MD Primary Care Provider [phone] Encounter Details Date Type Department Care Team (Latest Contact Info) Description 09/08/2001 Outpatient [facility] [employer] [address] [facility] [address] [place] [address] Nolvia Segovia MD NO ADDRESS ON FILE HEADACHE (Primary Dx) Social History Tobacco Use Types Packs/Day Years Used Date Smoking Tobacco: Never Assessed Sex and Gender Information Value Date Recorded Sex Assigned at Not on file 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
--- OUTSIDE RECORDS SUMMARY | 2025-07-18 15:41 | XMS_ITS | Data Portability ---
Author Organization [place] - [facility], [facility] Address [address] [place] [address] Care Team Providers Care Physician Pediatrician Name Role Phone XOCHILT VANEGAS Primary Care Provider XOCHILT VANEGAS Referring Provider [phone] EVERARDO YOUNG Orthopedic Surgeon XOCHILT VANEGAS Primary Care Provider Assessment No assessment recorded. Plan of Treatment Reminders Order Date Submit Date Provider Last Modified By Organization Details Last Modified Time Details Appointments None recorded. Lab None recorded. Referral physical therapist referral - S/P Left CMC Arthroplast y- 1-2 times a week for 1-2 weeks- ROM, stretching, strengtheni ng, Home exercise program, Theraputty exercises. 2023 024 [facility] [place], [address] [facility], [place], [address], 4 11:17:28 Procedures None recorded. Surgeries None recorded. Imaging XR, thumb - Right Thumb 2024 025 [facility], [address] [place] [address], [place], [address], 5 18:16:16 Medication Orders None recorded. Patient TargetsNo [...] more view No observ ation record ed. [facility] [address] [place], [address], 03/18/2024 13:47:13 10/12/19 25 10/11/2024 sp fluor o 1 hour [place] [address] [address] IMAGIN G REPORT Name: NATHAN BAKER Room #: : 1945 Accoun t #: [id number] Bed #: Age: 78 Years Patien t Type: Outpat ient Order Date/T andrew: 2024 11:31: 01 AM Sex: M Access ion#: Exam Descri ption: Exam Reason : [id number] SP FLUORO 1 HOUR R thumb CMC arthro plasty Dictat ed By: Sharon Zabala rd Physic anna: EVERARDO YOUNG [facility] Physic anna: EVERARDO YOUNG Primar y Care Physic anna: NO, [facility] AL HISTOR Y: R thumb CMC arthro plasty COMPAR LUCHO: None. TECHNI QUE: 2 spot matrix views acquir ed in the proced ure/op rajani g room. TAYLER CORLEYON: Submit charlee spot matrix views were acquir [...] OR/pro cedure room by the surgeo n/supe monica landrum physic anna. Electr onical ly signed by: Sharon Zabala rd, MD 2024 02:48 PM CDT RP Workst ation: [id number] PAGE 1 OF 1 [facility] [address] [place] [address], [address], 10/11/2024 16:34:32 11/13/19 25 11/12/2024 XR, thumb No observ ation record ed. [facility] [address], [place], [address], 11/25/2024 14:33:57 Result Notes None recorded. Problems Name Problem SNOMED Code Status Onset Date Resolution Date Notes Provider Name and Address Organization Details Recorded Time Hyperchole sterolemia 99808597 Active 2020 Not Available [facility] 3 05:21:56 Chronic obstructiv e pulmonary disease 24486392 Active 2020 Not Available [facility] 3 05:21:56 History of malignant neoplasm 877603649 Active 2020 Not Available [facility] 3 05:21:56 Hypertensi ve disorder 40020472 Active 2020 Not Available [facility] 3 05:21:57 Hypothyroi dism 23507267 Active 2020 Not Available [facility] 3 05:21:57 Prediabete s 830287682 Active 2020 Not Available [facility] 3 05:21:58 History of squamous cell carcinoma in situ 1692049858389 5 Active 2020 Not Available [facility] 3 05:21:58 Coronary arterioscl erosis 05034894 Active 2021 Not Available [facility] 3 05:21:57 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 2021 Not Available [facility] 3 05:21:57 Copious sputum 011590951 Active 2021 Not Available [facility] 3 05:21:56 Dyspnea on exertion 02220822 Active 2021 Not Available [facility] 3 05:21:57 Chronic cough 61220758 Active 2021 Not Available [facility] 3 05:21:58 Bacterial infection caused by Serratia 92898264 Active 2021 Not Available [facility] 3 05:21:58 Rajni, not Rajni albicans 292209940 Active 2021 Not Available [facility] 3 05:21:57 Bacterial infection caused by Klebsiella pneumoniae 896949662 Active 2021 Not Available [facility] 3 05:21:56 At increased risk for aspiration 548879461 Active 2021 Not Available [facility] 3 05:21:56 Anti-nucle ar factor detected 279463693 Active 2021 Not Available [facility] 3 05:21:56 Esophageal dysmotilit y 608747391 Active 2021 Not Available [facility] 3 05:21:56 Abdominal mass 064500768 Active 2021 Not Available [facility] 3 05:21:56 Postobstru ctive pneumonia 219250404 Active 2021 Not Available [facility] 3 05:21:56 Dysphagia 61216080 Active 2021 Not Available [facility] 3 05:21:57 Obstructiv e sleep apnea syndrome 79431391 Active 2022 Not Available [facility] 3 05:21:58 Pain of bilateral hands 5442608574313 9109 Active 2023 Dori meza, [facility] 4 10:40:04 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 7780653745964 100 Active 2023 Dori meza, [facility] 5 15:39:14 Pain of left hand 3413335667712 03 Active 2023 Devin Brownscott susana, [facility] 4 12:15:26 Arthritis of first carpometac arpal joint of left hand 9130439749148 103 Active 2023 Dori meza, [facility] 5 15:39:00 Notes:Medical History: Laryn geal penetration Hypothyroidism Hyperlipidemia Hypertension EF 55% Prediabetes Mild TR CAD 4.1 cm ascending thoracic aortic ectasia Moderate COPD LLL 6.7 mm pulm nodule Asbestos exposure 7433-5178 Mild splenomegaly Left 7.7 cm renal cyst Procedure History: 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 Procedures Surgical History Date Name Laterality Status Provider Name and Address Organization Details Recorded Time 10/12/19 25 [facility] 12:03:07 07/21/19 21 colonoscopic polypectomy completed [facility] 01/02/2024 10:53:20 07/21/19 19 bilateral cataract extraction completed [facility] 01/02/2024 10:53:33 07/21/19 16 [facility]24 10:53:14 07/21/18 92 tonsillectomy completed [facility] 01/02/2024 10:52:37 07/21/18 92 colonoscopic polypectomy completed [facility] 01/02/2024 10:53:08 Imaging Results None recorded. Procedure Notes None recorded. Medical Equipment None Reported. Allergies Allergen ID Allergen Name Allergen Category Reaction Reaction Severity Criticality Documentation Date Start Date Code Code System Note Provider Name and Address Organization Details Recorded Time 508986 bacitraci n / neomycin / polymyxin B medicatio n Not available Not available Not available 07/28/2022 53429 9 RxNorm Not Available [facility] 3 05:22:40 Medications Name Sig [...] THEN 1 ONCE DAILY FOR 1 DAY active Not Available Not Available No t Available doxycycline hyclate 100 mg capsule Take 1 capsule twice a day by oral route for 10 days. active Not Available Not Available No t Available albuterol sulfate 2.5 mg/3 mL (0.083 %) solution for nebulizatio n USE 1 VIAL IN NEBULIZER 4 TIMES DAILY DIRECTED active Not Available Not Available No t Available azithromyci n 250 mg tablet TAKE 2 TABLETS BY MOUTH ON DAY 1, AND THEN TAKE 1 TABLET BY MOUTH ONCE A DAY ON DAY 2 THROUGH DAY 5 05/30 completed Not Available Not Available Not [...] Not Available Not Available No t Available sulfamethox azole 800 mg-trimetho prim 160 [...] No t Available prednisone 50 mg tablet TAKE 1 TABLET BY MOUTH ONCE DAILY active Not Available Not Available No t Available trazodone 300 mg tablet Take 1 tablet every day by oral route at bedtime for 30 days. active Not Available Not Available No t Available levofloxaci n 750 mg tablet Take 1 tablet every day by oral route as directed for 10 days. 05/30 completed Not Available Not Available Not Available methylpredn isolone 4 mg tablets in a dose pack FOLLOW PACKAGE DIRECTION S 06/24 completed Not Available Not Available Not Available albuterol sulfate HFA 90 mcg/actuati on aerosol inhaler INHALE 2 PUFFS BY MOUTH 4 TIMES DAILY NEEDED FOR SHORTNESS OF BREATH FOR WHEEZING active Not Available [...] 875 mg-potassiu m clavulanate 125 mg tablet TAKE 1 TABLET BY MOUTH EVERY 12 HOURS 05/30 completed Not Available Not Available Not [...] (BMI) Body weight Heart rate Oxygen saturation Systolic And Diastolic Provider Name and Address Organization Details Last Updated DateTime 5 182.88 cm 23.1 kg/m2 66789.7 g 65 /min 93 % 148/85 mm[Hg] Dori [facility] 5 12:04:52 Date Recorded Body height Body mass index (BMI) Body weight Heart rate Oxygen saturation Systolic And Diastolic Provider Name and Address Organization Details Last Updated DateTime 5 182.88 cm 23.1 kg/m2 39999.7 g 70 /min 94 % 148/78 mm[Hg] [facility] 5 09:48:19 Date Recorded Body height Body mass index (BMI) Body weight Heart rate Oxygen saturation Systolic And Diastolic Provider Name and Address Organization Details Last Updated DateTime 5 182.88 cm 23.6 kg/m2 71695.0 7 g 73 /min 90 % 136/84 mm[Hg] [facility] 5 09:03:36 Date Recorded Body height Body mass index (BMI) Body weight Heart rate Oxygen saturation Systolic And Diastolic Provider Name and Address Organization Details Last Updated DateTime 4 182.88 cm 24.3 kg/m2 98713.0 3 g 58 /min 93 % 148/86 mm[Hg] [facility] 4 11:39:25 Date Recorded Body height Body mass index (BMI) Body weight Heart rate Oxygen saturation Systolic And Diastolic Provider Name and Address Organization Details Last Updated DateTime 4 182.88 cm 23.7 kg/m2 30070.6 6 g 61 /min 95 % 150/82 mm[Hg] [facility] 4 12:08:36 Social History Question Answer Notes LastModified by Organizat ion Details LastModified Time Tobacco Smoking Status Former Smoker Not Available [facility] 07/28/2022 05:21:14 What Is Your Level Of Caffeine Consumption? Moderate Coffee, 2-3 Cups Per Day [id number] Information not available 07/28/2022 In The 14 Days Before Symptom Onset, Have You Had Close Contact With A Laboratory-confir med COVID-19 While That Case Was Ill? No MIGRATION.61438 62750 Information not available 07/28/2022 In The 14 Days Before Symptom Onset, Have You Had Close Contact With A Person Who Is Under Investigation For COVID-19 While That Person Was Ill? No MIGRATION.65406 08238 Information not available 07/28/2022 What Type Of Diet Are You Following? SPECIFIC Ensure - Equate Diabetic Care Chocolte - Needs Rx For 6 Cases A Month MIGRATION.58556 47748 Information not available 07/28/2022 When Did You Quit Smoking? 17+yearssinc elastcigaret te MIGRATION.78543 24321 Information not available 07/28/2022 What Was The Date Of Your Most Recent Tobacco Screening? 06/02/2025 Information not available 04/29/2025 What Is Your Current Pack Years? 20-29packyea rs Information not available 01/08/2024 At What Age Did You Start Smoking Tobacco? 10 MIGRATION.23120 60653 Information not available 07/28/2022 How Much Tobacco Do You Smoke? 1 PPW Information not available 01/08/2024 Has Tobacco Cessation Counseling Been Provided? No MIGRATION.77043 81517 Information not available 07/28/2022 How Many Years Have You Smoked Tobacco? 20 MIGRATION.23216 28032 Information not available 07/28/2022 Have You Recently Traveled Abroad? No MIGRATION.22366 08008 Information not available 07/28/2022 Sex: Male Functional Status Question Answer Note LastModified by Organizat ion Details LastModified Time Do you use any illicit or recreational drugs? No MIGRATION.[id number] 00 Information not available 07/28/2022 Do you or have you ever used any other forms of tobacco or nicotine? No MIGRATION.49327388 00 Information not available 07/28/2022 What is your level of alcohol consumption? None MIGRATION.[id number] 00 Information not available 07/28/2022 Mental Status None recorded. Family History Relationship Description Onset Age of this Age Resolved Age Notes LastModified by Organization Details LastModified Time Unspecified Relation Hypertensive disorder [id number].781 [id number] Not available 07/28/2022 05:21:18 Unspecified Relation Myocardial infarction MIGRATION.051 [id number] Not available 07/28/2022 05:21:18 Unspecified Relation Cerebrovascu lar accident MIGRATION.362 [id number] Not available 07/28/2022 05:21:18 Unspecified Relation Family history of malignant neoplasm MIGRATION.431 [id number] Not available 07/28/2022 05:21:18 Unspecified Relation Kidney disease MIGRATION.548 [id number] Not available 07/28/2022 05:21:18 Medical History Condition Response CANCER: SPECIFY Y SLEEP DISORDER Y HYPERTENSION Y COPD Y HIGH CHOLESTEROL / HYPERLIPIDEMIA Y Immunizations Vaccine Type Date Status Note Provider Nam e and Address Organization Details Recorded Time Influenza, high-dose, quadrivalent, PF 04/11/2021 completed Not Available [facility] 05:22:38 Past Encounters Encounter ID Performer Location Encounter Start Date Encounter Closed Date Diagnosis/Indication Diagnosis SNOMED-CT Code Diagnosis ICD10 Code Diagnosis IMO Codes Diagnosis Note [id number] _ATHN_MIGR ATION_5 _ATHENA_M IGRATION_ DEFAULT_1 _5 , 04/11/2021 00:00:00 04/11/2021 12:28:30 [id number] _ATHN_MIGR ATION_5 _ATHENA_M IGRATION_ DEFAULT_1 _5 , 04/23/2021 00:00:00 04/23/2021 08:23:44 [id number] _ATHN_MIGR ATION_5 _ATHENA_M IGRATION_ DEFAULT_1 _5 , 07/11/2021 00:00:00 07/11/2021 14:25:18 [id number] _ATHN_MIGR ATION_5 _ATHENA_M IGRATION_ DEFAULT_1 _5 , 10/08/2021 00:00:00 10/08/2021 10:43:12 [id number] _ATHN_MIGR ATION_5 _ATHENA_M IGRATION_ DEFAULT_1 _5 , 10/22/2021 00:00:00 10/22/2021 15:59:59 [id number] _ATHN_MIGR ATION_5 _ATHENA_M IGRATION_ DEFAULT_1 _5 , 10/31/2021 00:00:00 10/31/2021 15:34:00 [id number] _ATHN_MIGR ATION_5 _ATHENA_M IGRATION_ DEFAULT_1 _5 , 01/09/2022 00:00:00 01/09/2022 16:25:51 [id number] _ATHN_MIGR ATION_5 _ATHENA_M IGRATION_ DEFAULT_1 _5 , 01/23/2022 00:00:00 01/23/2022 11:53:40 [id number] _ATHN_MIGR ATION_5 _ATHENA_M IGRATION_ DEFAULT_1 _5 , 02/22/2022 00:00:00 02/22/2022 11:41:06 [id number] _ATHN_MIGR ATION_5 _ATHENA_M IGRATION_ DEFAULT_1 _5 , 03/12/2022 00:00:00 03/12/2022 16:14:51 [id number] _ATHN_MIGR ATION_5 _ATHENA_M IGRATION_ DEFAULT_1 _5 , 04/01/2022 00:00:00 04/01/2022 14:04:28 [id number] _ATHN_MIGR ATION_5 _ATHENA_M IGRATION_ DEFAULT_1 _5 , 05/09/2022 00:00:00 05/09/2022 17:01:04 [id number] _ATHN_MIGR ATION_5 _ATHENA_M IGRATION_ DEFAULT_1 _5 , 05/24/2022 00:00:00 05/24/2022 12:11:11 [id number] _ATHN_MIGR ATION_5 _ATHENA_M IGRATION_ DEFAULT_1 _5 , 06/11/2022 00:00:00 06/11/2022 14:19:12 [id number] _ATHN_MIGR ATION_5 _ATHENA_M IGRATION_ DEFAULT_1 _5 , 06/21/2022 00:00:00 06/21/2022 11:55:31 [id number] _ATHN_MIGR ATION_5 _ATHENA_M IGRATION_ DEFAULT_1 _5 , 07/01/2022 00:00:00 07/01/2022 12:38:24 [id number] Everardo Young MD [facility] [address] [address] 01/08/2024 10:53:46 01/08/2024 12:43:50 Ex-smoker 8807500 Z87.891 Arthritis of first carpometacarpal joint of right hand 0139972260 445510 M13.841 patient has done bracing. Patient has [...] working in. Pain of bi lateral hands 6019961074 8878254 M79.641 M79.114 [id number] Everardo Young MD [facility] [address] [address] 02/26/2024 10:58:53 02/26/2024 12:26:10 Pain of bilateral hands 1746993584 4163073 M79.641 M79.642 Ex-cigarette smoker 2810 44333 Z87.891 Pain of left hand 302947 8119 57419 M79.642 Arthritis of first carpometacarpal joint of left hand 5221415177 838312 M13.842 remove sutures. Put him in a well fitted left thumb protective brace to use for 1 month. He can use his fingers but still no loading or pinching against the thumb. See him back in 3 or 4 weeks for AP lateral oblique views of his left hand out of the brace. We will start therapy after that. [id number] Everardo Young MD [facility] [address] [address] 03/18/2024 10:43:58 03/18/2024 12:04:33 Arthritis of first carpometacarpal joint of left hand 1483277713 549818 M13.842 patient will go to therapy now to work on range of motion strengthen ing see him back in a few months for follow-up he can discontinu e the brace Pain of left hand 985104 1096 88642 M79.642 Ex-cigarette smoker 2810 80840 Z87.087 [id number] Everardo Young MD [facility] [address] [address] 07/01/2024 11:52:32 07/01/2024 12:45:39 Arthritis of first carpometacarpal joint of left hand 3927774170 779836 M13.842 patient will continue with strengthen ing exercises for the left hand. We will see him back in a few months to discuss potentiall y doing the CMC arthroplas ty on the right. Ex-cigarette smoker 2809 Z87.141 [id number] Everardo Young MD [facility] [address] 09/30/2024 11:39:48 10/01/2024 03:42:25 Arthritis of first carpometacarpal joint of left hand 9538769889 866497 M13.842 patient will continue with strengthen ing exercises for the left hand. We will see him back in a few months to discuss potentiall y doing the CMC arthroplas ty on the right. 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 He understand s the risks, benefits alternativ es wished to proceed with the right thumb surgery now [id number] Everardo Young MD [facility] [address] [place] [address] 10/28/2024 09:38:32 10/28/2024 10:23:49 Arthritis of first carpometacarpal joint of right hand 8211270553 434655 M13.841 remove sutures today. Put him in [...] a home therapy program with [employer] electrical research engineer and pinch exercises in 4 weeks. Ex-cigarette smoker 2809 Z87.253 [id number] Everardo Young MD [facility] [address] [address] 11/25/2024 08:58:08 11/25/2024 09:25:07 Arthritis of first carpometacarpal joint of left hand 2746607546 913991 M13.842 continue strengthen ing program with the [employer] exercise Arthritis of first carpometacarpal joint of right hand 3213015452 568735 M13.841 he may wean from the brace now most people use it just for heavy activity at this point. Start on the therapy putty strengthen ing exercises I will see him in 6 months Ex-cigarette smoker 1425 35497 Z87.891 Health Concerns Section Related Observation LastModified by Organization Detai ls LastModified Time None Recorded Concern Status LastModified by Organization Details LastModified Time None Recorded Advance Directives Directive None Recorded Payers Insurance Date Sequence Insurance Name Policy Number Policy Reyes Covered Member ID Reyes Member ID Guarantor Name 07/05/2024 1 [facility] (MEDICARE REPLACEMENT/A DVANTAGE - PPO) [id number] Nathan L Danis [id number] Nathan Danis 09/24/2024 2 [place] Nathan L [place] [id number] Nathan [place] 05/30/2025 1 [facility] (MEDICARE REPLACEMENT/A DVANTAGE - HMO) [id number] Nathan L [place] [id number] Nathan [place] 05/30/2025 2 [place] Nathan [place] [id number] Nathan Danis 07/05/2024 3 [place] Nathan [place] [id number] Nathan Danis Notes Date Note Type Note Provider Name and Address Organization Details Recorded Time 03/18/2024 text/html patient returns today for follow-up he had a left thumb CMC interposition arthroplasty on 02/13/2024 doing well at this point minimal pain and swelling he has been in his protective brace for the last 5 weeks. Everardo Young MD [address] [place], [address], [facility] 03/18/2024 13:38:40 07/01/2024 text/html patient returns today for follow-up he had a left thumb CMC interposition arthroplasty on 02/13/2024 doing well at this point minimal pain and swelling he has been in his protective brace for heavy activity at times only now that he is 5 months postop Everardo Young MD [address] [place], [address], [facility] 07/01/2024 12:32:54 09/30/2024 text/html Patient is several months out now from the left thumb carpometacarpal arthroplasties doing very nicely he is ready to proceed with a right thumb now. 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 Patient's left thumbs been doing well since the surgery several months ago. Had a little bit of pain as is common in the 1st few days doing well now. Everardo Young MD [address] [place], [address], [facility] 10/28/2024 11:40:32 11/25/2024 text/html Patient is doing well after his CMC interposition arthroplasty. Everardo Young MD [address] [place], [address], [facility] 11/25/2024 09:23:54
--- OUTSIDE RECORDS SUMMARY | 2025-07-18 15:41 | XMS_ITS | Encounter Summary ---
Author Organization [facility] Address [address] 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
--- OUTSIDE RECORDS SUMMARY | 2025-07-18 15:41 | XMS_ITS | Encounter Summary ---
Author Organization [facility] Address [address] [place] [address] Care Team Providers Care Assembly Machine Operator Name Role Phone Galileo Kiser MD Primary Care Provider [phone] Encounter Details Date Type Department Care Team (Latest Contact Info) Description 10/10/2001 Outpatient [facility] [address] [facility] [address] [place] [address] Nolvia Segovia MD NO ADDRESS ON FILE HEADACHE (Primary Dx) Social History Tobacco Use Types Packs/Day Years Used Date Smoking Tobacco: Never Assessed Sex and Gender Information Value Date Recorded Sex Assigned at Not on file 

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
--- OUTSIDE RECORDS SUMMARY | 2025-07-18 15:41 | XMS_ITS | Encounter Summary ---
Author Organization [facility] Address [address] [place] [address] Care Team Providers Care Admission Liaison Name Role Phone Teresa Jane MD Primary Care Provide r Reason for Visit * Reason Onset Date Comments Blood in throat and coughing up blood 07/18/2025 Encounter Details Date Type Department Care Team (Late st Contact Info) Description 07/18/2025 Telephone [facility] Pulmonary at [address] [place] [address] Mariia Myers LPN Blood in throat and coughing up blood Social History Tobacco Use Types Packs/Day Years Used Date Smoking Tobacco: Former Cigarettes 0.5 18 1 958 - 6999 Passive Smoke Exposure: Past Smokeless Tobacco: Never [...] on file Legal Sex Male 11:41 PM MED ADMIN Gender Identity Male 05/13/2021 1:34 PM CDT Sexual Orientation Straight 05/13/2021 1: 34 PM CDT documented as of this encounter Miscellaneous Notes * Telephone Encounter - Mariia Myers LPN - 07/18/2025 3:09 PM MED ADMIN Pt and significant other on phone as pt is difficult to understand Pt and Chelsea both say pt is coughing up blood, and has bleeding in the back of his throat. Per Kristina Renteria SHEET METAL ENGINEER, pt should go to the Emergency room. Pt verbalizes good understanding. ADMIN documented in this encounter Plan of Treatment Not on file documented as of this encounter Visit Diagnoses Not on filedocumented in this encounter Care Teams Admission Liaison Relationship Specialty Start Date End Date Teresa Jane MD [address] [place] [address] PCP - General Internal Medicine 05/16/25 documented as of this encounter
--- OUTSIDE RECORDS SUMMARY | 2025-07-18 15:41 | XMS_ITS | Clinical Summary ---
Author Organization [facility] Address [address] [place] [address] Care Team Providers Care Evaluation Advisor Name Role Phone Galileo Kiser MD Primary Care Provider [phone] Allergies Active Allergy Reactions Criticality Noted Date Comments Trgkfdrf-Yqvphfckicj-Lenljroaq Rash Low 07/26 Medications Food Supplement, Lactose-Free (ENSURE HIGH PROTEIN) Oral Liqd Take 240 mL by mouth q 3 hour. 03035 mL 11 03/29/20 13 Active Additional Information [...] complication, without long-term current use of insulin ([facility]/HCC) Patient to test BG 1 time per day. E11.9 100 Each 03/01/20 20 Active ipratropium-albute roL (DUONEB) 0.5 mg-3 mg(2.5 mg base)/3 mL Solution for NebulizationIndica tions:Chronic obstructive pulmonary disease, unspecified COPD type (CMS/HCC) USE 1 VIAL IN NEBULIZER EVERY 6 HOURS NEEDED FOR SHORTNESS OF BREATH 180 mL 04/11/20 Active albuterol HFA 90 mcg inhalerIndications :Chronic [...] Years Used Date Smoking Tobacco: Former Cigarettes 18 0 07/21/1957 - 07/21/1975 Smokeless Tobacco: Never Tobacco Cessation:Counseling Given: Yes Alcohol Use Standard Drinks/Week Comments No 0 (1 standard drink = 0.6 oz pur e alcohol) never Sex and Gender Information Value Date Recorded Sex Assigned at Not on file Legal Sex Male 5:24 AM CONSULTING SOLUTION DIRECTOR Gender Identity Not on file Sexual [...] 09/28/2029 09/29/2019 Medical Devices Implanted Type Area Glass Loading Equipment Tender Device Identifier Shelf Expiration Date Model / Serial / Lot Clip Endo Resolution 360 235cm [id number] - [id number] Implanted:Qty: 2 on 02/12/2019 by Krishna Foster MD at [facility] Clip N/A: Perianal [employer] [id number] / / Lens Io Sn60wf 21.0 - [id number] Implanted:Qty: 1 on 02/19/2021 by Polo Huang MD at [facility] Patients First Eye Right: Eye [employer] [id number] 10/20/2025 SN60WF .21 0 / [id number] / Lens Io Sn60wf 21.5 - [id number] Implanted:Qty: 1 on 03/05/2021 by Polo Huang MD at [facility] [employer] Eye Left: Eye [employer] [id number] 10/23/2025 SN60WF .21 5 / [id number] / [id number] Procedures Procedure Name Priority Date/Time Associated Diagnosis Comments MICROALBUMIN/CREATIN INE RATIO, RANDOM UR Routine 12/29/2020 2:34 PM CDT Type 2 diabetes mellitus without complication, without long-term current use of insulin (CMS/HCC) Essential hypertension LIPID PANEL Routine 12/29/2020 2:34 [...] Creatinine, Urine 207 20 - 320 mg/dL [facility] MICROALBUMIN, URINE 1.3 See Note: mg/dL [facility] Comment: Reference Range: Reference Range Not established MICROALBUMIN/CREAT RATIO, UR 6 <30 mcg/mg creat [facility] Comment: The ADA defines abnormalities in albumin excretion as follows: Category Result (mcg/mg creatinine) Normal <30 Microalbuminuria 30-299 Clinical albuminuria > OR = 300 The ADA recommends that at least two of three specimens collected within a 3-6 month period be abnormal before considering a patient to be within a diagnostic category. Test Performed at: [facility] [address] [place] [address] Marcello Yoo D.O., MPH Urine URINE SPECIMEN OBTAINED BY CLEAN CATCH PROCEDURE / Unknown 12/29/2020 2:34 PM CDT Galileo Kiser MD URINE ORDERABLES Final Result Performing Organization Address [facility] de Phone Number [facility] [address] [place] [address] * HEMOGLOBIN A1C (12/29/2020 2:34 PM CDT) Pathologist [facility] HEMOGLOBIN A1C 5.1 <5.7 % of total Hgb [facility] Comment: Test Performed at: [facility] [address] [place] [address] [facility] Blood 12/29/2020 2:34 PM CDT Galileo Kiser MD CHEMISTRY ORDERABLES Final Re sult Performing Organization Address [facility] Co de Phone Number [facility] [address] [place] [address] * LIPID PANEL (12/29/2020 2:34 PM CDT) CHOLESTEROL 147 <200 mg/dL [facility] HDL 52 > OR = 40 mg/dL [facility] TRIGLYCERIDE 117 <150 mg/dL [facility] LDL CALCULATED 75 mg/dL (calc) [facility] Comment: Reference range: <100 Desirable range <100 mg/dL for primary prevention; <70 mg/dL for patients with CHD or diabetic patients with > or = 2 CHD risk factors. LDL-C is now calculated using the Jam calculation, which is a validated novel method providing better accuracy than the Friedewald equation in the estimation of LDL-C. Sulaiman SS et al. PAVAN. 2013;310(19): 7842-6805 (http://education.MyToons/faq/NZD319) CHOL/HDL RATIO 2.8 <5.0 (calc) [facility] TOTAL NON-HDL CHOL(LDL+VLDL) 95 <130 mg/dL (calc) [facility] Comment: For patients with diabetes plus 1 major ASCVD risk factor, treating to a non-HDL-C goal of <100 mg/dL (LDL-C of <70 mg/dL) is considered a therapeutic option. Test Performed at: [facility] [address] [place] [address] [facility] Blood 12/29/2020 2:34 PM CDT us Galileo Kiser MD CHEMISTRY ORDERABLES Final Re sult [facility] [address] [place] [address] * COLONOSCOPY REPORT (11/28/2020 10:22 AM CDT) Narrative Procedure Note Krishna Foster MD - 11/28/2020 10:20 AM CDT [facility] GI Patient Name: Nathan Moscoso Procedure [...] bowel preparation was evaluated using the BBPS ([place] Bowel Preparation Scale) with scores of: Right [...] surveillance based on pathology results. - A [employer] message and/or a letter will be sent to you summarizing the pathology results. Please call the GI office ([phone]) if you have not heard the results within 2 weeks. - Goal intake of 25-30 grams of fiber per day. This is a combination of dietary fiber (located on product food label) as well as supplemental fiber (for example Citrucel, Fibercon, Konsyl or Metamucil) if needed. Procedure Code(s): --- Professional --- 38312, Colonoscopy, flexible; with removal of tumor(s), polyp(s), or other lesion(s) by snare technique 54522, 59, Colonoscopy, flexible; with biopsy, single or multiple Diagnosis Code(s): --- Professional --- D12.3, Benign neoplasm of transverse colon (hepatic flexure or splenic flexure) D12.2, Benign neoplasm of ascending colon D12.4, Benign neoplasm of descending colon Z86.010, Personal history of colonic polyps K57.30, Diverticulosis of large intestine without perforation or abscess without bleeding CPT copyright 2018 [employer] [place] [employer]. All rights reserved. The codes documented in this report are preliminary and upon senior animal trainer review may be revised to meet current compliance requirements. Krishna Foster MD 11/28/2020 10:20:34 AM Number of Addenda: 0 Estimated Blood Loss: Estimated blood loss: none. Krishna Foster MD GI PROCEDURE ORDERABL ES Final Result from Last 3 Months or Most Recently Relevant to Health [place] [address] [facility] [id number] * Guarantor: Nathan Moscoso Jr. Account Type Relation to Patient Date of Phone Billing Address Personal/Family Self 1945 [address] [place] [address] Advance Directives For more information, please contact: [phone] * Full Code (Latest Code Status on File) Date Activated Date Inactivated Comments 11/28/2020 9:10 AM 11/28/2020 12:48 PM * Full Code Date Activated Date Inactivated Comments 02/12/2019 11:45 AM 02/12/2019 4:55 PM * Full Code Date Activated Date Inactivated Comments 10/30/2013 2:27 PM 10/31/2013 3:06 PM * Full Code Date Activated Date Inactivated Comments 03/17/2013 5:33 PM 03/20/2013 11:31 AM Care Teams Evaluation Advisor Relationship Specialty Start Date End Date Galileo Kiser MD PCP - General Family Practice 04/02/16
--- NOTE | 2025-07-18 15:48 | PC.NURSE ---
Pt left prior to triage, states he will call his doctor.
== END 2025-07-18 15:55 | disposition left against medical advice (07) ==
LOC: ANHED 15:53
PROVIDERS: PCP Internal Medicine
DX: Z53.21 Procedure and treatment not carried out due to patient leaving prior to being seen by health care provider (principal)
CPT/HCPCS: 99199